=== PATIENT | female | born 1940 | race Caucasian/White ===

== ENCOUNTER → 2016-06-17 | Outpatient (CLI) | payer OTHER ==
[~2016-06-17] MED LIST: ACET-1311 PO; ALLO100T PO; AMLO-110 PO; APIX1TAB PO; CALC-354 PO; CALC500C3 PO; ELQ25 PO; LEVO75TA5 PO; MAGN400T6 PO; METO100T14 PO; METO50TA16 PO; METO50TA17 PEG; METO50TA17 PO; MULT-506 PO; SIMV10TA5 PO
--- NOTE | 2016-06-17 14:37 | MAMMOGRAPHY REPORT ---
BILATERAL DIGITAL SCREENING MAMMOGRAM WITH CAD: 06/17/2016 CLINICAL HISTORY: Routine screening examination. TECHNIQUE: Bilateral CC and MLO views were obtained. Current study was also evaluated with a Comput er Aided Detection (CAD) system. COMPARISON: Comparison is made to exams dated: 03/29/2015 mammogram, 03/28/2014 mammogram, 3 mammogram, and 03/19/2010 mammogram - [facility]. BREAST COMPOSITION: The tissue of both breasts is almost entirely fatty. FINDINGS: There are mild to moderate bilateral vascular calcifications and stable benign coarse juan r cifications within the left breast. No suspicious mass, architectural distortion or cluster of new, suspicious microcalcifications is seen. IMPRESSION: ACR BI-RADS CATEGORY 1: NEGATIVE There is no mammographic evidence of malignancy. A 1 year screening mammogram is recommended. The p atient will receive written notification of the results. Approximately 10% of breast cancers are not detected with mammography. A negative mammographic repor t should not delay biopsy if a clinically suggestive mass is present. Lola Fair M.D. ay/:06/17/2016 13:41:12 Purchaser: Beverley CHEN(R)(M), [facility] letter sent: Normal 1/2 BI-RADS Code: ACR BI-RADS Category 1: Negative
== END | disposition home or self-care (01) ==
LOC: C.MAMM 12:17
PROVIDERS: ATTEND Internal Medicine
DX: Z12.31 Encounter for screening mammogram for malignant neoplasm of breast (principal)

== ENCOUNTER → 2016-06-28 | Outpatient (CLI) | payer OTHER ==
[2016-06-28 12:28] LABS: BASO % 0.4 %; BASO ABS # 0.03 K/uL (0-0.2); COMPLETE YES; EOS % 2.5 %; HEMATOCRIT 39.2 % (37-47); IG% 0.2 %; LYMPH % 21.7 %; LYMPH ABS # 1.84 K/uL (1.2-3.4); MEAN CELL VOLUME 96.1 fL (80-100); MEAN CORPUSCULAR HEMOGLOBIN 33.1 pg (25-34); MEAN CORPUSCULAR HGB CONC 34.4 g/dl (32-36); MEAN PLATELET VOLUME 11.9 fL (7.4-10.4); MONO % 7.1 %; NEUT % 68.1 %; PLATELET COUNT 193 K/uL (130-400); RED BLOOD COUNT 4.08 M/uL (4.2-5.4); WHITE BLOOD COUNT 8.49 K/uL (4.8-10.8)
[2016-06-28 12:37] LABS: ALT/SGPT 27 U/L (12-78); BLOOD UREA NITROGEN 22 mg/dl (7-18); BUN/CREATININE RATIO 20.2 (10-20); CALCIUM 9.6 mg/dl (8.5-10.1); CARBON DIOXIDE 26 mmol/L (21-32); CHLORIDE 105 mmol/L (98-107); CHOLESTEROL 138 mg/dl (0-200); GLUCOSE 220 mg/dl (70-99); MAGNESIUM 1.8 mg/dl (1.8-2.4); POTASSIUM 3.5 mmol/L (3.5-5.1); SODIUM 142 mmol/L (136-145)
[2016-06-28 12:46] LABS: ALB/GLOB RATIO 0.8 (0.9-2); ALKALINE PHOSPHATASE 70 U/L (45-117); AST/SGOT 19 U/L (15-37); CHOLESTEROL/HDL RATIO 3.1; HDL CHOLESTEROL 44 mg/dl; LDL CHOLESTEROL CALCULATED 65 mg/dl; TRIGLYCERIDES 143 mg/dl (0-150); VERY LOW DENSITY LIPOPROT CALC 29 mg/dl
[2016-06-28 13:14] LABS: ESTIMATED AVERAGE GLUCOSE 137 mg/dl; HA1C FLAG Normal (Normal)
[2016-06-28 13:17] LABS: RATIO 14.3 mcg/mg (0-30.0)
== END | disposition home or self-care (01) ==
LOC: C.LABBFT 09:17
PROVIDERS: ATTEND Internal Medicine
DX: E87.6 Hypokalemia (principal); E83.42 Hypomagnesemia; E03.9 Hypothyroidism, unspecified; E11.29 Type 2 diabetes mellitus with other diabetic kidney complication; C18.9 Malignant neoplasm of colon, unspecified

== ENCOUNTER 2016-07-16 09:47 | Inpatient (IN) | payer OTHER ==
[~2016-07-16] VITALS: Ht 160 cm; Wt 61.5 kg
[~2016-07-16 09:47] MED LIST changes: -AMLO-110 PO; -APIX1TAB PO; -CALC500C3 PO; -METO50TA16 PO; -METO50TA17 PEG; -METO50TA17 PO
[2016-07-16] MEDS ORDERED: METOPROLOL TARTRATE 1 MG/ML VIAL IV SCH (10:03)
[2016-07-16] MEDS ORDERED: METOPROLOL TARTRATE 1 MG/ML VIAL IV STA (10:06)
--- NOTE | 2016-07-16 10:08 | EMERGENCY ROOM VISIT NOTE ---
History Report prepared by Morena: Bianca Phillips Under the Supervision of: Dr. Zoë Menjivar M.D. First contact with patient: 09:53 Chief Complaint: TACHYCARDIA Stated Complaint: HEART IS BEATING FAST, CHEST PAIN History of Present Illness The patient is a 76 year old female who presents to the Emergency Room with complaints of intermittent heart racing that began about an hour and 20 minutes ago. She notes that she was resting and was not exerting herself at that time. She also complains of intermittent chest pain. She has a history of a-fib and a heart murmur. She is on Eliquis and Metoprolol. She typically goes back and forth between sinus rhythm and a-fib but cannot tell when she is in a-fib. She took her morning medications [employer]. Source of History: patient Onset: 1 hour and 20 minutes ago Position: other (cardiac) Quality: other (heart racing) Timing: intermittent Associated Symptoms: + chest pain Review of Systems See HPI for pertinent positives & negatives. A total of 10 systems reviewed and were otherwise negative. Past Medical & Surgical Medical Problems: (1) Afib (2) Ankle fracture (3) Colon cancer (4) Hypertension Family History No pertinent family history stated. Social History Smoking Status: Never Smoker Marital Status: Housing Status: lives with family Occupation Status: retired Current/Historical Medications Scheduled Allopurinol (Zyloprim), 100 MG PO QPM Amlodipine (Norvasc), 5 MG PO DAILY Apixaban (Eliquis), 1 TAB PO BID Calcium Carbonate-Cholecalcife (Caltrate 600+D), 1 TAB PO BID Levothyroxine Sodium (Levothyroxine Sodium), 75 MCG PO QAM Magnesium Oxide (Mag-Ox), 400 MG PO QAM Metoprolol Tartrate (Metoprolol Tartrate), 50 MG PO BID Multivitamin (Multivitamin), 1 TAB PO QAM Simvastatin (Zocor), 10 MG PO HS Scheduled PRN Acetaminophen (Tylenol), 650 MG PO Q6 PRN for Pain Allergies Coded Allergies: NO KNOWN DRUG ALLERGIES (Verified Allergy, Unknown, ., 07/16/16) Physical Exam Vital Signs Date Time Temp Pulse Resp B/P Pulse Ox O2 Delivery O2 Flow Rate FiO2 07/16/16 13:25 36.9 47 18 108/61 94 Room Air 07/16/16 13:00 57 18 113/65 94 Room Air 07/16/16 12:56 60 07/16/16 12:00 70 20 149/64 96 Room Air 07/16/16 11:00 111 18 127/68 96 Room Air 07/16/16 10:52 134 136/66 07/16/16 10:08 119 20 125/86 96 Room Air 07/16/16 10:00 142 07/16/16 09:55 96 Room Air 07/16/16 09:48 36.9 134 24 118/79 97 Room Air Physical Exam Vital signs reviewed. General: Elderly, well-appearing 76 year old female, in no significant distress. HEENT: No scleral icterus, PERRLA, neck supple. Atraumatic. Cardiovascular: Tachycardic rate and irregular rhythm, no extra sounds. Pulmonary: Clear to auscultation bilaterally, normal work of breathing. Abdomen: Soft, nontender, nondistended, positive bowel sounds. Musculoskeletal: Atraumatic, no peripheral edema. Neurologic: Patient awake alert and oriented x 3, full strength in all 4 extremities. Cranial nerves 2 through 12 grossly intact. Skin: Warm, dry, no rash Medical Decision & Procedures ER Provider Diagnostic Interpretation: Radiology results as stated below per my review and radiologist interpretation: SINGLE VIEW CHEST CLINICAL HISTORY: Atrial fibrillation. Atypical chest pain. FINDINGS: An AP, portable, upright chest radiograph is compared to study dated 01/18/2016 and correlated with chest CT dated 01/09/2016. The examination is degraded by portable technique and patient rotation. The heart is enlarged and there is atherosclerotic calcification of the thoracic aorta. The pulmonary vasculature is noncongested. Chronic interstitial thickening is similar previous. There is minimal bibasilar atelectasis. The lungs and pleural spaces are otherwise clear. No pneumothorax is seen. The skeletal structures are osteopenic. Arthritic change is noted in the shoulders. IMPRESSION: Cardiomegaly with no acute cardiopulmonary abnormality. Electronically signed by: Alex Arnold M.D. 07/16/2016 10:26 AM Dictated Date/Time: 07/16/2016 10:25 AM Laboratory Results Test 07/16/16 10:03 07/16/16 11:10 07/16/16 11:52 07/16/16 12:04 Immature Granulocyte % (Auto) 0.1 % White Blood Count 7.07 K/uL (4.8-10.8) Red Blood Count 4.36 M/uL (4.2-5.4) Hemoglobin 13.9 g/dL (12.0-16.0) Hematocrit 40.2 % (37-47) Mean Corpuscular Volume 92.2 fL (80-100) Mean Corpuscular Hemoglobin 31.9 pg (25-34) Mean Corpuscular Hemoglobin Concent 34.6 g/dl (32-36) Platelet Count 183 K/uL (130-400) Mean Platelet Volume 11.3 fL (7.4-10.4) Neutrophils (%) (Auto) 67.6 % Lymphocytes (%) (Auto) 21.4 % Monocytes (%) (Auto) 8.1 % Eosinophils (%) (Auto) 2.4 % Basophils (%) (Auto) 0.4 % Neutrophils # (Auto) 4.78 K/uL (1.4-6.5) Lymphocytes # (Auto) 1.51 K/uL (1.2-3.4) Monocytes # (Auto) 0.57 K/uL (0.11-0.59) Eosinophils # (Auto) 0.17 K/uL (0-0.5) Basophils # (Auto) 0.03 K/uL (0-0.2) Immature Granulocyte # (Auto) 0.01 K/uL (0.00-0.02) Magnesium Level 1.9 mg/dl (1.8-2.4) Total Bilirubin 0.5 mg/dl (0.2-1) Direct Bilirubin 0.1 mg/dl (0-0.2) Aspartate Amino Transf (AST/SGOT) 21 U/L (15-37) Alanine Aminotransferase (ALT/SGPT) 36 U/L (12-78) Alkaline Phosphatase 77 U/L (45-117) Total Creatine Kinase 29 U/L (26-192) Creatine Kinase MB 0.8 ng/ml (0.5-3.6) Creatine Kinase MB Ratio 2.8 (0-3.0) Total Protein 8.0 gm/dl (6.4-8.2) Albumin 3.8 gm/dl (3.4-5.0) Prothrombin Time 11.4 SECONDS (9.0-12.0) Prothromb Time International Ratio 1.1 (0.9-1.1) Activated Partial Thromboplast Time 29.1 SECONDS (21.0-31.0) Partial Thromboplastin Ratio 1.1 Urine Color YELLOW Urine Appearance CLEAR (CLEAR) Urine pH 8.0 (4.5-7.5) Urine Specific [place] 1.005 (1.000-1.030) Urine Protein NEG (NEG) Urine Glucose (UA) 2+ (NEG) Urine Ketones NEG (NEG) Urine Occult Blood NEG (NEG) Urine Nitrite NEG (NEG) Urine Bilirubin NEG (NEG) Urine Urobilinogen NEG (NEG) Urine Leukocyte Esterase TRACE (NEG) Urine WBC (Auto) 1-5 /hpf (0-5) Urine RBC (Auto) 0-4 /hpf (0-4) Urine Hyaline Casts (Auto) 0 /lpf (0-5) Urine Epithelial Cells (Auto) 10-20 /lpf (0-5) Urine Bacteria (Auto) NEG (NEG) Bedside Troponin I 0.000 ng/ml (0-0.045) Laboratory results per my review. Medications Administered Medications (Trade) Dose Ordered Sig/Marcel Route Start Time Stop Time Status Last Admin Dose Admin Metoprolol Tartrate (Lopressor Iv) 5 mg NOW STAT IV 07/16/16 10:06 07/16/16 10:07 DC 07/16/16 10:52 2.5 MG ECG Indication: tachycardia Rate (beats per minute): 144 Rhythm: sinus tachycardia Findings: other (LVH, repolarization abnormality in the lateral leads) ED Course 1004: The patient was evaluated in room B3. A complete history and physical examination was performed. 1006: Ordered Lopressor 5 mg IV. 1144: I discussed the case with Dr. Treadwell - [facility] Hospitalist. The patient will be evaluated for further management. 1148: Upon reevaluation, the patient is resting comfortably. I discussed laboratory and radiographic results with her. She verbalized agreement of the treatment plan. Medical Decision Differential diagnosis: Acute coronary syndrome, pulmonary embolus, aortic dissection, musculoskeletal pain, pneumonia, pleural effusion, pneumothorax This pt was evaluated and appeared to be in no distress. She is noted to be markedly tachycardic, but trends down to 110 without intervention. Pt quickly rebounds to 170s. Pt has maintained her BP. Pt was given IV metoprolol 5 mg but hesitantly as she briefly became bradycardic to the 30s for less than a min x 2 occasions. Pt lab work reveals a hyperglycemia and mild renal insufficiency. Pt was made aware of the plan for admission and cardiology evaluation. Pt was d/w the hospitalist service for further management. Consults Time Called: 1140 Consulting Physician: Dr. Mile Manriquez [facility] Hospitalist Returned Call: [phone] I discussed the case with her. The patient will be evaluated for further management. Impression Primary Impression: Tachy-herve syndrome Scribe Attestation The scribe's documentation has been prepared under my direction and personally reviewed by me in its entirety. I confirm that the note above accurately reflects all work, treatment, procedures, and medical decision making performed by me. Departure Information Dispostion Being Evaluated By Hospitalist Prescriptions Metoprolol Tartrate (Metoprolol Tartrate) 50 Mg Tab 50 MG PO BID for 30 Days Prov: Génesis Jones MD 07/17/16 Referrals Juan Eubanks M.D. (PCP) Patient Instructions My [facility]
--- NOTE | 2016-07-16 10:27 | DIAGNOSTIC IMAGING REPORT ---
SINGLE VIEW CHEST CLINICAL HISTORY: Atrial fibrillation. Atypical chest pain. FINDINGS: An AP, portable, upright chest radiograph is compared to study dated 01/18/2016 and correlated with chest CT dated 01/09/2016. The examination is degraded by portable technique and patient rotation. The heart is enlarged and there is atherosclerotic calcification of the thoracic aorta. The pulmonary vasculature is noncongested. Chronic interstitial thickening is similar previous. There is minimal bibasilar atelectasis. The lungs and pleural spaces are otherwise clear. No pneumothorax is seen. The skeletal structures are osteopenic. Arthritic change is noted in the shoulders. IMPRESSION: Cardiomegaly with no acute cardiopulmonary abnormality. Electronically signed by: Alex Arnold M.D. 07/16/2016 10:26 AM Dictated Date/Time: 07/16/2016 10:25 AM
[2016-07-16 10:36] LABS: BASO % 0.4 %; BASO ABS # 0.03 K/uL (0-0.2); COMPLETE YES; EOS % 2.4 %; HEMATOCRIT 40.2 % (37-47); IG% 0.1 %; LYMPH % 21.4 %; LYMPH ABS # 1.51 K/uL (1.2-3.4); MEAN CELL VOLUME 92.2 fL (80-100); MEAN CORPUSCULAR HEMOGLOBIN 31.9 pg (25-34); MEAN CORPUSCULAR HGB CONC 34.6 g/dl (32-36); MEAN PLATELET VOLUME 11.3 fL (7.4-10.4); MONO % 8.1 %; NEUT % 67.6 %; PLATELET COUNT 183 K/uL (130-400); RED BLOOD COUNT 4.36 M/uL (4.2-5.4); WHITE BLOOD COUNT 7.07 K/uL (4.8-10.8)
[2016-07-16] MEDS ORDERED: AMLO-110 PO (10:58)
[2016-07-16 11:03] LABS: BUN/CREATININE RATIO 15.9 (10-20); CALCIUM 9.1 mg/dl (8.5-10.1); CREATININE 1.3 mg/dl (0.60-1.20); MAGNESIUM 1.9 mg/dl (1.8-2.4); POTASSIUM 3.5 mmol/L (3.5-5.1)
[2016-07-16 11:08] LABS: CKMB/CK RATIO 2.8 (0-3.0)
[2016-07-16 11:36] LABS: INR 1.1 (0.9-1.1); PARTIAL THROMBOPLASTIN RATIO 1.1; PROTHROMBIN TIME (PATIENT) 11.4 SECONDS (9.0-12.0)
[2016-07-16 12:17] LABS: URINE APPEARANCE CLEAR (CLEAR); URINE BILIRUBIN NEG (NEG); URINE COLOR YELLOW; URINE NITRITE NEG (NEG); URINE SPECIFIC GRAVITY 1.005 (1.000-1.030); UROBILINOGEN NEG (NEG); ZZUR CULT IF INDIC CLEAN CATCH NO
[2016-07-16 12:20] LABS: MANUAL MICROSCOPIC REQUIRED? NO; REVIEW REQ? NO
[2016-07-16 13:25] VITALS: BP 108/61; PULSE 47; TEMP 36.9; O2SAT 94; Ht 160 cm; Wt 61.5 kg
[2016-07-16] MEDS ORDERED: MAGNESIUM HYDROXIDE SUSP 30 ML UDC PO PRN (13:45)
[2016-07-16] MEDS ORDERED: POLYETHYLENE (MIRALAX) 17 GM PACK PO PRN (13:45)
[2016-07-16] MEDS ORDERED: ALUMINUM/MAGNESIUM/SIMETH (MAALOX MAX) 30 ML UDC PO PRN (13:45)
[2016-07-16] MEDS ORDERED: ACETAMINOPHEN 325 MG TAB PO PRN ×2 (13:45→15:00)
[2016-07-16] MEDS ORDERED: ONDANSETRON INJ 2 MG/ML 2 ML VIAL IV PRN (13:45)
[2016-07-16 14:34] VITALS: O2SAT 94
[2016-07-16 16:30] VITALS: BP 156/70; PULSE 67; TEMP 37; O2SAT 96
--- NOTE | 2016-07-16 17:24 | History and Physical ---
History & Physical Date & Time of Service: Jul 16, 2016 at 13:24 Chief Complaint: Heart Is Beating Fast, Chest Pain Primary Care Physician: Juan Eubanks M.D. History of Present Illness PT is a 76 y.o.F with PMHx of Hypertension who presented to [facility] with palpitations. Patient awoke this morning with palpitations. Symptoms were not associated with chest pain, syncope or SOB. Symptoms lasted until right before arrival to ED. Patient denies any chest pain , blurry vision or dizziness with symptoms similar symptoms a couple week as ago. Patient follows with [facility] cardiology. She has been diagnosed with atrial fibrillation for 1 month and is on metoprolol and eliquis. On presentation to ED patient found to be in afibb with RVR with a rate of 144. Patient given Lopressor 5 mg IV by ED and patient HR now in the low 50's to 60's in sinus rhythm. Past Medical/Surgical History Medical Problems: (1) Hypertension Status: Chronic Social History Smoking Status: Never Smoker Smokeless Tobacco Use: No Alcohol Use: none Drug Use: none Marital Status: Occupational Status: retired Multi-Drug Resistant Organisms History of MDRO: No Allergies Coded Allergies: NO KNOWN DRUG ALLERGIES (Verified Allergy, Unknown, ., 07/16/16) Home Medications Scheduled Allopurinol (Zyloprim), 100 MG PO QPM Amlodipine (Norvasc), 5 MG PO DAILY Apixaban (Eliquis), 1 TAB PO BID Calcium Carbonate-Cholecalcife (Caltrate 600+D), 1 TAB PO BID Levothyroxine Sodium (Levothyroxine Sodium), 75 MCG PO QAM Magnesium Oxide (Mag-Ox), 400 MG PO QAM Metoprolol Tartrate (Lopressor) (Lopressor), 100 MG PO QAM Multivitamin (Multivitamin), 1 TAB PO QAM Simvastatin (Zocor), 10 MG PO HS Scheduled PRN Acetaminophen (Tylenol), 650 MG PO Q6 PRN for Pain Review of Systems Constitutional: No chills, No fever Eyes: No worsening of vision ENT: No unusual epistaxis Respiratory: No cough, No dyspnea on exertion, No shortness of breath Cardiovascular: No chest pain, No edema, No orthopnea Abdomen: No nausea, No pain Musculoskeletal: No joint pain, No swelling Genitourinary - Female: No dysuria Neurologic: No memory loss, No paralysis Psychiatric: No depression symptoms Endocrine: No fatigue Hematologic / Lymphatic: No abnormal bleeding/bruising Integumentary: No itch, No rash Allergic / Immunologic: No environmental allergies Physical Exam Vital Signs Date Time Temp Pulse Resp B/P Pulse Ox O2 Delivery O2 Flow Rate FiO2 07/16/16 13:00 57 18 113/65 94 Room Air 07/16/16 12:56 60 07/16/16 12:00 70 20 149/64 96 Room Air 07/16/16 11:00 111 18 127/68 96 Room Air 07/16/16 10:52 134 136/66 07/16/16 10:08 119 20 125/86 96 Room Air 07/16/16 10:00 142 07/16/16 09:55 96 Room Air 07/16/16 09:48 36.9 134 24 118/79 97 Room Air General Appearance: WD/WN, no apparent distress Head: normocephalic Eyes: normal inspection, PERRL ENT: normal ENT inspection Neck: supple Respiratory/Chest: chest non-tender, lungs clear, normal breath sounds, no respiratory distress, no accessory muscle use Cardiovascular: regular rate, rhythm, no edema, no gallop, no JVD Abdomen/GI: normal bowel sounds, non tender, soft Back: normal inspection, no CVA tenderness Extremities/Musculoskelatal: normal inspection, no calf tenderness Skin: normal color Lymphatic: no adenopathy Diagnostics Laboratory Results Results Past 24 Hours Test 07/16/16 10:03 07/16/16 11:10 07/16/16 11:52 07/16/16 12:04 Range/Units White Blood Count 7.07 4.8-10.8 K/uL Red Blood Count 4.36 4.2-5.4 M/uL Hemoglobin 13.9 12.0-16.0 g/dL Hematocrit 40.2 37-47 % Mean Corpuscular Volume 92.2 80-100 fL Mean Corpuscular Hemoglobin 31.9 25-34 pg Mean Corpuscular Hemoglobin Concent 34.6 32-36 g/dl Platelet Count 183 130-400 K/uL Mean Platelet Volume 11.3 7.4-10.4 fL Neutrophils (%) (Auto) 67.6 % Lymphocytes (%) (Auto) 21.4 % Monocytes (%) (Auto) 8.1 % Eosinophils (%) (Auto) 2.4 % Basophils (%) (Auto) 0.4 % Neutrophils # (Auto) 4.78 1.4-6.5 K/uL Lymphocytes # (Auto) 1.51 1.2-3.4 K/uL Monocytes # (Auto) 0.57 0.11-0.59 K/uL Eosinophils # (Auto) 0.17 0-0.5 K/uL Basophils # (Auto) 0.03 0-0.2 K/uL RDW Standard Deviation 41.1 36.4-46.3 fL RDW Coefficient of Variation 12.1 11.5-14.5 % Immature Granulocyte % (Auto) 0.1 % Immature Granulocyte # (Auto) 0.01 0.00-0.02 K/uL Sodium Level 140 136-145 mmol/L Potassium Level 3.5 3.5-5.1 mmol/L Chloride Level 103 98-107 mmol/L Carbon Dioxide Level 28 21-32 mmol/L Anion Gap 9.0 3-11 mmol/L Blood Urea Nitrogen 21 7-18 mg/dl Creatinine 1.30 0.60-1.20 mg/dl Est Creatinine Clear Calc Drug Dose 29.3 ml/min Estimated GFR () 45.8 Estimated GFR (Non- 39.5 BUN/Creatinine Ratio 15.9 10-20 Random Glucose 261 70-99 mg/dl Calcium Level 9.1 8.5-10.1 mg/dl Magnesium Level 1.9 1.8-2.4 mg/dl Total Bilirubin 0.5 0.2-1 mg/dl Direct Bilirubin 0.1 0-0.2 mg/dl Aspartate Amino Transf (AST/SGOT) 21 15-37 U/L Alanine Aminotransferase (ALT/SGPT) 36 12-78 U/L Alkaline Phosphatase 77 45-117 U/L Total Creatine Kinase 29 26-192 U/L Creatine Kinase MB 0.8 0.5-3.6 ng/ml Creatine Kinase MB Ratio 2.8 0-3.0 Total Protein 8.0 6.4-8.2 gm/dl Albumin 3.8 3.4-5.0 gm/dl Prothrombin Time 11.4 9.0-12.0 SECONDS Prothromb Time International Ratio 1.1 0.9-1.1 Activated Partial Thromboplast Time 29.1 21.0-31.0 SECONDS Partial Thromboplastin Ratio 1.1 Urine Color YELLOW Urine Appearance CLEAR CLEAR Urine pH 8.0 4.5-7.5 Urine Specific [place] 1.005 1.000-1.030 Urine Protein NEG NEG Urine Glucose (UA) 2+ NEG Urine Ketones NEG NEG Urine Occult Blood NEG NEG Urine Nitrite NEG NEG Urine Bilirubin NEG NEG Urine Urobilinogen NEG NEG Urine Leukocyte Esterase TRACE NEG Urine WBC (Auto) 1-5 0-5 /hpf Urine RBC (Auto) 0-4 0-4 /hpf Urine Hyaline Casts (Auto) 0 0-5 /lpf Urine Epithelial Cells (Auto) 10-20 0-5 /lpf Urine Bacteria (Auto) NEG NEG Bedside Troponin I 0.000 0-0.045 ng/ml Diagnostic Radiology IMPRESSION: Cardiomegaly with no acute cardiopulmonary abnormality. EKG atrial fibrillation with RVR in 140's Left ventricular hypertrophy with repolarization abnormality Impression Assessment and Plan Patient is a 76 y.o.F with a PMHx of HTN who presented with atrial fibrillation with RVR. She recieved lopressor 5 mg in ED and HR dropped to 50's. PAtient being admitted for concern of tachy herve syndrome. Atrial fibrillation with RVR - admit to med telemetry-r/o for ACS - currently in NSR in 40's - hold Metoprolol due to bradycardia - continue eliquis - appreciate general cardiology input as patient known to there service - check TSH ? Tachy- Herve syndrome - hold metoprolol - appreciate cardiology input HTN - continue norvasc PPx- eliquis FULL CODE
[2016-07-16 19:27] VITALS: BP 119/59; PULSE 52; TEMP 36.9; O2SAT 95
[2016-07-16] MEDS ORDERED: ALLOPURINOL 100 MG TAB PO SCH (21:00)
[2016-07-16] MEDS ORDERED: SIMVASTATIN 10 MG TAB PO SCH (21:00)
[2016-07-16] MEDS: APIXABAN 2.5 MG TAB PO SCH (21:22)
[2016-07-16 23:17] VITALS: BP 130/72; PULSE 56; TEMP 36.7; O2SAT 96
--- NOTE | 2016-07-17 02:49 | CARDIOLOGY CONSULTATION ---
DATE OF CONSULTATION: 07/16/2016 CHIEF COMPLAINT: Tachycardia. HISTORY OF PRESENT ILLNESS: Mrs. Arielle Madsen is a 76-year-old woman, with a known history of hypertrophic cardiomyopathy felt to be related to long-standing hypertension. The patient was noted in an outpatient evaluation to have evidence of an irregular heartbeat and possibly tachycardia for which she was referred for outpatient monitoring. The patient states that over the past week she has had 2 episodes of tachycardia, one of which was quite brief in nature and lasted less than a minute. This occurred at rest without provocation. It did not result in any additional symptoms, it resolved spontaneously. The patient had another episode earlier this morning which she feels may have lasted for an hour and a half due to the notable tachycardia. She proceeded to the Emergency Room at [facility] where she was found to be in a tachycardia. She was administered metoprolol intravenously and appeared to have had conversion to normal sinus rhythm associated with resultant bradycardia. During this entire time, the patient had no additional symptoms. She does not describe symptoms of dizziness, lightheadedness, dyspnea or chest discomfort. The one exception being upon return of a normal heart rhythm she had a very brief sensation of chest pressure in the precordium. The patient does not describe symptoms at other times consistent with dizziness, palpitations, tachycardia or lightheadedness and she has not reported any symptoms of syncope. She is an active individual and is able to perform usual activities around the house including ascending stairs without notable symptoms of dyspnea or chest discomfort. She is otherwise fairly sedentary. At the time of this interview, the patient claims to be feeling well. She has no symptoms and no sense of irregular heartbeat or palpitations. PAST MEDICAL HISTORY: Significant for: 1. Colon cancer status post resection, diverting ileostomy and more recently ileostomy takedown. 2. Hypertension. 3. Hypertrophic cardiomyopathy with both resting and dynamic outflow gradient. 4. Hypercholesterolemia. 5. Hypothyroidism, currently on supplementation. 6. Mitral regurgitation, reportedly mild. 7. Aortic insufficiency, mild. 8. Diastolic heart failure stage 2. 9. History of gout. 10. Diabetes mellitus. OUTPATIENT MEDICATIONS: Metoprolol tartrate 100 mg daily, amlodipine 5 mg daily, allopurinol 100 mg daily, apixaban 5 mg twice daily, calcium carbonate supplementation, Synthroid 75 mcg daily, magnesium oxide supplementation, multivitamin and simvastatin 10 mg daily. ALLERGIES: No known medical allergies. SOCIAL HISTORY: The patient is a lifelong nonsmoker. She is currently and lives locally. She denies significant alcohol use. FAMILY HISTORY: Noncontributory, but does appear to have a brother who has a pacemaker. No history of premature coronary disease. REVIEW OF SYSTEMS: A complete 10-system review of systems was performed. The pertinent positives are noted in the history of present illness. The patient does not report any significant orthopnea or paroxysmal nocturnal dyspnea. She has no lower extremity edema. She denied the development of any recent constitutional symptoms, breathing difficulty, upper respiratory symptoms, fevers or chills. She has not developed any rashes recently. PHYSICAL EXAMINATION: GENERAL: The patient does not appear in acute distress. She is a pleasant woman, who is alert and oriented. Mood and affect appeared normal. VITAL SIGNS: Include a blood pressure of 149/64, with a pulse of 70, respiratory rate was 20, pulse oximetry was 96%. HEENT: Sclerae are anicteric. Pupils are equal, reactive to light and accommodation. Extraocular movements were intact. Palpation of the submandibular region not really significant for lymphadenopathy. NECK: The carotids are palpable bilaterally. I do not appreciate any bruits on auscultation. There is no evidence of jugular venous distention. The thyroid is not enlarged. LUNGS: Examination was normal. She had normal respiratory effort without use of accessory muscles. No rales, wheezes or rhonchi on exam. HEART: Revealed her to be in a regular rhythm with occasional brief pauses. The patient was also noted to have systolic ejection murmur which was dynamic in nature subsequent to Valsalva maneuver. S1 and S2 are otherwise normal. The PMI was slightly displaced laterally. ABDOMEN: Soft and nontender. EXTREMITIES: Evaluation of both wrists reveal the radial pulses are equal in intensity. There is no evidence of cyanosis or clubbing. Evaluation of lower extremities; not really significant peripheral edema nor appreciating rashes on examination today. LABORATORY STUDIES: Performed today include a white cell count of 7.0, hemoglobin of 13.9 and platelet count of 183. Sodium is 140, potassium is 3.5, BUN is 21, creatinine is 1.3. Cardiac troponin was normal. The patient had a 12-lead EKG performed in the Emergency Room which was available for review; this revealed an atrial flutter versus atrial tachycardia with a ventricular rate of 144 and 2:1 heart block. The patient had ST segment changes concerning for ischemia, also consistent with her known hypertrophy. Old EKG was not available for review. An echocardiogram had been obtained on 01/11/2016. This revealed the patient to have severe left ventricular hypertrophy with a small LV cavity, grade 2 diastolic dysfunction, biatrial enlargement, mild mitral regurgitation and mild aortic insufficiency. A Holter monitor was performed as an outpatient; this has been completed, but the report or strips are not currently available for review. ASSESSMENT AND PLAN: 1. Atrial flutter. The patient has a history of atrial fibrillation. However, the most current EKG suggests a regular atrial arrhythmia with 2:1 block, more suggestive of an atypical flutter versus atrial tachycardia. It is unclear whether the patient converted with administration of metoprolol or this occurred spontaneously. She reportedly had a brief pause or period of low heart rate that is not well-documented in her record. The patient was minimally symptomatic with this tachycardia. It seems that she has had some irregular heartbeats and possibly an element of tachycardia on an outpatient basis and this prompted ordering of her ambulatory monitor. We will need to review those records as well to determine the best plan going forward. Review of her current telemetry also reveals 2-second pauses periodically. Occasionally, these appear to be associated with blocked premature atrial contractions. The overall clinical picture is consistent with sick sinus syndrome. Whether she has an element of bradycardia associated with this syndrome is not entirely clear. The patient's regimen consists of a single daily dose of metoprolol tartrate. At this point, it would seem reasonable to hold her beta sera simply to monitor her conduction overnight and pauses. With her history of hypertrophic cardiomyopathy she should certainly benefit from negative inotropes and beta blockade. I think it is likely reasonable to restart her beta sera in the morning with b.i.d. dosing perhaps 50 mg twice a day. We can simply monitor her heart rate, pulse and symptoms on an outpatient basis to determine that this will be adequate in controlling her arrhythmias. In the past, it was suggested that her metoprolol was discontinued due to evidence of hypotension. Here in the hospital she is more hypertensive than hypotensive and I do not think this will be a clinical problem. Digoxin is relatively contraindicated given her hypertrophy. I think the addition of a calcium channel sera such as diltiazem or verapamil would likely result in significant bradycardia. I think there is a distinct possibility that the patient will require pacemaker for bradycardia support in the future; however, I do not feel we have enough evidence at this time to recommend a device. 2. Atrial fibrillation. The patient has a history of atrial fibrillation. There is no EKG currently which demonstrates this arrhythmia. However, she has been placed on appropriate anticoagulation. If the patient truly has a history of atrial fibrillation, an atrial flutter and fails medical therapy catheter based options do exist in these situations. The most beneficial procedure would be a pulmonary vein isolation associated with typical cavo-tricuspid isthmus linear ablation given her notable hypertrophy; however, the long-term benefit is questionable. 3. Valvular heart disease. The patient is known to have mild aortic insufficiency and mitral regurgitation which may be related to systolic anterior motion of the anterior leaflet given her notable HCM. 4. Hypertrophic cardiomyopathy, believed to be hypertensive and not phenotypic expression of genetic abnormality given her age and MRI results. Placement on a beta sera given her gradient seems most reasonable; this is especially true in the setting of her atrial arrhythmia. Does not appear to have significant symptoms associated with her outflow gradient. At this point, no definitive treatment for the hypertrophy is likely necessary. FINAL RECOMMENDATIONS: At this point, it seems reasonable to monitor her rhythm overnight. In the absence of significant bradycardia or worsening pauses it will be reasonable reinstitute beta sera at b.i.d. dosing, perhaps 50 mg twice daily. At this point, more aggressive strategies such as insertion of a pacemaker can be reserved for more sustained or frequent episodes of her tachycardia or symptoms associated with significant bradycardia or palpitations. The option of catheter based therapy also exists, but once again is likely to be efficacious in the nursing home and simply too aggressive given the early stage of her arrhythmia and its brief duration. We will also need to review her Holter monitor when it is available tomorrow. DYLON
[2016-07-17 03:58] VITALS: BP 122/65; PULSE 53; TEMP 36.6; O2SAT 97
[2016-07-17] MEDS ORDERED: LEVOTHYROXINE 75 MCG TAB PO SCH (06:00)
[2016-07-17 06:21] LABS: HEMATOCRIT 41.4 % (37-47); MEAN CELL VOLUME 94.7 fL (80-100); MEAN CORPUSCULAR HEMOGLOBIN 32.5 pg (25-34); MEAN CORPUSCULAR HGB CONC 34.3 g/dl (32-36); MEAN PLATELET VOLUME 11.1 fL (7.4-10.4); PLATELET COUNT 186 K/uL (130-400); RED BLOOD COUNT 4.37 M/uL (4.2-5.4); WHITE BLOOD COUNT 8.26 K/uL (4.8-10.8)
[2016-07-17 06:55] LABS: BUN/CREATININE RATIO 20.5 (10-20); CALCIUM 9.3 mg/dl (8.5-10.1); CREATININE 1.1 mg/dl (0.60-1.20); POTASSIUM 3.6 mmol/L (3.5-5.1)
[2016-07-17 07:05] LABS: THYROID STIMULATING HORMONE 1.27 uIu/ml (0.300-4.500)
[2016-07-17 07:45] VITALS: BP 134/67; PULSE 57; TEMP 36.7; O2SAT 97
[2016-07-17] MEDS ORDERED: AMLODIPINE BESYLATE 5 MG TAB PO SCH (09:00)
[2016-07-17] MEDS ORDERED: MULTIVITAMIN TAB PO SCH (09:00)
[2016-07-17] MEDS ORDERED: MAGNESIUM OXIDE 400 MG TAB PO SCH (09:00)
[2016-07-17] MEDS: APIXABAN 2.5 MG TAB PO SCH (09:00)
[2016-07-17 11:26] VITALS: BP 147/81; PULSE 70; TEMP 36.9; O2SAT 95
[2016-07-17 11:49] VITALS: BP 147/81; PULSE 70; TEMP 36.9; O2SAT 95
[2016-07-17] MEDS ORDERED: METO50TA17 PEG (11:49)
[2016-07-17] MEDS ORDERED: METO50TA17 PO (11:50)
--- NOTE | 2016-07-17 11:51 | Discharge Instructions ---
Discharge Instructions Admission Admission Date: Jul 16, 2016 at 13:38 Admission Diagnosis: AFIB. Discharge Care Plan - Problem: Medical Problems: Atrial Fibrillation with RVR Care Plan - Goal(s): Decrease discomfort, Improve function Care Plan - Instructions: Activity Recommendations: no limitations Recommended Home Diet: AHA Phase I (2gmNa/LoCho) Provider Instructions: Please follow up with your community center director in 2-4 weeks VTE Core Measure Inpt VTE Proph given/why not?: Other Anticoagulation Laboratory Results Test Results: Hemoglobin A1c Test 06/28/16 09:20 Range/Units Estimated Average Glucose 137 mg/dl Hemoglobin A1c 6.4 H 4.5-5.6 % Lipid Panel Test 06/28/16 09:20 Range/Units Triglycerides Level 143 0-150 mg/dl Cholesterol Level 138 0-200 mg/dl HDL Cholesterol 44 mg/dl Cholesterol/HDL Ratio 3.1 LDL Cholesterol, Calculated 65 mg/dl Varinder Ma Recommendations: Call your doctor if: * Temperature above 101 degrees * Pain not relieved by pain medicine ordered * There is increased drainage or redness from any incision * You have any unanswered questions or concerns. Your Doctors Instructions noted above were prepared by provider Génesis Jones.
--- NOTE | 2016-07-17 17:54 | Discharge Summary ---
Discharge Summary Date of Service Jul 17, 2016. Discharge Summary Admission Date: Jul 16, 2016 at 13:38 Discharge Date: Jul 17, 2016 Discharge Disposition: Home Principal Diagnosis: Atrial Fibrillation with RVR Consultations: Cardiology Medication Reconciliation New Medications: Metoprolol Tartrate (Metoprolol Tartrate) 50 Mg Tab 50 MG PO BID for 30 Days Continued Medications: Acetaminophen (Tylenol) 325 Mg Tab 650 MG PO Q6 PRN for Pain, TAB Allopurinol (Zyloprim) 100 Mg Tab 100 MG PO QPM, TAB with supper Amlodipine (Norvasc) 5 Mg Tab 5 MG PO DAILY, TAB Apixaban (Eliquis) 2.5 Mg Tab 1 TAB PO BID PATIENT TO HOLD SUN AND MON PER DR. BARNETT. Calcium Carbonate-Cholecalcife (Caltrate 600+D) 1 Tab Tab 1 TAB PO BID Levothyroxine Sodium (Levothyroxine Sodium) 75 Mcg Tab 75 MCG PO QAM for 90 Days, #90 TAB 3 Refills Magnesium Oxide (Mag-Ox) 400 Mg Tab 400 MG PO QAM, TAB Multivitamin (Multivitamin) Tab 1 TAB PO QAM, TAB Simvastatin (Zocor) 10 Mg Tab 10 MG PO HS, TAB Discontinued Medications: Metoprolol Tartrate (Lopressor) (Lopressor) 100 Mg Tab 100 MG PO QAM, TAB Discharge Exam Review of Systems: Constitutional: No chills Eyes: No worsening of vision Respiratory: No cough Cardiovascular: No chest pain Abdomen: No nausea Genitourinary - Female: No dysuria Genitourinary - Male: No dysuria, No hematuria Neurologic: No memory loss Psychiatric: No depression symptoms Integumentary: No rash Physical Exam: General Appearance: WD/WN, no apparent distress Eyes: normal inspection ENT: normal ENT inspection Neck: supple, no adenopathy Respiratory/Chest: chest non-tender, lungs clear Cardiovascular: regular rate, rhythm, no edema Abdomen / GI: normal bowel sounds, non tender, soft Neurologic/Psychiatric: dean of education II-XII nml as tested, no motor/sensory deficits , alert, oriented x 3 Skin: normal color, warm/dry Hospital Course Patient is a 76 y.o.F with a PMHx of HTN who presented with atrial fibrillation with RVR. She received Lopressor 5 mg in ED and HR dropped to 50's. Patient being admitted for concern of tachy herve syndrome. Cardiology was consulted on the patient and her metoprolol was held. Cardiology recommended changing her metoprolol tartrate to 50 mg bid. Trent was monitored overnight and her HR returned to 80's normal sinus rhythm. Patient was discharged and instructed to f /u with cardiology in 2-4 weeks Total Time Spent: Greater than 30 minutes This includes examination of the patient, discharge planning, medication reconciliation, and communication with other providers. Discharge Instructions Please refer to the electronic Patient Visit Report (Discharge Instructions) for additional information.
[2016-07-17] MEDS ORDERED: METOPROLOL TARTRATE 50 MG TAB PO SCH (21:00)
[2016-12-04] MEDS ORDERED: APIX1TAB PO (08:30)
[2016-12-04] MEDS ORDERED: METO50TA16 PO (08:30)
[2017-01-06] MEDS ORDERED: CALC500C3 PO (10:02)
[2017-01-06] MEDS ORDERED: METO50TA17 PO (10:02)
[2017-01-06] MEDS ORDERED: APIX1TAB PO (10:02)
== END 2016-07-17 13:17 | disposition home or self-care (01) | DRG 309 ==
LOC: ENRESERVTM → ENRESERVDT → C.EDB 09:48 → C.2T 13:38
PROVIDERS: ADMIT Internal Medicine; ATTEND Internal Medicine
DX: I48.91 Unspecified atrial fibrillation (principal); I50.30 Unspecified diastolic (congestive) heart failure; I48.92 Unspecified atrial flutter; I49.5 Sick sinus syndrome; I42.2 Other hypertrophic cardiomyopathy; R07.9 Chest pain, unspecified; I08.0 Rheumatic disorders of both mitral and aortic valves; I11.0 Hypertensive heart disease with heart failure; E78.00 Pure hypercholesterolemia, unspecified; M10.9 Gout, unspecified; E11.9 Type 2 diabetes mellitus without complications; E03.9 Hypothyroidism, unspecified; Z79.01 Long term (current) use of anticoagulants; Z79.899 Other long term (current) drug therapy

== ENCOUNTER → 2016-11-25 | Outpatient (CLI) | payer OTHER ==
[~2016-11-25] MED LIST changes: +AMLO-110 PO; +APIX1TAB PO; +CALC500C3 PO; -METO100T14 PO; +METO50TA16 PO; +METO50TA17 PO
[2016-11-25 17:27] LABS: HEMATOCRIT 38.1 % (37-47); MEAN CORPUSCULAR HGB CONC 34.4 g/dl (32-36); PLATELET COUNT 210 K/uL (130-400); RED BLOOD COUNT 3.97 M/uL (4.2-5.4); WHITE BLOOD COUNT 7.17 K/uL (4.8-10.8)
[2016-11-25 17:36] LABS: PARTIAL THROMBOPLASTIN RATIO 1.1
[2016-11-25 17:41] LABS: BLOOD UREA NITROGEN 18 mg/dl (7-18); BUN/CREATININE RATIO 18.3 (10-20); CALCIUM 9.6 mg/dl (8.5-10.1); CARBON DIOXIDE 31 mmol/L (21-32); CHLORIDE 107 mmol/L (98-107); GLUCOSE 183 mg/dl (70-99); SODIUM 144 mmol/L (136-145)
== END | disposition home or self-care (01) ==
LOC: C.LAB1850 16:13
PROVIDERS: ATTEND Internal Medicine Clinical Cardiac Electrophysiology
DX: Z01.818 Encounter for other preprocedural examination (principal)

== ENCOUNTER 2016-12-03 11:04 | Observation (INO) | payer OTHER ==
[~2016-12-03] VITALS: Ht 162.6 cm; Wt 64.1 kg
[~2016-12-03 11:04] MED LIST changes: -APIX1TAB PO; -CALC500C3 PO; +CEFAZOLIN 1000MG/55 ML D5W IV SCH; +CEFAZOLIN IV 1,000 MG in DEXTROSE 5% 50ML IV SCH; +LACTATED RINGER'S 1000ML IV SCH; -METO50TA16 PO
[2016-12-03 11:36] VITALS: BP 147/72; PULSE 56; TEMP 36.6; O2SAT 97; BMI 26.0
[2016-12-03] MEDS ORDERED: BUPIVACAINE 0.5 % 5 MG/1 ML MPF 30ML VIAL ONE (12:24)
[2016-12-03] MEDS ORDERED: BACITRACIN 50000 UNIT VIAL ONE (12:24)
[2016-12-03] MEDS ORDERED: LIDOCAINE HCL 1% 20 ML VIAL ONE (12:24)
--- NOTE | 2016-12-03 12:33 | History & Physical Bridge Note ---
H&P Re-Evaluation Bridge Note: I have examined the patient, reviewed the History & Physical and in the interval since the performance of the History & Physical I have noted the following changes of clinical significance: No changes noted
--- NOTE | 2016-12-03 12:34 | Procedure Note ---
Pre-Mod Sedation Assessment General Date of Moderate Sedation: Dec 03, 2016. Vital Signs: Vital Signs Past 12 Hours Date Time Temp Pulse Resp B/P (MAP) Pulse Ox O2 Delivery O2 Flow Rate FiO2 12/03/16 11:36 36.6 56 18 147/72 (97) 97 Room Air Review Airway Class: III Pre-Sedation Airway Assessment Oral Cavity: Capped Teeth Able to Visualize Vocal Cords: No Short Thick Neck: No Hx of Sleep Apnea: No Smoking Status: Never Smoker Mallampati Classification: Class III Procedure Planning Contraindications-for Mod Sed: None Yes Notes The planned sedation has been discussed with the patient and consent obtained. I have identified the patient, determined the appropriateness of sedation and have assessed the patient immediately prior to the procedure. All medicine(s) and interventions are by my order.
[2016-12-03] MEDS ORDERED: FENTANYL CITRATE INJ 50 MCG/1 ML 2 ML VIAL ONE (12:56)
[2016-12-03] MEDS ORDERED: MIDAZOLAM HCL 5 MG/ML 1 ML VIAL ONE (12:56)
[2016-12-03] MEDS ORDERED: OXYCODONE HCL IR 5 MG TAB (IMMEDIATE RELEASE) PO PRN (14:00)
[2016-12-03] MEDS ORDERED: IV FLUIDS COMPLETED PRN (14:00)
[2016-12-03 14:15] VITALS: O2SAT 96; Ht 162.6 cm; Wt 64.1 kg
--- NOTE | 2016-12-03 14:16 | [facility] Operative Report ---
Operative Report Operative Date Dec 03, 2016. Pre-Operative Diagnosis Tachy-herve syndrome Post-Operative Diagnosis Same Procedure(s) Performed Implantation of dual-chamber Medtronic pacemaker Surgeon Courtney Neves Findings Successful implantation of dual-chamber pacemaker Complication(s) None Disposition PCU Indications Patient is a 76-year-old woman with a history of paroxysmal atrial fibrillation. Despite attempts at adequate rate control the patient continues to have periods of atrial fibrillation with rapid ventricular response. At baseline she has an element of bradycardia. Based on the need to control her heart rates and the associated bradycardia she was felt to be good candidate for permanent pacing due to symptomatic non reversible sinus node dysfunction. Description of Procedure Patient was informed of the risks benefits and alternatives to the intended procedure she understood such which procedure was taken to the electrophysiology suite in a fasting state, preoperative antibiotics had been administered. The patient was monitored electrocardiographically throughout today's procedure and conscious sedation was administered per protocol. The left upper pectoral area is prepped and draped in usual sterile fashion. This area was anesthetized using subcutaneous administration of a xylocaine solution. An incision was made at this site and carried down to the prepectoralis fascia using sharp dissection. Electrocautery was also employ for dissection as well as for hemostasis. Device pocket was fashioned tissues above the pectoralis muscle. Subsequent to this maneuver left axillary vein was accessed twice using modified Selinger technique. She has were placed over guidewires at the sites then used to facilitate passage of the pacing leads to their respective chambers and fluoroscopic guidance. This included right atrial and right ventricular leads. Adequate sensing and threshold parameters were obtained prior to Active fixation of the leads to the endocardial surface. The proximal portion leads were then sutured to the prepectoralis fascia using nonabsorbable suture. Device pocket was irrigated with antibiotic solution. The leads were then attached the device device and leads were then placed in the pocket the pocket was closed in 3 layers of absorbable suture. Steri-Strips and sterile dressing were applied. Patient tolerated she had her well. There were no immediate complications. Equipment used: New pulse generator: Tank [employer]ic [employer], model number A2DR01 serial number [id number] Right atrial lead: Tank Truck Mechanic Medtronic, model 4076, serial number [id number] Right ventricular lead: Tank Truck Mechanic Medtronic, model 4076, serial number [id number] Measure data: Right atrial lead: P-waves measured (in AF). No threshold. Impedance: 722 Ohms Right ventricular lead: R-waves measured 18.8 mV, Threshold was 0.5V @ 0.4 ms, impedance 551 Ohms Impression: 1 successful implantation of dual-chamber permanent pacemaker to conversion from sinus rhythm to atrial fibrillation Plan: Patient will be monitored on the do overnight. Additional doses of antibiotics being administered. A chest x-ray and re-interrogation of the device we formed the morning. She felt parameters be adequate the patient feeling while she be considered for discharge at that time. I attest to the content of the Intraoperative Record and any orders documented therein. Any exceptions are noted below.
[2016-12-03] MEDS ORDERED: METOPROLOL TARTRATE 1 MG/ML VIAL IV ONE (15:15)
[2016-12-03 16:59] VITALS: BP 136/74; PULSE 119; TEMP 36.7; O2SAT 94
[2016-12-03] MEDS: METOPROLOL TARTRATE 50 MG TAB PO SCH (17:17)
[2016-12-03 20:00] VITALS: O2SAT 94
[2016-12-03 20:23] VITALS: BP 129/76; PULSE 86; TEMP 36.8; O2SAT 93
[2016-12-03] MEDS ORDERED: SIMVASTATIN 10 MG TAB PO SCH (21:00)
[2016-12-03] MEDS: CEFAZOLIN IV 1,000 MG in DEXTROSE 5% 50ML 50 ML IV SCH (21:11)
[2016-12-03] MEDS: ACETAMINOPHEN 325 MG TAB PO PRN (21:14)
[2016-12-03 23:59] VITALS: O2SAT 93
[2016-12-04 00:15] VITALS: BP 119/74; PULSE 61; TEMP 36.6; O2SAT 94
[2016-12-04] MEDS: CEFAZOLIN IV 1,000 MG in DEXTROSE 5% 50ML 50 ML IV SCH (03:49)
[2016-12-04] MEDS: ACETAMINOPHEN 325 MG TAB PO PRN (03:50)
[2016-12-04 04:00] VITALS: O2SAT 93
[2016-12-04 04:16] VITALS: BP 128/78; PULSE 61; TEMP 36.6; O2SAT 96
[2016-12-04] MEDS ORDERED: LEVOTHYROXINE 75 MCG TAB PO SCH (06:00)
--- NOTE | 2016-12-04 07:09 | DIAGNOSTIC IMAGING REPORT ---
CHEST 2 VIEWS ROUTINE CLINICAL HISTORY: EXACT TIME ORDERED Evaluate for pneumothorax and lead placement COMPARISON STUDY: Chest radiograph July 16, 2016. FINDINGS: There has been interval placement of a dual lead left subclavian pacemaker. Lead tips project over the right atrial appendage and the right ventricle. There is no pneumothorax. There is no pleural effusion or evidence of pulmonary edema. Moderate cardiomegaly is noted. IMPRESSION: No pneumothorax following placement of a dual lead left subclavian pacemaker. Electronically signed by: Avtar Blandon M.D. 12/04/2016 7:08 AM Dictated Date/Time: 12/04/2016 7:06 AM
[2016-12-04 07:28] VITALS: BP 148/79; PULSE 60; TEMP 36.6; O2SAT 96
[2016-12-04] MEDS: METOPROLOL TARTRATE 50 MG TAB PO SCH (08:12)
[2016-12-04] MEDS ORDERED: METO50TA16 PO (08:30)
[2016-12-04] MEDS ORDERED: APIX1TAB PO (08:30)
--- NOTE | 2016-12-04 08:33 | Discharge Instructions ---
Discharge Instructions Date of Service Dec 04, 2016. Admission Reason for Admission: A-FIB Discharge Discharge Diagnosis / Problem: TACHY-CARMEL SYNDROME Discharge Goals Goal(s): Improve function, Improve disease control Activity Recommendations Activity Limitations: per Instructions/Follow-up section Lifting Limitations: none Exercise/Sports Limitations: as tolerated May Resume Sexual Activity: when tolerated Shower/Bathe: keep incision dry Driving or Machine Use: no limitations No lifting left arm above shoulder or behind neck for 6 weeks. Keep wound dry and steri-strip intact until f/u in 1 week. . Instructions / Follow-Up Instructions / Follow-Up f/u cardiology clinic next week for wound check Current Hospital Diet Patient's current hospital diet: AHA Diet (Heart Healthy) Discharge Diet Recommended Diet: AHA Diet (Heart Healthy) Pending Studies Studies pending at discharge: no Medical Emergencies . Who to Call and When: Medical Emergencies: If at any time you feel your situation is an emergency, please call 911 immediately. . Non-Emergent Contact Non-Emergency issues call your: Overhead Irrigator Call Non-Emergent contact if: you have a fever, your pain is not controlled, your pain is worsening, wound has increased drainage, wound has increased redness . . "Provider Documentation" section prepared by Jose Neves. . VTE Core Measure Inpt VTE Proph given/why not?: Treatment not indicated
--- NOTE | 2016-12-04 08:37 | Discharge Summary ---
Discharge Summary Admission Date: Dec 03, 2016 at 13:50 Discharge Date: Dec 04, 2016 Discharge Disposition: Home Primary Diagnosis: AF Secondary Diagnoses/Problems: Medical Problems: (1) Tachy-herve syndrome Status: Acute (2) Trimalleolar fracture of right ankle Status: Acute Procedures: Implant dual chamber medtronic pacemaker Discharge Instructions Last Recorded Wt (Kilograms): 64.100 Activity Recommendations: limitations as noted below Return to School/Work: no limitations Diet At Discharge: resume previous diet Allergies: Coded Allergies: NO KNOWN DRUG ALLERGIES (Verified Allergy, Unknown, ., 12/03/16) Home Health Services: none Special Care: Call your doctor if: * Temperature above 101 degrees * Pain not relieved by pain medicine ordered * There is increased drainage or redness from any incision * You have any unanswered questions or concerns. Avoid all tobacco products. If you need help to stop smoking, call [facility] FREE QUITLINE at . This is a free call. Admission HPI History of tachy-herve syndrome. Admission Physical Exam Wound C/D/I. No hematoma Device interrogation reveals normal function CXR demonstrates good lead position without PTX Rhythm returned to paced atrial rhythm. Hospital Course Patient had pacemaker placement on the day of admission. Complicated by conversion to atrial fibrillation. Converted spontaneously overnight. Rate control medication increased. Total time spent on discharge = 40 minutes This includes examination of the patient, discharge planning, medication reconciliation, and communication with other providers.
[2016-12-04] MEDS ORDERED: MAGNESIUM OXIDE 400 MG TAB PO SCH (09:00)
[2016-12-04] MEDS ORDERED: ALLOPURINOL 100 MG TAB PO SCH (09:00)
[2016-12-04] MEDS ORDERED: AMLODIPINE BESYLATE 5 MG TAB PO SCH (09:00)
[2016-12-04 09:49] VITALS: BP 148/79; PULSE 60; TEMP 36.6; O2SAT 96
[2017-01-06] MEDS ORDERED: APIX1TAB PO (10:02)
[2017-01-06] MEDS ORDERED: CALC500C3 PO (10:02)
[2017-01-06] MEDS ORDERED: METO50TA17 PO (10:02)
== END 2016-12-04 10:47 | disposition home or self-care (01) ==
LOC: C.ACU 11:04 → ENRESERV 13:30 → C.2E 13:50
PROVIDERS: ADMIT Internal Medicine Clinical Cardiac Electrophysiology; ATTEND Internal Medicine Clinical Cardiac Electrophysiology
DX: I48.91 Unspecified atrial fibrillation (principal); I49.5 Sick sinus syndrome; I35.1 Nonrheumatic aortic (valve) insufficiency; E11.29 Type 2 diabetes mellitus with other diabetic kidney complication; E78.00 Pure hypercholesterolemia, unspecified; I11.9 Hypertensive heart disease without heart failure; E03.9 Hypothyroidism, unspecified; Z85.038 Personal history of other malignant neoplasm of large intestine; Z80.3 Family history of malignant neoplasm of breast; Z83.3 Family history of diabetes mellitus; Z82.49 Family history of ischemic heart disease and other diseases of the circulatory system

== ENCOUNTER → 2016-12-24 | Outpatient (CLI) | payer OTHER ==
[~2016-12-24] MED LIST changes: +APIX1TAB PO; +CALC500C3 PO; -CEFAZOLIN 1000MG/55 ML D5W IV SCH; -CEFAZOLIN IV 1,000 MG in DEXTROSE 5% 50ML IV SCH; -ELQ25 PO; -LACTATED RINGER'S 1000ML IV SCH; +METO50TA16 PO
== END | disposition home or self-care (01) ==
LOC: C.RDSM 11:06
PROVIDERS: ATTEND Orthopaedic Surgery Sports Medicine
DX: Z09 Encounter for follow-up examination after completed treatment for conditions other than malignant neoplasm (principal)

== ENCOUNTER → 2017-01-10 | Outpatient (CLI) | payer OTHER ==
[~2017-01-10] MED LIST changes: -METO50TA16 PO
[2017-01-10 12:04] LABS: HEMATOCRIT 40.5 % (37-47); MEAN CELL VOLUME 95.7 fL (80-100); MEAN CORPUSCULAR HEMOGLOBIN 33.1 pg (25-34); MEAN CORPUSCULAR HGB CONC 34.6 g/dl (32-36); MEAN PLATELET VOLUME 11.1 fL (7.4-10.4); PLATELET COUNT 167 K/uL (130-400); RED BLOOD COUNT 4.23 M/uL (4.2-5.4); WHITE BLOOD COUNT 7.75 K/uL (4.8-10.8)
[2017-01-10 12:20] LABS: ESTIMATED AVERAGE GLUCOSE 148 mg/dl; HA1C FLAG Normal (Normal)
[2017-01-10 12:25] LABS: ALT/SGPT 27 U/L (12-78); AST/SGOT 20 U/L (15-37); BLOOD UREA NITROGEN 20 mg/dl (7-18); BUN/CREATININE RATIO 20.7 (10-20); CALCIUM 9.4 mg/dl (8.5-10.1); CARBON DIOXIDE 29 mmol/L (21-32); CHLORIDE 105 mmol/L (98-107); CREATININE 0.98 mg/dl (0.60-1.20); GLUCOSE 146 mg/dl (70-99); SODIUM 141 mmol/L (136-145)
[2017-01-10 12:36] LABS: ALB/GLOB RATIO 0.8 (0.9-2); ALKALINE PHOSPHATASE 80 U/L (45-117); CHOLESTEROL 128 mg/dl (0-200); CHOLESTEROL/HDL RATIO 3.6; HDL CHOLESTEROL 36 mg/dl; LDL CHOLESTEROL CALCULATED 60 mg/dl; TRIGLYCERIDES 160 mg/dl (0-150); VERY LOW DENSITY LIPOPROT CALC 32 mg/dl
== END | disposition home or self-care (01) ==
LOC: C.LABBFT 07:53
PROVIDERS: ATTEND Internal Medicine
DX: E11.29 Type 2 diabetes mellitus with other diabetic kidney complication (principal)

== ENCOUNTER → 2017-01-15 | Day surgery (SDC) | payer OTHER ==
[2017-01-06 10:08] VITALS: Ht 157.5 cm; Wt 65.5 kg
[~2017-01-15] VITALS: Ht 157.5 cm; Wt 65.5 kg
[~2017-01-15] MED LIST changes: +PROPOFOL IV EMULSION 10 MG/ML 20 ML VIAL IV ONE; +SODIUM CHLORIDE 0.9% 500ML 500 ML IV ONE
--- NOTE | 2017-01-15 10:13 | Endo History and Physical ---
History & Physical Date of Service: Jan 15, 2017. Chief Complaint: history of colon cancer Referring Physician: Dr. Eubanks History of Present Illness personal hx of colon cancer for colonoscopy Past Surgical History Hx Cardiac Surgery: No Hx Internal Defibrillator: No Hx Pacemaker: Yes (MEDTRONIK 12/03/16) Hx Abdominal Surgery: No Hx of Implantable Prosthesis: No Hx Post-Op Nausea and Vomiting: No Hx Cancer Surgery: No Hx Thoracic Surgery: No Hx Orthopedic: Yes (RT ANKLE REPAIR S/P BREAK) Hx Urinary Tract Surgery: No Family History None Social History Smoking Status: Never Smoker Hx Substance Use: No Hx Alcohol Use: No Allergies Coded Allergies: NO KNOWN DRUG ALLERGIES (Verified Allergy, Unknown, ., 01/06/17) Current Medications Reported Home Medications Medications Dose Route/Sig Max Daily Dose Days Date Category Dose Instructions Eliquis (Apixaban) 2.5 Mg Tab 2.5 Mg PO BID 01/06/17 Reported Tums (Calcium Carbonate) 500 Mg Chew 1 Tab PO UD PRN 01/06/17 Reported Metoprolol Tartrate 50 Mg Tab 1.5 Tabs PO BID 01/06/17 Reported Norvasc (Amlodipine Besylate) 5 Mg Tab 5 Mg PO QAM 07/16/16 Reported Tylenol (Acetaminophen) 325 Mg Tab 650 Mg PO Q6 PRN 04/18/16 Reported Mag-Ox (Magnesium Oxide) 400 Mg Tab 400 Mg PO QAM 04/18/16 Reported Caltrate 600+D (Calcium Carbonate-Cholecalcife) 1 Tab Tab 1 Tab PO BID 01/03/16 Reported Zocor (Simvastatin) 10 Mg Tab 10 Mg PO HS 11/23/15 Reported Multivitamin (Multivitamins) Tab 1 Tab PO QAM 11/23/15 Reported Levothyroxine Sodium 75 Mcg Tab 75 Mcg PO QAM 11/23/15 Reported Zyloprim (Allopurinol) 100 Mg Tab 100 Mg PO QPM 11/23/15 Reported with supper Vital Signs Weight (Kilograms): 65.45 Height (Feet): 5 Height (Inches): 2 Date Time Temp Pulse Resp B/P (MAP) Pulse Ox O2 Delivery O2 Flow Rate FiO2 01/15/17 10:04 36.5 88 20 164/85 (111) 95 Room Air Physical Exam General Appearance: no apparent distress Respiratory/Chest: Auscultation: breath sounds normal Cardiovascular: Heart Auscultation: RRR Abdomen: Inspection & Palpation: soft Liver: non-tender Assessment and Plan stable for colonoscopy
--- NOTE | 2017-01-15 10:54 | Discharge Instructions ---
Endoscopy Patient Instructions Date / Procedure(s) Performed Jan 15, 2017. Colonoscopy Allergy Information Coded Allergies: NO KNOWN DRUG ALLERGIES (Verified Allergy, Unknown, ., 01/06/17) Discharge Date / Findings Jan 15, 2017. small colon polyp Medication Instructions Stopped Medication(s): stopped Eloquis 5 days ago Provider Instructions Activity Restrictions - No exercising or heavy lifting for 24 hours. - Do not drink alcohol the day of the procedure. - Do not drive a car or operate machinery until the day after the procedure. - Do not make any important decisions or sign important papers in 24 hours after the procedure. Following Day: - Return to full activity which may include returning to work/school. Diet Start your diet with liquids and light foods (jello, soup, juice, toast). Then eat your usual diet if not nauseated. Treatment For Common After Affects For mild abdominal pain, bloating, or excessive gas: - Rest - Eat lightly - Lie on right side Follow-Up Information Follow-up with Dr. Eubanks as scheduled Anesthesia Information What You Should Know You have had a procedure that required some medicine to reduce anxiety and discomfort. This treatment is called moderate sedation. After receiving the treatment, you may be sleepy, but you will be able to breathe on your own. The effects of the treatment may last for several hours. Follow these instructions along with Activity/Diet recommendations noted above: * Do NOT do anything where dizziness or clumsiness would be dangerous. * Rest quietly at home today, then you can be up and about tomorrow. * Have a responsible person stay with you the rest of today. * You may have had an I.V. today. If so, you may take the dressing off later today. Recommendations Call your doctor if: * Trouble breathing * Continuous vomiting for more than 24 hours * Temperature above 101 degrees * Severe abdominal pain or bloating * Pain not relieved by pain medicine ordered * There is increased drainage or redness from any incision * A large amount of rectal bleeding greater than 2-3 tablespoons. (If you had a polyp/s removed or have hemorrhoids, a small amount of blood - from the rectum is to be expected.) * You have any unanswered questions or concerns. IN THE EVENT OF A SERIOUS EMERGENCY, GO TO THE NEAREST EMERGENCY ROOM Your discharge instructions were prepared by provider Jluis Berkowitz. Patient Instructions Signature Page Arielle Madsen Patient (or Guardian) Signature/Date: I have read and understand the instructions given to me by my caregivers. Caregiver/RN/Doctor Signature/Date: The above-named patient and/or guardian has received patient instructions on this date. + Original Patient Signature Page (only) stays with chart. Please make copy for patient.
--- NOTE | 2017-01-15 11:00 | GI REPORT ---
Procedure Date: 01/15/2017 10:08 AM Procedure: Colonoscopy Indications: Personal history of malignant neoplasm of the colon, - 2016 Medicines: See the Anesthesia note for documentation of the administered medications Complications: No immediate complications. Estimated Blood Loss: Estimated blood loss was minimal. Procedure: Pre-Anesthesia Assessment: - Prior to the procedure, a History and Physical was performed, and patient medications, allergies and sensitivities were reviewed. The patient's tolerance of previous anesthesia was reviewed. - The risks and benefits of the procedure and the sedation options and risks were discussed with the patient. All questions were answered and informed consent was obtained. - Patient identification and proposed procedure were verified prior to the procedure by the physician and the nurse. The procedure was verified in the pre-procedure area. - Pre-procedure physical examination revealed no contraindications to sedation. - After reviewing the risks and benefits, the patient was deemed in satisfactory condition to undergo the procedure. After I obtained informed consent, the scope was passed under direct vision. Throughout the procedure, the patient's blood pressure, pulse, and oxygen saturations were monitored continuously. The On-site loaner was introduced through the anus and advanced to the cecum, identified by appendiceal orifice and ileocecal valve. The colonoscopy was performed without difficulty. The patient tolerated the procedure well. The quality of the bowel preparation was good. Findings: The perianal and digital rectal examinations were normal. A 4 mm polyp was found at 70 cm proximal to the anus. The polyp was sessile. The polyp was removed with a cold snare. Resection and retrieval were complete. Verification of patient identification for the specimen was done by the physician and nurse using the patient's name and medical record number. Estimated blood loss was minimal. There was evidence of a prior end-to-side colo-colonic anastomosis in the rectum. This was characterized by inflammation. Biopsies were taken with a cold forceps for histology. Verification of patient identification for the specimen was done by the physician and nurse using the patient's name and medical record number. Estimated blood loss was minimal. No additional abnormalities were found on retroflexion. Impression: - One 4 mm polyp at 70 cm proximal to the anus, removed with a cold snare. Resected and retrieved. - End-to-side colo-colonic anastomosis, characterized by inflammation most likely from granulation tissue. Biopsied. Recommendation: - Await pathology results. - Discharge patient to home. Jluis Berkowitz M.D. Jluis Berkowitz MD 01/15/2017 10:59:44 AM This report has been signed electronically. Note Initiated On: 01/15/2017 10:08 AM I attest to the content of the Intraoperative Record and orders documented therein, exceptions below
--- NOTE | 2017-01-15 11:10 | Anesthesiology Progress Note ---
Anesthesia Post Op Note Date & Time Jan 15, 2017 at 11:09 Vital Signs Pain Intensity: 0 Vital Signs Past 12 Hours Date Time Temp Pulse Resp B/P (MAP) Pulse Ox O2 Delivery O2 Flow Rate FiO2 01/15/17 11:06 61 20 110/65 (80) 96 Room Air 01/15/17 10:51 62 20 106/54 (71) 96 Room Air 01/15/17 10:04 36.5 88 20 164/85 (111) 95 Room Air Notes Mental Status: alert / awake / arousable, participated in evaluation Pt Amnestic to Procedure: Yes Nausea / Vomiting: adequately controlled Pain: adequately controlled Airway Patency, RR, SpO2: stable & adequate BP & HR: stable & adequate Hydration State: stable & adequate Anesthetic Complications: no major complications apparent
[2017-01-15 11:21] VITALS: BP 124/65; PULSE 60; O2SAT 95
== END | disposition home or self-care (01) ==
LOC: C.GI 09:38
PROVIDERS: ATTEND Internal Medicine Gastroenterology
DX: D12.6 Benign neoplasm of colon, unspecified (principal); Z85.038 Personal history of other malignant neoplasm of large intestine; Z79.899 Other long term (current) drug therapy

== ENCOUNTER → 2017-03-05 | Outpatient (CLI) | payer OTHER ==
[~2017-03-05] MED LIST changes: +OPTIRAY 320 IV PRN; -PROPOFOL IV EMULSION 10 MG/ML 20 ML VIAL IV ONE; -SODIUM CHLORIDE 0.9% 500ML 500 ML IV ONE
--- NOTE | 2017-03-05 12:12 | DIAGNOSTIC IMAGING REPORT ---
CT ABD/PELVIS IV AND ORAL CONT CLINICAL HISTORY: C18.9 COLON CARCINOMA. COMPARISON STUDY: 01/19/2016 TECHNIQUE: Following the IV administration of 120 mL of Optiray-320, CT scan of the abdomen and pelvis was performed from the lung bases to the proximal femurs. Images are reviewed in the axial, sagittal, and coronal planes. IV contrast was administered without complication. A dose lowering technique was utilized adhering to the principles of ALARA. CT DOSE: 352.76 mGy.cm FINDINGS: Lower chest: The heart is enlarged. There are minor left basilar atelectatic changes. Liver: The contrast-enhanced liver is normal in size, contour, and attenuation. There is no intrahepatic biliary ductal dilatation. The hepatic veins and portal veins are patent. Gallbladder: Unremarkable. Spleen: Normal in size and attenuation. Pancreas: Unremarkable. Adrenal glands: Unremarkable. Kidneys: There is a 14 mm upper pole left renal cyst. There is a 13 mm upper pole right renal cyst. There is an 11 mm exophytic lesion arising from the midpole the left kidney. This exceeds water attenuation but represented a hyperdense nodule on the prior CT scan. This likely represents a hyperdense cyst Bowel: There are no transition zones indicate bowel obstruction. The appendix appears normal. There is no acute diverticulitis. Peritoneum: There is no intraperitoneal free air or abdominal ascites. There is a fat-containing infraumbilical ventral hernia Vasculature: The abdominal aorta is normal in course and caliber. Adenopathy: None. Pelvic viscera: The bladder, and pelvic viscera are unremarkable. Skeletal structures: There is SI joint sclerosis. There are no destructive lesions. IMPRESSION: No acute intra-abdominal or pelvic findings. No evidence of metastatic disease. Electronically signed by: Gaston Garay M.D. 03/05/2017 12:11 PM Dictated Date/Time: 03/05/2017 12:06 PM
== END | disposition home or self-care (01) ==
LOC: C.CTS 11:30
PROVIDERS: ATTEND Surgery
DX: C18.9 Malignant neoplasm of colon, unspecified (principal); I51.7 Cardiomegaly

== ENCOUNTER → 2017-03-11 | Outpatient (CLI) | payer OTHER ==
[~2017-03-11] MED LIST changes: -OPTIRAY 320 IV PRN
== END | disposition home or self-care (01) ==
LOC: C.LABBFT 13:09
PROVIDERS: ATTEND Surgery
DX: C18.9 Malignant neoplasm of colon, unspecified (principal)

== ENCOUNTER → 2017-06-18 | Outpatient (CLI) | payer OTHER ==
--- NOTE | 2017-06-18 15:23 | MAMMOGRAPHY REPORT ---
BILATERAL DIGITAL SCREENING MAMMOGRAM TOMOSYNTHESIS WITH CAD: 06/18/2017 CLINICAL HISTORY: Routine screening. Patient has no complaints. TECHNIQUE: Breast tomosynthesis in addition to standard 2D mammography was performed. Current study was also evaluated with a Computer Aided Detection (CAD) system. COMPARISON: Comparison is made to exams dated: 06/17/2016 mammogram, 03/29/2015 mammogram, 03/28/2014 mammogram, 03/24/2013 mammogram, 03/23/2012 mammogram, and 03/20/2011 mammogram - [facility]. BREAST COMPOSITION: The tissue of both breasts is almost entirely fatty. FINDINGS: No suspicious masses, calcifications, or areas of architectural distortion are noted in ei ther breast. There has been no significant interval change compared to prior exams. Scattered bilate ral benign-appearing calcifications are not significantly changed. Pacemaker overlies the left pecto ralis muscle. Bilateral asymmetries are stable. IMPRESSION: ACR BI-RADS CATEGORY 2: BENIGN There is no mammographic evidence of malignancy. A 1 year screening mammogram is recommended. The pa tient will receive written notification of the results. Approximately 10% of breast cancers are not detected with mammography. A negative mammographic report should not delay biopsy if a clinically suggestive mass is present. Toyin Guevara M.D. /:06/18/2017 11:30:25 [place] Worker: Emiliana MCBRIDE)(M), [facility] letter sent: Normal 1/2 BI-RADS Code: ACR BI-RADS Category 2: Benign
== END | disposition home or self-care (01) ==
LOC: C.MAMM 10:52
PROVIDERS: ATTEND Internal Medicine
DX: Z12.31 Encounter for screening mammogram for malignant neoplasm of breast (principal)

== ENCOUNTER → 2017-07-03 | Outpatient (CLI) | payer OTHER | END | disposition home or self-care (01) | LOC: C.LABSPEC 13:10 | PROVIDERS: ATTEND Physician Assistant | DX: N89.8 Other specified noninflammatory disorders of vagina (principal) ==

== ENCOUNTER → 2017-08-07 | Outpatient (CLI) | payer OTHER ==
[2017-08-07 12:15] LABS: HEMATOCRIT 41.6 % (37-47); HEMOGLOBIN 14.2 g/dL (12.0-16.0); MEAN CELL VOLUME 97.4 fL (80-100); MEAN CORPUSCULAR HEMOGLOBIN 33.3 pg (25-34); MEAN CORPUSCULAR HGB CONC 34.1 g/dl (32-36); PLATELET COUNT 193 K/uL (130-400); RED CELL DISTRIBUTION WIDTH CV 13.3 % (11.5-14.5); RED CELL DISTRIBUTION WIDTH SD 47.3 fL (36.4-46.3); WHITE BLOOD COUNT 6.76 K/uL (4.8-10.8)
[2017-08-07 12:45] LABS: ALBUMIN 3.5 gm/dl (3.4-5.0); ALKALINE PHOSPHATASE 75 U/L (45-117); ALT/SGPT 47 U/L (12-78); AST/SGOT 29 U/L (15-37); BLOOD UREA NITROGEN 15 mg/dl (7-18); CALCIUM 9.3 mg/dl (8.5-10.1); CARBON DIOXIDE 28 mmol/L (21-32); CREATININE 0.98 mg/dl (0.60-1.20); GLUCOSE 165 mg/dl (70-99); SODIUM 139 mmol/L (136-145)
[2017-08-07 12:56] LABS: TOTAL PROTEIN 7.9 gm/dl (6.4-8.2)
[2017-08-07 13:05] LABS: HEMOGLOBIN A1C 7.4 % (4.5-5.6)
[2017-08-07 14:06] LABS: CREATININE RANDOM URINE 43.7 mg/dl
== END | disposition home or self-care (01) ==
LOC: C.LABBFT 07:39
PROVIDERS: ATTEND Internal Medicine
DX: E11.9 Type 2 diabetes mellitus without complications (principal)

== ENCOUNTER → 2017-12-31 | Day surgery (SDC) | payer OTHER ==
[2017-12-09 13:10] VITALS: Ht 157.5 cm; Wt 71.8 kg
[~2017-12-31] VITALS: Ht 157.5 cm; Wt 71.8 kg
[~2017-12-31] MED LIST changes: +500ML BSS 0.3ML EPI 1:1000PF IRRIG ONE; +ACETAMINOPHEN 325 MG TAB PO PRN; -AMLO-110 PO; +AMLO5TAB3 PO; +AMVISC PLUS 0.8ML SYRINGE INT OCU ONE; +ATROPINE SULFATE 0.1 MG/ML 5ML SYR IV PRN; +BSS FLUSH ONE; +ENDOCOAT 0.85ML SYRINGE INT OCU ONE; +EpHEDrine SULFATE INJ 50 MG/ML AMP IV PRN; +EpINEphrine INJ 1MG/ML AMP 1 MG/ML AMP ONE; +LACTATED RINGER'S 1000ML 500 ML IV SCH; +LEVO100T PO; -LEVO75TA5 PO; +LIDOCAINE 4% OP SOLN DROP CHARGE ONE; +LIDOCAINE 4% OP SOLN DROP CHARGE OPR SCH; +LIDOCAINE HCL 1% MPF 2 ML VIAL ONE; +METO-596 PO; -METO50TA17 PO; +MIDAZOLAM HCL 1 MG/ML 2ML VIAL ONE; +MIX: 4ML BSS 1ML EPI 1:1000 PF TOP ONE; +POVIDONE-IODINE OP SOLN 30 ML BTL ONE; +PROPARACAINE 0.5% OP SOLN PER DROP CHARGE OPR SCH; +TOBRAMYCIN/DEXAMETHASONE OPH OINT PER APPLN CHARGE ONE
[2017-12-31] MEDS: PHENYLEPHRINE HCL 2.5% OP SOLN PER DROP CHARGE OPR SCH ×3 (07:35→07:45)
[2017-12-31] MEDS: TROPICAMIDE 1% OP SOLN PER DROP CHARGE OPR SCH ×3 (07:36→07:46)
[2017-12-31] MEDS: CYCLOPENTOLATE HCL 1% OP SOLN PER DROP CHARGE OPR SCH ×3 (07:37→07:47)
[2017-12-31] MEDS: MOXIFLOXACIN OPH SOLN PER DROP CHARGE OPR SCH ×3 (07:38→07:48)
[2017-12-31] MEDS: MOXIFLOXACIN OPH SOLN PER DROP CHARGE ONE ×2 (08:15→08:16)
--- NOTE | 2017-12-31 08:28 | [facility] Post Operative Brief Note ---
Immediate Operative Summary Operative Date Dec 31, 2017. Pre-Operative Diagnosis Right eye cataract Post-Operative Diagnosis same as preop Procedure(s) Performed Right Cataract Phacoemulsification With Intraocular Lens Implant Surgeon Dr. Martínez Dental Insurance Coordinator Surgeon(s) none Estimated Blood Loss 0ml Findings Consistent with Post-Op Diagnosis Specimens none per surgeon Anesthesia Type MAC Complication(s) none Disposition Accompanied Pt To Recover: no Disposition:
--- NOTE | 2017-12-31 08:29 | [facility] Operative Report ---
Operative Report Date of Service Dec 31, 2017. Operative Report DATE OF OPERATION: 12/31/17 PREOPERATIVE DIAGNOSIS: Senile nuclear cataract, right eye POSTOPERATIVE DIAGNOSIS: Senile nuclear cataract, right eye PROCEDURE PERFORMED: Phacoemulsification with intraocular lens implantation, right eye SURGEON: Dr. David Martínez ANESTHESIA: Topical with 1% intracameral lidocaine and monitored anesthesia care COMPLICATIONS: None DESCRIPTION OF PROCEDURE: After positively identifying the patient both verbally and by wristband in the preoperative area, the right eye was marked as the operative eye. The patient was then brought back to the operating room by the anesthesia and nursing staff where they were given a drop of Lidocaine and betadine into the operative eye. They were then sterilely prepped and draped in the standard fashion typical for ophthalmic surgery. Steri-strips were placed along the upper eyelids to keep the lashes back, and a lid speculum was placed into the operative eye. At this point, a documented time out was performed with members of the ophthalmology, nursing, and anesthesia staffs all agreeing upon the correct patient, correct location for surgery, correct procedure, and correct type and power of intraocular lens to be implanted. The microscope was then swung into position. First, a paracentesis wound was made using a sideport blade. Then, in sequence, 1% preservative-free lidocaine followed by Endocoat viscoelastic was injected into the anterior chamber. Next , the main incision was made with a keratome blade in triplanar fashion. A sharp cystotome was introduced into the eye and used to create a tear in the anterior capsule, which was directed into a continuous curvilinear capsulorrhexis using Utrata forceps. Hydrodissection was then performed with BSS on a flat-tip cannula. Next, the phacoemulsification handpiece was introduced into the eye and used to remove the nucleus in a [id number] fashion. This was done without complication and then the irrigation-aspiration handpiece was introduced into the eye and used to remove all remaining cortical and epinuclear material. Amvisc was then injected into the anterior chamber as well as into the capsular bag and using the lens injector system, an MX60 11.0 D lens, serial number [id number], and expiration date 06/2020 was injected into the capsular bag and rotated into the correct position. Next, the irrigation- aspiration handpiece was used to remove all remaining Amvisc. BSS was used to hydrate the main wound, and then BSS was injected into the paracentesis site to reach physiologic pressure and then the main wound was checked and found to be watertight. The patient was given drops of Vigamox and Tobradex ointment into the operative eye, and then the surrounding area was cleaned and dried. A clear plastic shield was placed over the eye and the patient was then sat up and taken from the operating room by the anesthesia staff having tolerated the procedure well and suffering no complications. DISPOSITION: The patient was returned to the recovery room in stable condition. I attest to the content of the Intraoperative Record and any orders documented therein. Any exceptions are noted below.
[2017-12-31 08:30] VITALS: TEMP 36.5
--- NOTE | 2017-12-31 08:31 | Discharge Instructions-SurgCtr ---
Discharge Instructions Date of Service Dec 31, 2017. Visit Reason for Visit: Cataract Right Eye Discharge Discharge Diagnosis / Problem: right cataract Discharge Goals Goal(s): Decrease discomfort, Improve function Activity Recommendations Activity Limitations: as noted below Anesthesia . Post Anesthesia Instructions: If you have had General Anesthesia or IV Sedation: * Do not drive today. * Resume driving when surgeon permits. * Do not make important decisions or sign legal documents today. * Call surgeon for: 1. Temperature elevations greater than 101 degrees F. 2. Uncontrollable pain. 3. Excessive bleeding. 4. Persistent nausea and vomiting. 5. Medication intolerance (nausea, vomiting or rash). * For nausea and vomiting use only clear liquids such as: tea, soda, bouillon until nausea subsides, then gradually increase diet as tolerated. * If you have any concerns or questions, call your surgeon's office. If physician is unavailable and it is an emergency, call 911 or go to the nearest emergency room. . Instructions / Follow-Up Instructions / Follow-Up ACTIVITY RECOMMENDATIONS: * Light activities. * You may walk outside, read, watch television. * You may notice redness on the white part of the eye and some blurry vision - this is normal. MEDICATIONS: Resume previous medications unless instructed otherwise by your surgeon. Start all eye drops at 10:30 am today: * Eye drops (today): Prednisone - one drop in operative eye every 2 hours while awake Ofloxacin - one drop in operative eye every 2 hours while awake Ketorolac - one drop in operative eye 4 times daily SPECIAL CARE INSTRUCTIONS: * Tape plastic shield over eye to sleep at night. Call your doctor at with any concerns or problems. FOLLOW UP VISIT: Follow-up with Dr Martínez at [facility] as scheduled. Diet Recommendations Home Diet: no limitations Procedures Procedures Performed: Right Cataract Phacoemulsification With Intraocular Lens Implant Pending Studies Studies pending at discharge: no Medical Emergencies . Who to Call and When: Medical Emergencies: If at any time you feel your situation is an emergency, please call 911 immediately. . Non-Emergent Contact Non-Emergency issues call your: Surgeon . . "Provider Documentation" section prepared by David Martínez. .
[2017-12-31 08:47] VITALS: BP 136/79; PULSE 67; O2SAT 95
--- NOTE | 2017-12-31 08:51 | Anesthesia Progress Nt - [facility] ---
Anesthesia Post Op Note Date & Time Dec 31, 2017 at 08:51 Vital Signs Pain Intensity: 0 Vital Signs Past 12 Hours Date Time Temp Pulse Resp B/P (MAP) Pulse Ox O2 Delivery O2 Flow Rate FiO2 12/31/17 08:47 67 16 136/79 (98) 95 Room Air 12/31/17 08:30 36.5 61 12 140/71 (94) 94 Room Air 12/31/17 07:24 36.5 72 16 178/105 (129) 96 Room Air Notes Mental Status: alert / awake / arousable, participated in evaluation Pt Amnestic to Procedure: Yes Nausea / Vomiting: adequately controlled Pain: adequately controlled Airway Patency, RR, SpO2: stable & adequate BP & HR: stable & adequate Hydration State: stable & adequate Anesthetic Complications: no major complications apparent
== END | disposition home or self-care (01) ==
LOC: X.SURG 07:02
PROVIDERS: ATTEND Ophthalmology
DX: E11.36 Type 2 diabetes mellitus with diabetic cataract (principal); H25.11 Age-related nuclear cataract, right eye; I10 Essential (primary) hypertension; I48.91 Unspecified atrial fibrillation; E03.9 Hypothyroidism, unspecified; Z95.0 Presence of cardiac pacemaker; E78.00 Pure hypercholesterolemia, unspecified; Z86.010 Personal history of colon polyps; Z98.42 Cataract extraction status, left eye

== ENCOUNTER 2018-06-25 11:10 | Inpatient (IN) ==
--- NOTE | 2018-06-12 09:09 | PAT Medication Instructions ---
Medication Instructions Date of Service June 12, 2018 Home Medications acetaminophen [Tylenol] 325 - 650 mg PO Q6H NEEDED allopurinol 100 mg PO QPM amlodipine 5 mg PO QAM apixaban [Eliquis] 5 mg PO BID calcium carbonate [Tums] 200 mg PO BID NEEDED calcium carbonate-vitamin D3 1 tab PO BID levothyroxine 100 mcg PO QAM magnesium oxide 400 mg PO QAM metoprolol tartrate 100 mg PO BID multivitamin 1 tab PO QAM simvastatin 10 mg PO HS ASK your prescriber and surgeon apixaban [Eliquis] 5 mg PO BID DO NOT take the morning of surgery calcium carbonate [Tums] 200 mg PO BID NEEDED calcium carbonate-vitamin D3 1 tab PO BID magnesium oxide 400 mg PO QAM Take morning of surgery With a small sip of water, OTHERWISE NOTHING TO EAT OR DRINK AFTER MIDNIGHT: acetaminophen [Tylenol] 325 - 650 mg PO Q6H NEEDED amlodipine 5 mg PO QAM levothyroxine 100 mcg PO QAM metoprolol tartrate 100 mg PO BID multivitamin 1 tab PO QAM Take evening before surgery acetaminophen [Tylenol] 325 - 650 mg PO Q6H NEEDED allopurinol 100 mg PO QPM calcium carbonate [Tums] 200 mg PO BID NEEDED calcium carbonate-vitamin D3 1 tab PO BID metoprolol tartrate 100 mg PO BID simvastatin 10 mg PO HS Other Notes If you have any questions please call us at [phone] or [phone] or [phone] or [phone]
--- NOTE | 2018-06-12 10:02 | Anesthesiology Consultation ---
Addendum entered and electronically signed by Otis Pedraza MD 06/23/18 09: 51: Addendum (Blank) Addendum June 23, 2018 09:46 Patient's medications were changed prior to repeat echo to evaluate HOCM/REJI with severe LVH on 06/22/18. Unfortunately she did not understand her medication instructions and did not do this properly. At her net wpf developer appointment, she was tachycardic and felt not to be medically optimized, so an echo was not performed. She is intended to stop amlodipine, restart metoprolol, and increase her diltiazem dose and will follow again for repeat echocardiogram on . Her surgical clearance is pending review of this study. Original Note: Date of Service June 12, 2018 Assessment & Plan (1) Encounter for pre-operative examination: Chart Review Chart Review: Patient seen in Pre Admission Testing Consults Requested cardiac Teaching & Discussion Pre-Anesthesia Teaching/Discussion Notes: Instructed NPO after midnight before surgery, except medications with 15 cc of water. Medication instructions provided according to the PAT guidelines. History Surgery Operation Date: 06/25/18 13:15 Proposed Procedures p Laparoscopic Abdominal Wall Hernia Repair with Mesh, Possible Open Repair - Poncho Arnold MD, FACS Height/Weight Height: 5 ft 2.5 in Weight: 70.5 kg Allergies Allergy/AdvReac Type Severity Reaction Status Date / Time No Known Drug Allergies Allergy Unknown NONE Verified 06/10/18 11:58 Medications Home Medications Medication Instructions Recorded Confirmed Last Taken acetaminophen [Tylenol] 325 - 650 mg PO Q6H PRN 06/10/18 06/10/18 Unknown allopurinol 100 mg PO QPM 06/10/18 06/10/18 Unknown amlodipine 5 mg PO QAM 06/10/18 06/10/18 Unknown apixaban [Eliquis] 5 mg PO BID 06/10/18 06/10/18 Unknown calcium carbonate [Tums] 200 mg PO BID PRN 06/10/18 06/10/18 Unknown calcium carbonate-vitamin D3 1 tab PO BID 06/10/18 06/10/18 Unknown [Calcium 600 + D(3)] levothyroxine 100 mcg PO QAM 06/10/18 06/10/18 Unknown magnesium oxide 400 mg PO QAM 06/10/18 06/10/18 Unknown metoprolol tartrate 100 mg PO BID 06/10/18 06/10/18 Unknown multivitamin 1 tab PO QAM 06/10/18 06/10/18 Unknown simvastatin 10 mg PO HS 06/10/18 06/10/18 Unknown Past Medical History Medical History Atrial fibrillation Cancer COLON CANCER Cardiac murmur Diabetes mellitus, type 2 DIET MANAGED-NO MEDS Gout HOCM (hypertrophic obstructive cardiomyopathy) Hyperlipidemia Hypertension Hypothyroidism Pacemaker LAST CHECK 04/2018-REMOTELY SOB (shortness of breath) on exertion Past Family History Family History Brother Family history of diabetes mellitus Past Surgical History Surgical History History of bowel resection WITH COLOSTOMY History of cataract surgery R/L History of colostomy reversal History of open reduction and internal fixation (ORIF) procedure RIGHT ANKLE Pacemaker Past Anesthesia History No Hx of Anesthesia Complications (Other than hallucinations after one surgery) and No Family Hx of Anesthesia Complications History of PONV No Motion Sickness Screening History of Motion Sickness: No Social History Smoking Status: Never smoker Do You Dip or Chew Tobacco: No Hx Alcohol Use: No Hx Substance Use: No Exercise / Class Metabolic Activity II 4-5 Yardwork/Stairs/Walk up hill (Chores. Walks daily when weather is nice. Able to climb FOS. Denies CP. Does get CHAKRABORTY at times. ) Review of Systems Patient denies chest pain, shortness of breath, joint pain, reflux, cough, wheezing, palpitations. +CHAKRABORTY (has been going on for several years) Physical Exam Vital Signs BP: 132/81 P: 77 R: 18 T: 98.1 SPO2: 96% on RA ENMT Thyromental Distance: < 3.5 Finger Breadths (3) Mallampati Class: II Neck normal visual inspection and trachea midline; neck extension not limited Respiratory normal respiratory effort Auscultation: lungs clear to auscultation bilaterally Cardiovascular Rate/Rhythm: regular rate and regular rhythm Heart Sounds: + murmur (4/6) Vessels: no carotid bruit Neurologic moves all extremities Psychiatric Orientation: alert and oriented x 3 Testing Electrocardiogram Date: 06/12/18 Atrial paced rhythm with prolonged AV conduction. LVH with repolarization abnormality. When compared with ECG of 07/16/16, electronic atrial pacing is now present. Chest X-Ray Date: 06/12/18 Findings: + NAD FINDINGS: The heart is at the upper limits of normal in size. There is a left subclavian dual-chamber central venous pacemaker present. There is no failure. No focal pulmonary consolidation. There are no pleural effusions. There is minor linear atelectasis/scarring at the left lung base. IMPRESSION: No active disease in the chest. Echocardiogram Date: 04/18/17 EF: >70% Other Findings: + LVH (Severe concentric asymmetric LVH.) and + diastolic dysfunction (Grade II) Normal left ventricular size with hyperdynamic systolic function. EF >70%. No RWMA. Severe concentric asymmetric LVH. Diastolic dysfunction, Grade II ( pseudonormalization pattern). The left atrium is mildly dilated. Sclerotic aortic valve. Aortic valve appears to have mildly reduced excursion during systole. Systolic anterior motion of mitral valve without significant obstruction (max gradiant at rest 16mmHg). There is mild mitral regurgitation. Normal estimated right ventricular systolic pressure; 32mmHg. Compared to prior study on 07/07/15, LVOT dynamic obstruction is now much improved. Other Testing Pacer Check 04/27/18: Med[employer]onic [id number] %Paced: Atrial - 88.3, Right Ventricle - 0.1 Mode: AAIR <=> DDDR Lower Rate: 60 Upper Rate: 125 Conclusion: Normal device function. Some episodes of what appears to be atrial fibrillation, generally brief. Laboratory Results 06/12/18 09:34 06/12/18 09:34 HgbA1C: 7.4 (02/03 at [facility] [place])
--- NOTE | 2018-06-12 11:16 | XRay Report ---
XR chest Pre-admission PA/Lat CLINICAL HISTORY: Preoperative chest COMPARISON STUDY: 07/08/2016 FINDINGS: The heart is at the upper limits of normal in size. There is a left subclavian dual-chamber central venous pacemaker present. There is no failure. No focal pulmonary consolidation. There are n o pleural effusions. There is minor linear atelectasis/scarring at the left lung base.[ IMPRESSION: No active disease in the chest. Electronically signed by: Gaston Garay M.D. 06/12/2018 11:15 AM
[2018-06-12 11:39] LABS: BUN Creatinine Ratio 18.8 (10-20); Calcium 9.3 mg/dl (8.5-10.1); Creatinine Clr Calc Pharmacy 46.4 ml/min; Est GFR (African American) 68.2; Est GFR (Non-African American) 58.9; Potassium 3.6 mmol/L (3.5-5.1)
[2018-06-12 11:40] LABS: Basophils # (auto) 0.04 K/uL (0-0.2); Basophils % (auto) 0.6 %; Eosinophils # (auto) 0.22 K/uL (0-0.5); Eosinophils % (auto) 3.2 %; Hematocrit (blood only) 41.8 % (37-47); Hemoglobin 14.4 g/dL (12.0-16.0); Immature Granulocytes # (auto) 0.01 K/uL (0.00-0.02); Immature Granulocytes % (auto) 0.1 %; Lymphocytes # (auto) 1.41 K/uL (1.2-3.4); Lymphocytes % (auto) 20.2 %; Mean Corpuscular Hgb Conc 34.4 g/dL (32-36); Mean Corpuscular Volume 96.1 fL (80-100); Mean Platelet Volume 11.2 fL (7.4-10.4); Monocytes # (auto) 0.48 K/uL (0.11-0.59); Monocytes % (auto) 6.9 %; Neutrophils # (auto) 4.81 K/uL (1.4-6.5); Platelet Count 197 K/uL (130-400); RDW Coefficient of Variation 12.7 % (11.5-14.5); RDW Standard Deviation 44.5 fL (36.4-46.3); Red Blood Count 4.35 M/uL (4.2-5.4); White Blood Count 6.97 K/uL (4.8-10.8)
[~2018-06-25 11:10] MED LIST changes: -500ML BSS 0.3ML EPI 1:1000PF IRRIG ONE; -ACET-1311 PO; -ACETAMINOPHEN 325 MG TAB PO PRN; -ALLO100T PO; -AMLO5TAB3 PO; -AMVISC PLUS 0.8ML SYRINGE INT OCU ONE; -APIX1TAB PO; -ATROPINE SULFATE 0.1 MG/ML 5ML SYR IV PRN; -BSS FLUSH ONE; -CALC-354 PO; -CALC500C3 PO; -ENDOCOAT 0.85ML SYRINGE INT OCU ONE; -EpHEDrine SULFATE INJ 50 MG/ML AMP IV PRN; -EpINEphrine INJ 1MG/ML AMP 1 MG/ML AMP ONE; -LACTATED RINGER'S 1000ML 500 ML IV SCH; -LEVO100T PO; -LIDOCAINE 4% OP SOLN DROP CHARGE ONE; -LIDOCAINE 4% OP SOLN DROP CHARGE OPR SCH; -LIDOCAINE HCL 1% MPF 2 ML VIAL ONE; +LR 15ML/HR IV SCH; -MAGN400T6 PO; -METO-596 PO; -MIDAZOLAM HCL 1 MG/ML 2ML VIAL ONE; -MIX: 4ML BSS 1ML EPI 1:1000 PF TOP ONE; -MULT-506 PO; -POVIDONE-IODINE OP SOLN 30 ML BTL ONE; -PROPARACAINE 0.5% OP SOLN PER DROP CHARGE OPR SCH; -SIMV10TA5 PO; -TOBRAMYCIN/DEXAMETHASONE OPH OINT PER APPLN CHARGE ONE
[2018-06-25] MEDS ORDERED: LABETALOL HCL IV 5 MG/ML 20ML IV PRN (12:55)
[2018-06-25] MEDS ORDERED: ATROPINE SULFATE 0.1 MG/ML 10ML SYR IV PRN (12:55)
[2018-06-25] MEDS ORDERED: ONDANSETRON INJ 2 MG/ML 2 ML VIAL IV PRN ×2 (12:55→14:41)
[2018-06-25] MEDS ORDERED: ePHEDrine sulfate 50 MG/ML AMP IV PRN (12:55)
[2018-06-25] MEDS ORDERED: MEPERIDINE HCL 25 MG/ML CARP IV PRN (12:55)
[2018-06-25] MEDS ORDERED: HYDROmorphone INJ 1 MG/ML SYRINGE IV PRN (12:55)
[2018-06-25] MEDS ORDERED: PHENYLEPHRINE 100MCG/ML 5ML SYR IV PRN (12:55)
[2018-06-25] MEDS ORDERED: fentaNYL citrate 100 MCG/2 ML VIAL ONE (13:13)
[2018-06-25] MEDS ORDERED: MIDAZOLAM HCL 1 MG/ML 2ML VIAL ONE (13:13)
--- NOTE | 2018-06-25 13:26 | History & Physical Bridge Note ---
Date of Service June 25, 2018 History & Physical Bridge Note I have examined the patient, reviewed the History & Physical and in the interval since the performance of the History & Physical I have noted the following changes of clinical significance: no changes noted pt marked all questions answered
[2018-06-25] MEDS ORDERED: DEXAMETHASONE SOD INJ 4 MG/ML VIAL ONE (13:39)
[2018-06-25] MEDS ORDERED: ONDANSETRON INJ 2 MG/ML 2 ML VIAL ONE (13:39)
[2018-06-25] MEDS ORDERED: ROCURONIUM BROMIDE 10 MG/ML 5 ML VIAL ONE (13:39)
[2018-06-25] MEDS ORDERED: LIDOCAINE HCL 2% 2 ML VIAL/AMP(20MG/ML) INFIL ONE (13:39)
[2018-06-25] MEDS ORDERED: PROPOFOL IV EMULSION 10 MG/ML 20 ML VIAL IV ONE (13:39)
[2018-06-25] MEDS ORDERED: BUPIVACAINE 0.5 % 5 MG/1 ML MPF 30ML VIAL ONE (13:40)
[2018-06-25] MEDS ORDERED: BACITRACIN INJ 50,000 UNIT VIAL ONE (13:40)
[2018-06-25] MEDS ORDERED: CEFAZOLIN 250 MG/ML 1 GM VIAL ONE (14:03)
[2018-06-25] MEDS ORDERED: GLYCOPYRROLATE 0.2 MG/ML VIAL ONE ×2 (14:26→15:31)
[2018-06-25] MEDS ORDERED: NEOSTIGMINE METHYLSULFATE 5 MG/5 ML SYR ONE ×2 (14:26→15:31)
--- NOTE | 2018-06-25 14:29 | Post Operative Brief Note ---
Immediate Post Op Note v1 Date of Surgery June 25, 2018 Pre & Post Diagnosis Operation Date: 06/25/18 13:15 Pre-Op Diagnosis: Abdominal Wall Hernia Post-Op Diagnosis: Abdominal Wall Hernia Procedure Operation Date: 06/25/18 13:15 Actual Procedures p Laparoscopic Incisional Hernia, Right Lower Quadrant, Repair with Mesh 10 cm surgimesh(Not Applicable) - Poncho Arnold MD, FACS Surgeon Poncho Arnold MD, FACS Computer Field Technician Tomeka HASSAN Estimated Blood Loss 5 Findings Consistent with Post-Op Diagnosis
[2018-06-25] MEDS ORDERED: OXYCODONE/ACETAMINOPHEN 5mg/325mg TAB PO PRN (14:41)
[2018-06-25] MEDS ORDERED: MoRPHine SULFATE 4 MG/ML 1 ML CARP\\VIAL IV PRN ×3 (14:41)
--- NOTE | 2018-06-25 14:43 | Operative Report ---
Post Operative Report Pre & Post Diagnosis Operation Date: 06/25/18 13:15 Pre-Op Diagnosis: Abdominal Wall Hernia Post-Op Diagnosis: Abdominal Wall Hernia Procedure Operation Date: 06/25/18 13:15 Actual Procedures p Laparoscopic Incisional Hernia, Right Lower Quadrant, Repair with Mesh10 cm surgimesh(Not Applicable) - Poncho Arnold MD, FACS Patient was brought into the operating theater general endotracheal anesthesia Holm catheter inserted systemic antibiotics given the abdomen was prepped Betadine scrub and solution properly draped a timeout was had small incision was made approximately quarter inch long supraumbilical area Burns we elevated the abdominal fascia small opening in the fascia was made 0 Vicryl suture stay suture we entered the peritoneal cavity under direct visualization 5 mm trocar inserted CO2 insufflated To pressures about 12 and inflation rate about 10 we were able to see the defect through the umbilical opening her port in the right lower quadrant and is expected it was at the ileostomy site this point I converted a placed a 5 mm left lower quadrant port with preemptive local analgesic camera was transferred in that area and we could more definitively outline the defect indicating see the muscular fascial planes no really any preperitoneal fat from the skin edge we were able then with a spinal needle outlined the defect itself and it was probably about 5 cm diameter I elected then to bring a 10 cm surgery mesh on into the field we put the insufflator and left lower quadrant trocar site the 0 Vicryl suture stay suture in the supraumbilical area were used to elevate the abdominal wall and we took the 5 mm port out and through this port site we were able to place the mesh control the pneumoperitoneum bile tying the 0 Vicryl suture in a towel clip this 5 mm trocar drain was placed in the left upper quadrant under direct visualization with preemptive local analgesic the mesh at the nylon was grabbed suture passer was used to go centrally into the defect itself and elevate the patch through the nylon stay suture make an adequate position is completely centralized in the central portion of the defect we had a enough overlap circumferentially that we use a tacker in the 2 row around these were verbal tackers the repair appeared to be solid it was tension-free and I felt we did not even need any stay sutures of Prolene that I normally put this point the trochars removed and wounds were closed with 4-0 Monocryl the umbilical port I placed another 0 Vicryl suture interrupted [id number] procedure was tolerated well by the patient estimated blood loss approximately 5 cc addendumTomeka Jaimes was present throughout the procedure and helped with exposure retraction and fashioning of the mesh Surgeon Poncho Arnold MD, FACS Commercial Relationship Manager Tomeka JAIMES Estimated Blood Loss 5 Findings Consistent with Post-Op Diagnosis Specimens none Description of Procedure merda I attest to the content of the Intraoperative Record and any orders documented therein. Any exceptions are noted below.
[2018-06-25] MEDS ORDERED: CEFAZOLIN 2000MG 2,000 MG/15 ML SYR IV SCH (14:45)
[2018-06-25] MEDS: fentaNYL citrate 100 MCG/2 ML VIAL IV PRN ×4 (15:19→15:34)
[2018-06-25] MEDS ORDERED: LACTATED RINGER'S 1,000 ML IV SCH (15:30)
[2018-06-25] MEDS ORDERED: ACETAMINOPHEN 1000 MG/100 ML IV IV ONE (15:46)
[2018-06-25] MEDS ORDERED: ACETAMINOPHEN 1,000 MG/100 ML VIAL IV ONE (15:47)
--- NOTE | 2018-06-25 15:59 | Anesthesiology Progress Note ---
Date of Service June 25, 2018 Anesthesia Post Procedure Vital Signs Vital Signs: Temp Pulse Resp BP Pulse Ox 06/25/18 15:55 36.3 C L 61 24 122/67 94 06/25/18 15:45 60 21 144/69 H 95 06/25/18 15:35 60 13 146/70 H 94 06/25/18 15:25 60 23 112/99 96 06/25/18 15:17 36 C L 60 16 152/71 H 100 06/25/18 13:42 77 16 127/69 100 06/25/18 12:07 36.6 C 69 18 162/80 H 95 Pain Intensity Abdomen: Pain Intensity: 4 Notes Mental Status: alert / awake / arousable Patient Amnestic to Procedure: Yes Nausea / Vomiting: adequately controlled Pain: adequately controlled Airway Patency, RR, SpO2: stable & adequate BP & HR: stable & adequate Hydration State: stable & adequate Anesthetic Complications: no major complications apparent
[2018-06-25] MEDS: OXYCODONE/ACETAMINOPHEN 5mg/325mg TAB PO PRN ×2 (16:45→20:15)
--- NOTE | 2018-06-25 17:18 | Consultation ---
Date of Consultation June 25, 2018 Assessment & Plan (1) History of incisional hernia repair: Hernia repair performed laparoscopically on 06/25 -Postoperative management as per general surgery -Pain control with morphine and oxycodone as needed -SCDs and subcutaneous heparin for DVT prophylaxis (2) HOCM (hypertrophic obstructive cardiomyopathy): With severe LVH with left ventricular outflow tract obstruction and systolic anterior motion of the mitral apparatus-reviewed cardiology notes and cardiology is consulted as well -This diagnosis carries a high risk of sudden around 20% due to ventricular arrhythmias -Very important to avoid hypotension or dehydration and to keep her on the hypervolemic side -Continue LR at 50 mL's per hour as ordered-would increase or bolus if blood pressure drops lower. -Continue diltiazem ER 180 mg p.o. twice daily and metoprolol tartrate 100 mg p.o. twice daily to allow for adequate ventricular filling and diastole (home med rec was wrong and said she was on immediate release dilt--> should be Dilt ER 180mg bid-d/w Pharmacist who is changing home med rec) -Telemetry monitoring is advised in the postoperative period -Strict I's and O's, daily weights (3) Hypertension: Stable -Continue home meds as above (4) Hyperlipidemia: Continue home statin (5) Atrial fibrillation: Rate controlled -Eliquis has been on hold for 3 days prior to surgery -Restart Eliquis when okay with general surgeon (6) Pacemaker: Placed for tachybradycardia syndrome (7) Diabetes mellitus, type 2: Last hemoglobin A1c was 7.4% in 04/2018. Patient reports she uses diet control and is on no medications for this at home -Advised sliding scale insulin and Accu-Cheks while inpatient -Check hemoglobin A1c in the morning (8) Gout: No acute flare -Continue allopurinol for prophylaxis (9) Hypothyroidism: Continue home levothyroxine dose for now -Last TSH was elevated at 7.6 and 05/2017 -Check TSH in the morning (10) Chronic diastolic CHF (congestive heart failure): Grade 2 diastolic dysfunction on most recent echocardiogram, with severe LVOT as above Plan as above (11) History of colon cancer: Status post partial colectomy with ileostomy and then ileostomy reversal, now with incisional hernia repair at the site of previous ileostomy No chemotherapy was ever given and she is in remission (12) DVT prophylaxis: Heparin subcu was ordered by general surgery, SCDs Disposition-admitted to telemetry, hospitalist service will follow along History of Present Illness Reason for Consultation: Postoperative medical management Requesting Physician: Dr. Arnold Attending Physician: Poncho Arnold MD, [facility] History of Present Illness This patient is a 77-year-old female with a history of severe LVH with LVOT and systolic anterior motion (REJI) of the mitral valve, paroxysmal A. fib on Eliquis , PPM for tachybradycardia syndrome, HTN, diet controlled DM 2, gout, hypothyroidism, dyslipidemia, chronic diastolic CHF, mild , and colon cancer status post partial colectomy, who is here postoperative from a laparoscopic incisional hernia repair in the right lower quadrant. She was admitted to the telemetry unit given her significant cardiac issues for close monitoring in the postoperative period. Patient reports some abdominal pain, no nausea but does not have an appetite yet. Denies chest pain or shortness of breath. Has no other complaints. Her cardiology records from the most recent visits were reviewed in detail. Allergies Allergy/AdvReac Type Severity Reaction Status Date / Time No Known Drug Allergies Allergy Unknown NONE Verified 06/25/18 11:56 Home Medications Home Medications Medication Instructions Recorded Confirmed Type acetaminophen [Tylenol] 325 - 650 mg PO Q6H PRN 06/10/18 06/10/18 History allopurinol 100 mg PO QPM 06/10/18 06/25/18 History apixaban [Eliquis] 5 mg PO BID 06/10/18 06/25/18 History calcium carbonate [Tums] 200 mg PO BID PRN 06/10/18 06/25/18 History calcium carbonate-vitamin D3 1 tab PO BID 06/10/18 06/25/18 History [Calcium 600 + D(3)] levothyroxine 100 mcg PO QAM 06/10/18 06/25/18 History magnesium oxide 400 mg PO QAM 06/10/18 06/25/18 History multivitamin 1 tab PO QAM 06/10/18 06/25/18 History simvastatin 10 mg PO HS 06/10/18 06/25/18 History diltiazem HCl 180 mg PO BID 06/25/18 06/25/18 History metoprolol tartrate 100 mg PO BID 06/25/18 06/25/18 History Patient History Medical History History of colon cancer Chronic diastolic CHF (congestive heart failure) HOCM (hypertrophic obstructive cardiomyopathy) Hypertension Hyperlipidemia Atrial fibrillation Pacemaker LAST CHECK 04/2018-REMOTELY Diabetes mellitus, type 2 DIET MANAGED-NO MEDS Gout Hypothyroidism Cancer COLON CANCER Cardiac murmur SOB (shortness of breath) on exertion Surgical History History of bowel resection WITH COLOSTOMY History of colostomy reversal History of open reduction and internal fixation (ORIF) procedure RIGHT ANKLE Pacemaker History of cataract surgery R/L Family History Brother Family history of diabetes mellitus Daughter Breast cancer Sister HTN (hypertension), benign Diabetes mellitus Social History marital status: Current Living Situation: Spouse Other Information That Helps Us Care for You: No Feels Safe at Home: Yes Safety Concerns: Feels Safe At This Time Smoking Status: Never smoker Do You Dip or Chew Tobacco: No Hx Alcohol Use: No Hx Substance Use: No Beliefs That Will Affect Care: None Preferred Language: Palauan Communication Ability: Effective Pediatric Cardiologist Required: No Review of Systems 14 point review of systems otherwise negative except as per HPI Physical Exam 2 Vital Signs (Past 24 Hours): Last Vital Signs Temp 36.3 C L 06/25/18 16:22 Pulse 60 06/25/18 16:22 Resp 18 06/25/18 16:22 BP 122/73 06/25/18 16:22 Pulse Ox 91 06/25/18 16:22 Constitutional: WD/WN, vitals as above Eyes: PERRL, conjunctivae normal, anicteric sclerae ENMT: external ear and nose normal, oropharynx normal Neck: trachea midline, no thyromegaly Respiratory: normal respiratory effort; no respiratory distress Auscultation: + crackles (Mild bibasilar crackles); no rhonchi and no wheezes Cardiovascular: Rate/Rhythm: regular rate and regular rhythm Heart Sounds: + murmur Extremities: no edema Gastrointestinal (Abdomen): Inspection/Auscultation: + hypoactive bowel sounds ; + abdomen abnormal to inspection (Multiple laparoscopic incisional sites with Steri-Strips in place) and abdomen not distended Percussion/Palpation: + abdomen tender (Mild tenderness over incisional sites without guarding or rebound tenderness) Musculoskeletal: Extremities: extremities normal to inspection; no cyanosis and no clubbing Skin: no rashes, warm and dry Neurologic: moves all extremities and awake; no focal motor deficits Psychiatric: A+Ox3, euthymic affect Results & Data Laboratory Results 06/25/18 06/25/18 06/25/18 Range/Units 17:03 15:26 11:51 PT 11.5 (9.0-12.0) Seconds INR 1.1 (0.9-1.1) POC Glucose 191 H 182 H (70-99) _ (1) Hypertension Hypertension type: essential hypertension Qualified Code(s): I10 - Essential (primary) hypertension (2) Hyperlipidemia Hyperlipidemia type: unspecified Qualified Code(s): E78.5 - Hyperlipidemia, unspecified (3) Atrial fibrillation Atrial fibrillation type: paroxysmal Qualified Code(s): I48.0 - Paroxysmal atrial fibrillation (4) Diabetes mellitus, type 2 Diabetes mellitus host and hostess insulin use: without host and hostess use Diabetes mellitus complication status: without complication Qualified Code(s): E11.9 - Type 2 diabetes mellitus without complications (5) Hypothyroidism Hypothyroidism type: acquired Qualified Code(s): E03.9 - Hypothyroidism, unspecified
[2018-06-25 17:22] LABS: INR 1.1 (0.9-1.1); Prothrombin Time 11.5 Seconds (9.0-12.0)
[2018-06-25] MEDS ORDERED: GLUCOSE 10 TABS/TUBE PO PRN (18:00)
[2018-06-25] MEDS ORDERED: DEXTROSE 50% 50 ML SYRINGE IV PRN (18:00)
[2018-06-25] MEDS ORDERED: GLUCAGON FOR INJ 1 MG VIAL SQ PRN (18:00)
[2018-06-25] MEDS ORDERED: GLUCOSE 40% GEL 15 GM TUBE PO PRN (18:00)
[2018-06-25] MEDS ORDERED: CARBOHYDRATES FOR HYPOGLYCEMIA PO PRN (18:00)
[2018-06-25] MEDS: METOPROLOL TARTRATE 100 MG TAB PO SCH (20:07)
[2018-06-25] MEDS: HEPARIN SOD 5,000 UNIT/0.5 ML VIAL SQ SCH (20:09)
[2018-06-25] MEDS: INSULIN ASPART 100 UNITS/ML 3 ML PEN SC SCH (20:12)
[2018-06-25] MEDS ORDERED: ALLOPURINOL 100 MG TAB PO SCH (21:00)
[2018-06-25] MEDS ORDERED: SIMVASTATIN 10 MG TAB PO SCH (21:00)
[2018-06-25] MEDS ORDERED: COUGH DROP (SUGAR FREE) LOZ 24 LOZ/1 BOX BUCCAL PRN (23:43)
[2018-06-26] MEDS: OXYCODONE/ACETAMINOPHEN 5mg/325mg TAB PO PRN ×3 (00:29→13:36)
[2018-06-26 06:17] LABS: Hematocrit (blood only) 36.6 % (37-47); Hemoglobin 12.5 g/dL (12.0-16.0); Immature Granulocytes # (auto) 0.01 K/uL (0.00-0.02); Immature Granulocytes % (auto) 0.1 %; Lymphocytes # (auto) 0.63 K/uL (1.2-3.4); Lymphocytes % (auto) 6.5 %; Mean Corpuscular Hgb Conc 34.2 g/dL (32-36); Mean Corpuscular Volume 95.8 fL (80-100); Mean Platelet Volume 10.3 fL (7.4-10.4); Monocytes # (auto) 0.12 K/uL (0.11-0.59); Monocytes % (auto) 1.2 %; Neutrophils # (auto) 8.89 K/uL (1.4-6.5); Neutrophils % (auto) 92.2 %; Platelet Count 174 K/uL (130-400); RDW Coefficient of Variation 12.7 % (11.5-14.5); RDW Standard Deviation 43.9 fL (36.4-46.3); Red Blood Count 3.82 M/uL (4.2-5.4); White Blood Count 9.65 K/uL (4.8-10.8)
[2018-06-26] MEDS ORDERED: LEVOTHYROXINE SODIUM 100 MCG TABLET PO SCH (06:30)
[2018-06-26 06:53] LABS: BUN Creatinine Ratio 21.8 (10-20); Calcium 8.5 mg/dl (8.5-10.1); Creatinine Clr Calc Pharmacy 43.4 ml/min; Est GFR (African American) 64.8; Est GFR (Non-African American) 55.9; Potassium 4.3 mmol/L (3.5-5.1)
[2018-06-26 07:13] LABS: Estimated Average Glucose 177 mg/dl; Hemoglobin A1C 7.8 % (4.5-5.6)
--- NOTE | 2018-06-26 07:47 | Anesthesiology Progress Note ---
Date of Service June 26, 2018 Anesthesia Post Procedure Vital Signs Vital Signs: Temp Pulse Pulse Resp BP BP Pulse Ox 06/26/18 03:28 36.5 C 65 18 128/73 94 06/25/18 23:40 36.3 C L 63 16 130/73 93 06/25/18 22:20 60 06/25/18 20:00 36.3 C L 60 20 117/64 94 06/25/18 18:53 61 06/25/18 18:06 36.3 C L 60 16 117/67 95 06/25/18 17:05 67 16 140/90 94 06/25/18 16:51 36.3 C L 60 17 134/70 93 06/25/18 16:36 60 18 120/70 93 06/25/18 16:22 36.3 C L 60 18 122/73 91 06/25/18 16:20 36.3 C L 60 16 122/73 92 06/25/18 16:05 60 16 124/67 96 06/25/18 15:55 36.3 C L 61 24 122/67 94 06/25/18 15:45 60 21 144/69 H 95 06/25/18 15:35 60 13 146/70 H 94 06/25/18 15:25 60 23 112/99 96 06/25/18 15:17 36 C L 60 16 152/71 H 100 06/25/18 13:42 77 16 127/69 100 06/25/18 12:07 36.6 C 69 18 162/80 H 95 Pain Intensity Abdomen: Pain Intensity: 5 Notes Mental Status: alert / awake / arousable and participated in evaluation Patient Amnestic to Procedure: Yes Nausea / Vomiting: adequately controlled Pain: adequately controlled Airway Patency, RR, SpO2: stable & adequate BP & HR: stable & adequate Hydration State: stable & adequate Anesthetic Complications: no major complications apparent and Pt Satisfied with anesthetic care
--- NOTE | 2018-06-26 08:59 | Cardiology Consultation ---
Date of Consultation June 26, 2018 Assessment & Plan (1) Atrial fibrillation: She is currently atrial paced. Resume anticoagulation therapy for stroke risk reduction when safe from a surgical standpoint. Continue rate controlling medications. (2) Left ventricular outflow tract obstruction: Recently as an outpatient amlodipine was discontinued in favor of diltiazem. Continue beta-sera and diltiazem to help improve her Dynamic LVOT obstruction. Avoid dehydration. She is asymptomatic. (3) Hypertensive heart disease: She has severe concentric LVH. She had MRI to rule out hypertrophic cardiomyopathy. Continue current regimen. She is asymptomatic in this regard. 4. Disposition: Continue to follow-up with electrophysiology as an outpatient. She can be discharged from a cardiac standpoint when okay with other services. Thank you for allowing me to participate in the care of your patient. Please call for any other questions or concerns. Sincerely, Noe Moore M.D. History of Present Illness Reason for Consultation: Atrial fibrillation and LVOT obstruction Requesting Physician: Dr. Arnodl Attending Physician: Poncho Arnold MD, [facility] History of Present Illness Mrs. Madsen is a pleasant 77 year old female with a history significant for severe LVH with outflow tract obstruction, systolic anterior motion of the mitral valve leaflet, mitral regurgitation, aortic regurgitation, paroxysmal atrial fibrillation/flutter, hypertension, dyslipidemia, diabetes, and tachy- herve syndrome status post pacemaker placement. She is postop day 1 for hernia surgery. She was seen preoperatively by Mr. Lara. An echocardiogram on 06/19/2018 demonstrated significant dynamic LVOT obstruction. At that time, she was advised to remain on her metoprolol, discontinue amlodipine, and initiate diltiazem. Unfortunately she stop her metoprolol by mistake. This was corrected earlier this week when she was seen once again by Mr. Lara. She denies chest pain, shortness of breath, syncope, near-syncope, palpitations , edema, or bleeding. She does have some abdominal pain at the incision site but otherwise feels well. She tolerated her diet today. She is looking forward to going home. Review of systems: As above. Review of systems otherwise negative/ unremarkable. Family history: No known premature CAD or sudden cardiac . Brother has pacemaker. Sister had valve replacement. Social history: Denies tobacco, alcohol, or drug abuse. and lives with her . Three children. She was alone in her hospital room. Allergies Allergy/AdvReac Type Severity Reaction Status Date / Time No Known Drug Allergies Allergy Unknown NONE Verified 06/25/18 11:56 Home Medications Home Medications Medication Instructions Recorded Confirmed Type acetaminophen [Tylenol] 325 - 650 mg PO Q6H PRN 06/10/18 06/10/18 History allopurinol 100 mg PO QPM 06/10/18 06/25/18 History apixaban [Eliquis] 5 mg PO BID 06/10/18 06/25/18 History calcium carbonate [Tums] 200 mg PO BID PRN 06/10/18 06/25/18 History calcium carbonate-vitamin D3 1 tab PO BID 06/10/18 06/25/18 History [Calcium 600 + D(3)] levothyroxine 100 mcg PO QAM 06/10/18 06/25/18 History magnesium oxide 400 mg PO QAM 06/10/18 06/25/18 History multivitamin 1 tab PO QAM 06/10/18 06/25/18 History simvastatin 10 mg PO HS 06/10/18 06/25/18 History diltiazem HCl 180 mg PO BID 06/25/18 06/25/18 History metoprolol tartrate 100 mg PO BID 06/25/18 06/25/18 History Patient History Medical History History of colon cancer Hypertension Hyperlipidemia Atrial fibrillation Pacemaker LAST CHECK 04/2018-REMOTELY Diabetes mellitus, type 2 DIET MANAGED-NO MEDS Gout Hypothyroidism Hypertensive heart disease Left ventricular outflow tract obstruction Tachy-herve syndrome Cancer COLON CANCER Cardiac murmur SOB (shortness of breath) on exertion Surgical History History of bowel resection WITH COLOSTOMY History of colostomy reversal History of open reduction and internal fixation (ORIF) procedure RIGHT ANKLE Pacemaker History of cataract surgery R/L Family History Brother Family history of diabetes mellitus Daughter Breast cancer Sister HTN (hypertension), benign Diabetes mellitus Social History marital status: Current Living Situation: Spouse Other Information That Helps Us Care for You: No Feels Safe at Home: Yes Safety Concerns: Feels Safe At This Time Smoking Status: Never smoker Do You Dip or Chew Tobacco: No Hx Alcohol Use: No Hx Substance Use: No Beliefs That Will Affect Care: None Preferred Language: Georgian Communication Ability: Effective [employer] Required: No Physical Exam 2 Vital Signs (Past 24 Hours): Last Vital Signs Temp 37.0 C 06/26/18 07:58 Pulse 88 06/26/18 07:58 Resp 16 06/26/18 07:58 BP 129/95 06/26/18 07:58 Pulse Ox 95 06/26/18 07:58 Physical Exam: Gen.: No acute distress. Alert and oriented. HEENT: Anicteric sclera. Neck: No JVD. No bruits. Normal carotid upstrokes bilaterally. Cardiac: PMI was nondisplaced. No ventricular heave. Regular rate and rhythm. Normal S1-S2. 2/6 systolic murmur. No rubs, or gallops. Pulmonary: Crackles at the bases which improved with cough, otherwise clear. Abdomen: Soft, nondistended, with hypoactive bowel sounds. No bruits noted. Tenderness near her surgical incision site. Extremities: 2+ radial pulses bilaterally. 2+ posterior tibialis pulses bilaterally. No edema or cyanosis. Psychiatric: Affect appears appropriate. Results & Data Laboratory Results Laboratory Results - last 24 hr 06/25/18 06/25/18 06/25/18 11:51 15:26 17:03 WBC RBC Hgb Hct MCV MCH MCHC RDW Std Deviation RDW Coeff of Lenore Plt Count MPV Immature Gran % (Auto) Neut % (Auto) Lymph % (Auto) [place] % (Auto) Eos % (Auto) Baso % (Auto) Immature Gran # (Auto) Neut # (Auto) Lymph # (Auto) [place] # (Auto) Eos # (Auto) Baso # (Auto) PT 11.5 INR 1.1 Sodium Potassium Chloride Carbon Dioxide Anion Gap BUN Creatinine Est Cr Clr Drug Dosing Est GFR ( Amer) Est GFR (Non-Af Amer) BUN/Creatinine Ratio Glucose POC Glucose 182 H 191 H Estimat Average Glucose Hemoglobin A1c Calcium TSH 06/25/18 06/26/18 06/26/18 20:00 06:06 06:06 WBC 9.65 RBC 3.82 L Hgb 12.5 Hct 36.6 L MCV 95.8 MCH 32.7 MCHC 34.2 RDW Std Deviation 43.9 RDW Coeff of Lenore 12.7 Plt Count 174 MPV 10.3 Immature Gran % (Auto) 0.1 Neut % (Auto) 92.2 Lymph % (Auto) 6.5 [place] % (Auto) 1.2 Eos % (Auto) 0.0 Baso % (Auto) 0.0 Immature Gran # (Auto) 0.01 Neut # (Auto) 8.89 H Lymph # (Auto) 0.63 L [place] # (Auto) 0.12 Eos # (Auto) 0.00 Baso # (Auto) 0.00 PT INR Sodium 134 L Potassium 4.3 Chloride 104 Carbon Dioxide 24 Anion Gap 6.0 BUN 21 H Creatinine 0.97 Est Cr Clr Drug Dosing 43.4 Est GFR ( Amer) 64.8 Est GFR (Non-Af Amer) 55.9 BUN/Creatinine Ratio 21.8 H Glucose 201 H POC Glucose 182 H Estimat Average Glucose Hemoglobin A1c Calcium 8.5 TSH 0.121 L 06/26/18 06/26/18 06:06 07:27 WBC RBC Hgb Hct MCV MCH MCHC RDW Std Deviation RDW Coeff of Lenore Plt Count MPV Immature Gran % (Auto) Neut % (Auto) Lymph % (Auto) [place] % (Auto) Eos % (Auto) Baso % (Auto) Immature Gran # (Auto) Neut # (Auto) Lymph # (Auto) [place] # (Auto) Eos # (Auto) Baso # (Auto) PT INR Sodium Potassium Chloride Carbon Dioxide Anion Gap BUN Creatinine Est Cr Clr Drug Dosing Est GFR ( Amer) Est GFR (Non-Af Amer) BUN/Creatinine Ratio Glucose POC Glucose 199 H Estimat Average Glucose 177 Hemoglobin A1c 7.8 H Calcium TSH Diagnostic Findings Telemetry personally reviewed: Atrial paced. ECG personally reviewed: ECG 06/12/2018: Atrial paced 63 bpm. LVH with repolarization abnormality. Echo 06/19/2018: Normal LV size with hyperdynamic systolic function. EF > 75% . No regional wall motion abnormalities. Severe concentric LVH. Type 2 diastolic dysfunction. Resting LVOT obstruction with peak gradient 56 which increased with Valsalva to a peak gradient of 77. Severe left atrial dilation. Chordal systolic anterior motion of the mitral valve with dynamic LVOT obstruction. Mild MR. Medications Administered Current Inpatient Medications Allopurinol (Zyloprim) 100 mg PO QPM RUTH Stop: 07/25/18 20:59 Last Admin: 06/25/18 20:08 Dose: 100 mg Dextrose (Dextrose 50%) 25 - 50 ml IV UD PRN; Protocol PRN Reason: Hypoglycemia Protocol Stop: 07/25/18 17:59 Diltiazem HCl (Dilacor Xr) 180 mg PO BID RUTH Stop: 07/25/18 20:59 Last Admin: 06/25/18 20:08 Dose: 180 mg Glucagon (Glucagen) 1 mg SQ UD PRN; Protocol PRN Reason: Hypoglycemia Protocol Stop: 07/25/18 17:59 Glucose (Glucose 40%) 15 - 30 gm PO UD PRN; Protocol PRN Reason: Hypoglycemia Protocol Stop: 07/25/18 17:59 Glucose (Dex4 Glucose) 4 - 8 tabs PO UD PRN; Protocol PRN Reason: Hypoglycemia Protocol Stop: 07/25/18 17:59 Heparin Sodium (Porcine) (Heparin Sodium (Porcine)) 5,000 units SQ Q12 RUTH Stop: 07/25/18 20:59 Last Admin: 06/25/18 20:09 Dose: 5,000 units Cefazolin Sodium (Ancef 2000mg) 2,000 mg in 15 mls @ 3.75 mls/min IV ONCE RUTH; Protocol Stop: 06/26/18 14:44 Last Admin: 06/25/18 14:02 Dose: 3.75 mls/min Lactated Ringer's (Lr) 1,000 mls @ 50 mls/hr IV .Q20H RUTH Stop: 07/25/18 15:29 Last Admin: 06/25/18 16:35 Dose: 50 mls/hr Insulin Aspart (Novolog Flexpen) 0 units SC ACHS RUTH Stop: 07/25/18 20:59 Last Admin: 06/25/18 20:12 Dose: Not Given Levothyroxine Sodium (Synthroid) 100 mcg PO DAILYBB RUTH Stop: 07/26/18 06:29 Last Admin: 06/26/18 06:15 Dose: 100 mcg Magnesium Oxide (Mag-Ox) 400 mg PO QAM RUTH Stop: 07/26/18 08:59 Menthol (Nice) 1 ivory BUCCAL PRN PRN PRN Reason: Sore Throat Stop: 07/25/18 23:42 Last Admin: 06/26/18 00:26 Dose: 1 ivory Metoprolol Tartrate (Lopressor) 100 mg PO BID [facility] Stop: 07/25/18 20:59 Last Admin: 06/25/18 20:07 Dose: 100 mg Miscellaneous (Carbohydrates For Hypoglycemia) 15 - 30 gm PO UD PRN PRN Reason: Hypoglycemia Treatment Stop: 07/25/18 17:59 Morphine Sulfate (Morphine Sulfate) 1 mg IV Q3H PRN PRN Reason: MILD Pain (Scale 1,2,3) Stop: 07/09/18 14:40 Morphine Sulfate (Morphine Sulfate) 2 mg IV Q3H PRN PRN Reason: MODERATE Pain (Scale 4,5,6) Stop: 07/09/18 14:40 Morphine Sulfate (Morphine Sulfate) 3 mg IV Q3H PRN PRN Reason: SEVERE Pain (Scale 7,8,9,10) Stop: 07/09/18 14:40 Multivitamins ([facility]ivitamin Tab) [facility] [place]: 07/26/18 08:59 Ondansetron HCl (Zofran) 4 mg IV Q4H PRN PRN Reason: Nausea And Vomiting Stop: 07/25/18 14:40 Oxycodone/Acetaminophen (Percocet 5mg/325mg) 1 tab PO Q4H PRN PRN Reason: MODERATE Pain (Scale 4,5,6) Stop: 07/09/18 14:40 Last Admin: 06/26/18 00:29 Dose: 1 tab Oxycodone/Acetaminophen (Percocet 5mg/325mg) 2 tab PO Q4H PRN PRN Reason: SEVERE Pain (Scale 7,8,9,10) Stop: 07/09/18 14:40 Simvastatin (Zocor) 10 mg PO HS [facility] Stop: 07/25/18 20:59 Last Admin: 06/25/18 20:08 Dose: 10 mg _ (1) Atrial fibrillation Atrial fibrillation type: paroxysmal Qualified Code(s): I48.0 - Paroxysmal atrial fibrillation
[2018-06-26] MEDS ORDERED: MULTIVITAMIN TAB PO SCH (09:00)
[2018-06-26] MEDS ORDERED: MAGNESIUM OXIDE 400 MG TAB PO SCH (09:00)
[2018-06-26] MEDS: INSULIN ASPART 100 UNITS/ML 3 ML PEN SC SCH ×2 (09:22→12:48)
[2018-06-26] MEDS: METOPROLOL TARTRATE 100 MG TAB PO SCH (09:22)
[2018-06-26] MEDS: HEPARIN SOD 5,000 UNIT/0.5 ML VIAL SQ SCH (09:23)
--- NOTE | 2018-06-26 12:48 | Surgery Progress Note ---
Date of Service June 26, 2018 Assessment & Plan (1) Incisional hernia: stable from surgical standpoint remove yi ok for d/c per cardiology Subjective tolerating diet, Percocet Physical Exam 2 Vital Signs (Past 24 Hours): Last Vital Signs Temp 36.9 C 06/26/18 11:40 Pulse 74 06/26/18 11:40 Resp 18 06/26/18 11:40 BP 132/69 06/26/18 11:40 Pulse Ox 99 06/26/18 11:40 Gastrointestinal (Abdomen): Inspection/Auscultation: abdomen not distended Percussion/Palpation: abdomen soft
--- NOTE | 2018-06-26 21:26 | Hospitalist Progress Note ---
Date of Service June 26, 2018 Assessment & Plan (1) Incisional hernia: POD #1 s/p repair pain control, diet, dispo - per surgery (2) Left ventricular outflow tract obstruction: compensated from volume standpoint with stable BPs and vitals cardiology evaluated this AM - they are pleased with how she is doing today cont BB, CCB (3) Hypertension: BPs acceptable today (4) Atrial fibrillation: rates controlled on CCB and BB resume eliquis when ok from surgical standpoint (5) Pacemaker: mostly paced on telemetry (6) Diabetes mellitus, type 2: mild hyperglycemia post-op but not unreasonable to allow d/c to home with close follow-up I suspect that as we get further away from the surgery her glycemic control will improve nicely (7) Hypothyroidism: cont levothyroxine TSH mildly suppressed; would repeat the TSH as an outpatient in a few weeks and if still low then decrease dose to 88mcg daily pt's O2 was removed this am O2 sats in room air were about 95% sats also checked with walking later in the day and found to be normal from medical standpoint vitals/labs are acceptable defer to primary surgical team timing of d/c home Subjective patient with "sore" abdomen only denies other complaints anticipates d/c home today tolerated breakfast no flatus yet but denies nausea tele overnight w/ pacing Constitutional: no fever, no chills and no weakness Respiratory: no cough, no dyspnea and no dyspnea on exertion Cardiovascular: no chest pain Gastrointestinal: as per Subjective / HPI and + abdominal pain; no nausea and no vomiting Physical Exam 2 Vital Signs (Past 24 Hours): Last Vital Signs Temp 36.9 C 06/26/18 13:49 Pulse 74 06/26/18 13:49 Resp 18 06/26/18 13:49 BP 130/73 06/26/18 13:49 Pulse Ox 99 06/26/18 13:49 Constitutional: well developed and well nourished; no acute distress ENMT: external ear and nose normal, oropharynx normal Respiratory: Auscultation: + rales ("dry" = both bases; otherwise CTA b/l ) Cardiovascular: Rate/Rhythm: regular rate and regular rhythm Heart Sounds: normal S1, normal S2 and + murmur (1-2/6 LSB) Vessels: posterior tibial pulses present and dorsalis pedis pulses present; no JVD Extremities: no edema Gastrointestinal (Abdomen): Inspection/Auscultation: + abdomen distended ( very mild) Percussion/Palpation: abdomen soft; abdomen nontender, no guarding and no hepatosplenomegaly Psychiatric: A+Ox3, euthymic affect Results & Data Laboratory Results Laboratory Results - last 24 hr 06/26/18 06/26/18 06/26/18 06:06 06:06 06:06 WBC 9.65 RBC 3.82 L Hgb 12.5 Hct 36.6 L MCV 95.8 MCH 32.7 MCHC 34.2 RDW Std Deviation 43.9 RDW Coeff of Lenore 12.7 Plt Count 174 MPV 10.3 Immature Gran % (Auto) 0.1 Neut % (Auto) 92.2 Lymph % (Auto) 6.5 [place] % (Auto) 1.2 Eos % (Auto) 0.0 Baso % (Auto) 0.0 Immature Gran # (Auto) 0.01 Neut # (Auto) 8.89 H Lymph # (Auto) 0.63 L [place] # (Auto) 0.12 Eos # (Auto) 0.00 Baso # (Auto) 0.00 Sodium 134 L Potassium 4.3 Chloride 104 Carbon Dioxide 24 Anion Gap 6.0 BUN 21 H Creatinine 0.97 Est Cr Clr Drug Dosing 43.4 Est GFR ( Amer) 64.8 Est GFR (Non-Af Amer) 55.9 BUN/Creatinine Ratio 21.8 H Glucose 201 H POC Glucose Estimat Average Glucose 177 Hemoglobin A1c 7.8 H Calcium 8.5 TSH 0.121 L 06/26/18 06/26/18 07:27 11:20 WBC RBC Hgb Hct MCV MCH MCHC RDW Std Deviation RDW Coeff of Lenore Plt Count MPV Immature Gran % (Auto) Neut % (Auto) Lymph % (Auto) [place] % (Auto) Eos % (Auto) Baso % (Auto) Immature Gran # (Auto) Neut # (Auto) Lymph # (Auto) [place] # (Auto) Eos # (Auto) Baso # (Auto) Sodium Potassium Chloride Carbon Dioxide Anion Gap BUN Creatinine Est Cr Clr Drug Dosing Est GFR ( Amer) Est GFR (Non-Af Amer) BUN/Creatinine Ratio Glucose POC Glucose 199 H 223 H Estimat Average Glucose Hemoglobin A1c Calcium TSH _ (1) Hypertension Hypertension type: essential hypertension Qualified Code(s): I10 - Essential (primary) hypertension (2) Atrial fibrillation Atrial fibrillation type: paroxysmal Qualified Code(s): I48.0 - Paroxysmal atrial fibrillation (3) Diabetes mellitus, type 2 Diabetes mellitus [facility] insulin use: without [facility] use Diabetes mellitus complication status: without complication Diabetes mellitus complication detail: Diabetic retinopathy severity: Proliferative retinopathy type: Diabetes mellitus macular edema: Laterality: Chronic kidney disease stage: Qualified Code(s): E11.9 - Type 2 diabetes mellitus without complications (4) Hypothyroidism Hypothyroidism type: acquired Qualified Code(s): E03.9 - Hypothyroidism, unspecified
--- NOTE | 2018-06-29 19:20 | Discharge Summary ---
PRIMARY DISCHARGE DIAGNOSIS: Incisional hernia. SECONDARY DISCHARGE DIAGNOSES: 1. Atrial fibrillation. 2. Hypertension. 3. Hyperlipidemia. 4. Type 2 diabetes. 5. Gout. 6. Hypothyroidism. PROCEDURE PERFORMED: Laparoscopic repair of incisional hernia. CONSULTATIONS: 1. Cardiology. 2. [facility] hospitalist. HOSPITAL COURSE: The patient is a 77-year-old female with a history of protective ileostomy, now with incisional hernia and taken to the operating room for laparoscopic repair. The procedure was well tolerated. She was admitted to PCU for overnight observation given her age and cardiac history. Routine consults were placed to cardiology and hospitalist. She did well postoperatively. Holm catheter was removed on postoperative day 1. She was able to tolerate advancing diet. She was tolerating Percocet for pain. Incisions were clean and dry. She was stable for discharge home later that afternoon. DISCHARGE INSTRUCTIONS: Discharge home. Follow up with Dr. Arnold in 1 week as planned. Recommend she repeat TSH as an outpatient. Consider decreasing her levothyroxine. Her TSH was 0.121. DISCHARGE MEDICATIONS: Percocet 1-2 tablets q. 4 hours as needed and continue her other home medications levothyroxine 100 mcg daily, metoprolol 100 mg b.i.d., simvastatin 10 mg at bedtime daily, multivitamin, magnesium oxide 400 mg daily, diltiazem 180 mg b.i.d., calcium and vitamin D supplement, Tums 200 mg b.i.d., Eliquis 5 mg b.i.d., allopurinol 100 mg daily.
== END 2018-06-26 14:07 | disposition home or self-care (01) | DRG 354 ==
LOC: ASU 11:10 → 2S 14:41

== ENCOUNTER 2019-07-12 07:52 | Inpatient (IN) ==
[2019-07-12] MEDS ORDERED: ACETAMINOPHEN 325 MG TAB PO STA (08:37)
[2019-07-12] MEDS ORDERED: SODIUM CHLORIDE 0.9% 500 ML IV SCH (08:45)
--- NOTE | 2019-07-12 08:54 | XRay Report ---
XR chest 1V portable CLINICAL HISTORY: cough dyspnea COMPARISON STUDY: 06/12/2018 FINDINGS: Mild stable cardiac megaly. Slight increase in parenchymal and bronchovascular prominence o f the lung bases. Prominent bipolar cardiac pacemaker. IMPRESSION: Pulmonary vascular congestion versus interstitial basilar infiltrative change. ACT 112: Negative or not required by law. The above report was generated using voice recognition software. It may contain grammatical, syntax or spelling errors. Electronically signed by: Ovidio Long M.D. 07/12/2019 8:52 AM
[2019-07-12 08:57] LABS: Basophils # (auto) 0.02 K/uL (0-0.2); Basophils % (auto) 0.1 %; Eosinophils % (auto) 1.3 %; Hematocrit (blood only) 39.4 % (37-47); Hemoglobin 13.4 g/dL (12.0-16.0); Immature Granulocytes # (auto) 0.05 K/uL (0.00-0.02); Immature Granulocytes % (auto) 0.3 %; Lymphocytes # (auto) 1.41 K/uL (1.2-3.4); Lymphocytes % (auto) 9.3 %; Mean Corpuscular Hemoglobin 33.2 pg (25-34); Mean Corpuscular Volume 97.5 fL (80-100); Mean Platelet Volume 10.9 fL (7.4-10.4); Monocytes # (auto) 1.17 K/uL (0.11-0.59); Monocytes % (auto) 7.7 %; Neutrophils # (auto) 12.37 K/uL (1.4-6.5); Neutrophils % (auto) 81.3 %; Platelet Count 153 K/uL (130-400); RDW Coefficient of Variation 13.1 % (11.5-14.5); RDW Standard Deviation 46.4 fL (36.4-46.3); Red Blood Count 4.04 M/uL (4.2-5.4); White Blood Count 15.22 K/uL (4.8-10.8)
[2019-07-12 09:19] LABS: Albumin Level 2.8 gm/dl (3.4-5.0); Calcium 8.8 mg/dl (8.5-10.1); Creatinine Clr Calc Pharmacy 40.4 ml/min; Est GFR (African American) 59.5; Est GFR (Non-African American) 51.3
[2019-07-12 09:22] LABS: Albumin Globulin Ratio 0.7 (0.9-2); Bilirubin,Total 0.9 mg/dl (0.2-1); Globulin 3.9 gm/dl (2.5-4.0); Total Protein 6.7 gm/dl (6.4-8.2)
[2019-07-12 10:58] LABS: Appearance Urine Clear (Clear); Bacteria Urine Automated Negative (Negative); Bilirubin Urine Negative (Negative); Blood Urine Negative (Negative); Color Urine Dark Yellow; Epithelial Cell Urine Auto >30 /lpf (0-5); Glucose Urine UA 2+ (Negative); Ketones Urine Trace (Negative); Leukocyte Esterase Urine Trace (Negative); Nitrite Urine Negative (Negative); RBC Urine Automated 0-4 /hpf (0-4); Specific Gravity Urine 1.026 (1.000-1.030); Urobilinogen Urine Negative (Negative); pH Urine 8.5 (4.5-7.5)
[2019-07-12] MEDS ORDERED: cefTRIAXone SODIUM 1,000 MG/50 ML BAG IV STA (10:59)
[2019-07-12] MEDS ORDERED: AZITHROMYCIN 500 MG in DEXTROSE 5% 250 ML IV ONE (10:59)
[2019-07-12 11:10] LABS: Protein Urine Negative (Negative); Sulfosalicylic Acid Urine Negative (Negative)
--- NOTE | 2019-07-12 11:17 | Emergency Department Note ---
Entered by Farhan Pina acting as a scribe for Ceferino Hendricks DO History of Present Illness General Chief complaint: Illness Stated complaint: BODY ACHES, COUGH, NAUSEA Time Seen by Provider: 07/12/19 08:42 Source: patient History of Present Illness Onset (ago): week(s) 3 Location: left and right Pain Consistency: + constant Quality: + other (general body achiness ) Associated symptoms: + headaches and + nausea/vomiting (-vomiting) The patient is an 79 year old female, with past medical history of atrial fibrillation and diabetes, who presents to the Emergency Room with complaints of constant general body achiness over the last 3 weeks. The patient admits to seeing her PCP on June 30. The patient was diagnosed with a cough at the time and prescribed Levaquin, prednisone, and albuterol. She had a negative flu- swab at the time. The patient notes she finished the antibiotic 5 days ago. The patient also reports of nausea and a headache. The patient denies taking Tylenol and Motrin to this point, and she denies being allergic to either. Home Medications Home Medications Medication Instructions Recorded Confirmed Type Calcium 600 + D(3) 1 tab PO BID 06/10/18 07/12/19 History Eliquis 5 mg PO BID 06/10/18 07/12/19 History acetaminophen [Tylenol] 325 - 650 mg PO Q6H PRN 06/10/18 07/12/19 History calcium carbonate [Tums] 200 mg PO BID PRN 06/10/18 07/12/19 History magnesium oxide 400 mg PO QAM 06/10/18 07/12/19 History multivitamin 1 tab PO QAM 06/10/18 07/12/19 History blood sugar diagnostic #100 ea 12/15/18 06/30/19 Rx diltiazem HCl 180 mg 180 mg PO BID #180 tab 12/23/18 07/12/19 Rx tablet,extended release 24 hr simvastatin 10 mg tablet 10 mg PO HS #90 tab 12/23/18 07/12/19 Rx glimepiride 2 mg tablet 2 mg PO QAM #30 tab 02/25/19 07/12/19 Rx metoprolol tartrate 100 mg tablet 150 mg PO BID #90 tab 02/25/19 07/12/19 Rx levothyroxine 100 mcg tablet 100 mcg PO QAM #90 tab 06/08/19 07/12/19 Rx albuterol sulfate 90 mcg/actuation 2 puffs INH Q6H PRN #8.5 gm 06/30/19 07/12/19 Rx aerosol inhaler benzonatate 200 mg capsule 200 mg PO TID PRN #30 cap 07/06/19 07/12/19 Rx allopurinol 100 mg PO QAM 07/12/19 07/12/19 History Allergies Allergy/AdvReac Type Severity Reaction Status Date / Time hydromorphone [From Dilaudid] Allergy Intermediate hallucinati Verified 07/12/19 08:48 on Past Med/Surg History Medical History Atrial fibrillation Cancer COLON CANCER Cardiac murmur Diabetes mellitus, type 2 DIET MANAGED-NO MEDS Gout Hyperlipidemia Hypertension (Chronic) Hypothyroidism (Chronic) Left ventricular outflow tract obstruction On anticoagulant therapy eliquis daily Pacemaker Meditronic--LAST CHECK 04/2018-REMOTELY SOB (shortness of breath) on exertion Tachy-herve syndrome Surgical History History of bowel resection WITH COLOSTOMY History of cataract surgery R/L History of colonoscopy History of colostomy reversal History of open reduction and internal fixation (ORIF) procedure RIGHT ANKLE History of right inguinal hernia repair Pacemaker meditronic Family History Brother Family history of diabetes mellitus Daughter Breast cancer Sister HTN (hypertension), benign Family history of diabetes mellitus Other No family history of adverse response to anesthesia Social History Preferred Language: Omani Communication Ability: Effective Collar Pointer Required: No Beliefs That Will Affect Care: None marital status: Current Living Situation: Spouse Feels Safe at Home: Yes Smoking Status: Never smoker Second Hand Exposure: No ; Hx Alcohol Use: No Hx Substance Use: No Review of Systems See HPI for pertinent positives & negatives. and A total of 10 systems reviewed and were otherwise negative Physical Exam Vital Signs Vital Signs - 24 hr 07/12/19 07:58 07/12/19 08:08 07/12/19 08:09 Temperature 36.9 C Temperature Source Oral Pulse Rate 68 61 63 Pulse Rate from SpO2 Sensor 61 Respiratory Rate 20 18 18 Respiratory Effort / Characteristics Non-Labored Spontaneous Respiratory Depth Normal Respiratory Pattern Regular Blood Pressure 124/67 130/66 Blood Pressure Mean 86 105 Blood Pressure Position Sitting Pulse Oximetry 95 92 93 Oxygen Delivery Method Room Air Room Air Sepsis Recent Fever Within 48 Hours No Sepsis New/Unexplained Change in Mental Status No Sepsis Action Taken by Nursing No Action Required 07/12/19 08:13 07/12/19 08:30 07/12/19 09:00 Temperature Temperature Source Pulse Rate 61 60 60 Pulse Rate from SpO2 Sensor 61 59 L 62 Respiratory Rate 19 18 21 Respiratory Effort / Characteristics Respiratory Depth Respiratory Pattern Blood Pressure 136/70 Blood Pressure Mean 97 Blood Pressure Position Pulse Oximetry 92 91 93 Oxygen Delivery Method Sepsis Recent Fever Within 48 Hours Sepsis New/Unexplained Change in Mental Status Sepsis Action Taken by Nursing 07/12/19 09:30 Temperature Temperature Source Pulse Rate 61 Pulse Rate from SpO2 Sensor 61 Respiratory Rate 22 Respiratory Effort / Characteristics Respiratory Depth Respiratory Pattern Blood Pressure 132/64 Blood Pressure Mean 80 Blood Pressure Position Pulse Oximetry 89 L Oxygen Delivery Method Sepsis Recent Fever Within 48 Hours Sepsis New/Unexplained Change in Mental Status Sepsis Action Taken by Nursing CONSTITUTIONAL/VITAL SIGNS: Reviewed / noted above. GENERAL: Non-toxic in appearance. INTEGUMENTARY: Warm, dry, and [place]. HEAD: Normocephalic. EYES: without scleral icterus or trauma. ENT/OROPHARYNX: clear and moist. LYMPHADENOPATHY/NECK: Is supple without lymphadenopathy or meningismus. RESPIRATORY: Lungs clear and equal. CARDIOVASCULAR: Regular rate and rhythm. GI/ABDOMEN: Soft and nontender. No organomegaly or pulsatile mass. No rebound or guarding. Normal bowel sounds. EXTREMITIES: Warm and well perfused. BACK: No CVA tenderness. NEUROLOGICAL: Intact without focal deficits. PSYCHIATRIC: normal affect. MUSCULOSKELETAL: Normally developed with good muscle tone. Course Course 0833: Past medical records reviewed. The patient was evaluated in room A12B. A complete history and physical exam was performed. 1053: I reevaluated and updated the patient on her case. 1100: I reviewed the patient's case [facility]. Dr. Gonsales will evaluate the patient for further management. Consultations Consultation #1: I reviewed the patient's case [facility]. Dr. Gonsales will evaluate the patient for further management. Time: 11:00 Administered Medications Discontinued Medications Acetaminophen (Tylenol) 650 mg PO ONE STA Stop: 07/12/19 08:38 Last Admin: 07/12/19 08:55 Dose: 650 mg Documented by: [id number] Sodium Chloride (Nss) 500 mls @ 999 mls/hr IV .Q31M RUTH Stop: 07/12/19 09:15 Last Infusion: 07/12/19 09:59 Dose: 0 mls/hr Documented by: [id number] Admin: 07/12/19 08:54 Dose: 999 mls/hr Documented by: [id number] Medical Decision Making Differential Diagnosis Differential diagnosis: Etiologies such as metabolic, infection, hypo/hyperglycemia, electrolyte abnormalities, cardiac sources, intracerebral event, toxicologic, neurologic, as well as others were entertained. Medical Records Attestation: I reviewed the patient's medical records. Home Medications Current Medication List: was personally reviewed by me Laboratory Data Attestation: I reviewed the patient's lab results. Result diagrams: 07/12/19 08:46 07/12/19 08:46 Lab Results 07/12/19 07/12/19 07/12/19 Range/Units 08:45 08:46 08:46 WBC 15.22 H (4.8-10.8) K/uL RBC 4.04 L (4.2-5.4) M/uL Hgb 13.4 (12.0-16.0) g/dL Hct 39.4 (37-47) % MCV 97.5 (80-100) fL MCH 33.2 (25-34) pg MCHC 34.0 (32-36) g/dL RDW Std Deviation 46.4 H (36.4-46.3) fL RDW Coeff of Lenore 13.1 (11.5-14.5) % Plt Count 153 (130-400) K/uL MPV 10.9 H (7.4-10.4) fL Immature Gran % (Auto) 0.3 % Neut % (Auto) 81.3 % Lymph % (Auto) 9.3 % [place] % (Auto) 7.7 % Eos % (Auto) 1.3 % Baso % (Auto) 0.1 % Immature Gran # (Auto) 0.05 H (0.00-0.02) K/uL Neut # (Auto) 12.37 H (1.4-6.5) K/uL Lymph # (Auto) 1.41 (1.2-3.4) K/uL [place] # (Auto) 1.17 H (0.11-0.59) K/uL Eos # (Auto) 0.20 (0-0.5) K/uL Baso # (Auto) 0.02 (0-0.2) K/uL Sodium 140 (136-145) mmol/L Potassium 4.0 (3.5-5.1) mmol/L Chloride 107 (98-107) mmol/L Carbon Dioxide 27 (21-32) mmol/L Anion Gap 6.0 (3-11) BUN 17 (7-18) mg/dl Creatinine 1.03 (0.6-1.2) mg/dl Est Cr Clr Drug Dosing 40.4 ml/min Est GFR ( Amer) 59.5 Est GFR (Non-Af Amer) 51.3 BUN/Creatinine Ratio 16.0 (10-20) Glucose 239 H (70-99) mg/dl Calcium 8.8 (8.5-10.1) mg/dl Total Bilirubin 0.9 (0.2-1) mg/dl AST 13 L (15-37) U/L ALT 17 (12-78) U/L Alkaline Phosphatase 60 (45-117) U/L Total Creatine Kinase 26 (26-192) U/L Total Protein 6.7 (6.4-8.2) gm/dl Albumin 2.8 L (3.4-5.0) gm/dl Globulin 3.9 (2.5-4.0) gm/dl Albumin/Globulin Ratio 0.7 L (0.9-2) Urine Color Urine Appearance (Clear) Urine pH (4.5-7.5) Ur Specific [place] (1.000-1.030) Urine Protein (Negative) Urine Glucose (UA) (Negative) Urine Ketones (Negative) Urine Blood (Negative) Urine Nitrite (Negative) Urine Bilirubin (Negative) Urine Urobilinogen (Negative) Ur Leukocyte Esterase (Negative) Urine WBC (Auto) (0-5) /hpf Urine RBC (Auto) (0-4) /hpf U Hyaline Cast (Auto) (0-5) /lpf U Epithel Cells (Auto) (0-5) /lpf Urine Bacteria (Auto) (Negative) Influenza Type A Ag Neg for Influ A (Neg) Influenza Type B Ag Neg for Influ B (Neg) 07/12/19 Range/Units 10:40 WBC (4.8-10.8) K/uL RBC (4.2-5.4) M/uL Hgb (12.0-16.0) g/dL Hct (37-47) % MCV (80-100) fL MCH (25-34) pg MCHC (32-36) g/dL RDW Std Deviation (36.4-46.3) fL RDW Coeff of Lenore (11.5-14.5) % Plt Count (130-400) K/uL MPV (7.4-10.4) fL Immature Gran % (Auto) % Neut % (Auto) % Lymph % (Auto) % [place] % (Auto) % Eos % (Auto) % Baso % (Auto) % Immature Gran # (Auto) (0.00-0.02) K/uL Neut # (Auto) (1.4-6.5) K/uL Lymph # (Auto) (1.2-3.4) K/uL [place] # (Auto) (0.11-0.59) K/uL Eos # (Auto) (0-0.5) K/uL Baso # (Auto) (0-0.2) K/uL Sodium (136-145) mmol/L Potassium (3.5-5.1) mmol/L Chloride (98-107) mmol/L Carbon Dioxide (21-32) mmol/L Anion Gap (3-11) BUN (7-18) mg/dl Creatinine (0.6-1.2) mg/dl Est Cr Clr Drug Dosing ml/min Est GFR ( Amer) Est GFR (Non-Af Amer) BUN/Creatinine Ratio (10-20) Glucose (70-99) mg/dl Calcium (8.5-10.1) mg/dl Total Bilirubin (0.2-1) mg/dl AST (15-37) U/L ALT (12-78) U/L Alkaline Phosphatase (45-117) U/L Total Creatine Kinase (26-192) U/L Total Protein (6.4-8.2) gm/dl Albumin (3.4-5.0) gm/dl Globulin (2.5-4.0) gm/dl Albumin/Globulin Ratio (0.9-2) Urine Color Dark Yellow Urine Appearance Clear (Clear) Urine pH 8.5 H (4.5-7.5) Ur Specific [place] 1.026 (1.000-1.030) Urine Protein Negative (Negative) Urine Glucose (UA) 2+ H (Negative) Urine Ketones Trace H (Negative) Urine Blood Negative (Negative) Urine Nitrite Negative (Negative) Urine Bilirubin Negative (Negative) Urine Urobilinogen Negative (Negative) Ur Leukocyte Esterase Trace H (Negative) Urine WBC (Auto) 1-5 (0-5) /hpf Urine RBC (Auto) 0-4 (0-4) /hpf U Hyaline Cast (Auto) 1-5 (0-5) /lpf U Epithel Cells (Auto) >30 H (0-5) /lpf Urine Bacteria (Auto) Negative (Negative) Influenza Type A Ag (Neg) Influenza Type B Ag (Neg) Imaging Data Radiologist's Impression: Radiology results as stated below per my review and the radiologist's interpretation: XR chest 1V portable CLINICAL HISTORY: cough dyspnea COMPARISON STUDY: 06/12/2018 FINDINGS: Mild stable cardiac megaly. Slight increase in parenchymal and bronchovascular prominence of the lung bases. Prominent bipolar cardiac pacemaker. IMPRESSION: Pulmonary vascular congestion versus interstitial basilar infiltrative change. ACT 112: Negative or not required by law. The above report was generated using voice recognition software. It may contain grammatical, syntax or spelling errors. Electronically signed by: Ovidio Long M.D. 07/12/2019 8:52 AM Blood Pressure Blood Pressure Findings: Elevated blood pressure Blood Pressure Disposition: further management by hospitalist [facility] Narrative This is an 79-year-old female who presents to the ED with a chief complaint of a cough, headache, achiness and upset stomach. The patient states that she has 3 to 4 weeks of symptoms with regards to a cough and the other symptoms described. The patient saw her PCP on the and was prescribed Levaquin, prednisone and albuterol. At that time a flu swab was negative. Her symptoms have persisted and even worsened. Her vital signs today revealed hypoxia with a pulse ox down to 87% on room air. She does not use oxygen at home. Her chest x-ray suggested a bibasilar pneumonia. White blood cell count is 15. Chemistry panel was unremarkable. Glucose is 235. Flu swab was negative. The patient was treated with some IV fluids as well as p.o. Tylenol. She was given IV Rocephin and IV Zithromax. She will be seen by the hospitalist for further evaluation and care as the patient is hypoxic on room air. Impression & Plan Pneumonia, Hypoxia Discharge Plan Visit Data Chief Complaint: Illness Stated Complaint: BODY ACHES, COUGH, NAUSEA ED Provider: Ceferino Hendricks Discharge Problem: Pneumonia, Hypoxia Patient Disposition: Being Evaluated by Hospitalist Forms Stand Alone Forms: [facility] Prescriptions Prescriptions: No Action (DME) OneTouch Verio strip See Dose Instructions .ROUTE .MEDSUPPLY Qty: 100 RF: 2 diltiazem HCl 180 mg tablet extended release 24 hr 180 mg PO BID Qty: 180 RF: 3 simvastatin 10 mg tablet 10 mg PO HS Qty: 90 RF: 3 levothyroxine 100 mcg tablet 100 mcg PO QAM Qty: 90 RF: 3 benzonatate 200 mg capsule 200 mg PO TID PRN (Reason: cough) Qty: 30 RF: 0 glimepiride 2 mg tablet 2 mg PO QAM Qty: 30 RF: 5 metoprolol tartrate 100 mg tablet 150 mg PO BID Qty: 90 RF: 5 albuterol sulfate [ProAir HFA] 90 mcg/actuation HFA aerosol inhaler 2 puffs INH Q6H PRN (Reason: shortness of breath or wheezing) Qty: 8.5 RF: 0 multivitamin Tablet 1 tab PO QAM RF: 0 calcium carbonate [Tums] 200 mg calcium (500 mg) Tablet,Chewable 200 mg PO BID PRN (Reason: Indigestion) RF: 0 acetaminophen [Tylenol] 325 mg Capsule 325 - 650 mg PO Q6H PRN (Reason: Pain) RF: 0 magnesium oxide 400 mg Capsule 400 mg PO QAM RF: 0 Eliquis 5 mg Tablet 5 mg PO BID RF: 0 Calcium 600 + D(3) 600 mg calcium- 200 unit Capsule 1 tab PO BID RF: 0 allopurinol 100 mg tablet 100 mg PO QAM RF: 0 Referrals Referrals: Juan Eubanks III, MD [Primary Care Provider] - Discharge Problem: Pneumonia Qualifiers: Pneumonia type: due to unspecified organism Laterality: bilateral Lung location: lower lobe of lung Qualified Code(s): J18.9 - Pneumonia, unspecified organism The scribe's documentation has been prepared under my direction and personally reviewed by me in its entirety. I confirm that the note above accurately reflects all work, treatment, procedures, and medical decision making performed by me.
--- NOTE | 2019-07-12 12:11 | History & Physical Report ---
Date of Service July 12, 2019 Assessment & Plan (1) Pneumonia: Patient appears to have acute hypoxic respiratory failure secondary community-acquired pneumonia. Patient was treated unsuccessfully with outpatient Levaquin. Plan will be to start antibiotics with Zithromax and Rocephin is already given in the emergency room. Will restart oral prednisone. Nebulizers as needed. Will get a sputum culture if able. O2 support as ordered. PT/OT evaluation. (2) Diabetes mellitus type 2, uncontrolled: Patient's blood sugar is elevated. Patient is on glimepiride which we can continue along with sliding scale. Patient should be on an ADA diet. Will hold off on checking hemoglobin A1c until patient is feeling better and has been off steroids. (3) Hypertensive heart disease: Continue outpatient cardiac regimen. Blood pressure is controlled 132/64 today. (4) Atrial fibrillation: Patient is rate controlled with a pulse of 61. We will continue metopro lol and Cardizem. Patient is anticoagulated with Eliquis which we will continue as well. History of Present Illness Primary Care Provider: Juan Eubanks MD This is an 79-year-old female with past medical history of diabetes, hypertension, hypothyroidism, and atrial fibrillation who presents today complaining shortness of breath. Patient is pleasant and a good historian, accompanied by her . Patient tells me that she started getting sick approximately 3 weeks ago. This was manifested as cough which was initially dry but hacking and very severe. She did note some minimal shortness of breath. Appetite was slightly diminished. She does not recall having any fevers. She did note some mild wheeze as well. Patient saw her primary care provider on 06/30 and was thought to have acute bronchitis with possible pneumonia. She was given a course of prednisone along with Levaquin and an albuterol inhaler which she says used every 6 hours as needed. Patient did not feel that this course did much to improve her symptoms. The cough became productive with green sputum. Over the past few days, she had finished the medications but woke up this morning and felt much worse than before. This is what prompted her presentation to the emergency room. On presentation, she was afebrile but she was noted to have an O2 sat of 87% on room air. She typically does not use oxygen at home. She is a non-smoker. She was started on 2 L nasal cannula is now satting 94%. On my evaluation, she does exhibit a very loose sounding cough but is otherwise no distress. Allergies Allergy/AdvReac Type Severity Reaction Status Date / Time hydromorphone [From Dilaudid] Allergy Intermediate hallucinati Verified 07/12/19 08:48 on Home Medications Home Medications Medication Instructions Recorded Confirmed Type Calcium 600 + D(3) 1 tab PO BID 06/10/18 07/12/19 History Eliquis 5 mg PO BID 06/10/18 07/12/19 History acetaminophen [Tylenol] 325 - 650 mg PO Q6H PRN 06/10/18 07/12/19 History calcium carbonate [Tums] 200 mg PO BID PRN 06/10/18 07/12/19 History magnesium oxide 400 mg PO QAM 06/10/18 07/12/19 History multivitamin 1 tab PO QAM 06/10/18 07/12/19 History blood sugar diagnostic #100 ea 12/15/18 06/30/19 Rx diltiazem HCl 180 mg 180 mg PO BID #180 tab 12/23/18 07/12/19 Rx tablet,extended release 24 hr simvastatin 10 mg tablet 10 mg PO HS #90 tab 12/23/18 07/12/19 Rx glimepiride 2 mg tablet 2 mg PO QAM #30 tab 02/25/19 07/12/19 Rx metoprolol tartrate 100 mg tablet 150 mg PO BID #90 tab 02/25/19 07/12/19 Rx levothyroxine 100 mcg tablet 100 mcg PO QAM #90 tab 06/08/19 07/12/19 Rx albuterol sulfate 90 mcg/actuation 2 puffs INH Q6H PRN #8.5 gm 06/30/19 07/12/19 Rx aerosol inhaler benzonatate 200 mg capsule 200 mg PO TID PRN #30 cap 07/06/19 07/12/19 Rx allopurinol 100 mg PO QAM 07/12/19 07/12/19 History Past Med/Surg History Medical History Atrial fibrillation Cancer COLON CANCER Cardiac murmur Diabetes mellitus, type 2 DIET MANAGED-NO MEDS Gout Hyperlipidemia Hypertension (Chronic) Hypothyroidism (Chronic) Left ventricular outflow tract obstruction On anticoagulant therapy eliquis daily Pacemaker Meditronic--LAST CHECK 04/2018-REMOTELY SOB (shortness of breath) on exertion Tachy-herve syndrome Surgical History History of bowel resection WITH COLOSTOMY History of cataract surgery R/L History of colonoscopy History of colostomy reversal History of open reduction and internal fixation (ORIF) procedure RIGHT ANKLE History of right inguinal hernia repair Pacemaker meditronic Family History Brother Family history of diabetes mellitus Daughter Breast cancer Sister HTN (hypertension), benign Family history of diabetes mellitus Other No family history of adverse response to anesthesia Social History Preferred Language: Hebrew Communication Ability: Effective Lockstitch Lining Maker Required: No Beliefs That Will Affect Care: None marital status: Current Living Situation: Spouse Other Information That Helps Us Care for You: No Feels Safe at Home: Yes Safety Concerns: Feels Safe At This Time Smoking Status: Never smoker Second Hand Exposure: No ; Hx Alcohol Use: No Hx Substance Use: No Review of Systems Constitutional: + body aches; no fever, no chills, no weakness, no weight loss and no weight gain Eyes: as per Subjective / HPI Respiratory: + cough, + chest congestion, + dyspnea, + sputum production and + wheezing; no dyspnea on exertion Cardiovascular: no chest pain, no orthopnea, no palpitations, no lightheadedness and no edema Gastrointestinal: no abdominal pain, no nausea, no vomiting, no constipation and no diarrhea/loose stools Genitourinary: no dysuria, no difficulty urinating, no urinary frequency, no urinary hesitancy, no urinary urgency and no flank pain Musculoskeletal: no back pain, no neck pain, no joint pain, no stiffness and no myalgia Integumentary: no rash Neurologic: no gait abnormality, no unsteadiness, no falls and no generalized weakness Physical Exam Constitutional: + ill appearing and cooperative; no acute distress Neck: trachea midline, no thyromegaly Respiratory: normal respiratory effort Auscultation: + diminished lung sounds, + rales (Faint rales bilaterally, more prominent in the right base.), + rhonchi, + wheezes (Faint end expiratory wheeze) and + bronchial breath sounds; no crackles Cardiovascular: Rate/Rhythm: regular rate and regular rhythm Heart Sounds: normal S1, normal S2 and + murmur Gastrointestinal (Abdomen): Inspection/Auscultation: abdomen normal to inspection Percussion/Palpation: abdomen soft; abdomen nontender, no guarding, abdomen not rigid and no hepatosplenomegaly Skin: no rashes, warm and dry Neurologic: PERRL, EOMI, accommodation nl, no face palsy, no dysarthria Results & Data Vital Signs (Past 12 Hours) Vital Signs Temp Pulse Resp BP Pulse Ox 07/12/19 11:29 87 L 07/12/19 09:30 61 22 132/64 89 L 07/12/19 09:00 60 21 136/70 93 07/12/19 08:30 60 18 91 07/12/19 08:13 61 19 92 07/12/19 08:09 63 18 93 07/12/19 08:08 61 18 130/66 92 07/12/19 07:58 36.9 C 68 20 124/67 95 Laboratory Results WBCs 15.2. Rest of CBC is essentially normal. Patient's glucose is 239 but BMP is normal with good kidney function. UA is positive for glucose and ketones, significant epithelial cells. Flu swab was negative. Diagnostic Findings XR chest 1V portable CLINICAL HISTORY: cough dyspnea COMPARISON STUDY: 06/12/2018 FINDINGS: Mild stable cardiac megaly. Slight increase in parenchymal and bronchovascular prominence of the lung bases. Prominent bipolar cardiac pacemaker. IMPRESSION: Pulmonary vascular congestion versus interstitial basilar infiltrative change. PG Care Time/CCT Total # of Minutes Spent Total Time Spent with Patient: Total time spent is greater than 50% in coordination of care (as documented) at patient's floor/unit and/or counseling patient: Coding Level of Care Code 59138 Initial Inpt Care Lvl 3 Diagnoses Pneumonia J18.9 Laterality: bilateral Lung location: lower lobe of lung Pneumonia type: due to unspecified organism Diabetes mellitus type 2, uncontrolled E11.65 Hypertensive heart disease I11.9 Atrial fibrillation I48.0 Atrial fibrillation type: paroxysmal (1) Atrial fibrillation Atrial fibrillation type: paroxysmal Qualified Code(s): I48.0 - Paroxysmal atrial fibrillation (2) Pneumonia Laterality: bilateral Lung location: lower lobe of lung Pneumonia type: due to unspecified organism Qualified Code(s): J18.9 - Pneumonia, unspecified organism
[2019-07-12] MEDS ORDERED: GLUCOSE 40% GEL 15 GM TUBE PO PRN (14:04)
[2019-07-12] MEDS ORDERED: DEXTROSE 50% 50 ML SYRINGE IV PRN (14:04)
[2019-07-12] MEDS ORDERED: GLUCAGON FOR INJ 1 MG VIAL SQ PRN (14:04)
[2019-07-12] MEDS ORDERED: CALCIUM CARBONATE 500 MG CHEWABLE TAB PO PRN (14:04)
[2019-07-12] MEDS ORDERED: CARBOHYDRATES FOR HYPOGLYCEMIA PO PRN (14:04)
[2019-07-12] MEDS ORDERED: GLUCOSE 10 TABS/TUBE PO PRN (14:04)
[2019-07-12] MEDS ORDERED: ONDANSETRON INJ 2 MG/ML 2 ML VIAL IV PRN (14:04)
[2019-07-12] MEDS ORDERED: ALBUTEROL HFA 8 GM INHALER INH PRN (14:22)
[2019-07-12] MEDS: ALBUT/IPRATROP 3MG/0.5MG NEB 3 ML VIAL NEB SCH ×3 (15:29→23:34)
[2019-07-12] MEDS: ACETAMINOPHEN 325 MG TAB PO PRN (15:40)
[2019-07-12] MEDS: INSULIN ASPART 100 UNITS/ML 3 ML PEN SC SCH ×2 (17:16→21:13)
[2019-07-12] MEDS ORDERED: METOPROLOL TARTRATE 1 MG/ML VIAL IV STA (17:55)
[2019-07-12] MEDS: APIXABAN 5 MG TABLET PO SCH (20:09)
[2019-07-12] MEDS: METOPROLOL TARTRATE 50 MG TAB PO SCH (20:09)
[2019-07-12] MEDS: dilTIAZem HCL 180 MG CAPCR PO SCH (20:10)
[2019-07-12] MEDS: CALCIUM 600MG + VIT D 400 IU TAB PO SCH (20:10)
[2019-07-12] MEDS: SIMVASTATIN 10 MG TAB PO SCH (20:11)
[2019-07-12] MEDS ORDERED: dilTIAZem HCl 5 MG/ML 5 ML VIAL IV STA (20:34)
[2019-07-12] MEDS ORDERED: STAT IV Infusion **Titration per Protocol STA (20:34)
[2019-07-12] MEDS: BENZONATATE 100 MG CAPSULE PO PRN (21:13)
[2019-07-12] MEDS: dilTIAZem HCL 125 MG in DEXTROSE 5% 100 ML IV SCH (21:37)
[2019-07-13] MEDS: ALBUT/IPRATROP 3MG/0.5MG NEB 3 ML VIAL NEB SCH ×6 (03:09→23:10)
[2019-07-13] MEDS: LEVOTHYROXINE SODIUM 100 MCG TABLET PO SCH (05:23)
[2019-07-13 06:25] LABS: Basophils # (auto) 0.02 K/uL (0-0.2); Basophils % (auto) 0.1 %; Eosinophils # (auto) 0.05 K/uL (0-0.5); Eosinophils % (auto) 0.3 %; Hematocrit (blood only) 40.1 % (37-47); Hemoglobin 13.5 g/dL (12.0-16.0); Immature Granulocytes # (auto) 0.07 K/uL (0.00-0.02); Immature Granulocytes % (auto) 0.4 %; Lymphocytes # (auto) 1.63 K/uL (1.2-3.4); Lymphocytes % (auto) 8.5 %; Mean Corpuscular Hemoglobin 33.3 pg (25-34); Mean Corpuscular Hgb Conc 33.7 g/dL (32-36); Mean Corpuscular Volume 98.8 fL (80-100); Mean Platelet Volume 10.8 fL (7.4-10.4); Monocytes # (auto) 1.31 K/uL (0.11-0.59); Monocytes % (auto) 6.9 %; Neutrophils # (auto) 16.04 K/uL (1.4-6.5); Neutrophils % (auto) 83.8 %; Platelet Count 168 K/uL (130-400); RDW Coefficient of Variation 13.3 % (11.5-14.5); RDW Standard Deviation 47.7 fL (36.4-46.3); Red Blood Count 4.06 M/uL (4.2-5.4); White Blood Count 19.12 K/uL (4.8-10.8)
[2019-07-13 06:54] LABS: BUN Creatinine Ratio 13.7 (10-20); Calcium 9.1 mg/dl (8.5-10.1); Creatinine Clr Calc Pharmacy 41.6 ml/min; Est GFR (African American) 61.6; Est GFR (Non-African American) 53.2; Magnesium 1.8 mg/dl (1.8-2.4); Potassium 4.2 mmol/L (3.5-5.1)
[2019-07-13] MEDS: CALCIUM 600MG + VIT D 400 IU TAB PO SCH ×2 (08:03→21:15)
[2019-07-13] MEDS: MULTIVITAMIN TAB PO SCH (08:03)
[2019-07-13] MEDS: MAGNESIUM OXIDE 400 MG TAB PO SCH (08:03)
[2019-07-13] MEDS: dilTIAZem HCL 180 MG CAPCR PO SCH ×2 (08:04→21:16)
[2019-07-13] MEDS: METOPROLOL TARTRATE 50 MG TAB PO SCH ×2 (08:04→21:15)
[2019-07-13] MEDS: INSULIN ASPART 100 UNITS/ML 3 ML PEN SC SCH ×4 (08:05→23:19)
[2019-07-13] MEDS: allopurinoL 100 MG TAB PO SCH (08:05)
[2019-07-13] MEDS: APIXABAN 5 MG TABLET PO SCH ×2 (08:05→21:15)
[2019-07-13] MEDS: ACETAMINOPHEN 325 MG TAB PO PRN ×2 (08:16→23:24)
[2019-07-13] MEDS: BENZONATATE 100 MG CAPSULE PO PRN ×2 (08:16→21:15)
[2019-07-13] MEDS: AZITHROMYCIN 500 MG in DEXTROSE 5% 250 ML IV SCH (08:17)
[2019-07-13] MEDS ORDERED: predniSONE 20 MG TAB PO SCH (09:00)
[2019-07-13] MEDS ORDERED: GLIMEPIRIDE 2 MG TAB PO SCH (09:00)
--- NOTE | 2019-07-13 09:10 | XRay Report ---
XR chest 2V PA/lateral HISTORY: Shortness of breath. COMPARISON: 07/12/2019. FINDINGS: No progression of the mild to moderate asymmetric pulmonary edema and small bilateral pleur al effusions. The heart remains mildly enlarged. Left-sided dual-chamber pacemaker. No pneumothorax. Hazy appearance to the right upper lobe is likely due to the pulmonary edema. There are bibasilar den sities suggesting atelectasis. IMPRESSION: Interval progression of the mild to moderate asymmetric pulmonary edema and small bilateral pleural e ffusions. ACT 112: Negative or not required by law. Electronically signed by: Miguel Dhaliwal M.D. 07/13/2019 9:09 AM
[2019-07-13] MEDS: cefTRIAXone SODIUM 1,000 MG in DEXTROSE 5% 50 ML IV SCH (10:49)
[2019-07-13] MEDS ORDERED: METOPROLOL TARTRATE 1 MG/ML VIAL IV STA (11:23)
[2019-07-13] MEDS ORDERED: METOPROLOL TARTRATE 1 MG/ML VIAL IV ONE (11:32)
[2019-07-13] MEDS ORDERED: INSULIN HUMAN NPH SC SCH (12:00)
--- NOTE | 2019-07-13 14:37 | Electrocardiogram Report ---
Test Reason : Blood Pressure : / mmHG Vent. Rate : 135 BPM Atrial Rate : 135 BPM P-R Int : 094 ms QRS Dur : 076 ms QT Int : 312 ms P-R-T Axes : 087 053 222 degrees QTc Int : 468 ms Sinus tachycardia Left ventricular hypertrophy with repolarization abnormality Abnormal ECG When compared with ECG of 12-JUN-2018 09:39, Sinus rhythm has replaced Electronic atrial pacemaker Vent. rate has increased BY [address] now depressed in Inferior leads ST more depressed Lateral leads Inverted T waves have replaced nonspecific T wave abnormality in Inferior leads Confirmed by Martin Neves ([id number]) on 07/13/2019 2:36:40 PM Referred By: REFERRED SELF Confirmed By:Malik Neves
--- NOTE | 2019-07-13 15:53 | Hospitalist Progress Note ---
Date of Service July 13, 2019 Assessment & Plan (1) Pneumonia: 79 yo F with PMH DM2, HTN, HLD, Hypothyroidism, Afib who presents with acute hypoxic respiratory failure secondary to community acquired pneumonia failing outpatient treatment. 1) Community Acquired Pneumonia - failed outpatient levofloxacin, prednisone, albuterol treatment - CXR showing bilateral pleural effusions and central congestion - flu negative - ceftriaxone, azithromycin on board - prednisone 40 mg daily - Albuterol Nebs Q4H - daily CBC to trend WBC count 2) Atrial Fibrillation with pacemaker - likely being worsened by pneumonia - on Eliquis 5 mg BID - on 180 mg Diltiazem BID PO at home, was briefly on a Diltiazem drip for control on admission - currently flipping back and forth between sinus, Aflutter and Afib according to telemetry readings - Will restart Dilt drip if rate persistently >110 3) HTN - Controlled with home lopressor 150 BID - Echo 06/19/18 showed EF>75%, severe left concentric hypertrophy, Type 2 diastolic dysfunction, severely dilated left atrium 4) DM2 - Diet controlled at home however sugars running high in hospital 2/ steroids and infection - NPH 35U in AM timed with morning Prednisone 40 mg - Sliding Scale Insulin Aspart with meals - Diabetic Diet 5) CAD - home simvastatin 10 mg HS 6) Hx Colon Cancer and pulmonary nodules? - S/P colostomy and colo-colonic anastomosis - Colonoscopy 2019: no abnormal lesions, repeat in 3 years DVT ppx: on eliquis GI ppx: not indicated FEN: diabetic diet Code Status: Full code (2) Diabetes mellitus type 2, uncontrolled: (3) Hypertensive heart disease: (4) Atrial fibrillation: (5) History of colon cancer: (6) Hypertension: (7) Hyperlipidemia: (8) Hypothyroidism: Admission and Anticipated Discharge Date Admission Date: July 12, 2019 Supervising Physician Co-Signing Physician Notes Attending attestation Pt seen and examined in concert with Dr. Dominguez. In agreement with the documented findings as noted in the resident documentation with any exceptions or additions as noted here. Marginally improved shortness of breath and cough without complaint of p alpitations. On examination, S1/S2 nl RRR no MCG. Mildly coarse breath sounds with decreased bibasilar sounds. Abd NT/ND BS+ve Community acquired pneumonia - cultures pending. Trend CBC. Continue ceftriaxone and azithromycin. D/C prednisone Atrial fibrillation - currently rate between 60 and 100 bpm. Responsive to lopressor 5mg bolus. Continue Eliquis, diltiazem, metoprolol. DMII - have uptitrated 2/2 likely prednisone induced hyperglycemia. Monitor and down adjust with d/c of prednisone Else see resident documentation as noted. Subjective Ms. Madsen is a pleasant 79 yo F with a PMH of HTN, DM2, Hypothyroidism, Afib on Eliquis who was admitted to the hospital for a new oxygen requirement and failed outpatient treatment of pneumonia. This morning she says she feels better than prior to being admitted. She denies any shortness of breath at rest, dyspnea on exertion, dyspnea when laying flat, chest pain, palpitations, leg swelling, worsening cough. Review of Systems Constitutional: no fever, no chills, no body aches and no fatigue Respiratory: + cough; no dyspnea Cardiovascular: no chest pain, no dyspnea and no edema Gastrointestinal: no abdominal pain, no nausea, no vomiting, no constipation and no diarrhea/loose stools Genitourinary: no dysuria Physical Exam Constitutional: cooperative; no acute distress and not ill appearing Neck: normal visual inspection Respiratory: normal respiratory effort and able to speak in complete sentence s; no respiratory distress, no labored breathing, no retractions, no cough and no audible wheezes Auscultation: + crackles (fine bibasilar); no rales, no rhonchi and no wheezes Cardiovascular: Rate/Rhythm: regular rate and regular rhythm Heart Sounds: normal S1 and normal S2; no gallop, no murmur and no cardiac rub Vessels: posterior tibial pulses present Extremities: no pedal edema and no edema Gastrointestinal (Abdomen): Inspection/Auscultation: abdomen normal to inspection and normal bowel sounds; abdomen not distended Percussion/Palpation: abdomen soft; abdomen nontender, no guarding, abdomen not rigid and no abdominal mass Results & Data ([facility]) Vital Signs (Past 12 Hours) Vital Signs Temp Pulse Pulse Resp BP BP Pulse Ox 07/13/19 15:29 100 H 20 93 07/13/19 15:08 36.6 C 103 H 21 117/66 81 L 07/13/19 11:37 115 H 07/13/19 11:17 75 18 92 07/13/19 11:11 36.5 C 99 H 18 111/75 88 L 07/13/19 07:59 36.7 C 78 18 125/71 90 07/13/19 07:14 36.6 C 73 18 105/71 92 07/13/19 07:05 74 16 92 07/13/19 07/13/19 07/13/19 Range/Units 16:04 16:02 11:00 WBC (4.8-10.8) K/uL RBC (4.2-5.4) M/uL Hgb (12.0-16.0) g/dL Hct (37-47) % MCV (80-100) fL MCH (25-34) pg MCHC (32-36) g/dL RDW Std Deviation (36.4-46.3) fL RDW Coeff of Lenore (11.5-14.5) % Plt Count (130-400) K/uL MPV (7.4-10.4) fL Immature Gran % (Auto) % Neut % (Auto) % Lymph % (Auto) % Reynolds % (Auto) % Eos % (Auto) % Baso % (Auto) % Immature Gran # (Auto) (0.00-0.02) K/uL Neut # (Auto) (1.4-6.5) K/uL Lymph # (Auto) (1.2-3.4) K/uL Reynolds # (Auto) (0.11-0.59) K/uL Eos # (Auto) (0-0.5) K/uL Baso # (Auto) (0-0.2) K/uL Sodium (136-145) mmol/L Potassium (3.5-5.1) mmol/L Chloride (98-107) mmol/L Carbon Dioxide (21-32) mmol/L Anion Gap (3-11) BUN (7-18) mg/dl Creatinine (0.6-1.2) mg/dl Est Cr Clr Drug Dosing ml/min Est GFR ( Amer) Est GFR (Non-Af Amer) BUN/Creatinine Ratio (10-20) Glucose (70-99) mg/dl POC Glucose 435 H* 401 H* 381 H* (70-99) mg/dl Calcium (8.5-10.1) mg/dl Magnesium (1.8-2.4) mg/dl 0207/13/19 07/13/19 Range/Units 10:59 07:13 06:10 WBC (4.8-10.8) K/uL RBC (4.2-5.4) M/uL Hgb (12.0-16.0) g/dL Hct (37-47) % MCV (80-100) fL MCH (25-34) pg MCHC (32-36) g/dL RDW Std Deviation (36.4-46.3) fL RDW Coeff of Lenore (11.5-14.5) % Plt Count (130-400) K/uL MPV (7.4-10.4) fL Immature Gran % (Auto) % Neut % (Auto) % Lymph % (Auto) % Reynolds % (Auto) % Eos % (Auto) % Baso % (Auto) % Immature Gran # (Auto) (0.00-0.02) K/uL Neut # (Auto) (1.4-6.5) K/uL Lymph # (Auto) (1.2-3.4) K/uL Reynolds # (Auto) (0.11-0.59) K/uL Eos # (Auto) (0-0.5) K/uL Baso # (Auto) (0-0.2) K/uL Sodium 138 (136-145) mmol/L Potassium 4.2 (3.5-5.1) mmol/L Chloride 106 (98-107) mmol/L Carbon Dioxide 27 (21-32) mmol/L Anion Gap 5.0 (3-11) BUN 14 (7-18) mg/dl Creatinine 1.00 (0.6-1.2) mg/dl Est Cr Clr Drug Dosing 41.6 ml/min Est GFR ( Amer) 61.6 Est GFR (Non-Af Amer) 53.2 BUN/Creatinine Ratio 13.7 (10-20) Glucose 234 H (70-99) mg/dl POC Glucose 388 H* 247 H (70-99) mg/dl Calcium 9.1 (8.5-10.1) mg/dl Magnesium 1.8 (1.8-2.4) mg/dl 07/13/19 07/12/19 Range/Units 06:10 20:49 WBC 19.12 H (4.8-10.8) K/uL RBC 4.06 L (4.2-5.4) M/uL Hgb 13.5 (12.0-16.0) g/dL Hct 40.1 (37-47) % MCV 98.8 (80-100) fL MCH 33.3 (25-34) pg MCHC 33.7 (32-36) g/dL RDW Std Deviation 47.7 H (36.4-46.3) fL RDW Coeff of Lenore 13.3 (11.5-14.5) % Plt Count 168 (130-400) K/uL MPV 10.8 H (7.4-10.4) fL Immature Gran % (Auto) 0.4 % Neut % (Auto) 83.8 % Lymph % (Auto) 8.5 % Reynolds % (Auto) 6.9 % Eos % (Auto) 0.3 % Baso % (Auto) 0.1 % Immature Gran # (Auto) 0.07 H (0.00-0.02) K/uL Neut # (Auto) 16.04 H (1.4-6.5) K/uL Lymph # (Auto) 1.63 (1.2-3.4) K/uL Reynolds # (Auto) 1.31 H (0.11-0.59) K/uL Eos # (Auto) 0.05 (0-0.5) K/uL Baso # (Auto) 0.02 (0-0.2) K/uL Sodium (136-145) mmol/L Potassium (3.5-5.1) mmol/L Chloride (98-107) mmol/L Carbon Dioxide (21-32) mmol/L Anion Gap (3-11) BUN (7-18) mg/dl Creatinine (0.6-1.2) mg/dl Est Cr Clr Drug Dosing ml/min Est GFR ( Amer) Est GFR (Non-Af Amer) BUN/Creatinine Ratio (10-20) Glucose (70-99) mg/dl POC Glucose 267 H (70-99) mg/dl Calcium (8.5-10.1) mg/dl Magnesium (1.8-2.4) mg/dl Resident Activity Tracking Resident Involvement: Resident Care Provided Care Provided: Adult Hospital Medicine (1) Atrial fibrillation Atrial fibrillation type: paroxysmal Qualified Code(s): I48.0 - Paroxysmal atrial fibrillation (2) Hyperlipidemia Hyperlipidemia type: unspecified Qualified Code(s): E78.5 - Hyperlipidemia, unspecified (3) Hypothyroidism Hypothyroidism type: acquired Qualified Code(s): E03.9 - Hypothyroidism, unspecified (4) Hypertension Hypertension type: essential hypertension Qualified Code(s): I10 - Essential (primary) hypertension (5) Pneumonia Laterality: bilateral Lung location: lower lobe of lung Pneumonia type: due to unspecified organism Qualified Code(s): J18.9 - Pneumonia, unspecified organism
[2019-07-13] MEDS: dilTIAZem HCL 125 MG in DEXTROSE 5% 100 ML IV SCH ×2 (16:57→21:48)
[2019-07-13] MEDS ORDERED: SODIUM CHLORIDE 0.9% 1000ML 1,000 ML IV SCH (17:30)
[2019-07-13 20:49] LABS: Base Excess VBG 1.1 mEq/L; HCO3 VBG 26 mmol/L; Oxygen Saturation VBG < 60.0 %; PCO2 VBG 42 mmHg (38-50); PO2 VBG 23 mmHg; pH VBG 7.41 (7.36-7.41)
[2019-07-13] MEDS: SIMVASTATIN 10 MG TAB PO SCH (21:16)
[2019-07-13] MEDS ORDERED: PHARMACY GLYCEMIC MGMT CONSULT PRN (21:30)
[2019-07-13] MEDS ORDERED: INSULIN HUMAN REGULAR IV BOLUS 2 UNITS in SYRINGE 0 ML IV ONE (21:35)
[2019-07-13] MEDS ORDERED: INSULIN REGULAR 250 UNITS in SODIUM CHLORIDE 0.9% 247.5 ML IV SCH (21:45)
[2019-07-14] MEDS: ALBUT/IPRATROP 3MG/0.5MG NEB 3 ML VIAL NEB SCH ×6 (02:24→22:47)
--- NOTE | 2019-07-14 03:58 | Communication Note ---
Date of Service: July 14, 2019 S:I was paged to the room at approximately 7:30 PM as the patient was experiencing desaturations to the mid low 80s despite her O2 requirements increa sing throughout the day and her being on 10 L of oxygen. From a clinical perspective the patient reported being completely asymptomatic. She noticed no increased work of breathing, no lightheadedness, no tingling in her fingers, no dizziness, no inability to oxygenate, she was she was tachycardic however has a history of jumping in and out of paroxysmal atrial fibrillation. Of note she had recently received a 500 mL fluid bolus. Additionally I was alerted that her blood sugar was persistently elevated and becoming uncontrollable. To evaluate whether or not this was a machine error we placed a monitor on her forehead and plugged into the machine with similar readings, we also obtain a portable SPO2 monitor and obtained similar readings as well. I was not able to obtain an adequate Pleth using the portable device. She did not desaturate significantly upon standing reported being able to ambulate and move without significant increases in her work of breathing. O: Cards: Tachycardic irregularly irregular rhythm, otherwise I did not appreciate significant murmurs rubs or gallops, normal S1, normal S2, 1+ pedal edema bilaterally, negative calf tenderness Respiratory: Clear to auscultation bilaterally with symmetrical chest expansion and no increased work of breathing, no cyanosis, bibasilar crackles appreciated otherwise no wheezes or rales. Skin: Warm, well perfused, pink, no signs of cyanosis, capillary refill less than 3 seconds A/P: #Decreased SPO2 readings: Given the patient's excellent clinical condition, lack of significant physical exam findings, lack of subjective exam findings, or other indications that she is currently hypoxic we will treat the patient clinically. Clinically she appears to be tolerating her usual dose of oxygen and will continue that for now. I suspect she either has an element of raynauds or her paroxysmal atrial fibrillation is interfering with machines ability to detect an adequate pulse ox. -We will treat the patient clinically for now, no indication for BiPAP or escalation of airway management. As described above suspect that this is a measurement error -Obtained a VBG PCO2 within normal limits, pH within normal limits. This is reassuring that she is saturating well -Continue to closely monitor the patient throughout the night for clinical signs and symptoms of respiratory deterioration #Hyperglycemia Patient with history of type 2 diabetes mellitus well controlled on glimepiride as an outpatient. On admission she was placed on prednisone, there was some question as to whether or not this is been DC'd as there was conflict between the attending and resident's note. Will defer to day team to make final decision on prednisone. This evening she was having repeated blood sugar measurements in the 400s despite corrective therapy with insulin. Her significant elevations of blood sugar are likely secondary to prednisone therapy. Given the inability to obtain adequate control with sliding scale insulin a glycemic consult was placed for assistance in glycemic management. They felt it was appropriate to initiate the patient on a brief insulin drip she is currently being maintained at a rate of 2.2 mL/h. -Glycemic consult placed -Day team to determine whether prednisone therapy is appropriate Resident Activity Tracking Resident Involvement: Resident Care Provided Care Provided: Adult Hospital Medicine
[2019-07-14] MEDS: LEVOTHYROXINE SODIUM 100 MCG TABLET PO SCH (06:12)
[2019-07-14] MEDS: ACETAMINOPHEN 325 MG TAB PO PRN ×3 (06:12→23:12)
--- NOTE | 2019-07-14 06:57 | Hospitalist Progress Note ---
Date of Service July 14, 2019 Assessment & Plan (1) Pneumonia: 79 yo F with PMH DM2, HTN, HLD, Hypothyroidism, Afib who presents with acute hypoxic respiratory failure secondary to community acquired pneumonia failing outpatient treatment. 1) Community Acquired Pneumonia - failed outpatient levofloxacin, prednisone, albuterol treatment - CXR showing bilateral pleural effusions and central congestion - flu negative - ceftriaxone, azithromycin on board - discontinued steroids - Albuterol Nebs Q4H - daily CBC to trend WBC count - ongoing issue with pulse ox being low verified with ABG in the morning which s howed spO2 of 86% while patient on 2L NC and asymptomatic. Patient likely chronically hypoxic in addition to some level of pulmonary congestion from fluid backflow. 2) Atrial Fibrillation with pacemaker - likely being worsened by pneumonia - on Eliquis 5 mg BID - restarted Diltiazem drip. Appreciated cardiology recommendations regarding rate control and management. - currently flipping back and forth between sinus, Aflutter and Afib according to telemetry readings - was taking 180 BID Diltiazem PO at home - likely some degree of vascular/pulmonary congestion secondary to rapid heart rate and LVOT obstruction; 20 mg IV lasix this afternoon to try and offload pleural fluid 3) HTN - Controlled with home lopressor 150 BID - Echo 06/19/18 showed EF>75%, severe left concentric hypertrophy, Type 2 diastolic dysfunction, severely dilated left atrium 4) DM2 - Diet controlled at home however sugars running high in hospital 2/2 steroids and infection - discontinued steroids - Insulin regimen adjusted by pharmacy after drip discontinued; now on 15u lantus AM - Sliding Scale Insulin Aspart with meals - Diabetic Diet 5) CAD - home simvastatin 10 mg HS 6) Hx Colon Cancer and pulmonary nodules? - S/P colostomy and colo-colonic anastomosis - Colonoscopy 2019: no abnormal lesions, repeat in 3 years DVT ppx: on eliquis GI ppx: not indicated FEN: diabetic diet Code Status: Full code (2) Diabetes mellitus type 2, uncontrolled: (3) Hypertensive heart disease: (4) Atrial fibrillation: (5) History of colon cancer: (6) Hypertension: (7) Hyperlipidemia: (8) Hypothyroidism: Admission and Anticipated Discharge Date Admission Date: July 12, 2019 Supervising Physician Co-Signing Physician Notes Attending attestation Pt seen and examined in concert with Dr. Dominguez. In agreement with the documented findings as noted in the resident documentation with any exceptions or additions as noted here. Improving SOB and cough. No complaint of chest pain, palpitations, n/v, increased LE swelling. On examination, S1/S2 nl RRR no MCG. Mildly coarse breath sounds with decreased bibasilar sounds. Abd NT/ND BS+ve. 1+ pitting edema to the midshing while laying. Acute hypoxic respiratory failure in the setting of community acquired pneumonia - ABG confirming peripheral monitoring. Though has been on AC, also h/o colon CA, so would warrant CTA chest for evaluation of thrombus on Eliquis. Trend CBC. Continue ceftriaxone and azithromycin. Off prednisone from 07.13.. Atrial fibrillation - cardiology consultation appreciated - cardizem drip for rate control has been effective. Continue Eliquis and metoprolol. DMII - hyperglycemia improved. Continue present regimen, adjust as needed. Else see resident documentation as noted. Subjective Overnight events: continued to show 89% saturation on pulse ox despite O2 titration and use of different pulse ox monitors. VBG drawn that showed no signs of acidosis. Sugars repeatedly in the 400s, started on insulin drip overnight for control. Diltiazem drip stopped after 9pm when patient converted back to sinus rhythm. This morning: patient back in Afib and diltiazem drip restarted. Insulin drip stopped by pharmacy after sugars back in 130's. Prednisone stopped. Continues to deny symptoms of shortness of breath or pain with inspiration. Generally feels fatigued despite spending all day in bed. Review of Systems Constitutional: + fatigue and + weakness; no fever and no chills Respiratory: + cough; no dyspnea and no pain on inspiration Cardiovascular: no chest pain, no dyspnea on exertion and no palpitations Gastrointestinal: no abdominal pain Physical Exam Constitutional: cooperative; no acute distress and not ill appearing Neck: normal visual inspection Respiratory: normal respiratory effort and able to speak in complete sentences; no respiratory distress, no labored breathing, no retractions, no cough and no audible wheezes Auscultation: + crackles (fine bibasilar); no rales, no rhonchi and no wheezes Cardiovascular: Heart Sounds: normal S1 and normal S2; no gallop, no murmur and no cardiac rub Vessels: posterior tibial pulses present Extremities: + edema; no pedal edema irregularly irregular, regular rate, starting to have 1+ pitting pedal edema Gastrointestinal (Abdomen): Inspection/Auscultation: abdomen normal to inspection and normal bowel sounds; abdomen not distended Percussion/Palpation: abdomen soft; abdomen nontender, no guarding, abdomen not rigid and no abdominal mass Results & Data ([facility]) Vital Signs (Past 12 Hours) Vital Signs Temp Pulse Pulse Pulse Resp BP Pulse Ox 07/14/19 03:20 36.6 C 67 18 112/69 90 07/14/19 02:27 66 16 93 07/14/19 00:00 75 07/13/19 23:20 36.5 C 68 20 109/66 93 07/13/19 23:10 117 H 20 91 07/13/19 21:13 66 111/68 07/13/19 20:44 113 H 18 88 L 07/13/19 19:16 115 H 117/79 89 L 07/14/19 07/14/19 07/14/19 Range/Units 13:58 11:37 11:37 WBC (4.8-10.8) K/uL RBC (4.2-5.4) M/uL Hgb (12.0-16.0) g/dL Hct (37-47) % MCV (80-100) fL MCH (25-34) pg MCHC (32-36) g/dL RDW Std Deviation (36.4-46.3) fL RDW Coeff of Lenore (11.5-14.5) % Plt Count (130-400) K/uL MPV (7.4-10.4) fL Immature Gran % (Auto) % Neut % (Auto) % Lymph % (Auto) % Pratt % (Auto) % Eos % (Auto) % Baso % (Auto) % Immature Gran # (Auto) (0.00-0.02) K/uL Neut # (Auto) (1.4-6.5) K/uL Lymph # (Auto) (1.2-3.4) K/uL Pratt # (Auto) (0.11-0.59) K/uL Eos # (Auto) (0-0.5) K/uL Baso # (Auto) (0-0.2) K/uL ABG pH 7.48 H (7.35-7.45) ABG pCO2 33 L (35-46) mmHg ABG pO2 51 L (80-95) mmHg ABG HCO3 24 (19-24) mmol/L ABG O2 Saturation 86.5 L (90-95) % ABG Base Excess 0.9 (-9-1.8) mEq/L Nestor Test Pos (Pos) VBG pH (7.36-7.41) VBG pCO2 (38-50) mmHg VBG pO2 mmHg VBG HCO3 mmol/L VBG O2 Saturation % VBG Base Excess mEq/L Barometric Pressure 728.0 mm/Hg Oxygen Given 2 L Sodium 137 (136-145) mmol/L Potassium 3.9 (3.5-5.1) mmol/L Chloride 107 (98-107) mmol/L Carbon Dioxide 25 (21-32) mmol/L Anion Gap 5.0 (3-11) BUN 24 H (7-18) mg/dl Creatinine 1.09 (0.6-1.2) mg/dl Est Cr Clr Drug Dosing 38.6 ml/min Est GFR ( Amer) 55.5 Est GFR (Non-Af Amer) 47.9 BUN/Creatinine Ratio 22.4 H (10-20) Glucose 245 H (70-99) mg/dl POC Glucose 180 H (70-99) mg/dl Calcium 9.7 (8.5-10.1) mg/dl 07/14/19 07/14/19 07/14/19 Range/Units 11:37 11:26 07:59 WBC 18.44 H (4.8-10.8) K/uL RBC 3.37 L (4.2-5.4) M/uL Hgb 11.4 L (12.0-16.0) g/dL Hct 33.1 L (37-47) % MCV 98.2 (80-100) fL MCH 33.8 (25-34) pg MCHC 34.4 (32-36) g/dL RDW Std Deviation 47.7 H (36.4-46.3) fL RDW Coeff of Lenore 13.4 (11.5-14.5) % Plt Count 136 (130-400) K/uL MPV 10.8 H (7.4-10.4) fL Immature Gran % (Auto) 0.4 % Neut % (Auto) 83.6 % Lymph % (Auto) 9.2 % Pratt % (Auto) 6.3 % Eos % (Auto) 0.4 % Baso % (Auto) 0.1 % Immature Gran # (Auto) 0.08 H (0.00-0.02) K/uL Neut # (Auto) 15.40 H (1.4-6.5) K/uL Lymph # (Auto) 1.70 (1.2-3.4) K/uL Pratt # (Auto) 1.16 H (0.11-0.59) K/uL Eos # (Auto) 0.08 (0-0.5) K/uL Baso # (Auto) 0.02 (0-0.2) K/uL ABG pH (7.35-7.45) ABG pCO2 (35-46) mmHg ABG pO2 (80-95) mmHg ABG HCO3 (19-24) mmol/L ABG O2 Saturation (90-95) % ABG Base Excess (-9-1.8) mEq/L Nestor Test (Pos) VBG pH (7.36-7.41) VBG pCO2 (38-50) mmHg VBG pO2 mmHg VBG HCO3 mmol/L VBG O2 Saturation % VBG Base Excess mEq/L Barometric Pressure mm/Hg Oxygen Given Sodium (136-145) mmol/L Potassium (3.5-5.1) mmol/L Chloride (98-107) mmol/L Carbon Dioxide (21-32) mmol/L Anion Gap (3-11) BUN (7-18) mg/dl Creatinine (0.6-1.2) mg/dl Est Cr Clr Drug Dosing ml/min Est GFR ( Amer) Est GFR (Non-Af Amer) BUN/Creatinine Ratio (10-20) Glucose (70-99) mg/dl POC Glucose 237 H 145 H (70-99) mg/dl Calcium (8.5-10.1) mg/dl 07/14/19 07/14/19 07/14/19 Range/Units 06:54 06:37 06:05 WBC (4.8-10.8) K/uL RBC (4.2-5.4) M/uL Hgb (12.0-16.0) g/dL Hct (37-47) % MCV (80-100) fL MCH (25-34) pg MCHC (32-36) g/dL RDW Std Deviation (36.4-46.3) fL RDW Coeff of Lenore (11.5-14.5) % Plt Count (130-400) K/uL MPV (7.4-10.4) fL Immature Gran % (Auto) % Neut % (Auto) % Lymph % (Auto) % Pratt % (Auto) % Eos % (Auto) % Baso % (Auto) % Immature Gran # (Auto) (0.00-0.02) K/uL Neut # (Auto) (1.4-6.5) K/uL Lymph # (Auto) (1.2-3.4) K/uL Pratt # (Auto) (0.11-0.59) K/uL Eos # (Auto) (0-0.5) K/uL Baso # (Auto) (0-0.2) K/uL ABG pH (7.35-7.45) ABG pCO2 (35-46) mmHg ABG pO2 (80-95) mmHg ABG HCO3 (19-24) mmol/L ABG O2 Saturation (90-95) % ABG Base Excess (-9-1.8) mEq/L Nestor Test (Pos) VBG pH (7.36-7.41) VBG pCO2 (38-50) mmHg VBG pO2 mmHg VBG HCO3 mmol/L VBG O2 Saturation % VBG Base Excess mEq/L Barometric Pressure mm/Hg Oxygen Given Sodium 140 (136-145) mmol/L Potassium 3.7 (3.5-5.1) mmol/L Chloride 109 H (98-107) mmol/L Carbon Dioxide 27 (21-32) mmol/L Anion Gap 4.0 (3-11) BUN 25 H D (7-18) mg/dl Creatinine 1.27 H (0.6-1.2) mg/dl Est Cr Clr Drug Dosing 33.1 ml/min Est GFR ( Amer) 46.2 Est GFR (Non-Af Amer) 39.8 BUN/Creatinine Ratio 20.0 (10-20) Glucose 147 H (70-99) mg/dl POC Glucose 138 H 147 H (70-99) mg/dl Calcium 9.4 (8.5-10.1) mg/dl 07/14/19 07/14/19 07/14/19 Range/Units 04:57 03:18 02:22 WBC (4.8-10.8) K/uL RBC (4.2-5.4) M/uL Hgb (12.0-16.0) g/dL Hct (37-47) % MCV (80-100) fL MCH (25-34) pg MCHC (32-36) g/dL RDW Std Deviation (36.4-46.3) fL RDW Coeff of Lenore (11.5-14.5) % Plt Count (130-400) K/uL MPV (7.4-10.4) fL Immature Gran % (Auto) % Neut % (Auto) % Lymph % (Auto) % Pratt % (Auto) % Eos % (Auto) % Baso % (Auto) % Immature Gran # (Auto) (0.00-0.02) K/uL Neut # (Auto) (1.4-6.5) K/uL Lymph # (Auto) (1.2-3.4) K/uL Pratt # (Auto) (0.11-0.59) K/uL Eos # (Auto) (0-0.5) K/uL Baso # (Auto) (0-0.2) K/uL ABG pH (7.35-7.45) ABG pCO2 (35-46) mmHg ABG pO2 (80-95) mmHg ABG HCO3 (19-24) mmol/L ABG O2 Saturation (90-95) % ABG Base Excess (-9-1.8) mEq/L Nestor Test (Pos) VBG pH (7.36-7.41) VBG pCO2 (38-50) mmHg VBG pO2 mmHg VBG HCO3 mmol/L VBG O2 Saturation % VBG Base Excess mEq/L Barometric Pressure mm/Hg Oxygen Given Sodium (136-145) mmol/L Potassium (3.5-5.1) mmol/L Chloride (98-107) mmol/L Carbon Dioxide (21-32) mmol/L Anion Gap (3-11) BUN (7-18) mg/dl Creatinine (0.6-1.2) mg/dl Est Cr Clr Drug Dosing ml/min Est GFR ( Amer) Est GFR (Non-Af Amer) BUN/Creatinine Ratio (10-20) Glucose (70-99) mg/dl POC Glucose 135 H 167 H 227 H (70-99) mg/dl Calcium (8.5-10.1) mg/dl 07/14/19 07/14/19 07/13/19 Range/Units 01:14 00:15 23:17 WBC (4.8-10.8) K/uL RBC (4.2-5.4) M/uL Hgb (12.0-16.0) g/dL Hct (37-47) % MCV (80-100) fL MCH (25-34) pg MCHC (32-36) g/dL RDW Std Deviation (36.4-46.3) fL RDW Coeff of Lenore (11.5-14.5) % Plt Count (130-400) K/uL MPV (7.4-10.4) fL Immature Gran % (Auto) % Neut % (Auto) % Lymph % (Auto) % Pratt % (Auto) % Eos % (Auto) % Baso % (Auto) % Immature Gran # (Auto) (0.00-0.02) K/uL Neut # (Auto) (1.4-6.5) K/uL Lymph # (Auto) (1.2-3.4) K/uL Pratt # (Auto) (0.11-0.59) K/uL Eos # (Auto) (0-0.5) K/uL Baso # (Auto) (0-0.2) K/uL ABG pH (7.35-7.45) ABG pCO2 (35-46) mmHg ABG pO2 (80-95) mmHg ABG HCO3 (19-24) mmol/L ABG O2 Saturation (90-95) % ABG Base Excess (-9-1.8) mEq/L Nestor Test (Pos) VBG pH (7.36-7.41) VBG pCO2 (38-50) mmHg VBG pO2 mmHg VBG HCO3 mmol/L VBG O2 Saturation % VBG Base Excess mEq/L Barometric Pressure mm/Hg Oxygen Given Sodium (136-145) mmol/L Potassium (3.5-5.1) mmol/L Chloride (98-107) mmol/L Carbon Dioxide (21-32) mmol/L Anion Gap (3-11) BUN (7-18) mg/dl Creatinine (0.6-1.2) mg/dl Est Cr Clr Drug Dosing ml/min Est GFR ( Amer) Est GFR (Non-Af Amer) BUN/Creatinine Ratio (10-20) Glucose (70-99) mg/dl POC Glucose 237 H 280 H 327 H* (70-99) mg/dl Calcium (8.5-10.1) mg/dl 07/13/19 07/13/19 07/13/19 Range/Units 20:22 20:16 20:14 WBC (4.8-10.8) K/uL RBC (4.2-5.4) M/uL Hgb (12.0-16.0) g/dL Hct (37-47) % MCV (80-100) fL MCH (25-34) pg MCHC (32-36) g/dL RDW Std Deviation (36.4-46.3) fL RDW Coeff of Lenore (11.5-14.5) % Plt Count (130-400) K/uL MPV (7.4-10.4) fL Immature Gran % (Auto) % Neut % (Auto) % Lymph % (Auto) % Pratt % (Auto) % Eos % (Auto) % Baso % (Auto) % Immature Gran # (Auto) (0.00-0.02) K/uL Neut # (Auto) (1.4-6.5) K/uL Lymph # (Auto) (1.2-3.4) K/uL Pratt # (Auto) (0.11-0.59) K/uL Eos # (Auto) (0-0.5) K/uL Baso # (Auto) (0-0.2) K/uL ABG pH (7.35-7.45) ABG pCO2 (35-46) mmHg ABG pO2 (80-95) mmHg ABG HCO3 (19-24) mmol/L ABG O2 Saturation (90-95) % ABG Base Excess (-9-1.8) mEq/L Nestor Test (Pos) VBG pH 7.41 (7.36-7.41) VBG pCO2 42 (38-50) mmHg VBG pO2 23 mmHg VBG HCO3 26 mmol/L VBG O2 Saturation < 60.0 % VBG Base Excess 1.1 mEq/L Barometric Pressure 727.9 mm/Hg Oxygen Given Sodium (136-145) mmol/L Potassium (3.5-5.1) mmol/L Chloride (98-107) mmol/L Carbon Dioxide (21-32) mmol/L Anion Gap (3-11) BUN (7-18) mg/dl Creatinine (0.6-1.2) mg/dl Est Cr Clr Drug Dosing ml/min Est GFR ( Amer) Est GFR (Non-Af Amer) BUN/Creatinine Ratio (10-20) Glucose (70-99) mg/dl POC Glucose 411 H* 440 H* (70-99) mg/dl Calcium (8.5-10.1) mg/dl 07/13/19 07/13/19 Range/Units 16:04 16:02 WBC (4.8-10.8) K/uL RBC (4.2-5.4) M/uL Hgb (12.0-16.0) g/dL Hct (37-47) % MCV (80-100) fL MCH (25-34) pg MCHC (32-36) g/dL RDW Std Deviation (36.4-46.3) fL RDW Coeff of Lenore (11.5-14.5) % Plt Count (130-400) K/uL MPV (7.4-10.4) fL Immature Gran % (Auto) % Neut % (Auto) % Lymph % (Auto) % Pratt % (Auto) % Eos % (Auto) % Baso % (Auto) % Immature Gran # (Auto) (0.00-0.02) K/uL Neut # (Auto) (1.4-6.5) K/uL Lymph # (Auto) (1.2-3.4) K/uL Pratt # (Auto) (0.11-0.59) K/uL Eos # (Auto) (0-0.5) K/uL Baso # (Auto) (0-0.2) K/uL ABG pH (7.35-7.45) ABG pCO2 (35-46) mmHg ABG pO2 (80-95) mmHg ABG HCO3 (19-24) mmol/L ABG O2 Saturation (90-95) % ABG Base Excess (-9-1.8) mEq/L Nestor Test (Pos) VBG pH (7.36-7.41) VBG pCO2 (38-50) mmHg VBG pO2 mmHg VBG HCO3 mmol/L VBG O2 Saturation % VBG Base Excess mEq/L Barometric Pressure mm/Hg Oxygen Given Sodium (136-145) mmol/L Potassium (3.5-5.1) mmol/L Chloride (98-107) mmol/L Carbon Dioxide (21-32) mmol/L Anion Gap (3-11) BUN (7-18) mg/dl Creatinine (0.6-1.2) mg/dl Est Cr Clr Drug Dosing ml/min Est GFR ( Amer) Est GFR (Non-Af Amer) BUN/Creatinine Ratio (10-20) Glucose (70-99) mg/dl POC Glucose 435 H* 401 H* (70-99) mg/dl Calcium (8.5-10.1) mg/dl Resident Activity Tracking Resident Involvement: Resident Care Provided Care Provided: Adult Hospital Medicine (1) Atrial fibrillation Atrial fibrillation type: paroxysmal Qualified Code(s): I48.0 - Paroxysmal atrial fibrillation (2) Hyperlipidemia Hyperlipidemia type: unspecified Qualified Code(s): E78.5 - Hyperlipidemia, unspecified (3) Hypothyroidism Hypothyroidism type: acquired Qualified Code(s): E03.9 - Hypothyroidism, unspecified (4) Hypertension Hypertension type: essential hypertension Qualified Code(s): I10 - Essential (primary) hypertension (5) Pneumonia Laterality: bilateral Lung location: lower lobe of lung Pneumonia type: due to unspecified organism Qualified Code(s): J18.9 - Pneumonia, unspecified organism
[2019-07-14 07:36] LABS: Calcium 9.4 mg/dl (8.5-10.1); Creatinine Clr Calc Pharmacy 33.1 ml/min; Est GFR (African American) 46.2; Est GFR (Non-African American) 39.8; Potassium 3.7 mmol/L (3.5-5.1)
[2019-07-14] MEDS: dilTIAZem HCL 125 MG in DEXTROSE 5% 100 ML IV SCH (08:10)
[2019-07-14] MEDS: CALCIUM 600MG + VIT D 400 IU TAB PO SCH ×2 (08:12→21:04)
--- NOTE | 2019-07-14 08:51 | Pharmacy Report ---
Glycemic Control Consultation - Date of Service July 14, 2019 - Scope Scope: Glycemic Pharmacist consulted by Dr Lisandro Bro on 07/13 PM for glycemic control and to write orders per [facility] inpatient glycemic control protocol - Objective Weight: 73.4 kg Accuchecks BSG (last 24hrs): 07/13/19 07/13/19 07/13/19 10:59 11:00 16:02 Glucose POC Glucose 388 H* 381 H* 401 H* 07/13/19 07/13/19 07/13/19 16:04 20:14 20:16 Glucose POC Glucose 435 H* 440 H* 411 H* 07/13/19 07/14/19 07/14/19 23:17 00:15 01:14 Glucose POC Glucose 327 H* 280 H 237 H 07/14/19 07/14/19 07/14/19 02:22 03:18 04:57 Glucose POC Glucose 227 H 167 H 135 H 07/14/19 07/14/19 07/14/19 06:05 06:37 06:54 Glucose 147 H POC Glucose 147 H 138 H 07/14/19 07:59 Glucose POC Glucose 145 H Laboratory Data (last 24hrs): 07/14/19 06:37 Potassium 3.7 Carbon Dioxide 27 Anion Gap 4.0 Creatinine 1.27 H Est Cr Clr Drug Dosing 33.1 - Recent Pertinent Medications Outpatient Anti-diabetic Regimen: * Glimepiride 2 mg daily * A1c = 8.2 % 02/18/19 The patient is currently receiving: * Insulin drip at 1 unit/hr Risk Factors for Insulin Resistance: * Steroids: prednisone 40 mg daily - last dose yesterday AM and has now been placed on hold * Infection: pneumonia * IVF: Cardizem drip mixed in dextrose * Diet: T2DM - Assessment & Plan Assessment & Plan: ASSESSMENT: * 79 y/o female with PMH T2DM, HTN, hypothyroidism and A.fib, admitted for CAP. Patient is on a single oral agent as an outpatient, which were held for admission and switched to insulin, as per ADA inpatient glycemic control guidelines. * Pharmacy was consulted last evening for significantly elevated BSGs, in the setting of prednisone. As of this morning, prednisone has been placed on hold, BSGs are well controlled and insulin drip is only running at 1 unit/hr. * Will plan to discontinue insulin drip at this time. No overlap with SQ since patient did receive a dose of NPH yesterday and drip rates are fairly low. Her fasting BSGs prior to prednisone initiation were elevated, so I do believe she'll need basal insulin without the steroids. Will start with 0.2 units/kg and can titrate as needed. PLAN FOR INPATIENT GLYCEMIC CONTROL: * Discontinue insulin drip - no need to overlap with low drip rates * Hold outpatient oral diabetes medications * Basal insulin * Lantus 15 units qAM * Bolus insulin * NovoLog per scale ACHS or Q6hrs while NPO * Goal Range: Low 110 mg/dL - High 140 mg/dL - tighter for now in the setting of recently elevated BSGs, can loosen once BSGs well controlled * Correction Factor: 30 mg/dL/unit * Nutritional / Prandial insulin per carb ratio of 1 unit per 10 grams CHO consumed * Please note that the plan above was derived based on current level of insulin resistance and hospital stress. These recommendations are appropriate for inpatient admission only. Plan of care upon discharge will need to be reassessed to avoid potential outpatient hypo/hyperglycemia. Thank you.
[2019-07-14] MEDS ORDERED: INSULIN HUMAN NPH SC SCH (09:00)
[2019-07-14] MEDS: INSULIN GLARGINE SOLOSTAR 100 UNITS/ML 3 ML PEN SC SCH ×2 (09:15→21:05)
[2019-07-14] MEDS: INSULIN ASPART 100 UNITS/ML 3 ML PEN SC SCH ×5 (09:17→21:07)
[2019-07-14] MEDS: dilTIAZem HCL 180 MG CAPCR PO SCH ×2 (09:19→21:04)
[2019-07-14] MEDS: APIXABAN 5 MG TABLET PO SCH ×2 (09:19→21:04)
[2019-07-14] MEDS: MAGNESIUM OXIDE 400 MG TAB PO SCH (09:19)
[2019-07-14] MEDS: METOPROLOL TARTRATE 50 MG TAB PO SCH ×2 (09:20→21:04)
[2019-07-14] MEDS: allopurinoL 100 MG TAB PO SCH (09:20)
[2019-07-14] MEDS: MULTIVITAMIN TAB PO SCH (09:20)
[2019-07-14] MEDS: AZITHROMYCIN 500 MG in DEXTROSE 5% 250 ML IV SCH (09:26)
[2019-07-14] MEDS ORDERED: POTASSIUM CHLORIDE 20 MEQ TABCR PO STA (09:35)
--- NOTE | 2019-07-14 10:34 | Cardiology Consultation ---
Date of Consultation July 14, 2019 Assessment & Plan (1) Afib: She is known to have paroxysmal atrial fibrillation. Her device recorded episodes of atrial fibrillation and produces a record of both the episodes and associated heart rates. Generally speaking she appears to have good rate control on her outpatient medical regimen. Over the past 2 days she has had higher ventricular rates in the setting of atrial fibrillation. I suspect this is due to her acute illness. Think continuing diltiazem infusion and maintaining her on her outpatient medical regimen we adequate until her acute illness resolves. She should continue on her outpatient anticoagulation indefinitely. (2) Cough: Presumably related to an element of bronchitis. Lung examination is fairly benign. She does have an element of upper airway congestion. No recent fevers or chills. It is possible that her cough is related to pulmonary vascular congestion as well. She did seem to have some improvement in her cough when sitting upright. She does not have orthopnea or lot of rales on examination but she does seem somewhat edematous and did suggest that her weight is up 1 was measured in the hospital. I think replacing her electrolytes and given her dose of diuretic be reasonable intervention. (3) Pacemaker: Normally functioning dual-chamber permanent pacemaker (4) Left ventricular outflow tract obstruction: She is known to have a significant left ventricular outflow tract obstruction. She has been maintained on diltiazem and metoprolol. While I think giving her a single dose of diuretic may have some therapeutic benefit, we must be cautious about dehydration as this would simply exacerbate her outflow tract obstruction. It is possible that in the setting of atrial fibrillation she has an element of diastolic heart failure and worsening pulmonary edema. However, review of her arrhythmia records from her pacemaker would suggest that she has not had much more atrial fibrillation recently. Not sure this explains her current hospitalization. 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 Seems that for several weeks patient has been suffering primarily from a cough. She states that this is a very annoying cough which produces scant phlegm. She has coughing spells which keep her awake at night and prevent her from doing things. She did not report shortness of breath. She did not feel that her current symptoms were related to breathing difficulty simply coughing. She denies any orthopnea although she has been sleeping in a chair which appears to improve her cough. She denies any worsening edema. She thinks her weight has been stable but generally does not measure it regularly. Report any change in her diet. She did not report any subjective fevers or chills. She has some discomfort in her throat and chest with coughing but not at other times. She has been aware of some palpitations over the past day or 2 but generally speaking is not aware of any palpitations rapid heartbeats. Allergies Allergy/AdvReac Type Severity Reaction Status Date / Time hydromorphone [From Dilaudid] Allergy Intermediate hallucinati Verified 07/12/19 08:48 on Home Medications Home Medications Medication Instructions Recorded Confirmed Type Calcium 600 + D(3) 1 tab PO BID 06/10/18 07/12/19 History Eliquis 5 mg PO BID 06/10/18 07/12/19 History acetaminophen [Tylenol] 325 - 650 mg PO Q6H PRN 06/10/18 07/12/19 History calcium carbonate [Tums] 200 mg PO BID PRN 06/10/18 07/12/19 History magnesium oxide 400 mg PO QAM 06/10/18 07/12/19 History multivitamin 1 tab PO QAM 06/10/18 07/12/19 History blood sugar diagnostic #100 ea 12/15/18 06/30/19 Rx diltiazem HCl 180 mg 180 mg PO BID #180 tab 12/23/18 07/12/19 Rx tablet,extended release 24 hr simvastatin 10 mg tablet 10 mg PO HS #90 tab 12/23/18 07/12/19 Rx glimepiride 2 mg tablet 2 mg PO QAM #30 tab 02/25/19 07/12/19 Rx metoprolol tartrate 100 mg tablet 150 mg PO BID #90 tab 02/25/19 07/12/19 Rx levothyroxine 100 mcg tablet 100 mcg PO QAM #90 tab 06/08/19 07/12/19 Rx albuterol sulfate 90 mcg/actuation 2 puffs INH Q6H PRN #8.5 gm 06/30/19 07/12/19 Rx aerosol inhaler benzonatate 200 mg capsule 200 mg PO TID PRN #30 cap 07/06/19 07/12/19 Rx allopurinol 100 mg PO QAM 07/12/19 07/12/19 History Patient History Medical History Atrial fibrillation Cancer COLON CANCER Cardiac murmur Diabetes mellitus, type 2 DIET MANAGED-NO MEDS Gout Hyperlipidemia Hypertension (Chronic) Hypothyroidism (Chronic) Left ventricular outflow tract obstruction On anticoagulant therapy eliquis daily Pacemaker Meditronic--LAST CHECK 04/2018-REMOTELY SOB (shortness of breath) on exertion Tachy-herve syndrome Surgical History History of bowel resection WITH COLOSTOMY History of cataract surgery R/L History of colonoscopy History of colostomy reversal History of open reduction and internal fixation (ORIF) procedure RIGHT ANKLE History of right inguinal hernia repair Pacemaker meditronic Family History Brother Family history of diabetes mellitus Daughter Breast cancer Sister HTN (hypertension), benign Family history of diabetes mellitus Other No family history of adverse response to anesthesia Social History Preferred Language: Bur[place]ian Communication Ability: Effective 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 Physical Exam Physical Exam: She is alert and oriented x3. Mood affect appear normal. She answered all questions appropriately. HEENT: Sclerae are anicteric. Pupils are equal and reactive to light and accommodation. Extraocular movements were intact. Neuro: Cranial nerves intact Neck: Examination of the submandibular region did not reveal any significant lymphadenopathy. Carotids are palpable bilaterally and free of bruits on auscultation. The thyroid was not enlarged. Lungs: Generally clear to auscultation. No significant rales. No expiratory wheezing. Some occasional upper airway congestion. Cardiac: Irregular rhythm. Crescendo systolic murmur. Abdomen: The abdomen was soft and nontender. Extremities: Patient has bilateral radial pulses that are equal in intensity. There is no evidence cyanosis or clubbing. Mild lower extremity edema. Skin: There are no rashes noted on examination today. Results & Data ([facility]) Vital Signs (Past 12 Hours) Vital Signs Temp Pulse Pulse Pulse Resp BP Pulse Ox 07/14/19 10:11 99 H 21 125/66 07/14/19 09:57 107 H 107/73 07/14/19 09:37 130 H 119/81 07/14/19 09:23 123 H 108/73 07/14/19 09:11 118/88 107 H 07/14/19 08:55 114/82 118 H 07/14/19 08:30 122/77 114 H 07/14/19 08:15 132/76 127 H 07/14/19 07:18 36.4 C L 72 18 131/76 89 L 07/14/19 07:07 69 18 90 07/14/19 03:20 36.6 C 67 18 112/69 90 07/14/19 02:27 66 16 93 07/14/19 00:00 75 07/13/19 23:20 36.5 C 68 20 109/66 93 07/13/19 23:10 117 H 20 91 Laboratory Results Abnormal Lab Results 07/13/19 07/13/19 07/13/19 10:59 11:00 16:02 VBG pH VBG pCO2 VBG pO2 VBG HCO3 VBG O2 Saturation VBG Base Excess Barometric Pressure Sodium Potassium Chloride Carbon Dioxide Anion Gap BUN Creatinine Est Cr Clr Drug Dosing Est GFR ( Amer) Est GFR (Non-Af Amer) BUN/Creatinine Ratio Glucose POC Glucose 388 H* 381 H* 401 H* Calcium 07/13/19 07/13/19 07/13/19 16:04 20:14 20:16 VBG pH VBG pCO2 VBG pO2 VBG HCO3 VBG O2 Saturation VBG Base Excess Barometric Pressure Sodium Potassium Chloride Carbon Dioxide Anion Gap BUN Creatinine Est Cr Clr Drug Dosing Est GFR ( Amer) Est GFR (Non-Af Amer) BUN/Creatinine Ratio Glucose POC Glucose 435 H* 440 H* 411 H* Calcium 07/13/19 07/13/19 07/14/19 20:22 23:17 00:15 VBG pH 7.41 VBG pCO2 42 VBG pO2 23 VBG HCO3 26 VBG O2 Saturation < 60.0 VBG Base Excess 1.1 Barometric Pressure 727.9 Sodium Potassium Chloride Carbon Dioxide Anion Gap BUN Creatinine Est Cr Clr Drug Dosing Est GFR ( Amer) Est GFR (Non-Af Amer) BUN/Creatinine Ratio Glucose POC Glucose 327 H* 280 H Calcium 07/14/19 07/14/19 07/14/19 01:14 02:22 03:18 VBG pH VBG pCO2 VBG pO2 VBG HCO3 VBG O2 Saturation VBG Base Excess Barometric Pressure Sodium Potassium Chloride Carbon Dioxide Anion Gap BUN Creatinine Est Cr Clr Drug Dosing Est GFR ( Amer) Est GFR (Non-Af Amer) BUN/Creatinine Ratio Glucose POC Glucose 237 H 227 H 167 H Calcium 07/14/19 07/14/19 07/14/19 04:57 06:05 06:37 VBG pH VBG pCO2 VBG pO2 VBG HCO3 VBG O2 Saturation VBG Base Excess Barometric Pressure Sodium 140 Potassium 3.7 Chloride 109 H Carbon Dioxide 27 Anion Gap 4.0 BUN 25 H D Creatinine 1.27 H Est Cr Clr Drug Dosing 33.1 Est GFR ( Amer) 46.2 Est GFR (Non-Af Amer) 39.8 BUN/Creatinine Ratio 20.0 Glucose 147 H POC Glucose 135 H 147 H Calcium 9.4 07/14/19 07/14/19 06:54 07:59 VBG pH VBG pCO2 VBG pO2 VBG HCO3 VBG O2 Saturation VBG Base Excess Barometric Pressure Sodium Potassium Chloride Carbon Dioxide Anion Gap BUN Creatinine Est Cr Clr Drug Dosing Est GFR ( Amer) Est GFR (Non-Af Amer) BUN/Creatinine Ratio Glucose POC Glucose 138 H 145 H Calcium Diagnostic Findings I performed a complete device interrogation of her dual-chamber permanent pacemaker. Normal sensing on both atrial ventricular leads. Occasional episodes of atrial fibrillation with good rate control. Threshold could not be determined due to the presence of atrial fibrillation and high ventricular rates. Normal function. PG Care Time/CCT Total # of Minutes Spent Total Time Spent with Patient: Total time spent is greater than 50% in coordination of care (as documented) at patient's floor/unit and/or counseling patient: Coding Level of Care Code 32289 Initial Inpt Care Lvl 3 Diagnoses Afib I48.91 Cough R05 Pacemaker Z95.0 Left ventricular outflow tract obstruction Q24.8 CPT Codes Dual Lead Pacemaker System - [id number] ([id number])
[2019-07-14] MEDS: FAMOTIDINE 10 MG TABLET PO SCH (10:39)
[2019-07-14] MEDS: cefTRIAXone SODIUM 1,000 MG in DEXTROSE 5% 50 ML IV SCH (11:39)
[2019-07-14 11:44] LABS: Basophils # (auto) 0.02 K/uL (0-0.2); Basophils % (auto) 0.1 %; Eosinophils # (auto) 0.08 K/uL (0-0.5); Eosinophils % (auto) 0.4 %; Hematocrit (blood only) 33.1 % (37-47); Hemoglobin 11.4 g/dL (12.0-16.0); Immature Granulocytes # (auto) 0.08 K/uL (0.00-0.02); Immature Granulocytes % (auto) 0.4 %; Lymphocytes % (auto) 9.2 %; Mean Corpuscular Hemoglobin 33.8 pg (25-34); Mean Corpuscular Volume 98.2 fL (80-100); Mean Platelet Volume 10.8 fL (7.4-10.4); Monocytes # (auto) 1.16 K/uL (0.11-0.59); Monocytes % (auto) 6.3 %; Neutrophils % (auto) 83.6 %; Platelet Count 136 K/uL (130-400); RDW Coefficient of Variation 13.4 % (11.5-14.5); RDW Standard Deviation 47.7 fL (36.4-46.3); Red Blood Count 3.37 M/uL (4.2-5.4); White Blood Count 18.44 K/uL (4.8-10.8)
[2019-07-14 11:46] LABS: Base Excess ABG 0.9 mEq/L (-9-1.8); HCO3 ABG 24 mmol/L (19-24); Oxygen Saturation ABG 86.5 % (90-95); PCO2 ABG 33 mmHg (35-46); PO2 ABG 51 mmHg (80-95); pH ABG 7.48 (7.35-7.45)
[2019-07-14 11:47] LABS: Mean Corpuscular Hgb Conc 34.4 g/dL (32-36)
[2019-07-14 11:48] LABS: Allen Test Pos (Pos)
[2019-07-14 12:03] LABS: BUN Creatinine Ratio 22.4 (10-20); Calcium 9.7 mg/dl (8.5-10.1); Creatinine Clr Calc Pharmacy 38.6 ml/min; Est GFR (African American) 55.5; Est GFR (Non-African American) 47.9; Potassium 3.9 mmol/L (3.5-5.1)
[2019-07-14] MEDS ORDERED: FUROSEMIDE 20 MG in SYRINGE 0 ML IV ONE (12:15)
[2019-07-14] MEDS ORDERED: COUGH DROP (SUGAR FREE) LOZ 24 LOZ/1 BOX BUCCAL ONE (12:59)
[2019-07-14] MEDS ORDERED: OPTIRAY 320 125ml IV PRN (15:27)
--- NOTE | 2019-07-14 15:40 | CT Scan Report ---
CT ANGIOGRAM OF THE CHEST CLINICAL HISTORY: Shortness of breath. Pulmonary edema. Possible pulmonary embolism. COMPARISON STUDY: December 2015 TECHNIQUE: Following the IV administration of 120 mL of Optiray-320, CT angiogram of the thorax was p erformed from the thoracic inlet to the lung bases utilizing the pulmonary embolus protocol. Images a re reviewed in the axial, sagittal, and coronal planes. IV contrast was administered without complica tion. MIP imaging was performed. A dose lowering technique was utilized adhering to the principles o f ALARA. CT DOSE: 825.27 mGy.cm FINDINGS: There are mildly enlarged mediastinal lymph nodes, likely reactive. There was no evidence of thoracic aortic dilatation. There were no pulmonary artery filling defects to indicate acute pulmonary embolism. The heart is enlarged. There are coronary artery calcifications. There is a small left pleural effusion, and moderate right pleural effusion. There are lower lobe compressive atelectatic changes. There is right middle lobe atelectasis/consolid ation. There are extensive right upper lobe airspace opacities, and to a lesser extent right lower lo be airspace opacities. Diagnostic considerations include asymmetric pulmonary edema versus a multilob ar pneumonia. IMPRESSION: 1. No evidence of acute pulmonary embolism 2. Moderate right pleural effusion small left pleural effusion 3. Extensive right upper lobe airspace opacities and mild right lower lobe airspace opacities. Diagno stic considerations include asymmetric pulmonary edema versus a multilobar pneumonia 4. Right middle lobe atelectasis/consolidation 5. Dependent atelectatic changes 6. Mild mediastinal lymphadenopathy, likely reactive ACT 112: Negative or not required by law. Electronically signed by: Gaston Garay M.D. 07/14/2019 3:39 PM
[2019-07-14] MEDS: SIMVASTATIN 10 MG TAB PO SCH (21:04)
[2019-07-14] MEDS: BENZONATATE 100 MG CAPSULE PO PRN (21:09)
[2019-07-15] MEDS: ALBUT/IPRATROP 3MG/0.5MG NEB 3 ML VIAL NEB SCH ×6 (02:50→22:39)
[2019-07-15] MEDS: LEVOTHYROXINE SODIUM 100 MCG TABLET PO SCH (06:31)
--- NOTE | 2019-07-15 06:57 | Hospitalist Progress Note ---
Date of Service July 15, 2019 Assessment & Plan (1) Pneumonia: 79 yo F with PMH DM2, HTN, HLD, Hypothyroidism, Afib who presents with acute hypoxic respiratory failure secondary to community acquired pneumonia failing outpatient treatment. 1) Acute Hypoxic Respiratory Failure 2/2 Community Acquired Pneumonia complicated by Afib - failed outpatient treatment. On Day 3 of Azithromycin, Ceftriaxone. - CTA Chest showed multilobar pneumonia with moderate bilateral pleural effusions - flu negative - Albuterol Nebs Q4H - WBC downtrending; continue to monitor - ongoing issue with pulse ox being low verified with ABG in the morning which showed spO2 of 86% while patient on 2L NC and asymptomatic. Patient likely chronically hypoxic in addition to some level of pulmonary congestion from fluid backflow. 2) Atrial Fibrillation with pacemaker - Eliquis 5 mg BID - diltiazem drip for rate control as needed while hospitalized - was taking 180 BID Diltiazem PO at home - likely some degree of vascular/pulmonary congestion secondary to rapid heart rate and LVOT obstruction - 20 mg IV lasix daily to help offload pleural fluid without decompensation of LVOT 3) HTN - Controlled with home lopressor 150 BID - Echo 06/19/18 showed EF>75%, severe left concentric hypertrophy, Type 2 diastolic dysfunction, severely dilated left atrium 4) DM2 - Diet controlled at home however sugars running high in hospital 2/2 steroids and infection - discontinued steroids - Basal control: 15u lantus AM - SSI: goal 110 - 140, Correction factor 25, 1u:8g carb with meals 5) CAD - home simvastatin 10 mg HS 6) Hx Colon Cancer - S/P colostomy and colo-colonic anastomosis - Colonoscopy 2019: no abnormal lesions, repeat in 3 years DVT ppx: on eliquis GI ppx: not indicated FEN: diabetic diet Code Status: Full code (2) Diabetes mellitus type 2, uncontrolled: (3) Hypertensive heart disease: (4) Atrial fibrillation: (5) History of colon cancer: (6) Hypertension: (7) Hyperlipidemia: (8) Hypothyroidism: Admission and Anticipated Discharge Date Admission Date: July 12, 2019 Supervising Physician Co-Signing Physician Notes Attending attestation Pt seen and examined in concert with Dr. Dominguez. In agreement with the documented findings as noted in the resident documentation with any exceptions or additions as noted here. Persistent nonproductive cough and fatigue. Reports no chest pain, palpitations, n/v, increased LE swelling. On examination, S1/S2 nl RRR no MCG. Improved coarse breath sounds and decreased bibasilar sounds. Abd NT/ND BS+ve. Improved pitting edema to the midshin, now trace. Acute hypoxic respiratory failure in the setting of community acquired pneumonia - Continue ceftriaxone and azithromycin. Off prednisone from 2.25.20. Pulmonary effusion in the setting of atrial fibrillation - cardiology consultation appreciated - cardizem drip for rate control has been effective. Continue Eliquis and metoprolol. Daily furosemide to diminish effusions and decrease AF. DMII - Continue present regimen, adjust as needed. Else see resident documentation as noted. Subjective No acute events overnight. Continuing to feel fatigued this morning, with more bothersome cough that is nonproductive. Continues to deny any symptoms of dyspnea, orthopnea, Suh. Review of Systems Constitutional: no fever, no chills, no body aches and no fatigue Respiratory: no cough and no dyspnea Cardiovascular: no chest pain, no dyspnea and no edema Gastrointestinal: no abdominal pain, no nausea, no vomiting, no constipation and no diarrhea/loose stools Genitourinary: no dysuria Physical Exam Constitutional: cooperative; no acute distress and not ill appearing Neck: normal visual inspection Respiratory: normal respiratory effort and able to speak in complete sentences; no respiratory distress, no labored breathing, no retractions, no cough and no audible wheezes Auscultation: + crackles (fine bibasilar, improved from yesterday); no rales, no rhonchi and no wheezes Cardiovascular: Rate/Rhythm: regular rate and regular rhythm Heart Sounds: normal S1 and normal S2; no gallop, no murmur and no cardiac rub Vessels: posterior tibial pulses present Extremities: + edema (mild 1+ pretibial pitting); no pedal edema Gastrointestinal (Abdomen): Inspection/Auscultation: abdomen normal to inspection and normal bowel sounds; abdomen not distended Percussion/Palpation: abdomen soft; abdomen nontender, no guarding, abdomen not rigid and no abdominal mass Results & Data ([place]) Vital Signs (Past 12 Hours) Vital Signs Temp Pulse Pulse Resp BP BP Pulse Ox 07/15/19 04:56 37 C 101 H 20 92/63 L 86 L 07/15/19 02:50 94 H 16 90 07/15/19 00:25 36.6 C 75 20 108/67 93 07/14/19 22:49 101 H 20 85 L 07/14/19 20:13 37.6 C H 99 H 23 112/71 87 L 07/14/19 19:37 98 H 20 85 L 07/15/19 07/15/19 07/15/19 Range/Units 16:07 11:08 07:18 WBC (4.8-10.8) K/uL RBC (4.2-5.4) M/uL Hgb (12.0-16.0) g/dL Hct (37-47) % MCV (80-100) fL MCH (25-34) pg MCHC (32-36) g/dL RDW Std Deviation (36.4-46.3) fL RDW Coeff of Lenore (11.5-14.5) % Plt Count (130-400) K/uL MPV (7.4-10.4) fL Immature Gran % (Auto) % Neut % (Auto) % Lymph % (Auto) % [place] % (Auto) % Eos % (Auto) % Baso % (Auto) % Immature Gran # (Auto) (0.00-0.02) K/uL Neut # (Auto) (1.4-6.5) K/uL Lymph # (Auto) (1.2-3.4) K/uL [place] # (Auto) (0.11-0.59) K/uL Eos # (Auto) (0-0.5) K/uL Baso # (Auto) (0-0.2) K/uL Sodium (136-145) mmol/L Potassium (3.5-5.1) mmol/L Chloride (98-107) mmol/L Carbon Dioxide (21-32) mmol/L Anion Gap (3-11) BUN (7-18) mg/dl Creatinine (0.6-1.2) mg/dl Est Cr Clr Drug Dosing ml/min Est GFR ( Amer) Est GFR (Non-Af Amer) BUN/Creatinine Ratio (10-20) Glucose (70-99) mg/dl POC Glucose 102 H 262 H 166 H (70-99) mg/dl Calcium (8.5-10.1) mg/dl 07/15/19 07/15/19 07/14/19 Range/Units 06:41 06:41 20:52 WBC 13.04 H (4.8-10.8) K/uL RBC 3.57 L (4.2-5.4) M/uL Hgb 12.1 (12.0-16.0) g/dL Hct 35.7 L (37-47) % MCV 100.0 (80-100) fL MCH 33.9 (25-34) pg MCHC 33.9 (32-36) g/dL RDW Std Deviation 49.4 H (36.4-46.3) fL RDW Coeff of Lenore 13.8 (11.5-14.5) % Plt Count 178 (130-400) K/uL MPV 11.4 H (7.4-10.4) fL Immature Gran % (Auto) 0.3 % Neut % (Auto) 75.2 % Lymph % (Auto) 15.7 % [place] % (Auto) 6.2 % Eos % (Auto) 2.4 % Baso % (Auto) 0.2 % Immature Gran # (Auto) 0.04 H (0.00-0.02) K/uL Neut # (Auto) 9.80 H (1.4-6.5) K/uL Lymph # (Auto) 2.05 (1.2-3.4) K/uL [place] # (Auto) 0.81 H (0.11-0.59) K/uL Eos # (Auto) 0.31 (0-0.5) K/uL Baso # (Auto) 0.03 (0-0.2) K/uL Sodium 138 (136-145) mmol/L Potassium 3.9 (3.5-5.1) mmol/L Chloride 105 (98-107) mmol/L Carbon Dioxide 28 (21-32) mmol/L Anion Gap 5.0 (3-11) BUN 22 H (7-18) mg/dl Creatinine 0.96 (0.6-1.2) mg/dl Est Cr Clr Drug Dosing 43.8 ml/min Est GFR ( Amer) 64.7 Est GFR (Non-Af Amer) 55.9 BUN/Creatinine Ratio 23.0 H (10-20) Glucose 146 H (70-99) mg/dl POC Glucose 223 H (70-99) mg/dl Calcium 9.6 (8.5-10.1) mg/dl Resident Activity Tracking Resident Involvement: Resident Care Provided Care Provided: Adult Hospital Medicine (1) Atrial fibrillation Atrial fibrillation type: paroxysmal Qualified Code(s): I48.0 - Paroxysmal atrial fibrillation (2) Hyperlipidemia Hyperlipidemia type: unspecified Qualified Code(s): E78.5 - Hyperlipidemia, unspecified (3) Hypothyroidism Hypothyroidism type: acquired Qualified Code(s): E03.9 - Hypothyroidism, unspecified (4) Hypertension Hypertension type: essential hypertension Qualified Code(s): I10 - Essential (primary) hypertension (5) Pneumonia Laterality: bilateral Lung location: lower lobe of lung Pneumonia type: due to unspecified organism Qualified Code(s): J18.9 - Pneumonia, unspecified organism
[2019-07-15 07:17] LABS: Basophils # (auto) 0.03 K/uL (0-0.2); Basophils % (auto) 0.2 %; Eosinophils # (auto) 0.31 K/uL (0-0.5); Eosinophils % (auto) 2.4 %; Hematocrit (blood only) 35.7 % (37-47); Hemoglobin 12.1 g/dL (12.0-16.0); Immature Granulocytes # (auto) 0.04 K/uL (0.00-0.02); Immature Granulocytes % (auto) 0.3 %; Lymphocytes # (auto) 2.05 K/uL (1.2-3.4); Lymphocytes % (auto) 15.7 %; Mean Corpuscular Hemoglobin 33.9 pg (25-34); Mean Corpuscular Hgb Conc 33.9 g/dL (32-36); Mean Platelet Volume 11.4 fL (7.4-10.4); Monocytes # (auto) 0.81 K/uL (0.11-0.59); Monocytes % (auto) 6.2 %; Neutrophils % (auto) 75.2 %; Platelet Count 178 K/uL (130-400); RDW Coefficient of Variation 13.8 % (11.5-14.5); RDW Standard Deviation 49.4 fL (36.4-46.3); Red Blood Count 3.57 M/uL (4.2-5.4); White Blood Count 13.04 K/uL (4.8-10.8)
[2019-07-15 07:44] LABS: Calcium 9.6 mg/dl (8.5-10.1); Creatinine Clr Calc Pharmacy 43.8 ml/min; Est GFR (African American) 64.7; Est GFR (Non-African American) 55.9; Potassium 3.9 mmol/L (3.5-5.1)
[2019-07-15] MEDS: INSULIN ASPART 100 UNITS/ML 3 ML PEN SC SCH ×4 (07:50→20:35)
[2019-07-15] MEDS: allopurinoL 100 MG TAB PO SCH (08:45)
[2019-07-15] MEDS: FAMOTIDINE 10 MG TABLET PO SCH (08:45)
[2019-07-15] MEDS: METOPROLOL TARTRATE 50 MG TAB PO SCH ×2 (08:45→20:25)
[2019-07-15] MEDS: INSULIN GLARGINE SOLOSTAR 100 UNITS/ML 3 ML PEN SC SCH ×2 (08:45→20:34)
[2019-07-15] MEDS: MAGNESIUM OXIDE 400 MG TAB PO SCH (08:45)
[2019-07-15] MEDS: CALCIUM 600MG + VIT D 400 IU TAB PO SCH ×2 (08:45→20:24)
[2019-07-15] MEDS: MULTIVITAMIN TAB PO SCH (08:45)
[2019-07-15] MEDS: APIXABAN 5 MG TABLET PO SCH ×2 (08:45→20:24)
[2019-07-15] MEDS: dilTIAZem HCL 180 MG CAPCR PO SCH ×2 (08:46→20:24)
[2019-07-15] MEDS: BENZONATATE 100 MG CAPSULE PO PRN (09:16)
[2019-07-15] MEDS: AZITHROMYCIN 500 MG in DEXTROSE 5% 250 ML IV SCH (09:17)
[2019-07-15] MEDS: FUROSEMIDE 20 MG in SYRINGE 0 ML IV SCH (10:56)
[2019-07-15] MEDS: cefTRIAXone SODIUM 1,000 MG in DEXTROSE 5% 50 ML IV SCH (12:00)
--- NOTE | 2019-07-15 15:32 | Pharmacy Report ---
Pharmacy Glycemic Short Note 2 - Date of Service July 15, 2019 - Glycemic Short BSG Results (Last 24 hours): 07/14/19 07/14/19 07/15/19 16:29 20:52 06:41 Glucose 146 H POC Glucose 173 H 223 H 07/15/19 07/15/19 07:18 11:08 Glucose POC Glucose 166 H 262 H OUTPATIENT ANTIDIABETIC REGIMEN: * Glimepiride 2 mg daily * A1c = 8.2 % 02/18/19 - Assessment & Plan ASSESSMENT: 07/15 * Patient is currently receiving an average of 40 units of insulin per day * 25 units of basal insulin * 17 units of prandial/correctional insulin * BSGs ranging 146-262 over the past 24hrs * Risk factors for insulin resistance are constant over the past 24hrs * Anticipating insulin regimen will need increased for the next 24hrs d/t : * AM Fasting BSG = 166 therefore Basal insulin needs increased * Post-prandial BSGs are elevated/BSGs rise throughout the day therefore Tighten CF/CR 07/14 * 79 y/o female with PMH T2DM, HTN, hypothyroidism and A.fib, admitted for CAP. Patient is on a single oral agent as an outpatient, which were held for admission and switched to insulin, as per ADA inpatient glycemic control guidelines. * Pharmacy was consulted last evening for significantly elevated BSGs, in the setting of prednisone. As of this morning, prednisone has been placed on hold, BSGs are well controlled and insulin drip is only running at 1 unit/hr. * Will plan to discontinue insulin drip at this time. No overlap with SQ since patient did receive a dose of NPH yesterday and drip rates are fairly low. Her fasting BSGs prior to prednisone initiation were elevated, so I do believe she'll need basal insulin without the steroids. Will start with 0.2 units/kg and can titrate as needed. PLAN FOR INPATIENT GLYCEMIC CONTROL: * Continue to hold outpatient oral diabetes medications * Basal insulin - increase * Lantus 15 units qAM * Lantus qPM per the following scale: * 5 units for BSG < 140 * 10 units for BSG 140-180 * 15 units for BSG > 180 * Bolus insulin - tighten CF/CR * NovoLog per scale ACHS or Q6hrs while NPO * Goal Range: Low 110 mg/dL - High 140 mg/dL * Correction Factor: 25 mg/dL/unit * Nutritional / Prandial insulin per carb ratio of 1 unit per 8 grams CHO consumed PLAN FOR DISCHARGE: * A1c = 8.2% on 02/18/19 - this is > 3 months ago but provider noting to wait for a recheck d/t recent steroid use * Goal A1c < 8% based on age/comorbidities * Recommend to continue outpatient regimen on discharge if steroids will not be restarted. If restarted, pharmacy can provide updated recommendations for discharge.
--- NOTE | 2019-07-15 16:52 | Cardiology Progress Note ---
Date of Service July 15, 2019 Assessment & Plan (1) Afib: Overall rate control seems somewhat improved. She certainly has periods of high ventricular rates. Her diltiazem infusion was stopped and that seems reasonable. I think we will continue to give her oral medications. Hopefully as her clinical course improves her overall rate control will improve as well. (2) Cough: Her CT scan was concerning. It does appear to be some element pneumonia, possibly multi lobar. We attempted some mild diuresis yesterday but did not affect much difference in her symptoms. This point it seems reasonable concentrate on her infectious process and primary pulmonary process. If she fails to improve on standard therapy we could give consideration to more aggressive attempts at diuresis. (3) Pacemaker: Normally functioning dual-chamber permanent pacemaker (4) Left ventricular outflow tract obstruction: Hemodynamically stable. We will need to monitor her for decompensation especially in the setting of hypokalemia. Admission and Anticipated Discharge Date Admission Date: July 12, 2019 Subjective Patient complained of continued cough. She has had difficulty sleeping last night but this is not appear to be overt orthopnea. She is able to sleep at the end of the bed lying down. She has some element breathing difficulty and overall just very tired and frustrated. Review of Systems Review of Systems: Per HPI Physical Exam Constitutional: cooperative; no acute distress and not ill appearing Neck: normal visual inspection Respiratory: normal respiratory effort and able to speak in complete sentences; no respiratory distress, no labored breathing, no retractions, no cough and no audible wheezes Auscultation: + crackles (fine bibasilar); no rales, no rhonchi and no wheezes Cardiovascular: Rate/Rhythm: regular rate and regular rhythm Heart Sounds: normal S1 and normal S2; no gallop, no murmur and no cardiac rub Vessels: posterior tibial pulses present Extremities: + edema; no pedal edema Gastrointestinal (Abdomen): Inspection/Auscultation: abdomen normal to inspection and normal bowel sounds; abdomen not distended Percussion/Pa lpation: abdomen soft; abdomen nontender, no guarding, abdomen not rigid and no abdominal mass Results & Data ([facility]) Vital Signs (Past 12 Hours) Vital Signs Temp Pulse Pulse Pulse Pulse Resp BP 07/15/19 15:26 37.2 C 75 23 123/75 07/15/19 15:02 36.9 C 68 20 120/77 07/15/19 15:01 61 07/15/19 11:44 37 C 60 20 120/74 07/15/19 11:07 66 16 07/15/19 07:49 36.9 C 94 H 22 111/80 07/15/19 07:36 90 07/15/19 06:47 77 14 07/15/19 04:56 37 C 101 H 20 92/63 L Pulse Ox 07/15/19 15:26 90 07/15/19 15:02 97 07/15/19 15:01 07/15/19 11:44 90 07/15/19 11:07 90 07/15/19 07:49 94 07/15/19 07:36 07/15/19 06:47 92 07/15/19 04:56 86 L Laboratory Results Abnormal Lab Results 07/14/19 07/15/19 07/15/19 20:52 06:41 06:41 WBC 13.04 H RBC 3.57 L Hgb 12.1 Hct 35.7 L MCV 100.0 MCH 33.9 MCHC 33.9 RDW Std Deviation 49.4 H RDW Coeff of Lenore 13.8 Plt Count 178 MPV 11.4 H Immature Gran % (Auto) 0.3 Neut % (Auto) 75.2 Lymph % (Auto) 15.7 [place] % (Auto) 6.2 Eos % (Auto) 2.4 Baso % (Auto) 0.2 Immature Gran # (Auto) 0.04 H Neut # (Auto) 9.80 H Lymph # (Auto) 2.05 [place] # (Auto) 0.81 H Eos # (Auto) 0.31 Baso # (Auto) 0.03 Sodium 138 Potassium 3.9 Chloride 105 Carbon Dioxide 28 Anion Gap 5.0 BUN 22 H Creatinine 0.96 Est Cr Clr Drug Dosing 43.8 Est GFR ( Amer) 64.7 Est GFR (Non-Af Amer) 55.9 BUN/Creatinine Ratio 23.0 H Glucose 146 H POC Glucose 223 H Calcium 9.6 07/15/19 07/15/19 07/15/19 07:18 11:08 16:07 WBC RBC Hgb Hct MCV MCH MCHC RDW Std Deviation RDW Coeff of Lenore Plt Count MPV Immature Gran % (Auto) Neut % (Auto) Lymph % (Auto) [place] % (Auto) Eos % (Auto) Baso % (Auto) Immature Gran # (Auto) Neut # (Auto) Lymph # (Auto) [place] # (Auto) Eos # (Auto) Baso # (Auto) Sodium Potassium Chloride Carbon Dioxide Anion Gap BUN Creatinine Est Cr Clr Drug Dosing Est GFR ( Amer) Est GFR (Non-Af Amer) BUN/Creatinine Ratio Glucose POC Glucose 166 H 262 H 102 H Calcium Diagnostic Findings CT scan performed yesterday revealed multi lobar pneumonia. PG Care Time/CCT Total # of Minutes Spent Total Time Spent with Patient: Total time spent is greater than 50% in coordination of care (as documented) at patient's floor/unit and/or counseling patient: Coding Level of Care Code 88288 Subseq Hosp Care Lvl 3 Diagnoses Afib I48.91 Cough R05 Pacemaker Z95.0 Left ventricular outflow tract obstruction Q24.8
[2019-07-15] MEDS: SIMVASTATIN 10 MG TAB PO SCH (20:25)
[2019-07-16] MEDS: ALBUT/IPRATROP 3MG/0.5MG NEB 3 ML VIAL NEB SCH ×4 (03:11→15:23)
[2019-07-16] MEDS: LEVOTHYROXINE SODIUM 100 MCG TABLET PO SCH (06:48)
[2019-07-16 07:50] LABS: Basophils # (auto) 0.02 K/uL (0-0.2); Basophils % (auto) 0.2 %; Eosinophils # (auto) 0.33 K/uL (0-0.5); Eosinophils % (auto) 3.7 %; Hematocrit (blood only) 35.4 % (37-47); Hemoglobin 12.1 g/dL (12.0-16.0); Immature Granulocytes # (auto) 0.01 K/uL (0.00-0.02); Immature Granulocytes % (auto) 0.1 %; Lymphocytes # (auto) 1.53 K/uL (1.2-3.4); Lymphocytes % (auto) 17.2 %; Mean Corpuscular Hemoglobin 34.1 pg (25-34); Mean Corpuscular Hgb Conc 34.2 g/dL (32-36); Mean Corpuscular Volume 99.7 fL (80-100); Mean Platelet Volume 10.8 fL (7.4-10.4); Monocytes # (auto) 0.77 K/uL (0.11-0.59); Monocytes % (auto) 8.6 %; Neutrophils # (auto) 6.26 K/uL (1.4-6.5); Neutrophils % (auto) 70.2 %; Platelet Count 187 K/uL (130-400); RDW Coefficient of Variation 13.7 % (11.5-14.5); RDW Standard Deviation 49.7 fL (36.4-46.3); Red Blood Count 3.55 M/uL (4.2-5.4); White Blood Count 8.92 K/uL (4.8-10.8)
[2019-07-16 08:06] LABS: BUN Creatinine Ratio 19.2 (10-20); Calcium 9.2 mg/dl (8.5-10.1); Creatinine Clr Calc Pharmacy 42.4 ml/min; Est GFR (African American) 62.4; Est GFR (Non-African American) 53.8; Potassium 3.6 mmol/L (3.5-5.1)
[2019-07-16] MEDS: MAGNESIUM OXIDE 400 MG TAB PO SCH (08:32)
[2019-07-16] MEDS: FUROSEMIDE 20 MG in SYRINGE 0 ML IV SCH (08:33)
[2019-07-16] MEDS: dilTIAZem HCL 180 MG CAPCR PO SCH (08:33)
[2019-07-16] MEDS: APIXABAN 5 MG TABLET PO SCH (08:33)
[2019-07-16] MEDS: CALCIUM 600MG + VIT D 400 IU TAB PO SCH (08:33)
[2019-07-16] MEDS: allopurinoL 100 MG TAB PO SCH (08:33)
[2019-07-16] MEDS: METOPROLOL TARTRATE 50 MG TAB PO SCH (08:33)
[2019-07-16] MEDS: INSULIN GLARGINE SOLOSTAR 100 UNITS/ML 3 ML PEN SC SCH (08:34)
[2019-07-16] MEDS: MULTIVITAMIN TAB PO SCH (08:34)
[2019-07-16] MEDS: FAMOTIDINE 10 MG TABLET PO SCH (08:34)
[2019-07-16] MEDS: INSULIN ASPART 100 UNITS/ML 3 ML PEN SC SCH ×2 (08:41→12:19)
[2019-07-16] MEDS: AZITHROMYCIN 500 MG in DEXTROSE 5% 250 ML IV SCH (08:42)
[2019-07-16 09:33] LABS: Estimated Average Glucose 214 mg/dl; Hemoglobin A1C 9.1 % (4.5-5.6)
[2019-07-16] MEDS: cefTRIAXone SODIUM 1,000 MG in DEXTROSE 5% 50 ML IV SCH (10:48)
--- NOTE | 2019-07-16 11:22 | Hospitalist Progress Note ---
Date of Service July 16, 2019 Assessment & Plan (1) Pneumonia: 79 yo F with PMH DM2, HTN, HLD, Hypothyroidism, Afib who presents with acute hypoxic respiratory failure secondary to community acquired pneumonia failing outpatient treatment. 1) Acute Hypoxic Respiratory Failure 2/2 Community Acquired Pneumonia complicated by Afib - failed outpatient treatment. On Day 4 of Azithromycin, Ceftriaxone. - CTA Chest showed multilobar pneumonia with moderate bilateral pleural effusions - WBC now normal, improving clinical exam with lungs moving much better air and almost non-existent crackling - much improved with use of flutter valve and incentive spirometer 2) Atrial Fibrillation with pacemaker - Eliquis 5 mg BID - diltiazem drip for rate control as needed while hospitalized. Currently off drip. - was taking 180 BID Diltiazem PO at home - likely some degree of vascular/pulmonary congestion secondary to rapid heart rate and LVOT obstruction - 20 mg IV lasix daily to help offload pleural fluid without decompensation of LVOT 3) HTN - Controlled with home lopressor 150 BID - Echo 06/19/18 showed EF>75%, severe left concentric hypertrophy, Type 2 diastolic dysfunction, severely dilated left atrium 4) DM2 - Diet controlled at home however sugars running high in hospital 2/2 steroids and infection - discontinued steroids - Basal control: 15u lantus AM - SSI: goal 110 - 140, Correction factor 25, 1u:8g carb with meals - on glimiperide at home. A1c 9.1 5) CAD - home simvastatin 10 mg HS 6) Hx Colon Cancer - S/P colostomy and colo-colonic anastomosis - Colonoscopy 2019: no abnormal lesions, repeat in 3 years DVT ppx: on eliquis GI ppx: not indicated FEN: diabetic diet Code Status: Full code (2) Diabetes mellitus type 2, uncontrolled: (3) Hypertensive heart disease: (4) Atrial fibrillation: (5) History of colon cancer: (6) Hypertension: (7) Hyperlipidemia: (8) Hypothyroidism: Admission and Anticipated Discharge Date Admission Date: July 12, 2019 Subjective Pleasant 79-year-old female being treated for community acquired pneumonia with failed outpatient treatment. This morning attesting to improved cough. She says her cough is no longer shaking her entire body and is more less. Continues to deny dyspnea at rest. Denies any chest pain palpitations, nausea or vomiting. Review of Systems Review of Systems: All systems reviewed & are unremarkable except as noted in Subjective Physical Exam Constitutional: cooperative; no acute distress and not ill appearing Neck: normal visual inspection Respiratory: normal respiratory effort and able to speak in complete sentences; no respiratory distress, no labored breathing, no retractions, no cough and no audible wheezes Auscultation: no crackles, no rales, no rhonchi and no wheezes Cardiovascular: Rate/Rhythm: regular rate and regular rhythm Heart Sounds: normal S1 and normal S2; no gallop, no murmur and no cardiac rub Vessels: posterior tibial pulses present Extremities: + edema (1+ pretibial bilaterally); no pedal edema Gastrointestinal (Abdomen): Inspection/Auscultation: abdomen normal to inspection and normal bowel sounds; abdomen not distended Perc ussion/Palpation: abdomen soft; abdomen nontender, no guarding, abdomen not rigid and no abdominal mass Results & Data ([facility]) Vital Signs (Past 12 Hours) Vital Signs Temp Pulse Pulse Resp BP BP Pulse Ox 07/16/19 11:06 36.6 C 84 18 108/68 94 07/16/19 07:41 36.5 C 99 H 18 129/78 95 07/16/19 07:03 95 H 18 94 07/16/19 04:27 36.8 C 93 H 18 92/59 L 86 L 07/16/19 03:13 89 18 91 07/15/19 23:19 36.5 C 91 H 18 112/72 91 07/16/19 07/16/19 07/16/19 Range/Units 11:07 07:34 07:34 WBC 8.92 (4.8-10.8) K/uL RBC 3.55 L (4.2-5.4) M/uL Hgb 12.1 (12.0-16.0) g/dL Hct 35.4 L (37-47) % MCV 99.7 (80-100) fL MCH 34.1 H (25-34) pg MCHC 34.2 (32-36) g/dL RDW Std Deviation 49.7 H (36.4-46.3) fL RDW Coeff of Lenore 13.7 (11.5-14.5) % Plt Count 187 (130-400) K/uL MPV 10.8 H (7.4-10.4) fL Immature Gran % (Auto) 0.1 % Neut % (Auto) 70.2 % Lymph % (Auto) 17.2 % [place] % (Auto) 8.6 % Eos % (Auto) 3.7 % Baso % (Auto) 0.2 % Immature Gran # (Auto) 0.01 (0.00-0.02) K/uL Neut # (Auto) 6.26 (1.4-6.5) K/uL Lymph # (Auto) 1.53 (1.2-3.4) K/uL [place] # (Auto) 0.77 H (0.11-0.59) K/uL Eos # (Auto) 0.33 (0-0.5) K/uL Baso # (Auto) 0.02 (0-0.2) K/uL Sodium 139 (136-145) mmol/L Potassium 3.6 (3.5-5.1) mmol/L Chloride 106 (98-107) mmol/L Carbon Dioxide 29 (21-32) mmol/L Anion Gap 5.0 (3-11) BUN 19 H (7-18) mg/dl Creatinine 0.99 (0.6-1.2) mg/dl Est Cr Clr Drug Dosing 42.4 ml/min Est GFR ( Amer) 62.4 Est GFR (Non-Af Amer) 53.8 BUN/Creatinine Ratio 19.2 (10-20) Glucose 122 H (70-99) mg/dl POC Glucose 258 H (70-99) mg/dl Estimat Average Glucose mg/dl Hemoglobin A1c (4.5-5.6) % Calcium 9.2 (8.5-10.1) mg/dl 07/16/19 07/16/19 07/15/19 Range/Units 07:34 07:30 20:30 WBC (4.8-10.8) K/uL RBC (4.2-5.4) M/uL Hgb (12.0-16.0) g/dL Hct (37-47) % MCV (80-100) fL MCH (25-34) pg MCHC (32-36) g/dL RDW Std Deviation (36.4-46.3) fL RDW Coeff of Lenore (11.5-14.5) % Plt Count (130-400) K/uL MPV (7.4-10.4) fL Immature Gran % (Auto) % Neut % (Auto) % Lymph % (Auto) % [place] % (Auto) % Eos % (Auto) % Baso % (Auto) % Immature Gran # (Auto) (0.00-0.02) K/uL Neut # (Auto) (1.4-6.5) K/uL Lymph # (Auto) (1.2-3.4) K/uL [place] # (Auto) (0.11-0.59) K/uL Eos # (Auto) (0-0.5) K/uL Baso # (Auto) (0-0.2) K/uL Sodium (136-145) mmol/L Potassium (3.5-5.1) mmol/L Chloride (98-107) mmol/L Carbon Dioxide (21-32) mmol/L Anion Gap (3-11) BUN (7-18) mg/dl Creatinine (0.6-1.2) mg/dl Est Cr Clr Drug Dosing ml/min Est GFR ( Amer) Est GFR (Non-Af Amer) BUN/Creatinine Ratio (10-20) Glucose (70-99) mg/dl POC Glucose 109 H 183 H (70-99) mg/dl Estimat Average Glucose 214 mg/dl Hemoglobin A1c 9.1 H (4.5-5.6) % Calcium (8.5-10.1) mg/dl 07/15/19 07/15/19 Range/Units 16:07 11:08 WBC (4.8-10.8) K/uL RBC (4.2-5.4) M/uL Hgb (12.0-16.0) g/dL Hct (37-47) % MCV (80-100) fL MCH (25-34) pg MCHC (32-36) g/dL RDW Std Deviation (36.4-46.3) fL RDW Coeff of Lenore (11.5-14.5) % Plt Count (130-400) K/uL MPV (7.4-10.4) fL Immature Gran % (Auto) % Neut % (Auto) % Lymph % (Auto) % [place] % (Auto) % Eos % (Auto) % Baso % (Auto) % Immature Gran # (Auto) (0.00-0.02) K/uL Neut # (Auto) (1.4-6.5) K/uL Lymph # (Auto) (1.2-3.4) K/uL [place] # (Auto) (0.11-0.59) K/uL Eos # (Auto) (0-0.5) K/uL Baso # (Auto) (0-0.2) K/uL Sodium (136-145) mmol/L Potassium (3.5-5.1) mmol/L Chloride (98-107) mmol/L Carbon Dioxide (21-32) mmol/L Anion Gap (3-11) BUN (7-18) mg/dl Creatinine (0.6-1.2) mg/dl Est Cr Clr Drug Dosing ml/min Est GFR ( Amer) Est GFR (Non-Af Amer) BUN/Creatinine Ratio (10-20) Glucose (70-99) mg/dl POC Glucose 102 H 262 H (70-99) mg/dl Estimat Average Glucose mg/dl Hemoglobin A1c (4.5-5.6) % Calcium (8.5-10.1) mg/dl (1) Atrial fibrillation Atrial fibrillation type: paroxysmal Qualified Code(s): I48.0 - Paroxysmal atrial fibrillation (2) Hyperlipidemia Hyperlipidemia type: unspecified Qualified Code(s): E78.5 - Hyperlipidemia, unspecified (3) Hypothyroidism Hypothyroidism type: acquired Qualified Code(s): E03.9 - Hypothyroidism, unspecified (4) Hypertension Hypertension type: essential hypertension Qualified Code(s): I10 - Essential (primary) hypertension (5) Pneumonia Laterality: bilateral Lung location: lower lobe of lung Pneumonia type: due to unspecified organism Qualified Code(s): J18.9 - Pneumonia, unspecified organism
--- NOTE | 2019-07-16 12:00 | Pharmacy Report ---
Pharmacy Glycemic Short Note 2 - Date of Service July 16, 2019 - Glycemic Short BSG Results (Last 24 hours): 07/15/19 07/15/19 07/16/19 16:07 20:30 07:30 Glucose POC Glucose 102 H 183 H 109 H 07/16/19 07/16/19 07:34 11:07 Glucose 122 H POC Glucose 258 H OUTPATIENT ANTIDIABETIC REGIMEN: * Glimepiride 2 mg daily * A1c = 8.2 % 02/18/19 ASSESSMENT: * AM fasting BSG responded well to increase in Lantus yesterday. Will adjust PM Lantus parameters to maintain dose (unless BSG <140 mg/dL) * BSG's increased significantly from breakfast to lunch today. Will tighten Novolog CHO ratio. PLAN FOR INPATIENT GLYCEMIC CONTROL: * Continue to hold outpatient oral diabetes medications * Basal insulin * Lantus 15 units qAM and 10-15 units qPM based on BSG (see MAR for details) * Bolus insulin - tighten CF/CR * NovoLog per scale ACHS or Q6hrs while NPO * Goal Range: Low 110 mg/dL - High 140 mg/dL * Correction Factor: 25 mg/dL/unit * Nutritional / Prandial insulin per carb ratio of 1 unit per 7 grams CHO consumed PLAN FOR DISCHARGE: * See 07/15 note
--- NOTE | 2019-07-16 15:09 | Cardiology Progress Note ---
Date of Service July 16, 2019 Assessment & Plan (1) Afib: Rate control definitely improved. Perhaps this is related to improvement in her clinical status. Prior evaluation her pacemaker suggested normally she has good rate control overall. I would think returning her to her outpatient diltiazem regimen would be adequate at the time of discharge. Continue anticoagulation. (2) Cough: Likely related to an infectious process rather than pulmonary edema. Improving. (3) Pacemaker: Normally functioning dual-chamber permanent pacemaker (4) Left ventricular outflow tract obstruction: Hemodynamically stable. We will need to monitor her for decompensation especially in the setting of hypovolemia Admission and Anticipated Discharge Date Admission Date: July 12, 2019 Subjective Patient reports feeling better overall. Still occasional coughing but improved. She denies shortness of breath. She has been more ambulatory over the course of last 24 hours. No sense of palpitation. Review of Systems Review of Systems: Per HPI Physical Exam Constitutional: cooperative; no acute distress and not ill appearing Neck: normal visual inspection Respiratory: normal respiratory effort and able to speak in complete sentences; no respiratory distress, no labored breathing, no retractions, no cough and no audible wheezes Auscultation: no crackles, no rales, no rhonchi and no wheezes Cardiovascular: Rate/Rhythm: regular rate and regular rhythm Heart Sounds: normal S1 and normal S2; no gallop, no murmur and no cardiac rub Vessels: posterior tibial pulses present Extremities: + edema (1+ pretibial bilaterally); no pedal edema Gastrointestinal (Abdomen): Inspection/Auscultation: abdomen normal to inspection and normal bowel sounds; abdomen not distended Percussion/Palpation: abdomen soft; abdomen nontender, no guarding, abdomen not rigid and no abdominal mass Results & Data ([facility]) Vital Signs (Past 12 Hours) Vital Signs Temp Pulse Pulse Resp BP Pulse Ox 07/16/19 11:17 68 18 96 07/16/19 11:06 36.6 C 84 18 108/68 94 07/16/19 07:41 36.5 C 99 H 18 129/78 95 07/16/19 07:03 95 H 18 94 07/16/19 04:27 36.8 C 93 H 18 92/59 L 86 L 07/16/19 03:13 89 18 91 Laboratory Results Abnormal Lab Results 07/15/19 07/15/19 07/16/19 16:07 20:30 07:30 WBC RBC Hgb Hct MCV MCH MCHC RDW Std Deviation RDW Coeff of Lenore Plt Count MPV Immature Gran % (Auto) Neut % (Auto) Lymph % (Auto) [place] % (Auto) Eos % (Auto) Baso % (Auto) Immature Gran # (Auto) Neut # (Auto) Lymph # (Auto) [place] # (Auto) Eos # (Auto) Baso # (Auto) Sodium Potassium Chloride Carbon Dioxide Anion Gap BUN Creatinine Est Cr Clr Drug Dosing Est GFR ( Amer) Est GFR (Non-Af Amer) BUN/Creatinine Ratio Glucose POC Glucose 102 H 183 H 109 H Estimat Average Glucose Hemoglobin A1c Calcium 07/16/19 07/16/19 07/16/19 07:34 07:34 07:34 WBC 8.92 RBC 3.55 L Hgb 12.1 Hct 35.4 L MCV 99.7 MCH 34.1 H MCHC 34.2 RDW Std Deviation 49.7 H RDW Coeff of Lenore 13.7 Plt Count 187 MPV 10.8 H Immature Gran % (Auto) 0.1 Neut % (Auto) 70.2 Lymph % (Auto) 17.2 [place] % (Auto) 8.6 Eos % (Auto) 3.7 Baso % (Auto) 0.2 Immature Gran # (Auto) 0.01 Neut # (Auto) 6.26 Lymph # (Auto) 1.53 [place] # (Auto) 0.77 H Eos # (Auto) 0.33 Baso # (Auto) 0.02 Sodium 139 Potassium 3.6 Chloride 106 Carbon Dioxide 29 Anion Gap 5.0 BUN 19 H Creatinine 0.99 Est Cr Clr Drug Dosing 42.4 Est GFR ( Amer) 62.4 Est GFR (Non-Af Amer) 53.8 BUN/Creatinine Ratio 19.2 Glucose 122 H POC Glucose Estimat Average Glucose 214 Hemoglobin A1c 9.1 H Calcium 9.2 07/16/19 11:07 WBC RBC Hgb Hct MCV MCH MCHC RDW Std Deviation RDW Coeff of Lenore Plt Count MPV Immature Gran % (Auto) Neut % (Auto) Lymph % (Auto) [place] % (Auto) Eos % (Auto) Baso % (Auto) Immature Gran # (Auto) Neut # (Auto) Lymph # (Auto) [place] # (Auto) Eos # (Auto) Baso # (Auto) Sodium Potassium Chloride Carbon Dioxide Anion Gap BUN Creatinine Est Cr Clr Drug Dosing Est GFR ( Amer) Est GFR (Non-Af Amer) BUN/Creatinine Ratio Glucose POC Glucose 258 H Estimat Average Glucose Hemoglobin A1c Calcium PG Care Time/CCT Total # of Minutes Spent Total Time Spent with Patient: Total time spent is greater than 50% in coordination of care (as documented) at patient's floor/unit and/or counseling patient: Coding Level of Care Code 31016 Subseq Hosp Care Lvl 3 Diagnoses Afib I48.91 Cough R05 Pacemaker Z95.0 Left ventricular outflow tract obstruction Q24.8
--- NOTE | 2019-07-16 17:30 | Discharge Summary ---
Date of Service July 16, 2019 Admission HPI Per Admitting Provider This is an 79-year-old female with past medical history of diabetes, hypertension, hypothyroidism, and atrial fibrillation who presents today complaining shortness of breath. Patient is pleasant and a good historian, accompanied by her . Patient tells me that she started getting sick approximately 3 weeks ago. This was manifested as cough which was initially dry but hacking and very severe. She did note some minimal shortness of breath. Appetite was slightly diminished. She does not recall having any fevers. She did note some mild wheeze as well. Patient saw her primary care provider on 06/30 and was thought to have acute bronchitis with possible pneumonia. She was given a course of prednisone along with Levaquin and an albuterol inhaler which she says used every 6 hours as needed. Patient did not feel that this course did much to improve her symptoms. The cough became productive with green sputum. Over the past few days, she had finished the medications but woke up this morning and felt much worse than before. This is what prompted her presentation to the emergency room. On presentation, she was afebrile but she was noted to have an O2 sat of 87% on room air. She typically does not use oxygen at home. She is a non-smoker. She was started on 2 L nasal cannula is now satting 94%. On my evaluation, she does exhibit a very loose sounding cough but is otherwise no distress. Admission Exam Per Admitting Provider Constitutional: + ill appearing and cooperative; no acute distress Neck: trachea midline, no thyromegaly Respiratory: normal respiratory effort Auscultation: + diminished lung sounds, + rales (Faint rales bilaterally, more prominent in the right base.), + rhonchi, + wheezes (Faint end expiratory wheeze) and + bronchial breath sounds; no crackles Cardiovascular: Rate/Rhythm: regular rate and regular rhythm Heart Sounds: normal S1, normal S2 and + murmur Gastrointestinal (Abdomen): Inspection/Auscultation: abdomen normal to inspection Percussion/Palpation: abdomen soft; abdomen nontender, no guarding, abdomen not rigid and no hepatosplenomegaly Skin: no rashes, warm and dry Neurologic: PERRL, EOMI, accommodation nl, no face palsy, no dysarthria Principal Diagnosis Multilobar Pneumonia Discharge Exam Constitutional cooperative; no acute distress and not ill appearing Neck normal visual inspection Respiratory normal respiratory effort, + cough and able to speak in complete sentences; no respiratory distress, no labored breathing, no retractions and no audible wheezes Auscultation: lungs clear to auscultation bilaterally and + crackles (faint at bases bilaterally); no rales, no rhonchi and no wheezes Cardiovascular Rate/Rhythm: regular rate and regular rhythm Heart Sounds: normal S1 and normal S2; no gallop, no murmur and no cardiac rub Vessels: posterior tibial pulses present Extremities: no pedal edema and no edema Gastrointestinal (Abdomen) Inspection/Auscultation: abdomen normal to inspection and normal bowel sounds; abdomen not distended Percussion/Palpation: abdomen soft; abdomen nontender, no guarding, abdomen not rigid and no abdominal mass Discharge Data Allergies Allergy/AdvReac Type Severity Reaction Status Date / Time hydromorphone [From Dilaudid] Allergy Intermediate hallucinati Verified 07/12/19 08:48 on Consultations 07/12/19 11:02 ED Decision to Admit Stat 07/14/19 07:56 Consult Cardiology Routine Ordered Studies 07/14/19 14:38 CT angio chest PE protocol Routine Hospital Course (1) Pneumonia: 79 yo F with PMH DM2, HTN, HLD, Hypothyroidism, Afib who presents with acute hypoxic respiratory failure secondary to community acquired pneumonia failing outpatient treatment. 1) Acute Hypoxic Respiratory Failure 2/2 Community Acquired Pneumonia complicated by Afib - received 4 days of Azithromycin IV, 4 days of Ceftriaxone IV. Discharged on 6 days of Cefdinir 300 mg BID. - CTA Chest showed multilobar pneumonia with moderate bilateral pleural effusions. Will require follow up CT chest for previous pulmonary nodule findings. Unable to identify on this CTA given pneumonia. - cough much improved with use of flutter valve and incentive spirometer 2) Atrial Fibrillation with pacemaker - Eliquis 5 mg BID - diltiazem drip for rate control as needed while hospitalized. - Restarted on 180 mg BID Diltiazem on discharge 3) HTN - Controlled with home lopressor 150 BID - Echo 06/19/18 showed EF>75%, severe left concentric hypertrophy, Type 2 diastolic dysfunction, severely dilated left atrium 4) DM2 - A1c 9.1 - discontinued steroids during hospital stay due to wide range of sugars 5) CAD - home simvastatin 10 mg HS 6) Hx Colon Cancer - S/P colostomy and colo-colonic anastomosis - Colonoscopy 2019: no abnormal lesions, repeat in 3 years (2) Diabetes mellitus type 2, uncontrolled: (3) Hypertensive heart disease: (4) Atrial fibrillation: (5) History of colon cancer: (6) Hypertension: (7) Hyperlipidemia: (8) Hypothyroidism: (9) Bronchitis, simple, chronic: Total Time Total Time Spent Total Time Spent (In Minutes): Discharge Plan Discharge Items Patient Disposition: Home - Self-Care Reason For Visit: PNA,HYPOXIA Discharge Diagnosis: pneumonia, acute respiratory failure Activity: Resume your previous activity Non-emergency contact: Primary Care Provider Call non-emergency contact if: you have any medication questions, your symptoms worsen and your temperature is above 101 Follow-up/Referrals: Juan Eubanks III, MD [Primary Care Provider] - Diet: Regular Addtl Attending Provider Instructions: You were seen in the hospital for evaluation and treatment of a multi-lobar pneumonia and received IV antibiotics. While you completed the course of azithromycin, you will still require 6 more days of antibiotics. A prescription for cefdinir has been sent to your pharmacy for 1 tablet twice a day for the next 6 days. Because of the extent of this pneumonia you also had a new oxygen requirement while in the hospital. While this has improved remarkably during your stay and with the antibiotics, you at this point still required 2 L of oxygen at rest and while ambulating. A prescription for the oxygen has been handed to you with your discharge paperwork. You will likely require this oxygen for the next couple weeks as you continue to improve. Your atrial fibrillation while in the hospital was also controlled with an IV medication. This was the IV version of the diltiazem that you take by mouth twice a day. Your pacemaker was interrogated while you are in the hospital and revealed that your atrial fibrillation does not frequently cause problems when you are outside of the hospital so you are being sent home on your home dose of diltiazem as it should be sufficient to keep your heart rate under control and keep you asymptomatic. You have a history of pulmonary nodules that were noted on previous imaging, and while you did receive a CT angiogram of the chest during your stay, the pneumonia block to the radiologist from being able to determine if those nodules were still present follow-up with your primary care provider regarding this and discussed with them repeat imaging in 1 to 2 months after your symptoms have fully cleared. If you find that you are increasingly short of breath with the oxygen at home, have chest pain, are experiencing rapid heart rates that you can feel, or your cough once again becomes worse, see your primary care physician or the emergency department for reevaluation. Follow-up with your primary care provider in the next 1 to 2 weeks to discuss your hospitalization and continuing care. Pending Studies at Discharge: No Stand-Alone Forms: [facility], Sm[facility] C[facility] Medications and DC Order Prescriptions: New cefdinir 300 mg capsule 300 mg PO BID 6 Days Qty: 12 RF: 0 Continued (DME) OneTouch Verio strip See Dose Instructions .ROUTE .MEDSUPPLY Qty: 100 RF: 2 diltiazem HCl 180 mg tablet extended release 24 hr 180 mg PO BID Qty: 180 RF: 3 simvastatin 10 mg tablet 10 mg PO HS Qty: 90 RF: 3 levothyroxine 100 mcg tablet 100 mcg PO QAM Qty: 90 RF: 3 benzonatate 200 mg capsule 200 mg PO TID PRN (Reason: cough) Qty: 30 RF: 0 glimepiride 2 mg tablet 2 mg PO QAM Qty: 30 RF: 5 metoprolol tartrate 100 mg tablet 150 mg PO BID Qty: 90 RF: 5 albuterol sulfate [ProAir HFA] 90 mcg/actuation HFA aerosol inhaler 2 puffs INH Q6H PRN (Reason: shortness of breath or wheezing) Qty: 8.5 RF: 0 multivitamin Tablet 1 tab PO QAM RF: 0 calcium carbonate [Tums] 200 mg calcium (500 mg) Tablet,Chewable 200 mg PO BID PRN (Reason: Indigestion) RF: 0 acetaminophen [Tylenol] 325 mg Capsule 325 - 650 mg PO Q6H PRN (Reason: Pain) RF: 0 magnesium oxide 400 mg Capsule 400 mg PO QAM RF: 0 Eliquis 5 mg Tablet 5 mg PO BID RF: 0 Calcium 600 + D(3) 600 mg calcium- 200 unit Capsule 1 tab PO BID RF: 0 allopurinol 100 mg tablet 100 mg PO QAM RF: 0 Discharge Orders: Discharge Order (Routine); Ordered 07/16/19 Ordered By: Yary Gerardo/Other Patient Handouts: Diabetes Half-Way Complications, Diabetes Healthy Meals, Diabetes Exercise Benefits, Diabetes Manage A1C Test Admission Data Admit Date/Time: 07/12/19 12:18 Attending Provider: Kapil Hart Admit Provider: Mervin Gonsales Primary Care Provider: Juan Eubanks III Other Providers: Mervin Gonsales ; Yary Dominguez ; Jose Neves Other Interventions: Discharge Summary Assessment (RN) Last Done: 07/16/19 17:29 Resident Activity Tracking Resident Involvement: Resident Care Provided Care Provided: Adult Hospital Medicine
--- NOTE | 2019-07-16 18:23 | Electrocardiogram Report ---
Test Reason : Blood Pressure : / mmHG Vent. Rate : 096 BPM Atrial Rate : 300 BPM P-R Int : 000 ms QRS Dur : 076 ms QT Int : 304 ms P-R-T Axes : 000 050 192 degrees QTc Int : 384 ms Poor data quality, interpretation may be adversely affected Atrial flutter with variable A-V block Left ventricular hypertrophy with repolarization abnormality Abnormal ECG When compared with ECG of 12-JUL-2019 18:56, Atrial flutter has replaced Sinus rhythm ST no longer depressed in Inferior leads ST less depressed in Lateral leads Confirmed by Martin Neves ([id number]) on 07/16/2019 6:23:18 PM Referred By: REFERRED SELF Confirmed By:Malik Neves
[2019-07-17] MEDS ORDERED: AZITHROMYCIN 250 MG TAB PO SCH (09:00)
--- NOTE | 2019-07-17 09:21 | Hospitalist Progress Note ---
Date of Service Date of service is July 16, 2019, date of documentation is 2019July 17, 2019 Assessment & Plan Admission and Anticipated Discharge Date Admission Date: July 12, 2019 Supervising Physician Co-Signing Physician Notes I saw the patient with the resident physician and confirmed carrera portions of the history and physical examination. I am unable to electronically signed the resident documentation due to technical difficulties. We saw the patient on the afternoon of July 16, 2019, she was in the bedside chair with her also in the room. She was feeling much better; her breathing was at her baseline, and she was anticipating discharge home. Unfortunately she still was on 2 L of oxygen, and a two-step verified her need for home oxygen. Her activity tolerance and physical therapy as well as the two-step was excellent. Her heart rate has improved as her illness has resolved; discussed with cardiology and will discharge patient on her home dose of diltiazem. She will complete cefdinir for 6 additional days at 300 mg twice daily Follow-up with PCP in 7 to 10 days; sooner if symptoms return
== END 2019-07-16 17:55 | disposition home or self-care (01) | DRG 193 ==
LOC: ED 07:52 → 2N 12:18 → SUATTDRO 12:18 → 2N 13:25 → 2S 19:00

== ENCOUNTER 2024-08-27 12:59 | Inpatient (IN) ==
[2024-08-27 15:10] LABS: Albumin Globulin Ratio 1.1 (0.9-2); Albumin Level 4.5 gm/dl (3.4-5.0); BUN Creatinine Ratio 24.1 (10-20); Bilirubin,Total 0.6 mg/dl (0.2-1.0); Creatinine Clr Calc Pharmacy 45.5 ml/min; Globulin 4.1 gm/dl (2.5-4.0); Potassium 4.1 mmol/L (3.5-5.1); Total Protein 8.6 gm/dl (6.0-8.3)
[2024-08-27 15:15] LABS: Basophils # (auto) 0.03 K/uL (0.00-0.20); Basophils % (auto) 0.3 %; Eosinophils # (auto) 0.02 K/uL (0.00-0.50); Eosinophils % (auto) 0.2 %; Hematocrit (blood only) 39.9 % (37.0-47.0); Immature Granulocytes # (auto) 0.05 K/uL (0.01-0.20); Immature Granulocytes % (auto) 0.4 %; Lymphocytes # (auto) 0.67 K/uL (1.20-3.40); Mean Corpuscular Hemoglobin 34.4 pg (25.0-34.0); Mean Corpuscular Hgb Conc 35.1 g/dL (32.0-36.0); Mean Platelet Volume 10.9 fL (9.4-12.4); Monocytes # (auto) 0.62 K/uL (0.11-0.59); Monocytes % (auto) 5.5 %; Neutrophils # (auto) 9.84 K/uL (1.40-6.50); Neutrophils % (auto) 87.6 %; Platelet Count 225 K/uL (130-400); RDW Coefficient of Variation 12.4 % (11.5-14.5); RDW Standard Deviation 44.7 fL (36.4-46.3); Red Blood Count 4.07 M/uL (4.20-5.40); White Blood Count 11.23 K/ul (4.8-10.8)
[2024-08-27 15:17] LABS: Troponin I High Sensitivity 11.1 pg/ml (0-14)
[2024-08-27 15:18] LABS: Appearance Urine Turbid (Clear); Bacteria Urine Automated 4+ (None Seen); Bilirubin Urine Negative (Negative); Blood Urine Negative (Negative); Cast Urine Automated 0-2 /lpf (0-2); Color Urine Yellow; Glucose Urine UA Trace (Negative); Ketones Urine 1+ (Negative); Leukocyte Esterase Urine Trace (Negative); Nitrite Urine Negative (Negative); Protein Urine 2+ (Negative); RBC Urine Automated >20 /hpf (0-2); Specific Gravity Urine 1.026 (1.000-1.030); Urobilinogen Urine Negative (Negative); WBC Urine Automated 0-5 /hpf (0-5); pH Urine 6.5 (4.5-7.5)
[2024-08-27 15:22] LABS: Base Excess VBG 0.8 mEq/L; HCO3 VBG 26 mmol/L; Oxygen Saturation VBG < 60.0 %; PCO2 VBG 43 mmHg (38-50); PO2 VBG 24 mmHg; pH VBG 7.39 (7.36-7.41)
[2024-08-27 15:27] LABS: Magnesium 1.9 mg/dl (1.7-2.4)
[2024-08-27 15:30] LABS: INR 1.1 (0.9-1.1); Partial Thromboplastin Ratio 1.3; Partial Thromboplastin Time 35 Seconds (21-31); Prothrombin Time 11.7 Seconds (9.0-12.0)
[2024-08-27] MEDS: OPTIRAY 320 100ml IV ONE (15:42)
--- NOTE | 2024-08-27 15:56 | XRay Report ---
XR chest 1V portable CLINICAL HISTORY: Chest pain, nonspecific COMPARISON STUDY: 07/13/2019 FINDINGS: Stable pacemaker. Stable moderate cardiomegaly without pulmonary vascular congestion. No ef fusion, consolidation, or pneumothorax. IMPRESSION: No acute findings. ACT 112: Negative or not required by law. Electronically signed by: Blaise Harvey M.D. 08/27/2024 3:54 PM
--- NOTE | 2024-08-27 16:13 | CT Scan Report ---
CT SCAN OF THE ABDOMEN AND PELVIS WITH IV CONTRAST CLINICAL HISTORY: Abdominal pain. COMPARISON STUDY: CT of the abdomen and pelvis March 05, 2017. TECHNIQUE: Following the IV administration of 93 cc of Optiray 320, CT scan of the abdomen and pelvi s is performed from the lung bases to the proximal femora. Images are reviewed in the axial, sagittal , and coronal planes. IV contrast was administered without complication. A dose lowering technique wa s utilized adhering to the principles of ALARA. CT DOSE: 605.62 mGy.cm FINDINGS: Moderate cardiomegaly is noted. There are mild alveolar opacities within the lower lungs wi th bronchial wall thickening. No pneumatosis, free air or portal venous gas is present. There is no b iliary or pancreatic ductal dilatation. Parenchymal calcifications within the pancreas are noted with glandular atrophy. A few cystic lesions within the pancreas measure up to 1.2 cm. These favor side b ranch IPMNs. There are gallstones within the gallbladder. No evidence for acute cholecystitis. Spleen and adrenal glands are unremarkable. Low-attenuation bilateral renal lesions favor cysts. A 2.27 lef t upper pole renal lesion measures above water attenuation although is only slightly increased in siz e since prior CT. This favors a cyst. There is no evidence for a bowel obstruction. A moderate amount stool is present. The appendix is normal. There is extensive atherosclerotic plaque within the abdom inal aorta. Several calcified fibroids are incidentally noted. There are no acute fractures within th e lumbar spine, pelvis or hips. IMPRESSION: 1. No acute process within the abdomen or pelvis. 2. Moderate amount of stool within the colon and rectum. No bowel obstruction. No bowel wall thickeni ng. Normal appendix. 3. Cholelithiasis. No evidence for acute cholecystitis. 4. Mild alveolar opacities within the lower lungs suggestive of an infectious process. Multifocal sec retions within the right lower lobe bronchi. ACT 112: Negative or not required by law. Electronically signed by: Avtar Blandon M.D. 08/27/2024 4:11 PM
--- NOTE | 2024-08-27 16:19 | Electrocardiogram Report ---
Test Reason : Blood Pressure : */* mmHG Vent. Rate : 63 BPM Atrial Rate : 63 BPM P-R Int : 212 ms QRS Dur : 70 ms QT Int : 442 ms P-R-T Axes : 92 42 160 degrees QTcB Int : 452 ms Atrial-paced rhythm with prolonged AV conduction Left ventricular hypertrophy with repolarization abnormality Abnormal ECG When compared with ECG of 05-Jan-2024 09:52, Inverted T waves have replaced nonspecific T wave abnormality in Inferior leads T wave inversion more evident in Lateral leads Confirmed by Jerry Johnson ([id number]) on 08/27/2024 4:19:23 PM Referred By: Confirmed By: Jerry Johnson
[2024-08-27] MEDS: cefTRIAXone SODIUM 2,000 MG/50 ML BAG IV STA (16:20)
[2024-08-27 17:05] LABS: Adenovirus PCR Not Detected (NotDetected); Bordetella parapertussis PCR Not Detected (NotDetected); Bordetella pertussis PCR Not Detected (NotDetected); Chlamydia pneumoniae PCR Not Detected (NotDetected); Coronavirus 229E PCR Not Detected (NotDetected); Coronavirus CoV-2 (COVID19)PCR Not Detected (NotDetected); Coronavirus HKU1 PCR Not Detected (NotDetected); Coronavirus NL63 PCR Not Detected (NotDetected); Coronavirus OC43PCR Not Detected (NotDetected); Human Metapneumovirus PCR Not Detected (NotDetected); Influenza A PCR Not Detected (NotDetected); Influenza B PCR Not Detected (NotDetected); Mycoplasma pneumoniae PCR Not Detected (NotDetected); Parainfluenza Virus 1 PCR Not Detected (NotDetected); Parainfluenza Virus 2 PCR Not Detected (NotDetected); Parainfluenza Virus 3 PCR Not Detected (NotDetected); Parainfluenza Virus 4 PCR Not Detected (NotDetected); Respiratory Syncytial VirusPCR Not Detected (NotDetected); Rhinovirus/Enterovirus PCR Not Detected (NotDetected)
[2024-08-27] MEDS: AZITHROMYCIN 250 MG TAB PO ONE (17:12)
--- NOTE | 2024-08-27 17:30 | History & Physical Report ---
Date of Service August 27, 2024 Assessment & Plan (1) RLL pneumonia: (2) Acute hypoxic respiratory failure: (3) UTI (urinary tract infection): Plan This is a 84-year-old female who came in for productive cough, abdominal pain, nausea, and increased urinary frequency on 08/27. Hypoxic on arrival. #RLL pneumonia Seen on A/P CT Ceftriaxone 2000 mg IV q24h Azithromycin 500 mg p.o. q24h Benzonatate TID for cough DuoNeb 3 mL PRN for wheezing #Acute hypoxic respiratory failure SpO2 84% on RA on arrival Not on oxygen at baseline BioFire negative Titrate supplemental oxygen as needed Continuous pulse oximetry #UTI Leukocytosis at 11.23 UA positive for 4+ bacteria on arrival Most recent urine culture 12/12/23 grew pansensitive E. coli Ceftriaxone (as above) Follow current UCx #T2DM Last A1c at 7.3% on 06/10/2024 Hold metformin, glimepiride Lantus 5u QAM while inpatient SSI; with target BSG range 110-140mg/dL, CF 50, carb ratio 15 T2DM diet BSG ACHS Adjust regimen as needed #Atrial fibrillation Continue Eliquis Disposition: Admit to MedSurg VTE PPx: Eliquis History of Present Illness Chief Complaint: Abdominal pain, productive cough Primary Care Provider: Chi Melgar DO Arielle is an 84-year-old female with PMH of atrial fibrillation (on apixaban), pacemaker, colon cancer, bowel resection, T2DM, gout, and hypothyroidism. She presented on 08/27 for abdominal pain, nausea, back pain, and increased urinary frequency. Patient reports her symptoms started on . She was having bad cough, stomach pain, and back pain. She took Robitussin for her cough, as well as other OTC medications for her symptoms, however her symptoms did not improve. No fevers. No pleuritic chest pain. Her main symptoms are this ongoing productive cough (yellow), lightheadedness with walking, and lower abdominal pain. She has been around sick contacts this past week, her son and . The abdominal pain is low transverse/intermittent; she rates 5/10 at present. Patient took her regular morning medicine today; no recent change in medication. She manages her own medicine at home along with her [id number]. She does not use supplemental oxygen at baseline, or CPAP at night. No history of DVT/PE. No allergies to antibiotics to her knowledge. Patient is hypertensive at 164/91 at time of admission; SpO2 92% on 4L NC. ED course: Ceftriaxone 2000 mg IV Azithromycin 500 mg p.o. ROS: Patient endorses lightheadedness, productive cough (yellow), abdominal pain, nausea, constipation, Patient denies fever, chills, night-sweats, body aches, chest pain, chest palpitations, SOB at rest or with exertion, pleuritic CP, hemoptysis, vomiting, diarrhea, burning with urination, blood in the urine/stool, or numbness/tingling/swelling/redness in the legs. Allergies Allergy/AdvReac Type Severity Reaction Status Date / Time hydromorphone [From Dilaudid] Allergy Severe hallucinati Verified 08/27/24 16:14 on Home Medications Medication Instructions Recorded Confirmed Type calcium 600 mg (as 1 tab PO BID 06/10/18 08/27/24 History carbonate)-vitamin D3 5 mcg (200 unit) capsule (Calcium 600 + D(3)) magnesium oxide 400 mg PO QAM 06/10/18 08/27/24 History multivitamin 1 tab PO QAM 06/10/18 08/27/24 History blood sugar diagnostic (OneTouch #100 ea 06/12/23 06/15/24 Rx Verio test strips) lancets 30 gauge #100 ea 06/12/23 06/15/24 Rx metoprolol tartrate 100 mg tablet 150 mg (1.5 x 100 mg) PO BID #270 11/27/23 08/27/24 Rx tabs simvastatin 10 mg tablet 10 mg PO HS #90 tabs 12/01/23 08/27/24 Rx allopurinol 100 mg tablet 100 mg PO HS #90 tabs 12/09/23 08/27/24 Rx apixaban 5 mg tablet (Eliquis) 5 mg PO BID #180 tabs 12/09/23 08/27/24 Rx diltiazem HCl 180 mg 180 mg PO BID #180 caps 12/09/23 08/27/24 Rx capsule,extended release 24 hr glimepiride 4 mg tablet 4 mg PO BID #180 tabs 02/13/24 08/27/24 Rx losartan 25 mg tablet 25 mg PO DAILY #90 tabs 06/15/24 08/27/24 Rx levothyroxine 112 mcg tablet 112 mcg PO QAM #90 tabs 07/22/24 08/27/24 Rx metformin 500 mg tablet,extended 500 mg PO BID #180 tabs 07/22/24 08/27/24 Rx release 24 hr Past Med/Surg History Problem List (Updated 08/27/24 @ 18:13 by Miguel Baez PA-C) Acute hypoxic respiratory failure UTI (urinary tract infection) RLL pneumonia Cough Urinary frequency (Acute) History of malignant neoplasm of colon 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 Controlled type 2 diabetes mellitus Osteoporosis screening declined Right ankle pain (Acute) Right foot pain (Acute) Overactive bladder Lichen sclerosus et atrophicus Right low back pain Left ventricular outflow tract obstruction Hypertension (Chronic) Hyperlipidemia (Chronic) Atrial fibrillation (Chronic) Pacemaker Meditronic--LAST CHECK 04/2018-REMOTELY History of bowel resection WITH COLOSTOMY Gout Hypothyroidism (Chronic) Medical History Diabetes mellitus type 2, uncontrolled Pneumonia (06/2019) On anticoagulant therapy eliquis daily Incisional hernia Tachy-herve syndrome History of colon cancer Diabetes mellitus, type 2 DIET MANAGED-NO MEDS Cancer COLON CANCER SOB (shortness of breath) on exertion Cardiac murmur Ankle fracture Surgical History History of colonoscopy History of right inguinal hernia repair History of incisional hernia repair History of cataract surgery R/L History of colostomy reversal Family History Brother Family history of diabetes mellitus Prostate cancer Daughter Breast cancer Sister HTN (hypertension), benign Family history of diabetes mellitus Other No family history of adverse response to anesthesia Denies family history of Ovarian cancer Myocardial infarction Colorectal cancer Social History (Updated 06/15/24 @ 10:36 by Fifi Plascencia LPN) Smoking Status: Never smoker Second Hand Exposure: No; Do You Dip or Chew Tobacco: No; Hx Alcohol Use: No Hx Substance Use: No Preferred Language: Macanese Communication Ability: Effective Visual Impairment: No Limitations Hearing Ability: Hard of Hearing Acid Wash Operator Required: No Beliefs That Will Affect Care: None marital status: Current Living Situation: Spouse current occupational status: retired 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 Feels Safe at Home: Yes Childhood Exposure to Second-Hand Smoke: No Diet: regular Dental Care, Regularly: Yes Physical Activity Frequency: Does not Exercise Seatbelt Use: always Sunscreen Use: No Assistive Devices: Glasses and Oxygen - Continuous Review of Systems Review of Systems: See HPI above Physical Exam Physical Exam: General: no acute distress; pleasant affect; and son at bedside; non- toxic appearing; well-nourished; cooperative; SpO2 92% on 4L NC HEENT: normocephalic, atraumatic; no scleral icterus; PERRLA; vision and hearing intact Neck: supple; trachea midline Skin: warm, dry without signs of tenting; no cyanosis; no rashes, bruising, lesions, or erythema noted CV: chest wall NTP; RRR; S1/S2 normal; no murmurs/rubs/gallops; pulses intact and symmetric at radial, DP, and PT Lungs: no acute respiratory distress; symmetrical chest wall expansion; mild bibasilar crackles in lower lung olivera bilaterally ABD: Soft; mildly TTP in all 4 quadrants; no signs of rashes or bruising on the abdomen or flanks; BS present; no rebound/guarding; no distention MSK: no tics or fasciculations; no edema noted in the LEs b/l, nonerythematous Neuro: A&Ox3; normal mood and affect; fluent speech; no focal deficits; sensation intact and symmetric in the LEs b/l Results & Data Results & Data Vital Signs (Past 12 Hours) Vital Signs Temp Pulse Pulse Resp BP BP Pulse Ox 08/27/24 16:27 64 08/27/24 16:23 67 20 164/91 H 92 08/27/24 14:59 64 18 190/70 H 91 08/27/24 14:50 92 08/27/24 14:50 08/27/24 13:24 84 L 08/27/24 13:20 36.7 C 69 20 152/79 H 84 L O2 Del Method O2 Flow Rate 08/27/24 16:27 08/27/24 16:23 Nasal Cannula 4 08/27/24 14:59 Nasal Cannula 3 08/27/24 14:50 Nasal Cannula 3 08/27/24 14:50 Nasal Cannula 3 08/27/24 13:24 Room Air, Nasal Cannula 0 08/27/24 13:20 Nasal Cannula 2 Laboratory Results Abnormal lab results 08/27/24 08/27/24 Range/Units 14:23 14:30 WBC 11.23 H (4.8-10.8) K/ul RBC 4.07 L (4.20-5.40) M/uL MCH 34.4 H (25.0-34.0) pg Neut # (Auto) 9.84 H (1.40-6.50) K/uL Lymph # (Auto) 0.67 L (1.20-3.40) K/uL [place] # (Auto) 0.62 H (0.11-0.59) K/uL APTT 35 H (21-31) Seconds BUN/Creatinine Ratio 24.1 H (10-20) Glucose 206 H (70-99(Fasting)) mg/dl Total Protein 8.6 H (6.0-8.3) gm/dl Globulin 4.1 H (2.5-4.0) gm/dl Lipase 10 L (11-82) U/L Urine Appearance Turbid A (Clear) Urine Protein 2+ H (Negative) Urine Glucose (UA) Trace H (Negative) Urine Ketones 1+ H (Negative) Ur Leukocyte Esterase Trace H (Negative) Urine RBC (Auto) >20 H (0-2) /hpf U Epithel Cells (Auto) 3-5 H (0-2) /hpf Urine Bacteria (Auto) 4+ H (None Seen) Diagnostic Findings Chest X-Ray 08/27/24 13:24 XR chest 1V portable CLINICAL HISTORY: Chest pain, nonspecific COMPARISON STUDY: 07/13/2019 FINDINGS: Stable pacemaker. Stable moderate cardiomegaly without pulmonary vascular congestion. No effusion, consolidation, or pneumothorax. IMPRESSION: No acute findings. ACT 112: Negative or not required by law. Electronically signed by: Blaise Harvey M.D. 08/27/2024 3:54 PM Abdomen/Pelvis CT 08/27/24 14:49 CT SCAN OF THE ABDOMEN AND PELVIS WITH IV CONTRAST CLINICAL HISTORY: Abdominal pain. COMPARISON STUDY: CT of the abdomen and pelvis March 05, 2017. TECHNIQUE: Following the IV administration of 93 cc of Optiray 320, CT scan of the abdomen and pelvis is performed from the lung bases to the proximal femora. Images are reviewed in the axial, sagittal, and coronal planes. IV contrast was administered without complication. A dose lowering technique was utilized adhering to the principles of ALARA. CT DOSE: 605.62 mGy.cm FINDINGS: Moderate cardiomegaly is noted. There are mild alveolar opacities within the lower lungs with bronchial wall thickening. No pneumatosis, free air or portal venous gas is present. There is no biliary or pancreatic ductal dilat ation. Parenchymal calcifications within the pancreas are noted with glandular atrophy. A few cystic lesions within the pancreas measure up to 1.2 cm. These favor side branch IPMNs. There are gallstones within the gallbladder. No evidence for acute cholecystitis. Spleen and adrenal glands are unremarkable. Low-attenuation bilateral renal lesions favor cysts. A 2.27 left upper pole renal lesion measures above water attenuation although is only slightly increased in size since prior CT. This favors a cyst. There is no evidence for a bowel obstruction. A moderate amount stool is present. The appendix is normal. There is extensive atherosclerotic plaque within the abdominal aorta. Several calcified fibroids are incidentally noted. There are no acute fractures within the lumbar spine, pelvis or hips. IMPRESSION: 1. No acute process within the abdomen or pelvis. 2. Moderate amount of stool within the colon and rectum. No bowel obstruction. No bowel wall thickening. Normal appendix. 3. Cholelithiasis. No evidence for acute cholecystitis. 4. Mild alveolar opacities within the lower lungs suggestive of an infectious process. Multifocal secretions within the right lower lobe bronchi. ACT 112: Negative or not required by law. Electronically signed by: Avtar Blandon M.D. 08/27/2024 4:11 PM ECG Additional Comments: ECG revealed atrial paced rhythm with prolonged AV conduction at 63 bpm; QTc 452 Code Status & VTE Plan VTE Prophylaxis Plan VTE Prophylaxis will be ordered: Yes PG Care Time/CCT Total # of Minutes Spent Total Time Spent with Patient: Total time spent is greater than 50% in coordination of care (as documented) at patient's floor/unit and/or counseling patient: Coding [place] [address] INT INP/OBS CARE 3/75MIN Patient Type Established History Comprehensive Exam Comprehensive Medical Decision Making High Complexity Diagnoses RLL pneumonia J18.9 Acute hypoxic respiratory failure J96.01 UTI (urinary tract infection) N39.0
--- NOTE | 2024-08-27 18:25 | Emergency Department Note ---
History of Present Illness General Chief complaint: Abdominal Pain Stated complaint: ABD PAIN, NAUSEA, BACK PAIN Time Seen by Provider: 08/27/24 14:42 History of Present Illness Provider complaint: Illness 84-year-old female presents emergency department for illness. Patient reports that she has been having cough shortness of breath and abdominal pain. She reports polyuria and dysuria. No fevers. She reports the pain in her abdomen radiates to her back. Home Medications Medication Instructions Recorded Confirmed Type calcium 600 mg (as 1 tab PO BID 06/10/18 08/27/24 History carbonate)-vitamin D3 5 mcg (200 unit) capsule (Calcium 600 + D(3)) magnesium oxide 400 mg PO QAM 06/10/18 08/27/24 History multivitamin 1 tab PO QAM 06/10/18 08/27/24 History blood sugar diagnostic (OneTouch #100 ea 06/12/23 06/15/24 Rx Verio test strips) lancets 30 gauge #100 ea 06/12/23 06/15/24 Rx metoprolol tartrate 100 mg tablet 150 mg (1.5 x 100 mg) PO BID #270 11/27/23 08/27/24 Rx tabs simvastatin 10 mg tablet 10 mg PO HS #90 tabs 12/01/23 08/27/24 Rx allopurinol 100 mg tablet 100 mg PO HS #90 tabs 12/09/23 08/27/24 Rx apixaban 5 mg tablet (Eliquis) 5 mg PO BID #180 tabs 12/09/23 08/27/24 Rx diltiazem HCl 180 mg 180 mg PO BID #180 caps 12/09/23 08/27/24 Rx capsule,extended release 24 hr glimepiride 4 mg tablet 4 mg PO BID #180 tabs 02/13/24 08/27/24 Rx losartan 25 mg tablet 25 mg PO DAILY #90 tabs 06/15/24 08/27/24 Rx levothyroxine 112 mcg tablet 112 mcg PO QAM #90 tabs 07/22/24 08/27/24 Rx metformin 500 mg tablet,extended 500 mg PO BID #180 tabs 07/22/24 08/27/24 Rx release 24 hr Allergies Allergy/AdvReac Type Severity Reaction Status Date / Time hydromorphone [From Dilaudid] Allergy Severe hallucinati Verified 08/27/24 16:14 on Past Med/Surg History Problem List (Updated 08/27/24 @ 19:11 by Aubrey Liang MD) Hypoxia (Acute) Acute hypoxic respiratory failure UTI (urinary tract infection) (Acute) RLL pneumonia (Acute) Cough Urinary frequency (Acute) History of malignant neoplasm of colon 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 Controlled type 2 diabetes mellitus Osteoporosis screening declined Right ankle pain (Acute) Right foot pain (Acute) Overactive bladder Lichen sclerosus et atrophicus Right low back pain Left ventricular outflow tract obstruction Hypertension (Chronic) Hyperlipidemia (Chronic) Atrial fibrillation (Chronic) Pacemaker Meditronic--LAST CHECK 04/2018-REMOTELY History of bowel resection WITH COLOSTOMY Gout Hypothyroidism (Chronic) Medical History Diabetes mellitus type 2, uncontrolled Pneumonia (06/2019) On anticoagulant therapy eliquis daily Incisional hernia Tachy-herve syndrome History of colon cancer Diabetes mellitus, type 2 DIET MANAGED-NO MEDS Cancer COLON CANCER SOB (shortness of breath) on exertion Cardiac murmur Ankle fracture Surgical History History of colonoscopy History of right inguinal hernia repair History of incisional hernia repair History of cataract surgery R/L History of colostomy reversal Family History Brother Family history of diabetes mellitus Prostate cancer Daughter Breast cancer Sister HTN (hypertension), benign Family history of diabetes mellitus Other No family history of adverse response to anesthesia Denies family history of Ovarian cancer Myocardial infarction Colorectal cancer Social History Smoking Status: Never smoker Second Hand Exposure: No; Do You Dip or Chew Tobacco: No; Hx Alcohol Use: No Hx Substance Use: No Preferred Language: [place] Communication Ability: Effective Visual Impairment: No Limitations Hearing Ability: Hard of Hearing 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: No Beliefs That Will Affect Care: None marital status: Current Living Situation: Spouse current occupational status: retired 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 Feels Safe at Home: Yes Childhood Exposure to Second-Hand Smoke: No Diet: regular Dental Care, Regularly: Yes Physical Activity Frequency: Does not Exercise Seatbelt Use: always Sunscreen Use: No Assistive Devices: Glasses and Oxygen - Continuous Physical Exam Vital Signs Vital Signs - 24 hr 08/27/24 13:20 08/27/24 13:24 08/27/24 14:50 Temperature 36.7 C Temperature Source Temporal Artery Scan Pulse Rate 69 Pulse Rate [Finger] Pulse Rhythm Regular Pulse Rhythm [Finger] Pulse Strength Normal Respiratory Rate 20 Respiratory Effort / Characteristics Non-Labored Spontaneous Respiratory Depth Normal Blood Pressure 152/79 H Blood Pressure [Right Arm] Blood Pressure Mean 103 Blood Pressure Mean [Right Arm] Blood Pressure Position Sitting Pulse Oximetry 84 L 84 L Oxygen Delivery Method Nasal Cannula Room Air Nasal Cannula Nasal Cannula Oxygen Flow Rate 2 0 3 Sepsis Recent Fever Within 48 Hours No Sepsis New/Unexplained Change in Mental Status N/A Sepsis Action Taken by Nursing No Action Required Oxygen Flow Rate - Titration 3 Pulse Oximetry Post Tiitration 94 08/27/24 14:50 08/27/24 14:59 08/27/24 16:23 Temperature Temperature Source Pulse Rate Pulse Rate [Finger] 64 67 Pulse Rhythm Pulse Rhythm [Finger] Regular Pulse Strength Respiratory Rate 18 20 Respiratory Effort / Characteristics Non-Labored Non-Labored Spontaneous Respiratory Depth Normal Normal Blood Pressure Blood Pressure [Right Arm] 190/70 H 164/91 H Blood Pressure Mean Blood Pressure Mean [Right Arm] 110 115 Blood Pressure Position Pulse Oximetry 92 91 92 Oxygen Delivery Method Nasal Cannula Nasal Cannula Nasal Cannula Oxygen Flow Rate 3 3 4 Sepsis Recent Fever Within 48 Hours Sepsis New/Unexplained Change in Mental Status Sepsis Action Taken by Nursing Oxygen Flow Rate - Titration Pulse Oximetry Post Tiitration 08/27/24 16:27 08/27/24 18:37 Temperature Temperature Source Pulse Rate 64 Pulse Rate [Finger] 68 Pulse Rhythm Pulse Rhythm [Finger] Pulse Strength Respiratory Rate 20 Respiratory Effort / Characteristics Respiratory Depth Blood Pressure Blood Pressure [Right Arm] 151/95 H Blood Pressure Mean Blood Pressure Mean [Right Arm] 113 Blood Pressure Position Pulse Oximetry 96 Oxygen Delivery Method Nasal Cannula Oxygen Flow Rate 4 Sepsis Recent Fever Within 48 Hours Sepsis New/Unexplained Change in Mental Status Sepsis Action Taken by Nursing Oxygen Flow Rate - Titration Pulse Oximetry Post Tiitration Physical Exam GENERAL: oriented to person, place, and time. appears well-developed and well- nourished. HENT: Exam performed. - Head: Normocephalic and atraumatic. EYES: Conjunctivae and EOM are normal. Right eye exhibits no discharge. Left eye exhibits no discharge. No scleral icterus. NECK: Normal range of motion. Neck supple. No JVD present. CV: Normal rate, regular rhythm, normal heart sounds and intact distal pulses. There is no peripheral edema. Palpable radial pulses bue. PULM/CHEST: Rhonchi bilaterally. ABD: The abdomen is soft. There is no tenderness. NEURO: Motor and sensation grossly intact. SKIN: Skin is warm and dry. He is not diaphoretic. PSYCH: normal mood and affect. Behavior is normal. Judgment and thought content normal. Course Course 1442: The patient was evaluated in room C12. A complete history and physical exam was performed Cardiac monitoring: An order was placed for continuous cardiac monitoring. The monitor shows a rate of 60 with paced rhythm interpreted by me Patient was found to be hypoxic on room air. Supplemental oxygen was placed which improved the patient's oxygen saturation. 1615: Vital signs stable supplemental oxygen. Labs show White blood cell count 11.23 hemoglobin 14 VBG unremarkable. Lactic acid procalcitonin unremarkable. Urinalysis is concerning for infection. CT of the abdomen pelvis shows no acute process in the abdomen pelvis but does show mild alveolar opacities within the lower lungs suggestive of infectious process multifocal secretions in the right lower lobe. Patient treated with Rocephin and azithromycin for UTI as well as pneumonia. Patient be admitted to the hospitalist team. Administered Medications Discontinued Medications Azithromycin (Azithromycin 250 Mg Tab) 500 mg PO NOW ONE Stop: 08/27/24 16:19 Last Admin: 08/27/24 17:12 Dose: 500 mg Documented By: HIEN Ceftriaxone Sodium (Rocephin) 2,000 mg in 50 mls @ 100 mls/hr IV NOW STA Stop: 08/27/24 16:34 Last Infusion: 08/27/24 17:12 Dose: Infused Documented By: Admin: 08/27/24 16:20 Dose: 100 mls/hr Documented By: HIEN Ioversol (Optiray 320 100ml) 93 ml IV ONCE ONE Stop: 08/27/24 15:42 Last Admin: 08/27/24 15:42 Dose: 93 ml Documented By: SUPRIYA Critical Care Time Critical Care Time: Yes Total Critical Care Time: 58 I have personally spent greater than 58 minutes of critical care time in the direct management of this patient. This includes bedside care, interpretation of diagnostic studies, and testing, discussion with consultants, patient, and family members, and other required patient management activities. This 58 minutes is in excess of all separately billable procedures. Medical Decision Making Laboratory Data Attestation: I reviewed the patient's lab results. 08/27/24 14:23 08/27/24 14:23 Lab Results 08/27/24 08/27/24 08/27/24 Range/Units 14:23 14:30 15:13 WBC 11.23 H (4.8-10.8) K/ul RBC 4.07 L (4.20-5.40) M/uL Hgb 14.0 (12.0-16.0) g/dl Hct 39.9 (37.0-47.0) % MCV 98.0 (80.0-100.0) fL MCH 34.4 H (25.0-34.0) pg MCHC 35.1 (32.0-36.0) g/dL RDW Std Deviation 44.7 (36.4-46.3) fL RDW Coeff of Lenore 12.4 (11.5-14.5) % Plt Count 225 (130-400) K/uL MPV 10.9 (9.4-12.4) fL Immature Gran % (Auto) 0.4 % Neut % (Auto) 87.6 % Lymph % (Auto) 6.0 % Bath % (Auto) 5.5 % Eos % (Auto) 0.2 % Baso % (Auto) 0.3 % Neut # (Auto) 9.84 H (1.40-6.50) K/uL Lymph # (Auto) 0.67 L (1.20-3.40) K/uL Bath # (Auto) 0.62 H (0.11-0.59) K/uL Eos # (Auto) 0.02 (0.00-0.50) K/uL Baso # (Auto) 0.03 (0.00-0.20) K/uL Immature Gran # (Auto) 0.05 (0.01-0.20) K/uL PT 11.7 (9.0-12.0) Seconds INR 1.1 (0.9-1.1) APTT 35 H (21-31) Seconds PTT Ratio 1.3 VBG pH 7.39 (7.36-7.41) VBG pCO2 43 (38-50) mmHg VBG pO2 24 mmHg VBG HCO3 26 mmol/L VBG O2 Saturation < 60.0 % VBG Base Excess 0.8 mEq/L Sodium 138 (136-145) mmol/L Potassium 4.1 (3.5-5.1) mmol/L Chloride 101 (98-107) mmol/L Carbon Dioxide 28 (21-32) mmol/L Anion Gap 9 (3-11) BUN 19 (6-23) mg/dl Creatinine 0.79 (0.6-1.2) mg/dl Est Cr Clr Drug Dosing 45.5 ml/min eGFR 73.26 BUN/Creatinine Ratio 24.1 H (10-20) Glucose 206 H (70-99(Fasting)) mg/dl Calcium 10.0 (8.6-10.3) mg/dl Magnesium 1.9 (1.7-2.4) mg/dl Total Bilirubin 0.6 (0.2-1.0) mg/dl AST 21 (13-39) U/L ALT 13 (7-52) U/L Alkaline Phosphatase 73 (34-104) U/L Troponin I High Sens 11.1 (0-14) pg/ml Total Protein 8.6 H (6.0-8.3) gm/dl Albumin 4.5 (3.4-5.0) gm/dl Globulin 4.1 H (2.5-4.0) gm/dl Albumin/Globulin Ratio 1.1 (0.9-2) Lipase 10 L (11-82) U/L Procalcitonin 0.08 (0-0.5) ng/ml Urine Color Yellow Urine Appearance Turbid A (Clear) Urine pH 6.5 (4.5-7.5) Ur Specific Tangent 1.026 (1.000-1.030) Urine Protein 2+ H (Negative) Urine Glucose (UA) Trace H (Negative) Urine Ketones 1+ H (Negative) Urine Blood Negative (Negative) Urine Nitrite Negative (Negative) Urine Bilirubin Negative (Negative) Urine Urobilinogen Negative (Negative) Ur Leukocyte Esterase Trace H (Negative) Urine WBC (Auto) 0-5 (0-5) /hpf Urine RBC (Auto) >20 H (0-2) /hpf U Hyaline Cast (Auto) 0-2 (0-2) /lpf U Epithel Cells (Auto) 3-5 H (0-2) /hpf Urine Bacteria (Auto) 4+ H (None Seen) Adenovirus (PCR) Not Detected (NotDetected) B. pertussis DNA (PCR) Not Detected (NotDetected) B.parapertussis DNA PCR Not Detected (NotDetected) C. pneumoniae DNA (PCR) Not Detected (NotDetected) Coronavirus OC43 (PCR) Not Detected (NotDetected) Coronavirus HKU1 (PCR) Not Detected (NotDetected) Coronavirus 229E (PCR) Not Detected (NotDetected) SARS-CoV-2 (PCR) Not Detected (NotDetected) Coronavirus NL63 (PCR) Not Detected (NotDetected) Human Metapneumovir PCR Not Detected (NotDetected) Influenza Type A (PCR) Not Detected (NotDetected) Influenza Type B (PCR) Not Detected (NotDetected) M. pneumoniae (PCR) Not Detected (NotDetected) Parainfluenza 1 (PCR) Not Detected (NotDetected) Parainfluenza 2 (PCR) Not Detected (NotDetected) Parainfluenza 3 (PCR) Not Detected (NotDetected) Parainfluenza 4 (PCR) Not Detected (NotDetected) RSV (PCR) Not Detected (NotDetected) Entero/Rhino (PCR) Not Detected (NotDetected) Imaging Data Attestation: I personally reviewed and interpreted this imaging study as follows: My Impression: Chest x-ray negative. Airway clear. No pneumothorax. No consolidation. No cardiomegaly or cephalization.. No free air under the diaphragm. No fractures of the skeletal structures. Radiologist's Impression: Chest X-Ray 08/27/24 13:24 XR chest 1V portable CLINICAL HISTORY: Chest pain, nonspecific COMPARISON STUDY: 07/13/2019 FINDINGS: Stable pacemaker. Stable moderate cardiomegaly without pulmonary vascular congestion. No effusion, consolidation, or pneumothorax. IMPRESSION: No acute findings. ACT 112: Negative or not required by law. Electronically signed by: Blaise Harvey M.D. 08/27/2024 3:54 PM Abdomen/Pelvis CT 08/27/24 14:49 CT SCAN OF THE ABDOMEN AND PELVIS WITH IV CONTRAST CLINICAL HISTORY: Abdominal pain. COMPARISON STUDY: CT of the abdomen and pelvis March 05, 2017. TECHNIQUE: Following the IV administration of 93 cc of Optiray 320, CT scan of the abdomen and pelvis is performed from the lung bases to the proximal femora. Images are reviewed in the axial, sagittal, and coronal planes. IV contrast was administered without complication. A dose lowering technique was utilized adhering to the principles of ALARA. CT DOSE: 605.62 mGy.cm FINDINGS: Moderate cardiomegaly is noted. There are mild alveolar opacities within the lower lungs with bronchial wall thickening. No pneumatosis, free air or portal venous gas is present. There is no biliary or pancreatic ductal dilatation. Parenchymal calcifications within the pancreas are noted with glandular atrophy. A few cystic lesions within the pancreas measure up to 1.2 cm. These favor side branch IPMNs. There are gallstones within the gallbladder. No evidence for acute cholecystitis. Spleen and adrenal glands are unremarkable. Low-attenuation bilateral renal lesions favor cysts. A 2.27 left upper pole renal lesion measures above water attenuation although is only slightly increased in size since prior CT. This favors a cyst. There is no evidence for a bowel obstruction. A moderate amount stool is present. The appendix is normal. There is extensive atherosclerotic plaque within the abdominal aorta. Several calcified fibroids are incidentally noted. There are no acute fractures within the lumbar spine, pelvis or hips. IMPRESSION: 1. No acute process within the abdomen or pelvis. 2. Moderate amount of stool within the colon and rectum. No bowel obstruction. No bowel wall thickening. Normal appendix. 3. Cholelithiasis. No evidence for acute cholecystitis. 4. Mild alveolar opacities within the lower lungs suggestive of an infectious process. Multifocal secretions within the right lower lobe bronchi. ACT 112: Negative or not required by law. Electronically signed by: Avtar Blandon M.D. 08/27/2024 4:11 PM ECG Data Attestation: I personally reviewed and interpreted this ECG as follows: Additional Comments: Paced rhythm with a rate of 63. TX 212 QRS 70 QTc 452. No ectopy. [facility] Narrative 1442: The patient was evaluated in room C12. A complete history and physical exam was performed Cardiac monitoring: An order was placed for continuous cardiac monitoring. The monitor shows a rate of 60 with paced rhythm interpreted by me Patient was found to be hypoxic on room air. Supplemental oxygen was placed which improved the patient's oxygen saturation. 1615: Vital signs stable supplemental oxygen. Labs show White blood cell count 11.23 hemoglobin 14 VBG unremarkable. Lactic acid procalcitonin unremarkable. Urinalysis is concerning for infection. CT of the abdomen pelvis shows no acute process in the abdomen pelvis but does show mild alveolar opacities within the lower lungs suggestive of infectious process multifocal secretions in the right lower lobe. Patient treated with Rocephin and azithromycin for UTI as well as pneumonia. Patient be admitted to the hospitalist team. Impression & Plan UTI (urinary tract infection), RLL pneumonia, Hypoxia Discharge Plan Visit Data Chief Complaint: Abdominal Pain Stated Complaint: ABD PAIN, NAUSEA, BACK PAIN ED Provider: Aubrey Liang Discharge Problem: UTI (urinary tract infection), RLL pneumonia, Hypoxia Patient Disposition: Admitted As Inpatient Forms Stand Alone Forms: [facility] Prescriptions Prescriptions: No Action metoprolol tartrate 100 mg tablet 150 mg PO BID Qty: 270 3RF simvastatin 10 mg tablet 10 mg PO HS Qty: 90 3RF allopurinol 100 mg tablet 100 mg PO HS Qty: 90 3RF Eliquis 5 mg tablet 5 mg PO BID Qty: 180 3RF diltiazem HCl 180 mg capsule,extended release 24hr 180 mg PO BID Qty: 180 3RF glimepiride 4 mg tablet 4 mg PO BID Qty: 180 3RF Rx Instructions: administer with breakfast and supper metformin 500 mg tablet extended release 24 hr 500 mg PO BID Qty: 180 2RF Rx Instructions: 1 Tablet every AM, 1 tablets every PM orally daily; levothyroxine 112 mcg tablet 112 mcg PO QAM Qty: 90 3RF (DME) OneTouch Verio test strips Strip See Rx Instructions .Route Qty: 100 5RF Rx Instructions: test 3- 4 times a week (DME) lancets 30 gauge misc See Rx Instructions .Route Qty: 100 5RF Rx Instructions: testing 3 ~ 4 times a week losartan 25 mg tablet 25 mg PO DAILY Qty: 90 3RF multivitamin Tablet 1 tab PO QAM Rx Instructions: otc magnesium oxide 400 mg Capsule 400 mg PO QAM Rx Instructions: otc calcium carbonate-vitamin D3 [Calcium 600 + D(3)] 600 mg calcium- 200 unit Capsule 1 tab PO BID Rx Instructions: otc Referrals Referrals: Chi Melgar, [Primary Care Provider] -
[2024-08-27] MEDS ORDERED: GLUCOSE 10 TAB/TUBE PO PRN (20:28)
[2024-08-27] MEDS ORDERED: GLUCOSE 40% GEL 15 GM TUBE PO PRN (20:28)
[2024-08-27] MEDS ORDERED: CARBOHYDRATES FOR HYPOGLYCEMIA PO PRN (20:28)
[2024-08-27] MEDS ORDERED: DEXTROSE 50% 50 ML SYRINGE IV PRN (20:28)
[2024-08-27] MEDS ORDERED: MELATONIN 3 MG TAB PO PRN (20:28)
[2024-08-27] MEDS ORDERED: ALBUT/IPRATROP 3MG/0.5MG NEB 3 ML VIAL NEB PRN (20:28)
[2024-08-27] MEDS ORDERED: GLUCAGON FOR INJ 1 MG VIAL SQ PRN (20:28)
[2024-08-27] MEDS: allopurinoL 100 MG TAB PO SCH (22:29)
[2024-08-27] MEDS: SIMVASTATIN 10 MG TAB PO SCH (22:29)
[2024-08-27] MEDS: APIXABAN 5 MG TABLET PO SCH (22:29)
[2024-08-27] MEDS: BENZONATATE 100 MG CAPSULE PO SCH (22:30)
[2024-08-27] MEDS: dilTIAZem HCL 180 MG CAPCR PO SCH (22:30)
[2024-08-27] MEDS: METOPROLOL TARTRATE 50 MG TAB PO SCH (22:30)
[2024-08-27] MEDS: INSULIN ASPART PER UNIT CHARGE SC SCH (22:41)
[2024-08-28] MEDS: LEVOTHYROXINE SODIUM 112 MCG TABLET PO SCH (05:35)
[2024-08-28 06:46] LABS: Hematocrit (blood only) 33.7 % (37.0-47.0); Hemoglobin 11.5 g/dl (12.0-16.0); Mean Corpuscular Hemoglobin 33.3 pg (25.0-34.0); Mean Corpuscular Hgb Conc 34.1 g/dL (32.0-36.0); Mean Corpuscular Volume 97.7 fL (80.0-100.0); Mean Platelet Volume 10.8 fL (9.4-12.4); Platelet Count 175 K/uL (130-400); RDW Coefficient of Variation 12.4 % (11.5-14.5); RDW Standard Deviation 44.2 fL (36.4-46.3); Red Blood Count 3.45 M/uL (4.20-5.40); White Blood Count 10.16 K/ul (4.8-10.8)
[2024-08-28 07:09] LABS: BUN Creatinine Ratio 24.3 (10-20); Calcium 9.1 mg/dl (8.6-10.3); Creatinine Clr Calc Pharmacy 50.5 ml/min; Potassium 3.3 mmol/L (3.5-5.1)
[2024-08-28 07:15] LABS: Basophils # (auto) 0.03 K/uL (0.00-0.20); Basophils % (auto) 0.3 %; Eosinophils # (auto) 0.07 K/uL (0.00-0.50); Eosinophils % (auto) 0.7 %; Immature Granulocytes # (auto) 0.05 K/uL (0.01-0.20); Immature Granulocytes % (auto) 0.5 %; Lymphocytes # (auto) 1.83 K/uL (1.20-3.40); Monocytes # (auto) 0.97 K/uL (0.11-0.59); Monocytes % (auto) 9.5 %; Neutrophils # (auto) 7.21 K/uL (1.40-6.50)
--- NOTE | 2024-08-28 08:23 | Hospitalist Progress Note ---
Date of Service August 28, 2024 Assessment & Plan (1) RLL pneumonia: (2) Acute hypoxic respiratory failure: (3) UTI (urinary tract infection): Plan This is a 84-year-old female who came in for productive cough, abdominal pain, nausea, and increased urinary frequency on 08/27. Hypoxic on arrival. #RLL pneumonia Seen on A/P CT Ceftriaxone 2000 mg IV q24h Azithromycin 500 mg p.o. q24h Benzonatate TID for cough Add guaifenesin BID Incentive spirometry DuoNeb 3 mL PRN for wheezing #Acute hypoxic respiratory failure SpO2 84% on RA on arrival Not on oxygen at baseline BioFire negative Titrate supplemental oxygen as needed Continuous pulse oximetry #UTI Leukocytosis at 11.23 UA positive for 4+ bacteria on arrival Most recent urine culture 12/12/23 grew pansensitive E. coli Ceftriaxone (as above) Follow current UCx #T2DM Last A1c at 7.3% on 06/10/2024 Hold metformin, glimepiride Lantus 5u QAM while inpatient SSI; with target BSG range 110-140mg/dL, CF 50, carb ratio 15 T2DM diet BSG ACHS Adjust regimen as needed #Atrial fibrillation - cont apixaban - cont diltiazem and metoprolol #Hypokalemia - replete and monitor #HLD - cont statin #HTN - cont losartan, diltiazem, etoprolol #Hypothyroidism - cont levothyroxine #Gout - cont allopurinol Disposition: Admit to [facility] VTE PPx: Eliquis Admission and Anticipated Discharge Date Admission Date: August 27, 2024 Subjective No acute events overnight She states she is feeling overall better but struggling with cough. Review of Systems Review of Systems: Comprehensive ROS neg Physical Exam Physical Exam: Gen: elderly female sitting in bed HEENT: NC/AT, anicteric Lungs: coarse breath sounds at the bases, congested / coarse cough CVS: s1s2 nl, RRR Abd: soft, NT, nl bowel sounds Ext: no edema Neuro: AAOx3 Psych: calm / cooperative Results & Data Results & Data Vital Signs (Past 12 Hours) Vital Signs Temp Pulse Resp BP Pulse Ox O2 Del Method O2 Flow Rate 08/28/24 07:08 37.1 C 61 17 160/82 H 93 Nasal Cannula 4 08/27/24 22:00 Nasal Cannula 4 08/27/24 21:50 36.8 C 61 18 159/74 H 95 Nasal Cannula 4 08/27/24 21:38 68 20 184/110 H 94 Nasal Cannula 4 PG Care Time/CCT Total # of Minutes Spent Total Time Spent with Patient: Total time spent is greater than 50% in coordination of care (as documented) at patient's floor/unit and/or counseling patient: Coding Level of Care Code 70928 SUB INP/OBS CARE 2/35MIN Diagnoses RLL pneumonia J18.9 Acute hypoxic respiratory failure J96.01 UTI (urinary tract infection) N39.0
[2024-08-28] MEDS: LANTUS PER UNIT CHARGE SQ SCH (08:48)
[2024-08-28] MEDS: POTASSIUM CHLORIDE CRTAB 20 MEQ TABCR PO ONE (09:02)
[2024-08-28] MEDS: LOSARTAN POTASSIUM 25 MG TAB PO SCH (09:03)
[2024-08-28] MEDS: MAGNESIUM OXIDE 400 MG TAB PO SCH (09:03)
[2024-08-28] MEDS: cefTRIAXone SODIUM 2,000 MG/50 ML BAG IV SCH (16:59)
[2024-08-28] MEDS: AZITHROMYCIN 250 MG TAB PO SCH (16:59)
[2024-08-28] MEDS: guaiFENesin 600 MG TABCR PO SCH (20:50)
[2024-08-28] MEDS: DEXTROMETHORPHAN POLYMR COMPLX 30 MG/5 ML UDP PO PRN (23:16)
[2024-08-29] MEDS: BENZONATATE 100 MG CAPSULE PO SCH (07:54)
[2024-08-29 08:20] LABS: Hemoglobin 12.5 g/dl (12.0-16.0); Mean Corpuscular Hemoglobin 33.6 pg (25.0-34.0); Mean Corpuscular Hgb Conc 33.8 g/dL (32.0-36.0); Mean Corpuscular Volume 99.5 fL (80.0-100.0); Mean Platelet Volume 10.4 fL (9.4-12.4); Platelet Count 211 K/uL (130-400); RDW Coefficient of Variation 12.5 % (11.5-14.5); RDW Standard Deviation 45.8 fL (36.4-46.3); Red Blood Count 3.72 M/uL (4.20-5.40); White Blood Count 11.75 K/ul (4.8-10.8)
[2024-08-29 08:45] LABS: BUN Creatinine Ratio 24.7 (10-20); Creatinine Clr Calc Pharmacy 43.6 ml/min; Magnesium 1.9 mg/dl (1.7-2.4); Phosphorus 3.2 mg/dl (2.5-4.9); Potassium 4.4 mmol/L (3.5-5.1)
--- NOTE | 2024-08-29 10:07 | Hospitalist Progress Note ---
Date of Service August 29, 2024 Assessment & Plan (1) RLL pneumonia: (2) Acute hypoxic respiratory failure: (3) UTI (urinary tract infection): Plan This is a 84-year-old female who came in for productive cough, abdominal pain, nausea, and increased urinary frequency on 08/27. Hypoxic on arrival. #RLL pneumonia Seen on A/P CT Ceftriaxone 2000 mg IV q24h Azithromycin 500 mg p.o. q24h Benzonatate TID for cough Cont guaifenesin BID Incentive spirometry / Flutter valve added DuoNeb 3 mL PRN for wheezing #Acute hypoxic respiratory failure SpO2 84% on RA on arrival Not on oxygen at baseline BioFire negative Titrate supplemental oxygen as needed Continuous pulse oximetry #UTI Leukocytosis at 11.23 UA positive for 4+ bacteria on arrival Most recent urine culture 12/12/23 grew pansensitive E. coli Ceftriaxone (as above) Follow current UCx #T2DM Last A1c at 7.3% on 06/10/2024 Hold metformin, glimepiride Lantus 5u QAM while inpatient SSI; with target BSG range 110-140mg/dL, CF 50, carb ratio 15 T2DM diet BSG ACHS Adjust regimen as needed #Atrial fibrillation - cont apixaban - cont diltiazem and metoprolol #Hypokalemia - replete and monitor #HLD - cont statin #HTN - cont losartan, diltiazem, etoprolol #Hypothyroidism - cont levothyroxine #Gout - cont allopurinol Disposition: pending clinical improvement (wean O2 to RA) VTE PPx: Eliquis Admission and Anticipated Discharge Date Admission Date: August 27, 2024 Subjective No acute events overnight Notices that cough is still present but improving Phlegm feels slightly thinner Review of Systems Review of Systems: Comprehensive ROS neg Physical Exam Physical Exam: Gen: elderly female sitting in bed HEENT: NC/AT, anicteric Lungs: coarse breath sounds at the bases, congested / coarse cough (same as yesterday) CVS: s1s2 nl, RRR Abd: soft, NT, nl bowel sounds Ext: no edema Neuro: AAOx3 Psych: calm / cooperative Results & Data Results & Data Vital Signs (Past 12 Hours) Vital Signs Temp Pulse Resp BP Pulse Ox O2 Del Method O2 Flow Rate 08/29/24 07:45 36.7 C 88 16 125/73 97 Nasal Cannula 4 PG Care Time/CCT Total # of Minutes Spent Total Time Spent with Patient: Total time spent is greater than 50% in coordination of care (as documented) at patient's floor/unit and/or counseling patient: Coding Level of Care Code 55119 SUB INP/OBS CARE 2/35MIN Diagnoses RLL pneumonia J18.9 Acute hypoxic respiratory failure J96.01 UTI (urinary tract infection) N39.0
[2024-08-29] MEDS: ACETAMINOPHEN 325 MG TAB PO PRN (20:31)
[2024-08-30] MEDS ORDERED: CARBOHYDRATES FOR HYPOGLYCEMIA PO PRN (08:55)
[2024-08-30] MEDS ORDERED: GLUCOSE 10 TAB/TUBE PO PRN (08:55)
[2024-08-30] MEDS ORDERED: DEXTROSE 50% 50 ML SYRINGE IV PRN (08:55)
[2024-08-30] MEDS ORDERED: GLUCOSE 40% GEL 15 GM TUBE PO PRN (08:55)
[2024-08-30] MEDS ORDERED: GLUCAGON FOR INJ 1 MG VIAL SQ PRN (08:55)
[2024-08-30 09:20] LABS: Hematocrit (blood only) 40.3 % (37.0-47.0); Hemoglobin 13.7 g/dl (12.0-16.0); Mean Corpuscular Hemoglobin 33.6 pg (25.0-34.0); Mean Corpuscular Volume 98.8 fL (80.0-100.0); Mean Platelet Volume 10.8 fL (9.4-12.4); Platelet Count 270 K/uL (130-400); RDW Coefficient of Variation 12.4 % (11.5-14.5); RDW Standard Deviation 45.1 fL (36.4-46.3); Red Blood Count 4.08 M/uL (4.20-5.40); White Blood Count 10.49 K/ul (4.8-10.8)
[2024-08-30 09:30] LABS: BUN Creatinine Ratio 31.6 (10-20); Calcium 9.5 mg/dl (8.6-10.3); Creatinine Clr Calc Pharmacy 44.7 ml/min; Magnesium 2.1 mg/dl (1.7-2.4); Potassium 4.5 mmol/L (3.5-5.1)
--- NOTE | 2024-08-30 09:51 | XRay Report ---
XR chest 2V PA/lateral CLINICAL HISTORY: hypoxia COMPARISON STUDY: 08/27/2024 FINDINGS: Stable pacemaker. Stable cardiomegaly without pulmonary vascular congestion. No effusion, c onsolidation, or pneumothorax. IMPRESSION: No acute findings. ACT 112: Negative or not required by law. Electronically signed by: Blaise Harvey M.D. 08/30/2024 9:49 AM
[2024-08-30] MEDS ORDERED: methylPREDNISolone 10 mg/mL (For Ped Dose < 7mg) IV SCH (10:15)
[2024-08-30] MEDS: methylPREDNISolone 40 MG in SYRINGE 0 ML IV SCH (11:00)
[2024-08-30] MEDS: levoFLOXacin/D5W 750 MG/150 ML BAG IV SCH (11:00)
[2024-08-30] MEDS: INSULIN ASPART PER UNIT CHARGE SC SCH (12:16)
--- NOTE | 2024-08-30 12:59 | Hospitalist Progress Note ---
Date of Service August 30, 2024 Assessment & Plan (1) RLL pneumonia: Plan: Bibasilar infiltrates noted on CT scan. PA and left lateral chest x-ray obtained today, August 30, appears unremarkable. Suspect this could be atypical pneumonia. Mycoplasma is in the differential. Antibiotics switched over to intravenous Levaquin. No sputum produced for culture. Parenteral steroids ordered for bronchospasm (2) Acute hypoxic respiratory failure: Plan: Supplemental oxygen to maintain saturation greater than 90%. Wean off as tolerated (3) UTI (urinary tract infection): Plan: Present on admission. Aerococcus isolated. Currently receiving antibiotic therapy (4) Controlled type 2 diabetes mellitus: Plan: ADA diet. Sliding scale coverage. Basal insulin therapy (5) Hypertension: Plan: Stable. Continue current medical management (6) Atrial fibrillation: Plan: Telemetry. Currently in paced rhythm. Continue rate control measures. Plan Anticipate eventual discharge to home later this week. She may temporarily need home oxygen until he can be weaned off. Admission and Anticipated Discharge Date Admission Date: August 27, 2024 Subjective Alert and oriented. No distress. Family is at the bedside. She could have atypical pneumonia based on her symptom history. She remains on oxygen at 4 L/min. PA and left lateral chest x-ray was obtained today, August 30 and is unremarkable. Antibiotics have been switched over to intravenous Levaquin and Solu-Medrol has been added parenterally to offset the bronchospasm. OT and PT assessments requested. Hypokalemia present on admission has been corrected to 4.5. Review of Systems 2 Review of Systems: Constitutionalno fever or chills ENTno blurred vision, no double vision, no epistaxis, no sore throat Respiratorynonproductive cough. Wheezing. Dyspnea on exertion Cardiacno palpitations, no chest pain, no syncope Moises nausea, vomiting, diarrhea, melena, hematochezia GUno urinary retention, no urinary incontinence, no dysuria, no hematuria Musculoskeletalno joint pain, no muscle tenderness Skinno bruising, no rashes, no pruritus Neurono isolated weakness, no paresthesia, no weakness Psychno depression, no anxiety Physical Exam 2 Physical Exam: General-alert and oriented x3, no fever, no chills HEENT-head atraumatic and normocephalic, pupils equal and reactive to light, extraocular muscles intact Neck-no lymphadenopathy or thyromegaly, trachea midline Chest-bilateral rhonchi. End expiratory wheezes. No inspiratory rales. No dullness to percussion Cardiac-regular rate and rhythm, normal S1 and S2 Abdomen-normal bowel sounds, no hepatosplenomegaly Extremities-no cyanosis, clubbing, or edema Neuro-cranial nerves II through XII intact, motor and sensory function within normal limits, strength symmetrical, no focal deficits Psych-normal affect, normal mood Results & Data Results & Data Vital Signs (Past 12 Hours) Vital Signs Temp Pulse Resp BP Pulse Ox O2 Del Method O2 Flow Rate 08/30/24 10:03 95 Nasal Cannula 2 08/30/24 09:31 Nasal Cannula 4 08/30/24 09:30 16 95 Nasal Cannula 3 08/30/24 07:37 36.3 C L 67 16 123/81 94 Nasal Cannula 4 Laboratory Results 08/30/24 08:14 08/30/24 08:14 PG Care Time/CCT Total # of Minutes Spent Total Time Spent with Patient: Total time spent is greater than 50% in coordination of care (as documented) at patient's floor/unit and/or counseling patient: Coding Level of Care Code 76114 SUB INP/OBS CARE 3/50MIN Diagnoses RLL pneumonia J18.9 Acute hypoxic respiratory failure J96.01 UTI (urinary tract infection) N39.0 Controlled type 2 diabetes mellitus without complication, without long-term current use of insulin E11.9 Diabetes mellitus prison insulin use: without ocean transportation intermediary use Diabetes mellitus complication status: without complication Essential hypertension I10 Hypertension type: essential hypertension Paroxysmal atrial fibrillation I48.0 Atrial fibrillation type: paroxysmal (4) Controlled type 2 diabetes mellitus Diabetes mellitus prison insulin use: without ocean transportation intermediary use Diabetes mellitus complication status: without complication Qualified Code(s): E11.9 - Type 2 diabetes mellitus without complications (5) Hypertension Hypertension type: essential hypertension Qualified Code(s): I10 - Essential (primary) hypertension (6) Atrial fibrillation Atrial fibrillation type: paroxysmal Qualified Code(s): I48.0 - Paroxysmal atrial fibrillation
[2024-08-31 06:56] LABS: Hematocrit (blood only) 35.9 % (37.0-47.0); Hemoglobin 12.2 g/dl (12.0-16.0); Mean Corpuscular Hemoglobin 33.3 pg (25.0-34.0); Mean Corpuscular Volume 98.1 fL (80.0-100.0); Mean Platelet Volume 10.7 fL (9.4-12.4); Platelet Count 261 K/uL (130-400); RDW Coefficient of Variation 11.8 % (11.5-14.5); RDW Standard Deviation 42.7 fL (36.4-46.3); Red Blood Count 3.66 M/uL (4.20-5.40); White Blood Count 14.63 K/ul (4.8-10.8)
[2024-08-31 07:22] LABS: Calcium 9.4 mg/dl (8.6-10.3); Creatinine Clr Calc Pharmacy 43.1 ml/min; Potassium 4.2 mmol/L (3.5-5.1)
[2024-08-31] MEDS: POLYETHYLENE (MIRALAX) 17 GM PACK PO ONE (09:20)
[2024-08-31] MEDS: INSULIN ASPART PER UNIT CHARGE SC STA ×2 (12:08→13:37)
--- NOTE | 2024-08-31 12:33 | Discharge Summary ---
Discharge Summary Date of Service August 31, 2024 Principal Dx & Hospital Course #1 = Principal Diagnosis (1) RLL pneumonia: Bibasilar infiltrates noted on CT scan. PA and left lateral chest x-ray obtained on August 30 appears unremarkable. Suspect this could be atypical pneumonia. Mycoplasma is in the differential. Antibiotics switched over to intravenous Levaquin and she has improved. No sputum produced for culture. Parenteral steroids were ordered for bronchospasm. Wheezing is also improved. She will continue oral prednisone in a tapering dose fashion at discharge (2) Acute hypoxic respiratory failure: Oxygen has been weaned off. She passed her two-step oxygen evaluation prior to discharge (3) UTI (urinary tract infection): Present on admission. Aerococcus isolated. Treated while hospitalized with intravenous antibiotic therapy (4) Controlled type 2 diabetes mellitus: ADA diet. Sliding scale coverage. Basal insulin therapy. She will resume her usual diabetic management at discharge (5) Hypertension: Stable. Continue current medical management (6) Atrial fibrillation: Telemetry. Currently in paced rhythm. Continue rate control measures. Plan Hopefully home later today, August 31 Admission HPI Per Admitting Provider Arielle is an 84-year-old female with PMH of atrial fibrillation (on apixaban), pacemaker, colon cancer, bowel resection, T2DM, gout, and hypothyroidism. She presented on 08/27 for abdominal pain, nausea, back pain, and increased urinary frequency. Patient reports her symptoms started on . She was having bad cough, stomach pain, and back pain. She took Robitussin for her cough, as well as other OTC medications for her symptoms, however her symptoms did not improve. No fevers. No pleuritic chest pain. Her main symptoms are this antonio oing productive cough (yellow), lightheadedness with walking, and lower abdominal pain. She has been around sick contacts this past week, her son and . The abdominal pain is low transverse/intermittent; she rates 5/10 at present. Patient took her regular morning medicine today; no recent change in medication. She manages her own medicine at home along with her [id number]. She does not use supplemental oxygen at baseline, or CPAP at night. No history of DVT/PE. No allergies to antibiotics to her knowledge. Patient is hypertensive at 164/91 at time of admission; SpO2 92% on 4L NC. ED course: Ceftriaxone 2000 mg IV Azithromycin 500 mg p.o. ROS: Patient endorses lightheadedness, productive cough (yellow), abdominal pain, nausea, constipation, Patient denies fever, chills, night-sweats, body aches, chest pain, chest palpitations, SOB at rest or with exertion, pleuritic CP, hemoptysis, vomiting, diarrhea, burning with urination, blood in the urine/stool, or numbness/ti ngling/swelling/redness in the legs. Discharge Exam General-alert and oriented x3, no fever, no chills HEENT-head atraumatic and normocephalic, pupils equal and reactive to light, extraocular muscles intact Neck-no lymphadenopathy or thyromegaly, trachea midline Chest-bilateral rhonchi have nearly resolved. End expiratory wheezes have resolved. No inspiratory rales. No dullness to percussion Cardiac-regular rate and rhythm, normal S1 and S2 Abdomen-normal bowel sounds, no hepatosplenomegaly Extremities-no cyanosis, clubbing, or edema Neuro-cranial nerves II through XII intact, motor and sensory function within normal limits, strength symmetrical, no focal deficits Psych-normal affect, normal mood Discharge Plan Discharge Items Patient Disposition: Home - Self-Care Reason For Visit: RLL PNA, UTI Discharge Diagnosis: Suspected atypical pneumonia, acute hypoxic respiratory failure, UTI, hypokalemia Activity: Resume your previous activity Non-emergency contact: Primary Care Provider Call non-emergency contact if: your symptoms worsen Follow-up/Referrals: Chi Melgar DO [Primary Care Provider] - 09/08/24 2:00 pm Diet: Carb Consistent or DM2 and Heart Healthy Addtl Attending Provider Instructions: Take Levaquin once daily for 1 more week. Take prednisone in a tapering dose fashion as directed. Prescriptions have been sent to [facility] and [place] Pending Studies at Discharge: No Stand-Alone Forms: My [facility] [email or web address], Smoking Cessation Medications and [place] Order Prescriptions: New prednisone 10 mg tablet See Rx Instructions .ROUTE .COMPLEX Qty: 12 0RF Rx Instructions: 10 mg orally 3 times a day for 2 days, then 10 mg twice a day for 2 days, then 10 mg once a day for 2 days, then stop levofloxacin 500 mg tablet 500 mg PO DAILY 7 Days Qty: 7 0RF Continued metoprolol tartrate 100 mg tablet 150 mg PO BID Qty: 270 3RF simvastatin 10 mg tablet 10 mg PO HS Qty: 90 3RF allopurinol 100 mg tablet 100 mg PO HS Qty: 90 3RF Eliquis 5 mg tablet 5 mg PO BID Qty: 180 3RF diltiazem HCl 180 mg capsule,extended release 24hr 180 mg PO BID Qty: 180 3RF glimepiride 4 mg tablet 4 mg PO BID Qty: 180 3RF Rx Instructions: administer with breakfast and supper metformin 500 mg tablet extended release 24 hr 500 mg PO BID Qty: 180 2RF Rx Instructions: 1 Tablet every AM, 1 tablets every PM orally daily; levothyroxine 112 mcg tablet 112 mcg PO QAM Qty: 90 3RF (DME) OneTouch Verio test strips Strip See Rx Instructions .Route Qty: 100 5RF Rx Instructions: test 3- 4 times a week (DME) lancets 30 gauge misc See Rx Instructions .Route Qty: 100 5RF Rx Instructions: testing 3 ~ 4 times a week losartan 25 mg tablet 25 mg PO DAILY Qty: 90 3RF multivitamin Tablet 1 tab PO QAM Rx Instructions: otc magnesium oxide 400 mg Capsule 400 mg PO QAM Rx Instructions: otc calcium carbonate-vitamin D3 [Calcium 600 + D(3)] 600 mg calcium- 200 unit Capsule 1 tab PO BID Rx Instructions: otc Discharge Orders: Discharge Order (Routine); Ordered 08/31/24 Ordered By: Chalino Johansen Admission Data Admit Date/Time: 08/27/24 18:04 Attending Provider: Chalino Johansen Admit Provider: Eber Capps Primary Care Provider: Chi Melgar Other Providers: Eber Capps Hospital Stay Data Consultations 08/27/24 16:14 ED Decision to Admit Stat Diagnostic Imagining Performed 08/27/24 14:49 CT abd pelvis IV con only Stat Pending Results Patient Have Any Pending Studies at Discharge: No Discharge Instructions Given to Patient (Per Discharging Provider) Take Levaquin once daily for 1 more week. Take prednisone in a tapering dose fashion as directed. Prescriptions have been sent to [facility] and [place] Total Time Total Time Spent Total Time Spent (In Minutes): 50 minutes Coding Level of Care Code 43240 INP/OBS DISCH >30 MIN Diagnoses RLL pneumonia J18.9 Acute hypoxic respiratory failure J96.01 UTI (urinary tract infection) N39.0 Controlled type 2 diabetes mellitus without complication, without long-term current use of insulin E11.9 Diabetes mellitus intermodal dispatcher insulin use: without intermodal dispatcher use Diabetes mellitus complication status: without complication Essential hypertension I10 Hypertension type: essential hypertension Paroxysmal atrial fibrillation I48.0 Atrial fibrillation type: paroxysmal
[2024-08-31 14:37] VITALS: PULSE 68; RESP 16; TEMP 97.7; O2SAT 90
[2024-08-31 14:43] VITALS: BP 125/85
== END 2024-08-31 15:22 | disposition home or self-care (01) | DRG 193 ==
LOC: ED 12:59 → EDINP 18:04 → SUATTDRO 18:04 → 3W 20:28

== ENCOUNTER 2024-11-02 05:07 | Inpatient (IN) ==
--- NOTE | 2024-11-02 05:22 | Emergency Department Note ---
Impression & Plan Fall, Anticoagulant long-term use, Closed fracture of proximal end of left humerus, Closed fracture of left hip, Contusion of knee, left ED Provider Note Provider: Jarett Perez MD CHIEF COMPLAINT: Fall, on blood thinners, shoulder hip head pain HISTORY OF PRESENT ILLNESS: Patient is a 84-year-old female past medical history of atrial fibrillation on Eliquis, hypothyroidism, hypertension, pacemaker, prior ankle fracture with fixation presenting here today via ambulance from home. Patient was evidently using the toilet tonight and attempt to get off the toilet and believes she passed out as she woke up on the floor after period of time. Did take her medications including Eliquis this past evening. Complaint of significant pain to left shoulder and hip. Hematoma noted by EMS to the forehead and mild pain here. Patient daily on several liters of oxygen received fentanyl and route for EMS. Shortening and rotation of the left lower legs reported by EMS. Patient here predominately reports left shoulder and hip pain. Denies significant chest pain or shortness of breath or abdominal pain. Denies neck pain. Denies numbness or tingling extremities. Denies pain in her left hand arm forearm or elbow. Denies injury to the right extremity. Denies injury to the right lower extremity. Reports pain about the left hip but not of the left knee or foot. Able to wiggle her toes okay and denies numbness or tingling there. and son later arrived and state the patient was using a bedside commode in the bedroom overnight when she fell to the ground from it. She was not on ground a significant amount of time as heard the fall. PAST MEDICAL HISTORY: As noted above MEDICATIONS: Reviewed home medications includes Eliquis SOCIAL HISTORY: Resides at home PHYSICAL EXAM: GENERAL: alert and oriented in c-collar on stretcher. Alert to verbal stimuli. Head: Patient with a 3 to 4 cm left forehead hematoma/contusion just above the left eye and eyebrow. No laceration. EYES: No injection, discharge or icterus. PERRL, EOMI. NECK: Trachea midline. In c-collar. No significant midline tenderness. ENT: Mucous membranes pink and moist. LUNGS: Airway patent. No retractions. Breath sounds clear with good air entry bilaterally. HEART: Regular rate and rhythm. Left upper chest pacemaker in place with tenderness around the left AC joint and shoulder. No chest wall tenderness or bruising noted. ABDOMEN: Soft and non-tender, without guarding or rebound. Stable pelvis SKIN: Acyanotic, warm, dry, without rashes EXTREMITIES: Without swelling, tenderness or deformity of the right arm and leg. No significant tenderness of the left foot, ankle, calf, or lower thigh as well as no tenderness of the left hand, wrist, forearm, or elbow. Patient with some mild swelling and tenderness of the left knee without obvious deformity. Pain and swelling/contusion noted to the left shoulder and pain with minimal movement here. Neurovascular intact in the bilateral hands and feet. Pain with ROM around the left hip with some shortening external rotation of the left lower extremity. NEUROLOGICAL: No aphasia. No facial droop or slurred speech. Sensation to gross touch normal. Limitation secondary to pain around the left hip and shoulder with extremities here. EK bpm atrially paced rhythm. Some artifact but no clear acute ST segment elevation with some nonspecific inferior lateral T wave changes/inversions. QTc 480. CONTINUOUS CARDIAC MONITORING: was ordered and showed a heart rate of 60s bpm in atrially paced rhythm GCS 14 eyes closed easily alert to verbal stimuli. Following commands. Patient's laboratory studies and imaging reviewed. Differential includes Fracture, dislocation, contusion, intra-abdominal, pneumothorax, intrathoracic, intracranial, neurologic, compartment syndrome, rhabdomyolysis, as well as other pathologies. IMPRESSION/MEDICAL DECISION MAKING: Trauma alert. ATLS primary and secondary survey completed. Airway breathing circulation intact without neurodeficits. Patient primary complaint of left shoulder and hip pain with some mild left forehead pain. Reportedly had LOC possible syncopal event. Pacemaker interrogation ordered basic blood work. EKG here shows atrially paced rhythm. Is on 3 to 4 L of oxygen which is new. Question much of this from the trauma and fall versus from narcotics use to see for pain. X-rays obtained show evidence of a proximal humerus as well as a proximal left femur fracture per my review and interpretation. Per my review and interpretation no evidence of acute pneumothorax. No mallory dislocation noted no significant open wounds or open fractures are noted. Neurovascular intact in the extremities. No evidence compartment syndrome. Forehead laceration noted. Trauma dong scans ordered including facial CTs. Blood work is ordered. Pacemaker interrogation without significant acute abnormality. Blood work here without anemia. Leukocytosis 16.7 of unclear etiology. Normal INR and electrolytes without significant renal dysfunction noted. No significant transaminitis or elevated CK. Doubt rhabdomyolysis. No lipase elevation and doubt pancreatitis. Normal troponin. Negative urinalysis. COVID flu RSV sent for completeness. X-ray of the left knee obtained as well due to some swelling and mild tenderness on repeat examination and no obvious fracture or dislocation noted on imaging. CT reports per radiology without acute intracranial bleed with a scalp hematoma and noted without other facial fractures. Cervical spine CT without evidence of fracture or subluxation. CT chest abdomen pelvis per radiology known left shoulder and hip fractures but no other acute cranial bleed, rib fractures, hemothorax, pneumothorax intra-abdominal bleeding, pneumoperitoneum, or other retroperitoneal bleed noted. Cervical spine cleared by myself and collar removed at 730 hrs. Did reach out to orthopedics regarding the patient's shoulder and hip with need for repair and will admit medically for further care. Patient is neurovascular intact. Sling placed for left upper arm. Do question that her mild oxygen requirements related to the narcotics for pain control and pain of her left shoulder. Hospitalist contacted for medical admission. and son updated at bedside. DIAGNOSIS: Fall, long-term anticoagulation, forehead contusion, left humeral fracture, left hip fracture DISPOSITION: Hospitalist will evaluate Patient was agreeable with this plan. 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 Osteoporosis screening declined Right ankle pain (Acute) Right foot pain (Acute) Overactive bladder Lichen sclerosus et atrophicus Right low back pain Left ventricular outflow tract obstruction Hyperlipidemia (Chronic) Pacemaker Meditronic--LAST CHECK 04/2018-REMOTELY History of bowel resection WITH COLOSTOMY Gout Hypothyroidism (Chronic) Medical History Diabetes mellitus type 2, uncontrolled Pneumonia (06/2019) On anticoagulant therapy eliquis daily Incisional hernia Tachy-herve syndrome History of colon cancer Diabetes mellitus, type 2 DIET MANAGED-NO MEDS Cancer COLON CANCER SOB (shortness of breath) on exertion Cardiac murmur Ankle fracture Surgical History History of colonoscopy History of right inguinal hernia repair History of incisional hernia repair History of cataract surgery R/L History of colostomy reversal Family History Brother Family history of diabetes mellitus Prostate cancer Daughter Breast cancer Sister HTN (hypertension), benign Family history of diabetes mellitus Other No family history of adverse response to anesthesia Denies family history of Ovarian cancer Myocardial infarction Colorectal cancer Social History Smoking Status: Never smoker Second Hand Exposure: No; Do You Dip or Chew Tobacco: No; Hx Alcohol Use: No Hx Substance Use: No Preferred Language: Hebrew Communication Ability: Effective Visual Impairment: No Limitations Hearing Ability: Hard of Hearing [employer] Required: No Beliefs That Will Affect Care: None marital status: Current Living Situation: Spouse current occupational status: retired 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 Feels Safe at Home: Yes Childhood Exposure to Second-Hand Smoke: No Diet: regular Dental Care, Regularly: Yes Physical Activity Frequency: Does not Exercise Seatbelt Use: always Sunscreen Use: No Assistive Devices: Walker and Wheelchair Allergies Allergies Allergy/AdvReac Type Severity Reaction Status Date / Time hydromorphone [From Dilaudid] Allergy Severe hallucinati Verified 09/08/24 13:52 on Home Meds Home Medications Medication Instructions Recorded Confirmed calcium 600 mg (as 1 tab PO BID 06/10/18 09/08/24 carbonate)-vitamin D3 5 mcg (200 unit) capsule (Calcium 600 + D(3)) magnesium oxide 400 mg PO QAM 06/10/18 09/08/24 multivitamin 1 tab PO QAM 06/10/18 09/08/24 Previous Rx's Medication Instructions Recorded blood sugar diagnostic (OneTouch #100 ea 06/12/23 Verio test strips) lancets 30 gauge #100 ea 06/12/23 metoprolol tartrate 100 mg tablet 150 mg (1.5 x 100 mg) PO BID #270 11/27/23 tabs simvastatin 10 mg tablet 10 mg PO HS #90 tabs 12/01/23 allopurinol 100 mg tablet 100 mg PO HS #90 tabs 12/09/23 apixaban 5 mg tablet (Eliquis) 5 mg PO BID #180 tabs 12/09/23 diltiazem HCl 180 mg 180 mg PO BID #180 caps 12/09/23 capsule,extended release 24 hr glimepiride 4 mg tablet 4 mg PO BID #180 tabs 02/13/24 losartan 25 mg tablet 25 mg PO DAILY #90 tabs 06/15/24 levothyroxine 112 mcg tablet 112 mcg PO QAM #90 tabs 07/22/24 metformin 500 mg tablet,extended 500 mg PO BID #180 tabs 07/22/24 release 24 hr Results & Data (ED) Vital Signs Vital Signs - 24 hr 11/02/24 05:11 11/02/24 05:12 11/02/24 05:54 Temperature 36.5 C Temperature Source Oral Pulse Rate 61 82 Pulse Rate [Apical] 60 Respiratory Rate 15 15 Respiratory Effort / Characteristics Spontaneous Non-Labored Spontaneous Respiratory Depth Normal Normal Respiratory Pattern Regular Regular Blood Pressure 143/101 H Blood Pressure [Right Arm] 156/78 H Blood Pressure Mean 115 Blood Pressure Mean [Right Arm] 104 Blood Pressure Position [Right Arm] Pulse Oximetry 88 L 96 Oxygen Delivery Method Room Air Nasal Cannula Oxygen Flow Rate Sepsis Recent Fever Within 48 Hours No Sepsis New/Unexplained Change in Mental Status No Sepsis Action Taken by Nursing No Action Required 11/02/24 06:12 11/02/24 06:12 11/02/24 06:43 Temperature 36.5 C Temperature Source Pulse Rate 60 67 Pulse Rate [Apical] 62 Respiratory Rate 20 18 13 Respiratory Effort / Characteristics Non-Labored Spontaneous Respiratory Depth Normal Respiratory Pattern Regular Blood Pressure 156/78 H Blood Pressure [Right Arm] 127/78 Blood Pressure Mean Blood Pressure Mean [Right Arm] 94 Blood Pressure Position [Right Arm] Pulse Oximetry 96 96 95 Oxygen Delivery Method Nasal Cannula Nasal Cannula Nasal Cannula Oxygen Flow Rate 4 3 3 Sepsis Recent Fever Within 48 Hours Sepsis New/Unexplained Change in Mental Status Sepsis Action Taken by Nursing 11/02/24 07:43 Temperature Temperature Source Pulse Rate Pulse Rate [Apical] 60 Respiratory Rate 21 Respiratory Effort / Characteristics Non-Labored Spontaneous Respiratory Depth Normal Respiratory Pattern Blood Pressure Blood Pressure [Right Arm] 144/60 H Blood Pressure Mean Blood Pressure Mean [Right Arm] 88 Blood Pressure Position [Right Arm] Lying Pulse Oximetry 94 Oxygen Delivery Method Nasal Cannula Oxygen Flow Rate 3 Sepsis Recent Fever Within 48 Hours Sepsis New/Unexplained Change in Mental Status Sepsis Action Taken by Nursing Laboratory Data 11/02/24 05:26 11/02/24 05:26 Lab Results 11/02/24 11/02/24 11/02/24 Range/Units 05:26 05:36 06:06 WBC 16.78 H (4.8-10.8) K/ul RBC 3.59 L (4.20-5.40) M/uL Hgb 12.0 (12.0-16.0) g/dl POC Hgb 12.6 (12.0-16.0) g/dl Hct 35.5 L (37.0-47.0) % POC Hct 37 (37-47) % MCV 98.9 (80.0-100.0) fL MCH 33.4 (25.0-34.0) pg MCHC 33.8 (32.0-36.0) g/dL RDW Std Deviation 48.2 H (36.4-46.3) fL RDW Coeff of Lenore 13.2 (11.5-14.5) % Plt Count 215 (130-400) K/uL MPV 10.3 (9.4-12.4) fL Immature Gran % (Auto) 1.0 % Neut % (Auto) 85.3 % Lymph % (Auto) 7.2 % [place] % (Auto) 4.8 % Eos % (Auto) 1.3 % Baso % (Auto) 0.4 % Neut # (Auto) 14.34 H (1.40-6.50) K/uL Lymph # (Auto) 1.20 (1.20-3.40) K/uL [place] # (Auto) 0.81 H (0.11-0.59) K/uL Eos # (Auto) 0.21 (0.00-0.50) K/uL Baso # (Auto) 0.06 (0.00-0.20) K/uL Immature Gran # (Auto) 0.16 (0.01-0.20) K/uL PT 11.7 (9.0-12.0) Seconds INR 1.1 (0.9-1.1) APTT 28 (21-31) Seconds PTT Ratio 1.0 POC Sodium 138 (135-144) mmol/L Sodium 137 (136-145) mmol/L POC Potassium 3.7 (3.3-5.0) mmol/L Potassium 3.8 (3.5-5.1) mmol/L POC Chloride 103 (101-112) mmol/L Chloride 104 (98-107) mmol/L Carbon Dioxide 26 (21-32) mmol/L POC Total CO2 24 (24-31) mmol/L Anion Gap 7 (3-11) POC Anion Gap 16.0 (16-25) mmol/L POC BUN 17 (7-18) mg/dl BUN 18 (6-23) mg/dl Creatinine 0.69 (0.6-1.2) mg/dl POC Creatinine 0.7 (0.6-1.3) mg/dl Est Cr Clr Drug Dosing 53.1 ml/min eGFR 84.99 BUN/Creatinine Ratio 26.1 H (10-20) Glucose 233 H (70-99(Fasting)) mg/dl POC Glucose (other) 234 H (70-99) mg/dl Calcium 9.5 (8.6-10.3) mg/dl POC Ioniz Calcium Tye 1.25 (1.12-1.32) mmol/l Total Bilirubin 0.7 (0.2-1.0) mg/dl AST 20 (13-39) U/L ALT 13 (7-52) U/L Alkaline Phosphatase 52 (34-104) U/L Total Creatine Kinase 19 L (26-192) U/L Troponin I High Sens 11.4 (0-14) pg/ml Total Protein 6.8 (6.0-8.3) gm/dl Albumin 3.9 (3.4-5.0) gm/dl Globulin 2.9 (2.5-4.0) gm/dl Albumin/Globulin Ratio 1.3 (0.9-2) Lipase 12 (11-82) U/L Urine Color Urine Appearance (Clear) Urine pH (4.5-7.5) Ur Specific Col[place] (1.000-1.030) Urine Protein (Negative) Urine Glucose (UA) (Negative) Urine Ketones (Negative) Urine Blood (Negative) Urine Nitrite (Negative) Urine Bilirubin (Negative) Urine Urobilinogen (Negative) Ur Leukocyte Esterase (Negative) Urine Comment SARS-CoV-2 (PCR) NEGATIVE (Negative) Influenza Type A (PCR) Negative (Neg) Influenza Type B (PCR) Negative (Neg) RSV (RT-PCR) Negative (Neg) Blood Type A Positive 11/02/24 Range/Units Unknown WBC (4.8-10.8) K/ul RBC (4.20-5.40) M/uL Hgb (12.0-16.0) g/dl POC Hgb (12.0-16.0) g/dl Hct (37.0-47.0) % POC Hct (37-47) % MCV (80.0-100.0) fL MCH (25.0-34.0) pg MCHC (32.0-36.0) g/dL RDW Std Deviation (36.4-46.3) fL RDW Coeff of Lenore (11.5-14.5) % Plt Count (130-400) K/uL MPV (9.4-12.4) fL Immature Gran % (Auto) % Neut % (Auto) % Lymph % (Auto) % [place] % (Auto) % Eos % (Auto) % Baso % (Auto) % Neut # (Auto) (1.40-6.50) K/uL Lymph # (Auto) (1.20-3.40) K/uL [place] # (Auto) (0.11-0.59) K/uL Eos # (Auto) (0.00-0.50) K/uL Baso # (Auto) (0.00-0.20) K/uL Immature Gran # (Auto) (0.01-0.20) K/uL PT (9.0-12.0) Seconds INR (0.9-1.1) APTT (21-31) Seconds PTT Ratio POC Sodium (135-144) mmol/L Sodium (136-145) mmol/L POC Potassium (3.3-5.0) mmol/L Potassium (3.5-5.1) mmol/L POC Chloride (101-112) mmol/L Chloride (98-107) mmol/L Carbon Dioxide (21-32) mmol/L POC Total CO2 (24-31) mmol/L Anion Gap (3-11) POC Anion Gap (16-25) mmol/L POC BUN (7-18) mg/dl BUN (6-23) mg/dl Creatinine (0.6-1.2) mg/dl POC Creatinine (0.6-1.3) mg/dl Est Cr Clr Drug Dosing ml/min eGFR BUN/Creatinine Ratio (10-20) Glucose (70-99(Fasting)) mg/dl POC Glucose (other) (70-99) mg/dl Calcium (8.6-10.3) mg/dl POC Ioniz Calcium Tye (1.12-1.32) mmol/l Total Bilirubin (0.2-1.0) mg/dl AST (13-39) U/L ALT (7-52) U/L Alkaline Phosphatase (34-104) U/L Total Creatine Kinase (26-192) U/L Troponin I High Sens (0-14) pg/ml Total Protein (6.0-8.3) gm/dl Albumin (3.4-5.0) gm/dl Globulin (2.5-4.0) gm/dl Albumin/Globulin Ratio (0.9-2) Lipase (11-82) U/L Urine Color Yellow Urine Appearance Clear (Clear) Urine pH 8.5 H (4.5-7.5) Ur Specific [place] 1.013 (1.000-1.030) Urine Protein Negative (Negative) Urine Glucose (UA) Trace H (Negative) Urine Ketones Trace H (Negative) Urine Blood Negative (Negative) Urine Nitrite Negative (Negative) Urine Bilirubin Negative (Negative) Urine Urobilinogen Negative (Negative) Ur Leukocyte Esterase Negative (Negative) Urine Comment SARS-CoV-2 (PCR) (Negative) Influenza Type A (PCR) (Neg) Influenza Type B (PCR) (Neg) RSV (RT-PCR) (Neg) Blood Type Administered Medications Discontinued Medications Fentanyl Citrate (Fentanyl Citrate Pf 100 Mcg/2 Ml Vial) Confirm Administered Dose 100 mcg .ROUTE .STK-MED ONE Stop: 11/02/24 05:12 Last Admin: 11/02/24 05:24 Dose: Not Given Documented By: MED Fentanyl Citrate (Fentanyl Citrate Pf 100 Mcg/2 Ml Vial) 50 mcg IV NOW STA Stop: 11/02/24 05:13 Last Admin: 11/02/24 05:24 Dose: 50 mcg Documented By: MED Fentanyl Citrate (Fentanyl Citrate Pf 100 Mcg/2 Ml Vial) 25 mcg IV NOW STA Stop: 11/02/24 07:29 Last Admin: 11/02/24 07:33 Dose: 25 mcg Documented By: COREY Acetaminophen (Ofirmev) 1,000 mg in 100 mls @ 400 mls/hr IV NOW STA Stop: 11/02/24 06:52 Last Infusion: 11/02/24 07:40 Dose: Infused Documented By: Admin: 11/02/24 06:51 Dose: 400 mls/hr Documented By: SAMEER Ioversol (Optiray 320 100ml) 100 ml IV ONCE ONE Stop: 11/02/24 06:08 Last Admin: 11/02/24 06:07 Dose: 93 ml Documented By: ELIER Ondansetron HCl (Ondansetron Inj 2 Mg/Ml 2 Ml Vial) Confirm Administered Dose 4 mg .ROUTE .STK-MED ONE Stop: 11/02/24 05:12 Last Admin: 11/02/24 05:24 Dose: Not Given Documented By: SAMEER Ondansetron HCl (Ondansetron Inj 2 Mg/Ml 2 Ml Vial) 4 mg IV NOW STA Stop: 11/02/24 05:13 Last Admin: 11/02/24 05:24 Dose: 4 mg Documented By: MED Imaging Data Radiologist's Impression: Chest X-Ray 11/02/24 05:11 EXAM: XR chest 1V portable CLINICAL HISTORY: Trauma TECHNIQUE: Radiograph of chest was acquired. COMPARISON: 08/30/2024 08:38:15 FEED IN WORKER FINDINGS: Ill defined haziness in bilateral lung olivera - new finding Cardiomegaly - unchanged Rest of the lungs are clear and well-expanded with no pulmonary infiltrate or pleural effusion. Rest of the cardiomediastinal silhouette is within normal limits. No acute osseous abnormality. 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 IMPRESSION: 1. Interval unchanged Cardiomegaly 2. Ill defined haziness in bilateral lung olivera - likley pulmonary congestion- new finding Electronically signed by Niko Patel 11-02-2024 06:21 AM Hip/Pelvis X-Ray 11/02/24 05:11 EXAM: XR hip LT 2V w pelvis CLINICAL HISTORY: fall, pain TECHNIQUE: Radiograph of hip was acquired. COMPARISON: none FINDINGS: Displaced fracture of neck of femur with superior displacement of distal fracture fragment and increased soft tissue density around the left hip joint. There is no evidence ofosseous lesion. The hip joint space is preserved. The femoral head has a normal contour. Rest of the soft tissues are unremarkable. IMPRESSION: 1. Displaced fracture of neck of left femur as described above Electronically signed by Niko Patel 11-02-2024 06:27 AM Shoulder X-Ray 11/02/24 05:11 EXAM: XR shoulder LT min 2V routine CLINICAL HISTORY: fall, pain TECHNIQUE: Radiograph of left shoulder was acquired. COMPARISON: none FINDINGS: Multiple osteophytes noted involving left gleno-humeral joint. There is no evidence of acute fracture, dislocation or osseous lesion. The acromioclavicular joint space is preserved. The glenohumeral joint space is reduced The adjacent soft tissues appear unremarkable, with no evidence of joint effusion. IMPRESSION: Evidence of osteoarthritic changes noted involving left shoulder joint with decreased gleno-humeral joint space and multiple osteophytes involving humerus and scapula Electronically signed by Niko Patel 11-02-2024 06:[address] 11/02/24 05:12 EXAM: CT facial bones wo con CLINICAL HISTORY: fall L forehead heamtoma on eliquis TECHNIQUE: Computed tomography of the orbits/face was performed without intravenous contrast. Contiguous axial images were obtained. Reformatted coronal and sagittal images were also reviewed. CT scan was performed according to ALARA (as low as reasonable achievable). COMPARISON: 02/11/2022 10:32:42 FEED IN WORKER FINDINGS: No acute facial fractures. The paranasal sinuses and mastoid air cells are clear. The globes, optic nerves, extraocular muscles and retro-orbital fat are grossly unremarkable. Reformatted imaging demonstrates intact roof and floor of the orbits. Included portions of the mandible are intact. The included intracranial substances and airway are unremarkable. Scalp hematoma with surrounding edema is seen in left frontal region. IMPRESSION: Scalp hematoma with surrounding edema is seen in left frontal region. No other significant abnormality detected Electronically signed by Niko Patel 11-02-2024 07:11 AM Abdomen/Pelvis CT 11/02/24 05:34 EXAM: CT abd pelvis IV con only CLINICAL HISTORY: fall, l hip pain, eliquis TECHNIQUE: Contiguous axial images were obtained from the level of the diaphragm to the pubic symphysis with intravenous contrast. Coronal and sagittal reconstructions were likewise performed and indicated to increase the sensitivity for detecting clinically relevant pathology. If IV contrast material had not been administered, the likelihood of detecting abnormalities relevant to the patient's condition would have been substantially decreased. CT scan was performed according to ALARA (as low as reasonable achievable). COMPARISON: 08/27/2024 14:38:51 FEED IN WORKER FINDINGS: The visualized lung bases are clear. Sliding hiatus hernia noted. -stable. The liver is normal in size and attenuation. No focal liver lesions are seen. There is no intra or extrahepatic biliary ductal dilatation. Hepatic vasculature is patent. The gallbladder is distended and shows dense sludge.. The spleen, and adrenal glands are unremarkable. The pancreas appears normal in size shape and shows few tiny calcifications. The kidneys are normal in size and attenuation. There is no hydronephrosis or perinephric fat stranding. No renal calculi or renal masses are identified. Few simple cortical cyst are noted in both kidneys The ureters are normal in caliber and no ureteral calculi are seen. The bladder is normal in contour. Pelvic viscera are unremarkable. No focal or diffuse bowel wall thickening or evidence of bowel obstruction is identified. No inflammed appendix is visualized in the right lower quadrant. Abdominal and pelvic vasculature is patent. No adenopathy or fluid collections are seen. No aggressive appearing osseous lesions are identified. Bilateral sacroiliitis. Displaced fracture of neck of left femur. Fat containing infraumbilical hernia. Fat containing bilateral inguinal hernia. IMPRESSION: 1. Bilateral sacroiliitis.-stable. 2. Displaced fracture of neck of left femur.-new finding. 3. Fat containing infraumbilical hernia-stable. 4. Fat containing bilateral inguinal hernia.-stable. Electronically signed by Niko Patel 11-02-2024 07:[address] 11/02/24 05:34 EXAM: CT cervical spine wo con CLINICAL HISTORY: fall TECHNIQUE: Computed tomography of the cervical spine performed without intravenous contrast. Contiguous axial images were obtained from the skull base to T2, with sagittal and coronal reformatted images reconstructed from the axial data. CT scan was performed according to ALARA (as low as reasonable achievable). COMPARISON: None. FINDINGS: Loss of cervical lordosis - suggest possibility of muscle spasm/positional. Degenerative changes involving cervical spine in the form of multilevel marginal osteophytes, disc space reduction and facetal arthrosis. Cervical vertebral bodies are normal in height and alignment, with no evidence of fracture or subluxation. Lateral masses of C1 are symmetrical, and the dens is intact. Prevertebral soft tissues are not widened. The remaining suprahyoid and infrahyoid soft tissues in the neck are unremarkable. Posterior uncovertebral arthrosis is noted at C4-C5 to C6-C7 levels, which indenting ventral thecal sac and causes bilateral neuroforaminal narrowing. Thyroid gland appears unremarkable. IMPRESSION: 1.No acute fracture or subluxation in the cervical spine. 2.Cervical spondylosis. Electronically signed by Niko Patel 11-02-2024 07:[address] 11/02/24 05:34 EXAM: CT chest diagnostic w con CLINICAL HISTORY: fall, L shoulder pain, hypoxia TECHNIQUE: Contiguous axial images were obtained from the neck base through the upper abdomen following intravenous administration of contrast material. If IV contrast material had not been administered, the likelihood of detecting abnormalities relevant to the patient's condition would have been substantially decreased. In addition, sagittal and coronal reconstructions were performed. CT scan was performed according to ALARA (as low as reasonable achievable). COMPARISON: 07/14/2019 14:30:09 FEED IN WORKER. FINDINGS: The lungs are clear, with no focal areas of consolidation. No pulmonary nodules are seen. The central airways are patent. There are no pleural effusions. No pneumothorax is seen. No axillary, hilar, or mediastinal adenopathy is identified. The visualized thyroid is unremarkable. The heart, aorta, and pulmonary arteries are of normal size and configuration. No pericardial effusion is identified. Imaged portions of the upper abdomen are unremarkable. No aggressive appearing osseous lesions are identified. IMPRESSION: No significant abnormality detected. Prior Consolidation and pleural effusion is completely resolved. Electronically signed by Niko Patel 11-02-2024 07:[address] 11/02/24 05:34 EXAM: CT head/brain wo con CLINICAL HISTORY: fall, eliquis, forehead hematoma TECHNIQUE: Multiple axial images are obtained from the skull base to the vertex without contrast. CT scan was performed according to ALARA (as low as reasonable achievable). COMPARISON: 01/05/2024 10:09:37 FEED IN WORKER . FINDINGS: There is cerebral atrophy. No evidence of space occupying lesion, hemorrhage, edema, mass effect, midline shift, extra axial collection, or hydrocephalus is noted. Basal cisterns are symmetric and normal in size and configuration. There are scattered periventricular hypodensities as can be seen with chronic microvascular ischemic changes. The nava-white matter differentiation is preserved. Visualized paranasal sinuses and mastoid air cells are well aerated. Orbital contents are within normal limits. Bony structures are intact. Left frontal scalp hematoma noted. IMPRESSION: 1. No evidence of acute intracranial abnormality is demonstrated. 2. Chronic microvascular ischemic changes.-stable. 3. Cerebral atrophy.-stable. 4. Left frontal scalp hematoma noted. No other new interval abnormality since prior study. Electronically signed by Niko Patel 11-02-2024 07:12 AM Discharge Plan Visit Data Chief Complaint: Trauma ED Provider: Jarett Perez Discharge Problem: Fall, Anticoagulant long-term use, Closed fracture of proximal end of left humerus, Closed fracture of left hip, Contusion of knee, left Patient Disposition: Being Evaluated by Hospitalist Condition: Fair Forms Stand Alone Forms: My [facility] [place] [employer] Prescriptions Prescriptions: No Action metoprolol tartrate 100 mg tablet 150 mg PO BID Qty: 270 3RF simvastatin 10 mg tablet 10 mg PO HS Qty: 90 3RF allopurinol 100 mg tablet 100 mg PO HS Qty: 90 3RF Eliquis 5 mg tablet 5 mg PO BID Qty: 180 3RF diltiazem HCl 180 mg capsule,extended release 24hr 180 mg PO BID Qty: 180 3RF glimepiride 4 mg tablet 4 mg PO BID Qty: 180 3RF Rx Instructions: administer with breakfast and supper metformin 500 mg tablet extended release 24 hr 500 mg PO BID Qty: 180 2RF Rx Instructions: 1 Tablet every AM, 1 tablets every PM orally daily; levothyroxine 112 mcg tablet 112 mcg PO QAM Qty: 90 3RF (DME) OneTouch Verio test strips Strip See Rx Instructions .Route Qty: 100 5RF Rx Instructions: test 3- 4 times a week (DME) lancets 30 gauge misc See Rx Instructions .Route Qty: 100 5RF Rx Instructions: testing 3 ~ 4 times a week losartan 25 mg tablet 25 mg PO DAILY Qty: 90 3RF multivitamin Tablet 1 tab PO QAM Rx Instructions: otc magnesium oxide 400 mg Capsule 400 mg PO QAM Rx Instructions: otc calcium carbonate-vitamin D3 [Calcium 600 + D(3)] 600 mg calcium- 200 unit Capsule 1 tab PO BID Rx Instructions: otc Referrals Referrals: Chi Melgar DO [Primary Care Provider] - Discharge Problem: Fall Qualifiers: Encounter type: initial encounter Qualified Code(s): W19.XXXA - Unspecified fall, initial encounter Closed fracture of proximal end of left humerus Qualifiers: Encounter type: initial encounter Closed fracture of left hip Qualifiers: Encounter type: initial encounter Qualified Code(s): S72.002A - Fracture of unspecified part of neck of left femur, initial encounter for closed fracture Contusion of knee, left Qualifiers: Encounter type: initial encounter Qualified Code(s): S80.02XA - Contusion of left knee, initial encounter
[2024-11-02] MEDS: fentaNYL citrate PF 100 MCG/2 ML VIAL IV STA ×2 (05:24→07:33)
[2024-11-02] MEDS: fentaNYL citrate PF 100 MCG/2 ML VIAL ONE (05:24)
[2024-11-02] MEDS: ONDANSETRON INJ 2 MG/ML 2 ML VIAL ONE (05:24)
[2024-11-02] MEDS: ONDANSETRON INJ 2 MG/ML 2 ML VIAL IV STA (05:24)
[2024-11-02 05:41] LABS: Basophils # (auto) 0.06 K/uL (0.00-0.20); Basophils % (auto) 0.4 %; Eosinophils # (auto) 0.21 K/uL (0.00-0.50); Eosinophils % (auto) 1.3 %; Hematocrit (blood only) 35.5 % (37.0-47.0); Immature Granulocytes # (auto) 0.16 K/uL (0.01-0.20); Lymphocytes % (auto) 7.2 %; Mean Corpuscular Hemoglobin 33.4 pg (25.0-34.0); Mean Corpuscular Hgb Conc 33.8 g/dL (32.0-36.0); Mean Corpuscular Volume 98.9 fL (80.0-100.0); Mean Platelet Volume 10.3 fL (9.4-12.4); Monocytes # (auto) 0.81 K/uL (0.11-0.59); Monocytes % (auto) 4.8 %; Neutrophils # (auto) 14.34 K/uL (1.40-6.50); Neutrophils % (auto) 85.3 %; Platelet Count 215 K/uL (130-400); RDW Coefficient of Variation 13.2 % (11.5-14.5); RDW Standard Deviation 48.2 fL (36.4-46.3); Red Blood Count 3.59 M/uL (4.20-5.40); White Blood Count 16.78 K/ul (4.8-10.8)
[2024-11-02 05:48] LABS: iSTAT Creatinine 0.7 mg/dl (0.6-1.3); iSTAT Hemoglobin 12.6 g/dl (12.0-16.0); iSTAT Ionized Calcium 1.25 mmol/l (1.12-1.32); iSTAT Potassium 3.7 mmol/L (3.3-5.0)
[2024-11-02 05:57] LABS: Albumin Globulin Ratio 1.3 (0.9-2); Albumin Level 3.9 gm/dl (3.4-5.0); BUN Creatinine Ratio 26.1 (10-20); Bilirubin,Total 0.7 mg/dl (0.2-1.0); Calcium 9.5 mg/dl (8.6-10.3); Creatinine Clr Calc Pharmacy 53.1 ml/min; Globulin 2.9 gm/dl (2.5-4.0); Potassium 3.8 mmol/L (3.5-5.1); Total Protein 6.8 gm/dl (6.0-8.3)
[2024-11-02 06:00] LABS: Appearance Urine Clear (Clear); Bilirubin Urine Negative (Negative); Blood Urine Negative (Negative); Color Urine Yellow; Glucose Urine UA Trace (Negative); Ketones Urine Trace (Negative); Leukocyte Esterase Urine Negative (Negative); Nitrite Urine Negative (Negative); Protein Urine Negative (Negative); Specific Gravity Urine 1.013 (1.000-1.030); Urobilinogen Urine Negative (Negative); pH Urine 8.5 (4.5-7.5)
[2024-11-02 06:04] LABS: Troponin I High Sensitivity 11.4 pg/ml (0-14)
[2024-11-02] MEDS: OPTIRAY 320 100ml IV ONE (06:07)
[2024-11-02 06:14] LABS: INR 1.1 (0.9-1.1); Partial Thromboplastin Time 28 Seconds (21-31); Prothrombin Time 11.7 Seconds (9.0-12.0)
--- NOTE | 2024-11-02 06:22 | XRay Report ---
EXAM: XR chest 1V portable CLINICAL HISTORY: Trauma TECHNIQUE: Radiograph of chest was acquired. COMPARISON: 08/30/2024 08:38:15 FILLER PICKER FINDINGS: Ill defined haziness in bilateral lung olivera - new finding Cardiomegaly - unchanged Rest of the lungs are clear and well-expanded with no pulmonary infiltrate or pleural effusion. Rest of the cardiomediastinal silhouette is within normal limits. No acute osseous abnormality. 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 IMPRESSION: 1. Interval unchanged Cardiomegaly 2. Ill defined haziness in bilateral lung olivera - alicialey pulmonary congestion- new finding Electronically signed by Niko Patel 11-02-2024 06:21 AM
--- NOTE | 2024-11-02 06:28 | XRay Report ---
EXAM: XR hip LT 2V w pelvis CLINICAL HISTORY: fall, pain TECHNIQUE: Radiograph of hip was acquired. COMPARISON: none FINDINGS: Displaced fracture of neck of femur with superior displacement of distal fracture fragment and increased soft tissue density around the left hip joint. There is no evidence ofosseous lesion. The hip joint space is preserved. The femoral head has a normal contour. Rest of the soft tissues are unremarkable. IMPRESSION: 1. Displaced fracture of neck of left femur as described above Electronically signed by Niko Patel 11-02-2024 06:27 AM
--- NOTE | 2024-11-02 06:37 | XRay Report ---
EXAM: XR shoulder LT min 2V routine CLINICAL HISTORY: fall, pain TECHNIQUE: Radiograph of left shoulder was acquired. COMPARISON: none FINDINGS: Multiple osteophytes noted involving left gleno-humeral joint. There is no evidence of acute fracture, dislocation or osseous lesion. The acromioclavicular joint space is preserved. The glenohumeral joint space is reduced The adjacent soft tissues appear unremarkable, with no evidence of joint effusion. IMPRESSION: Evidence of osteoarthritic changes noted involving left shoulder joint with decreased gleno-humeral joint space and multiple osteophytes involving humerus and scapula Electronically signed by Niko Patel 11-02-2024 06:36 AM
[2024-11-02] MEDS: ACETAMINOPHEN 1,000 MG/100 ML VIAL IV STA (06:51)
--- NOTE | 2024-11-02 07:17 | CT Scan Report ---
EXAM: CT head/brain wo con CLINICAL HISTORY: fall, eliquis, forehead hematoma TECHNIQUE: Multiple axial images are obtained from the skull base to the vertex without contrast. CT scan was performed according to ALARA (as low as reasonable achievable). COMPARISON: 01/05/2024 10:09:37 ENTERTAINER & COMIC . FINDINGS: There is cerebral atrophy. No evidence of space occupying lesion, hemorrhage, edema, mass effect, midline shift, extra axial collection, or hydrocephalus is noted. Basal cisterns are symmetric and normal in size and configuration. There are scattered periventricular hypodensities as can be seen with chronic microvascular ischemic changes. The nava-white matter differentiation is preserved. Visualized paranasal sinuses and mastoid air cells are well aerated. Orbital contents are within normal limits. Bony structures are intact. Left frontal scalp hematoma noted. IMPRESSION: 1. No evidence of acute intracranial abnormality is demonstrated. 2. Chronic microvascular ischemic changes.-stable. 3. Cerebral atrophy.-stable. 4. Left frontal scalp hematoma noted. No other new interval abnormality since prior study. Electronically signed by Niko Patel 11-02-2024 07:12 AM
--- NOTE | 2024-11-02 07:17 | CT Scan Report ---
EXAM: CT chest diagnostic w con CLINICAL HISTORY: fall, L shoulder pain, hypoxia TECHNIQUE: Contiguous axial images were obtained from the neck base through the upper abdomen following intravenous administration of contrast material. If IV contrast material had not been administered, the likelihood of detecting abnormalities relevant to the patient's condition would have been substantially decreased. In addition, sagittal and coronal reconstructions were performed. CT scan was performed according to ALARA (as low as reasonable achievable). COMPARISON: 07/14/2019 14:30:09 FITTER HELPER. FINDINGS: The lungs are clear, with no focal areas of consolidation. No pulmonary nodules are seen. The central airways are patent. There are no pleural effusions. No pneumothorax is seen. No axillary, hilar, or mediastinal adenopathy is identified. The visualized thyroid is unremarkable. The heart, aorta, and pulmonary arteries are of normal size and configuration. No pericardial effusion is identified. Imaged portions of the upper abdomen are unremarkable. No aggressive appearing osseous lesions are identified. IMPRESSION: No significant abnormality detected. Prior Consolidation and pleural effusion is completely resolved. Electronically signed by Niko Patel 11-02-2024 07:12 AM
--- NOTE | 2024-11-02 07:17 | CT Scan Report ---
EXAM: CT facial bones wo con CLINICAL HISTORY: fall L forehead heamtoma on eliquis TECHNIQUE: Computed tomography of the orbits/face was performed without intravenous contrast. Contiguous axial images were obtained. Reformatted coronal and sagittal images were also reviewed. CT scan was performed according to ALARA (as low as reasonable achievable). COMPARISON: 02/11/2022 10:32:42 CONVERTING TECHNICIAN FINDINGS: No acute facial fractures. The paranasal sinuses and mastoid air cells are clear. The globes, optic nerves, extraocular muscles and retro-orbital fat are grossly unremarkable. Reformatted imaging demonstrates intact roof and floor of the orbits. Included portions of the mandible are intact. The included intracranial substances and airway are unremarkable. Scalp hematoma with surrounding edema is seen in left frontal region. IMPRESSION: Scalp hematoma with surrounding edema is seen in left frontal region. No other significant abnormality detected Electronically signed by Niko Patel 11-02-2024 07:11 AM
--- NOTE | 2024-11-02 07:28 | CT Scan Report ---
EXAM: CT cervical spine wo con CLINICAL HISTORY: fall TECHNIQUE: Computed tomography of the cervical spine performed without intravenous contrast. Contiguous axial images were obtained from the skull base to T2, with sagittal and coronal reformatted images reconstructed from the axial data. CT scan was performed according to ALARA (as low as reasonable achievable). COMPARISON: None. FINDINGS: Loss of cervical lordosis - suggest possibility of muscle spasm/positional. Degenerative changes involving cervical spine in the form of multilevel marginal osteophytes, disc space reduction and facetal arthrosis. Cervical vertebral bodies are normal in height and alignment, with no evidence of fracture or subluxation. Lateral masses of C1 are symmetrical, and the dens is intact. Prevertebral soft tissues are not widened. The remaining suprahyoid and infrahyoid soft tissues in the neck are unremarkable. Posterior uncovertebral arthrosis is noted at C4-C5 to C6-C7 levels, which indenting ventral thecal sac and causes bilateral neuroforaminal narrowing. Thyroid gland appears unremarkable. IMPRESSION: 1.No acute fracture or subluxation in the cervical spine. 2.Cervical spondylosis. Electronically signed by Niko Patel 11-02-2024 07:24 AM
[2024-11-02 07:47] LABS: Influenza A virus by PCR Negative (Neg); Influenza B virus by PCR Negative (Neg); RSV by PCR Negative (Neg); SARS CoV2 RNA(COVID-19) Ceph NEGATIVE (Negative)
--- NOTE | 2024-11-02 07:52 | CT Scan Report ---
EXAM: CT abd pelvis IV con only CLINICAL HISTORY: fall, l hip pain, eliquis TECHNIQUE: Contiguous axial images were obtained from the level of the diaphragm to the pubic symphysis with intravenous contrast. Coronal and sagittal reconstructions were likewise performed and indicated to increase the sensitivity for detecting clinically relevant pathology. If IV contrast material had not been administered, the likelihood of detecting abnormalities relevant to the patient's condition would have been substantially decreased. CT scan was performed according to ALARA (as low as reasonable achievable). COMPARISON: 08/27/2024 14:38:51 BOTTLE DEALER FINDINGS: The visualized lung bases are clear. Sliding hiatus hernia noted. -stable. The liver is normal in size and attenuation. No focal liver lesions are seen. There is no intra or extrahepatic biliary ductal dilatation. Hepatic vasculature is patent. The gallbladder is distended and shows dense sludge.. The spleen, and adrenal glands are unremarkable. The pancreas appears normal in size shape and shows few tiny calcifications. The kidneys are normal in size and attenuation. There is no hydronephrosis or perinephric fat stranding. No renal calculi or renal masses are identified. Few simple cortical cyst are noted in both kidneys The ureters are normal in caliber and no ureteral calculi are seen. The bladder is normal in contour. Pelvic viscera are unremarkable. No focal or diffuse bowel wall thickening or evidence of bowel obstruction is identified. No inflammed appendix is visualized in the right lower quadrant. Abdominal and pelvic vasculature is patent. No adenopathy or fluid collections are seen. No aggressive appearing osseous lesions are identified. Bilateral sacroiliitis. Displaced fracture of neck of left femur. Fat containing infraumbilical hernia. Fat containing bilateral inguinal hernia. IMPRESSION: 1. Bilateral sacroiliitis.-stable. 2. Displaced fracture of neck of left femur.-new finding. 3. Fat containing infraumbilical hernia-stable. 4. Fat containing bilateral inguinal hernia.-stable. Electronically signed by Niko Patel 11-02-2024 07:51 AM
--- NOTE | 2024-11-02 08:02 | XRay Report ---
EXAM: XR knee LT 1 or 2V routine CLINICAL HISTORY: pain, fall TECHNIQUE: Radiograph of left knee was acquired. COMPARISON: none FINDINGS: [id number] lipping; osteophytes formation with subchondral sclerosis /OBX.[id number].5.1.2 asymmetrical joint space reduction involving tibiofemoral joint compartments ; suggestive of osteoarthritic changes./OBX.5.1.2/OBX.5.1 Patellofemoral joint space is maintained The soft tissues appear unremarkable. No evidence of joint effusion. 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 No acute fractures Disclaimer: A subtle bone abnormality or fracture may not be readily apparent on X-rays, thus clinical correlation and further imaging including follow-up CT, MRI, or follow-up X-rays are advised as needed. Electronically signed by Niko Patel 11-02-2024 08:01 AM
--- NOTE | 2024-11-02 08:07 | History & Physical Report ---
"Date of Service November 02, 2024 Assessment & Plan (1) Fracture of femoral neck, left: (2) Syncope and collapse: Plan This is an 84-year-old female who presented on 11/02 as a trauma alert after being found down beside her commode. Eliquis taken the evening of 11/01. #Fall | left femoral neck fracture | left frontal scalp hematoma Imaging on arrival revealed the following: Head CT without acute intracranial findings; left frontal scalp hematoma Face CT revealed scalp hematoma with surrounding edema in the left frontal region Cervical spine CT without acute fracture or subluxation Chest CTA without significant abnormalities Left shoulder x-ray revealed decreased glenohumeral joint space; ? Left humeral fracture Shoulder sling application CT L humerus w/o ordered to assess for impacted fracture Left hip x-ray revealed displaced fracture of neck of left femur Leukocytosis at 16.78 on arrival; suspect stress demargination in setting of acute femur fracture Clinically, patient denies infectious etiology such as fever, cough, or burning with urination Negative COVID, flu, RSV; UA negative; no PNA on CXR Will defer antibiotics on admission Activity: Bedrest Holm catheter maintenance Orthopedics consult appreciated N.p.o. at midnight; will plan for OR with Dr. Bray on 11/03 Cardiac risk index: 0 (No PMHx of FL, CVA, CHF, insulin use, or elevated creatinine; does have h/o cardiac pacemaker) IV acetaminophen and morphine as needed for pain control Lidocaine patch application to left shoulder daily #Syncope/collapse Patient denies prodrome prior to syncope; no dizziness/lightheadedness prior to syncope, rather she simply passed out on the commode More worrisome for cardiac arrhythmia Pacemaker interrogation ordered No reported episodes of VT on interrogation Touched base with telemetry monitoring at 1800 on 11/02; patient reportedly in sinus rhythm at 60 bpm throughout the day on 11/02, no events Last echocardiogram on 12/02/2022 revealed LVEF at 60 to 65% Repeat echocardiogram on 11/02/2024 revealed LVEF at >70%; left atrial dilation is now more severe (previously moderate); type II diastolic dysfunction Continuous telemetry monitoring #T2DM Last A1c at 7.3% on 06/10/2024 Hold metformin, glimepiride Lantus 5u QAM while inpatient SSI; with target BSG range 110-140mg/dL, CF 50, carb ratio 15 T2DM diet BSG ACHS Adjust regimen as needed AM A1c #Atrial fibrillation NSR + rate controlled on arrival Hold Eliquis #HTN Continue metoprolol, diltiazem Hold losartan perioperatively #Hypothyroidism Last TSH 5.17 on 06/10/2024 Continue levothyroxine #HLD Continue simvastatin Disposition: Admit to PCU telemetry VTE PPx: Hold Eliquis in the setting of acute head trauma; SCDs History of Present Illness Chief Complaint: Trauma Primary Care Provider: Chi Melgar DO Mrs. Madsen is an 84-year-old female with PMH of atrial fibrillation (on apixaban), pacemaker, colon cancer, bowel resection, T2DM, gout, and hypothyroidism. She presented on 11/02 via EMS after reportedly passing out on her commode last night. Patient was found down with a deformity of her left hip, left shoulder, and hematoma over her right eye. Admitted for left hip fracture. Patient reports she fell around 3 AM; she was not bearing down to have a bowel movement at that time but was rather sitting on the urinate. She denies feeling dizzy or lightheaded just prior to syncope. No prior history of syncope to her knowledge. She is not on supplemental oxygen at baseline. Patient reports that the pain is a 6/10 at time of admission in her left shoulder and left hip/thigh. The pain is constant, but does increase in waves. No numbness or tingling in the arms or legs. Patient did not take her regular morning medicines today. Last took her Eliquis at 530 last night. Last ate food at 530 last night. In regard to cardiac history, she does have a pacemaker, and follows with Dr. Neves. No prior history of FL, CHF, or CVA. No medication allergies to her knowledge. No prior surgeries on the left shoulder or left leg; no history of hip or knee replacements on the left side; she does have history of a right ankle surgery involving 9 screws and plates. Patient denies smoking, tobacco use, recent alcohol use. Patient is hypertensive at 144/60 at time of admission; SpO2 94% on 3L NC. ED course: Fentanyl 50 mcg IV x 1 Fentanyl 25 mcg IV x 1 Acetaminophen 1000 mg IV Ondansetron 4 mg IV ROS: Patient endorses syncopal episode, left shoulder pain, left thigh/hip pain, and abdominal discomfort. Patient denies fever, chills, dizziness/lightheadedness prior to syncope, headache, changes in vision, chest pain, chest palpitations, SOB, cough, abdominal pain, N/V/D, burning with urination, blood in the urine or stool, or numbness or tingling in the arms or legs. Allergies Allergy/AdvReac Type Severity Reaction Status Date / Time hydromorphone [From Dilaudid] Allergy Severe hallucinati Verified 11/02/24 08:43 on Home Medications Medication Instructions Recorded Confirmed Type calcium 600 mg (as 1 tab PO BID 06/10/18 11/02/24 History carbonate)-vitamin D3 5 mcg (200 unit) capsule (Calcium 600 + D(3)) magnesium oxide 400 mg PO QAM 06/10/18 11/02/24 History multivitamin 1 tab PO QAM 06/10/18 11/02/24 History blood sugar diagnostic (OneTouch #100 ea 06/12/23 09/08/24 Rx Verio test strips) lancets 30 gauge #100 ea 06/12/23 09/08/24 Rx metoprolol tartrate 100 mg tablet 150 mg (1.5 x 100 mg) PO BID #270 11/27/23 11/02/24 Rx tabs simvastatin 10 mg tablet 10 mg PO HS #90 tabs 12/01/23 11/02/24 Rx allopurinol 100 mg tablet 100 mg PO HS #90 tabs 12/09/23 11/02/24 Rx apixaban 5 mg tablet (Eliquis) 5 mg PO BID #180 tabs 12/09/23 11/02/24 Rx diltiazem HCl 180 mg 180 mg PO BID #180 caps 12/09/23 11/02/24 Rx capsule,extended release 24 hr glimepiride 4 mg tablet 4 mg PO BID #180 tabs 02/13/24 11/02/24 Rx losartan 25 mg tablet 25 mg PO DAILY #90 tabs 06/15/24 11/02/24 Rx levothyroxine 112 mcg tablet 112 mcg PO QAM #90 tabs 07/22/24 11/02/24 Rx metformin 500 mg tablet,extended 500 mg PO BID #180 tabs 07/22/24 11/02/24 Rx release 24 hr Past Med/Surg History Problem List (Updated 11/02/24 @ 18:27 by MO Pickens) Syncope and collapse Fracture of femoral neck, left Closed fracture of left hip (Acute ~11/02/24) Contusion of knee, left (Acute) Closed fracture of left hip (Acute) Closed fracture of proximal end of left humerus (Acute) Anticoagulant long-term use (Acute) Fall (Acute) Acute hypoxic respiratory failure RLL pneumonia (Acute) Cough Urinary frequency (Acute) History of malignant neoplasm of colon 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 Osteoporosis screening declined Right ankle pain (Acute) Right foot pain (Acute) Overactive bladder Lichen sclerosus et atrophicus Right low back pain Left ventricular outflow tract obstruction Hyperlipidemia (Chronic) Pacemaker Meditronic--LAST CHECK 04/2018-REMOTELY History of bowel resection WITH COLOSTOMY Gout Hypothyroidism (Chronic) Medical History Controlled type 2 diabetes mellitus Atrial fibrillation Hypertension Diabetes mellitus type 2, uncontrolled Pneumonia (06/2019) On anticoagulant therapy eliquis daily Incisional hernia Tachy-herve syndrome History of colon cancer Diabetes mellitus, type 2 DIET MANAGED-NO MEDS Cancer COLON CANCER SOB (shortness of breath) on exertion Cardiac murmur Ankle fracture Surgical History History of colonoscopy History of right inguinal hernia repair History of incisional hernia repair History of cataract surgery R/L History of colostomy reversal Family History Brother Family history of diabetes mellitus Prostate cancer Daughter Breast cancer Sister HTN (hypertension), benign Family history of diabetes mellitus Other No family history of adverse response to anesthesia Denies family history of Ovarian cancer Myocardial infarction Colorectal cancer Social History Smoking Status: Never smoker Second Hand Exposure: No; Do You Dip or Chew Tobacco: No; Hx Alcohol Use: No Hx Substance Use: No Preferred Language: Senegalese Communication Ability: Effective Visual Impairment: No Limitations Hearing Ability: Hard of Hearing Fur Dressing Supervisor Required: No Beliefs That Will Affect Care: None marital status: Current Living Situation: Spouse current occupational status: retired 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 Other Information That Helps Us Care for You: No Feels Safe at Home: Yes and No Is there a partner from a previous relationship who is making you feel unsafe now?: No Any Concerns about Your Family Situation: No Would You Like to Speak to Someone About Your Situation: No Safety Concerns: Feels Safe At This Time Childhood Exposure to Second-Hand Smoke: No Diet: regular Dental Care, Regularly: Yes Physical Activity Frequency: Does not Exercise Seatbelt Use: always Sunscreen Use: No Assistive Devices: Glasses Review of Systems Review of Systems: See HPI above Physical Exam Physical Exam: General: Moderate distress secondary to left hip and shoulder pain; family at bedside; non-toxic appearing; frail appearing; cooperative; SpO2 96% on 3L NC HEENT: Bruising/left forehead hematoma appreciated; no scleral icterus; PERRLA; vision and hearing intact Neck: supple; trachea midline Skin: warm, dry without signs of tenting; no cyanosis; no rashes, bruising, lesions, or erythema noted CV: chest wall NTP; RRR; S1/S2 normal; no murmurs/rubs/gallops; pulses intact and symmetric at radial, DP, and PT Lungs: no acute respiratory distress; symmetrical chest wall expansion; clear breath sounds across all lung olivera w/o adventitious sounds; no wheezing ABD: Soft, NTP; BS present; no rebound/guarding; no distention LLE: External rotation, shortened; left hip is NTP; left knee is mildly TTP MSK: no tics or fasciculations; no edema noted in the LEs b/l, nonerythematous; patient demonstrates ability wiggle toes bilaterally; patient reports pain with plantarflexion of the left foot; 5/5 instructional interventionist strength bilaterally; left shoulder is TTP, edematous (no bruising appreciated) Neuro: A&Ox3; normal mood and affect; fluent speech; no focal deficits; patient reports sensation is intact and symmetric in the upper extremities and lower extremity bilaterally assessed via light touch Results & Data Results & Data Vital Signs (Past 12 Hours) Vital Signs Temp Pulse Pulse Resp BP BP Pulse Ox 11/02/24 07:43 60 21 144/60 H 94 11/02/24 06:43 62 13 127/78 95 11/02/24 06:12 36.5 C 67 18 156/78 H 96 11/02/24 06:12 60 20 96 11/02/24 05:54 60 15 156/78 H 96 11/02/24 05:12 82 11/02/24 05:11 36.5 C 61 15 143/101 H 88 L O2 Del Method O2 Flow Rate 11/02/24 07:43 Nasal Cannula 3 11/02/24 06:43 Nasal Cannula 3 11/02/24 06:12 Nasal Cannula 3 11/02/24 06:12 Nasal Cannula 4 11/02/24 05:54 Nasal Cannula 11/02/24 05:12 11/02/24 05:11 Room Air Laboratory Results Abnormal lab results 11/02/24 11/02/24 11/02/24 Range/Units 05:26 05:36 Unknown WBC 16.78 H (4.8-10.8) K/ul RBC 3.59 L (4.20-5.40) M/uL Hct 35.5 L (37.0-47.0) % RDW Std Deviation 48.2 H (36.4-46.3) fL Neut # (Auto) 14.34 H (1.40-6.50) K/uL [place] # (Auto) 0.81 H (0.11-0.59) K/uL BUN/Creatinine Ratio 26.1 H (10-20) Glucose 233 H (70-99(Fasting)) mg/dl POC Glucose (other) 234 H (70-99) mg/dl Total Creatine Kinase 19 L (26-192) U/L Urine pH 8.5 H (4.5-7.5) Urine Glucose (UA) Trace H (Negative) Urine Ketones Trace H (Negative) Diagnostic Findings Chest X-Ray 11/02/24 05:11 EXAM: XR chest 1V portable CLINICAL HISTORY: Trauma TECHNIQUE: Radiograph of chest was acquired. COMPARISON: 08/30/2024 08:38:15 BRANDING MACHINE TENDER FINDINGS: Ill defined haziness in bilateral lung olivera - new finding Cardiomegaly - unchanged Rest of the lungs are clear and well-expanded with no pulmonary infiltrate or pleural effusion. Rest of the cardiomediastinal silhouette is within normal limits. No acute osseous abnormality. 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 IMPRESSION: 1. Interval unchanged Cardiomegaly 2. Ill defined haziness in bilateral lung olivera - likley pulmonary congestion- new finding Electronically signed by Niko Patel 11-02-2024 06:21 AM Hip/Pelvis X-Ray 11/02/24 05:11 EXAM: XR hip LT 2V w pelvis CLINICAL HISTORY: fall, pain TECHNIQUE: Radiograph of hip was acquired. COMPARISON: none FINDINGS: Displaced fracture of neck of femur with superior displacement of distal fracture fragment and increased soft tissue density around the left hip joint. There is no evidence ofosseous lesion. The hip joint space is preserved. The femoral head has a normal contour. Rest of the soft tissues are unremarkable. IMPRESSION: 1. Displaced fracture of neck of left femur as described above Electronically signed by Niko Patel 11-02-2024 06:27 AM Shoulder X-Ray 11/02/24 05:11 EXAM: XR shoulder LT min 2V routine CLINICAL HISTORY: fall, pain TECHNIQUE: Radiograph of left shoulder was acquired. COMPARISON: none FINDINGS: Multiple osteophytes noted involving left gleno-humeral joint. There is no evidence of acute fracture, dislocation or osseous lesion. The acromioclavicular joint space is preserved. The glenohumeral joint space is reduced The adjacent soft tissues appear unremarkable, with no evidence of joint effusion. IMPRESSION: Evidence of osteoarthritic changes noted involving left shoulder joint with decreased gleno-humeral joint space and multiple osteophytes involving humerus and scapula Electronically signed by Niko Patel 11-02-2024 06:[address] 11/02/24 05:12 EXAM: CT facial bones wo con CLINICAL HISTORY: fall L forehead heamtoma on eliquis TECHNIQUE: Computed tomography of the orbits/face was performed without intravenous contrast. Contiguous axial images were obtained. Reformatted coronal and sagittal images were also reviewed. CT scan was performed according to ALARA (as low as reasonable achievable). COMPARISON: 02/11/2022 10:32:42 BRANDING MACHINE TENDER FINDINGS: No acute facial fractures. The paranasal sinuses and mastoid air cells are clear. The globes, optic nerves, extraocular muscles and retro-orbital fat are grossly unremarkable. Reformatted imaging demonstrates intact roof and floor of the orbits. Included portions of the mandible are intact. The included intracranial substances and airway are unremarkable. Scalp hematoma with surrounding edema is seen in left frontal region. IMPRESSION: Scalp hematoma with surrounding edema is seen in left frontal region. No other significant abnormality detected Electronically signed by Niko Patel 11-02-2024 07:11 AM Abdomen/Pelvis CT 11/02/24 05:34 EXAM: CT abd pelvis IV con only CLINICAL HISTORY: fall, l hip pain, eliquis TECHNIQUE: Contiguous axial images were obtained from the level of the diaphragm to the pubic symphysis with intravenous contrast. Coronal and sagittal reconstructions were likewise performed and indicated to increase the sensitivity for detecting clinically relevant pathology. If IV contrast material had not been administered, the likelihood of detecting abnormalities relevant to the patient's condition would have been substantially decreased. CT scan was performed according to ALARA (as low as reasonable achievable). COMPARISON: 08/27/2024 14:38:51 BRANDING MACHINE TENDER FINDINGS: The visualized lung bases are clear. Sliding hiatus hernia noted. -stable. The liver is normal in size and attenuation. No focal liver lesions are seen. There is no intra or extrahepatic biliary ductal dilatation. Hepatic vasculature is patent. The gallbladder is distended and shows dense sludge.. The spleen, and adrenal glands are unremarkable. The pancreas appears normal in size shape and shows few tiny calcifications. The kidneys are normal in size and attenuation. There is no hydronephrosis or perinephric fat stranding. No renal calculi or renal masses are identified. Few simple cortical cyst are noted in both kidneys The ureters are normal in caliber and no ureteral calculi are seen. The bladder is normal in contour. Pelvic viscera are unremarkable. No focal or diffuse bowel wall thickening or evidence of bowel obstruction is identified. No inflammed appendix is visualized in the right lower quadrant. Abdominal and pelvic vasculature is patent. No adenopathy or fluid collections are seen. No aggressive appearing osseous lesions are identified. Bilateral sacroiliitis. Displaced fracture of neck of left femur. Fat containing infraumbilical hernia. Fat containing bilateral inguinal hernia. IMPRESSION: 1. Bilateral sacroiliitis.-stable. 2. Displaced fracture of neck of left femur.-new finding. 3. Fat containing infraumbilical hernia-stable. 4. Fat containing bilateral inguinal hernia.-stable. Electronically signed by Niko Patel 11-02-2024 07:[address] 11/02/24 05:34 EXAM: CT cervical spine wo con CLINICAL HISTORY: fall TECHNIQUE: Computed tomography of the cervical spine performed without intravenous contrast. Contiguous axial images were obtained from the skull base to T2, with sagittal and coronal reformatted images reconstructed from the axial data. CT scan was performed according to ALARA (as low as reasonable achievable). COMPARISON: None. FINDINGS: Loss of cervical lordosis - suggest possibility of muscle spasm/positional. Degenerative changes involving cervical spine in the form of multilevel marginal osteophytes, disc space reduction and facetal arthrosis. Cervical vertebral bodies are normal in height and alignment, with no evidence of fracture or subluxation. Lateral masses of C1 are symmetrical, and the dens is intact. Prevertebral soft tissues are not widened. The remaining suprahyoid and infrahyoid soft tissues in the neck are unremarkable. Posterior uncovertebral arthrosis is noted at C4-C5 to C6-C7 levels, which indenting ventral thecal sac and causes bilateral neuroforaminal narrowing. Thyroid gland appears unremarkable. IMPRESSION: 1.No acute fracture or subluxation in the cervical spine. 2.Cervical spondylosis. Electronically signed by Niko Patel 11-02-2024 07:[address] 11/02/24 05:34 EXAM: CT chest diagnostic w con CLINICAL HISTORY: fall, L shoulder pain, hypoxia TECHNIQUE: Contiguous axial images were obtained from the neck base through the upper abdomen following intravenous administration of contrast material. If IV contrast material had not been administered, the likelihood of detecting abnormalities relevant to the patient's condition would have been substantially decreased. In addition, sagittal and coronal reconstructions were performed. CT scan was performed according to ALARA (as low as reasonable achievable). COMPARISON: 07/14/2019 14:30:09 BRANDING MACHINE TENDER. FINDINGS: The lungs are clear, with no focal areas of consolidation. No pulmonary nodules are seen. The central airways are patent. There are no pleural effusions. No pneumothorax is seen. No axillary, hilar, or mediastinal adenopathy is identified. The visualized thyroid is unremarkable. The heart, aorta, and pulmonary arteries are of normal size and configuration. No pericardial effusion is identified. Imaged portions of the upper abdomen are unremarkable. No aggressive appearing osseous lesions are identified. IMPRESSION: No significant abnormality detected. Prior Consolidation and pleural effusion is completely resolved. Electronically signed by Niko Patel 11-02-2024 07:[address] 11/02/24 05:34 EXAM: CT head/brain wo con CLINICAL HISTORY: fall, eliquis, forehead hematoma TECHNIQUE: Multiple axial images are obtained from the skull base to the vertex without contrast. CT scan was performed according to ALARA (as low as reasonable achievable). COMPARISON: 01/05/2024 10:09:37 BRANDING MACHINE TENDER . FINDINGS: There is cerebral atrophy. No evidence of space occupying lesion, hemorrhage, edema, mass effect, midline shift, extra axial collection, or hydrocephalus is noted. Basal cisterns are symmetric and normal in size and configuration. There are scattered periventricular hypodensities as can be seen with chronic microvascular ischemic changes. The nava-white matter differentiation is preserved. Visualized paranasal sinuses and mastoid air cells are well aerated. Orbital contents are within normal limits. Bony structures are intact. Left frontal scalp hematoma noted. IMPRESSION: 1. No evidence of acute intracranial abnormality is demonstrated. 2. Chronic microvascular ischemic changes.-stable. 3. Cerebral atrophy.-stable. 4. Left frontal scalp hematoma noted. No other new interval abnormality since prior study. Electronically signed by Niko Patel 11-02-2024 07:12 AM Knee X-Ray 11/02/24 06:32 EXAM: XR knee LT 1 or 2V routine CLINICAL HISTORY: pain, fall TECHNIQUE: Radiograph of left knee was acquired. COMPARISON: none FINDINGS: [id number] lipping; osteophytes formation with subchondral sclerosis /OBX.[id number].5.1.2 asymmetrical joint space reduction involving tibiofemoral joint compartments ; suggestive of osteoarthritic changes./OBX.5.1.2/OBX.5.1 Patellofemoral joint space is maintained The soft tissues appear unremarkable. No evidence of joint effusion. 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 No acute fractures Disclaimer: A subtle bone abnormality or fracture may not be readily apparent on X-rays, thus clinical correlation and further imaging including follow-up CT, MRI, or follow-up X-rays are advised as needed. Electronically signed by Niko Patel 11-02-2024 08:01 AM ECG Additional Comments: ECG revealed atrial paced rhythm with prolonged AV conduction at 60 bpm; QTc 480 Code Status & VTE Plan Code Status DNR/DNI VTE Prophylaxis Plan VTE Prophylaxis will be ordered: Yes Supervising Physician Co-Signing Physician Notes I personally examined the patient and verified all carrera points of history and exam, discussed case, and agree with decision making with Nahum Baez PAC fell - shoulder and hip pain vitals noted bruised L face, L arm in sling. breathing unlabored no accessory muscles noted. labs and diagnostics noted fall - pacer interrogation without rhythm issues, echo without valvular disease to a severity as to cause syncope. ?vagal since it happened with void hip fx, shoulder fx - orthopedic management. medically acceptable risk for OR (anticipate this for hip, obviously will defer to ortho discretion but anticipate conservative for arm); outpt bone health w/u and management but presumed osteoporosis/osteoporotic fractures given severity of fractures from what sounds to have been no more than standing height. otherwise as above PG Care Time/CCT Total # of Minutes Spent Total Time Spent with Patient: Total time spent is greater than 50% in coordination of care (as documented) at patient's floor/unit and/or counseling patient: C[place] [address] INT INP/OBS CARE 3/75MIN Patient Type Established Medical Decision Making High Complexity Diagnoses Fracture of femoral neck, left S72.002A Syncope and collapse R55"
[2024-11-02] MEDS ORDERED: DEXTROSE 50% 50 ML SYRINGE IV PRN (10:36)
[2024-11-02] MEDS ORDERED: GLUCAGON FOR INJ 1 MG VIAL SQ PRN (10:36)
[2024-11-02] MEDS: LIDOCAINE 5% 1 PATCH TD STA (10:55)
[2024-11-02] MEDS: MoRPHine SULFATE 2 MG/ML CARP IV PRN (10:55)
[2024-11-02] MEDS: ACETAMINOPHEN 1,000 MG/100 ML VIAL IV PRN (11:58)
[2024-11-02] MEDS: INSULIN ASPART PER UNIT CHARGE SC SCH (11:58)
--- NOTE | 2024-11-02 17:49 | XCELERA ---
[id number] \\[email or web address]\[email or web address]_[id number]
--- NOTE | 2024-11-02 17:57 | CT Scan Report ---
EXAM: CT humerus LT wo con CLINICAL HISTORY: Impacted left humeral fracture. TECHNIQUE: Thin axial images of the left humerus without contrast were obtained with sagittal and coronal reconstruction. One of the following dose reduction techniques were utilized for this exam: Automated exposure control, adjustment of the mA and/or kV according to patient size, and use of iterative reconstruction. COMPARISON: None. FINDINGS: Bones: An impacted fracture of the left humeral neck, with a small laterally displaced bone fragment. No humeral head dislocation. No lytic or sclerotic lesions. Bone fragments related to the glenoid, likely degenerative osteophytosis. Few calcific densities related to the subscapularis tendon. Diffuse osteopenia. 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 Periarticular soft tissue thickening and oedematous changes. Subcutaneous oedematous changes and stranding, along the lateral aspect of the arm and shoulder,are likely post-traumatic. IMPRESSION: 1. Suspected impacted fracture of the left humeral surgical neck, with a small laterally displaced bone fragment. 2. Mild joint effusion. 3. Periarticular soft tissue thickening and oedematous changes. 4. Subcutaneous oedematous changes and stranding, along the lateral aspect of the arm and shoulder,are likely post-traumatic. 5. Diffuse osteopenia. Electronically signed by Leroy Melgar 11-02-2024 5:57 PM
--- NOTE | 2024-11-02 18:05 | Orthopedic Consultation ---
Date of Consultation November 02, 2024 Assessment & Plan (1) Fracture of femoral neck, left: Patient evaluated by Dr. Bray. Hip fracture was reviewed at bedside. Options of care and risks and benefits of surgery were reviewed. Patient would like to proceed with surgery. Surgery will be a left hip hemiarthroplasty. Consent form was completed by myself, and the risks and benefits and the form were outlined in detail and patient was given opportunity to ask questions. Consent form is signed and available in chart. Patient was evaluated medically today and at time of chart completion she is cleared for surgery tomorrow. She will be placed on the surgery schedule. N.p.o. after midnight. Continue to hold Eliquis. Pain management per primary service. Cool compresses to the left hip for pain and swelling. (2) Contusion of knee, left: Anterior pain and tenderness. No large effusion. Some soft tissue swelling is present. X-rays do not show any fracture. Challenging to obtain a thorough knee exam given hip fracture. Will continue to follow. Once she is able to ambulate if she is still having significant pain could consider a CT scan to evaluate for occult fracture however this is felt to be less likely given lack of effusion. Pain management as above. Cool compresses as above. Will continue to monitor. (3) Closed fracture of proximal end of left humerus: Fracture will be nonoperative management. Patient placed in a sling. Nonweightbearing and avoid significant range of motion. Can remove sling for hygiene. Cool compresses for pain. Pain control as above. Will follow in our office along with other injuries. Supervising Physician Co-Signing Physician Notes I, Dr. Bray, saw and examined the patient. I discussed the management with my PA. I reviewed my PAs note and agree with the documented findings and attest to completing the substantive portion of medical decision making and plan of care I developed. The patient is a 84 year old female who sustained a Traumatic Osteoporotic fracture of left femoral neck in setting of ground level fall. After orthopedic consult discussing the patients treatment options of conservative versus surgi juan r intervention, the patient agreed for a planned hemiarthroplasty. Since the patient was ambulatory prior to the injury and to avoid the risks of bed sores, pulmonary complications, and to give the patient the best chance for ambulation, I recommended surgery. The patient understands the risks of surgery, which include but are not limited to: bleeding, infection, re-operation, damage to nerves and arteries, continued pain, failure of the hardware, fracture, dislocation, DVT, [place], stroke, and . In addition, the patient is aware of the 20-30% morbidity associated with hip fracture for up to 1 year following a hip fracture. The patient understands all these instructions and explanations, all of their questions have been satisfactorily addressed. The patient has elected to proceed with surgery and the informed consent was signed. Continue pain control. NPO with fluids after midnight. The patient will be admitted to the Hospitalist service. The patient has been placed on the add-on list for tomorrow as she needs medical clearance and on Eliquis. Hold Eliquis. Will plan to proceed with surgery tomorrow if medically cleared. Ancef and TXA on-call to OR. Conservative management of the left proximal humerus fracture and knee pain. History of Present Illness Reason for Consultation: Left hip fracture Left proximal humerus fracture Requesting Physician: Mirtha Bray MD Attending Physician: Dread Hough DO History of Present Illness Arielle Madsen is an 84-year-old female with history of atrial fibrillation on apixaban, pacemaker, colon cancer, bowel resection, T2DM, gout, and hypothyroidism , accompanied by her son and her who presented to the emergency department via EMS after reportedly passing out on the toilet last night and was found down. She was unable to bear weight and had pain in the face, left shoulder, left hip, and left knee. Patient last took Eliquis at 5:30 PM on 11/01/2024. In the emergency department, patient underwent CT imaging and x-ray imaging. Was found to have a femoral neck fracture and suspected humeral neck fracture, and a hematoma over the right eye. Blood work and cardiac workup was also initiated. There was some concern about possible arrhythmia given possible syncopal episode. Patient has been admitted under the hospitalist service for further workup and management. Orthopedics is consulted. Patient states that the majority of her pain is located in the left hip region as well as her left shoulder. She also has some pain in the left knee. Denies any numbness or tingling in her fingers or toes. She has been unable to bear any weight. Allergies Allergy/AdvReac Type Severity Reaction Status Date / Time hydromorphone [From Dilaudid] Allergy Severe hallucinati Verified 11/02/24 08:43 on Home Medications Medication Instructions Recorded Confirmed Type calcium 600 mg (as 1 tab PO BID 06/10/18 11/02/24 History carbonate)-vitamin D3 5 mcg (200 unit) capsule (Calcium 600 + D(3)) magnesium oxide 400 mg PO QAM 06/10/18 11/02/24 History multivitamin 1 tab PO QAM 06/10/18 11/02/24 History blood sugar diagnostic (OneTouch #100 ea 06/12/23 09/08/24 Rx Verio test strips) lancets 30 gauge #100 ea 06/12/23 09/08/24 Rx metoprolol tartrate 100 mg tablet 150 mg (1.5 x 100 mg) PO BID #270 11/27/23 11/02/24 Rx tabs simvastatin 10 mg tablet 10 mg PO HS #90 tabs 12/01/23 11/02/24 Rx allopurinol 100 mg tablet 100 mg PO HS #90 tabs 12/09/23 11/02/24 Rx apixaban 5 mg tablet (Eliquis) 5 mg PO BID #180 tabs 12/09/23 11/02/24 Rx diltiazem HCl 180 mg 180 mg PO BID #180 caps 12/09/23 11/02/24 Rx capsule,extended release 24 hr glimepiride 4 mg tablet 4 mg PO BID #180 tabs 02/13/24 11/02/24 Rx losartan 25 mg tablet 25 mg PO DAILY #90 tabs 06/15/24 11/02/24 Rx levothyroxine 112 mcg tablet 112 mcg PO QAM #90 tabs 07/22/24 11/02/24 Rx metformin 500 mg tablet,extended 500 mg PO BID #180 tabs 07/22/24 11/02/24 Rx release 24 hr Patient History Medical History Controlled type 2 diabetes mellitus Atrial fibrillation Hypertension Diabetes mellitus type 2, uncontrolled Pneumonia (06/2019) On anticoagulant therapy eliquis daily Incisional hernia Tachy-herve syndrome History of colon cancer Diabetes mellitus, type 2 DIET MANAGED-NO MEDS Cancer COLON CANCER SOB (shortness of breath) on exertion Cardiac murmur Ankle fracture Surgical History History of colonoscopy History of right inguinal hernia repair History of incisional hernia repair History of cataract surgery R/L History of colostomy reversal Family History Brother Family history of diabetes mellitus Prostate cancer Daughter Breast cancer Sister HTN (hypertension), benign Family history of diabetes mellitus Other No family history of adverse response to anesthesia Denies family history of Ovarian cancer Myocardial infarction Colorectal cancer Social History Smoking Status: Never smoker Second Hand Exposure: No; Do You Dip or Chew Tobacco: No; Hx Alcohol Use: No Hx Substance Use: No Preferred Language: Cambodian Communication Ability: Effective Visual Impairment: No Limitations Hearing Ability: Hard of Hearing 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 Control Required: No Beliefs That Will Affect Care: None marital status: Current Living Situation: Spouse current occupational status: retired 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 Mildly uncomfortable, otherwise pleasant and answers questions appropriately. Conversational. Cardiovascular: Left radial and left DP pulse 2+ Musculoskeletal: Left upper extremity: Mild swelling about the shoulder. There is reproducible tenderness over the lateral shoulder and proximal humerus. Range of motion is significantly limited in all directions. Sling in place. Motor function with thumb extension, thumb opposition to little finger, resisted finger abduction, and wrist extension intact. Left lower extremity: Mild swelling about the left hip with tenderness in the greater trochanter region. No ecchymosis. Left leg is shortened and externally rotated. Significant pain with any active range of motion. Left knee with minimal soft tissue swelling, no ecchymosis. No effusion. Diffuse anterior tenderness is appreciated. Strength 5/5 with ankle plantarflexion and dorsiflexion, 4/5 with ankle eversion. Moves all toes. Skin: [place], warm, dry Neurologic: No sensory deficits in left fingers or axillary nerve distribution to light touch No sensory deficits in the left lower extremities L3-S1 distribution to light touch Results & Data Vital Signs (Past 12 Hours) Vital Signs Temp Pulse Pulse Resp BP BP Pulse Ox 11/02/24 17:40 98.2 F 64 18 150/78 H 92 11/02/24 10:22 97.5 F L 62 20 143/75 H 94 11/02/24 09:40 60 11/02/24 09:32 95 11/02/24 09:00 61 17 93 11/02/24 09:00 146/68 H 11/02/24 08:43 60 20 160/73 H 96 11/02/24 07:43 60 21 144/60 H 94 11/02/24 06:43 62 13 127/78 95 11/02/24 06:12 97.7 F 67 18 156/78 H 96 11/02/24 06:12 60 20 96 O2 Del Method O2 Flow Rate 11/02/24 17:40 Nasal Cannula 3 11/02/24 10:22 Nasal Cannula 3 11/02/24 09:40 11/02/24 09:32 Nasal Cannula 3 11/02/24 09:00 11/02/24 09:00 11/02/24 08:43 Nasal Cannula 3 11/02/24 07:43 Nasal Cannula 3 11/02/24 06:43 Nasal Cannula 3 11/02/24 06:12 Nasal Cannula 3 11/02/24 06:12 Nasal Cannula 4 Laboratory Results 11/02/24 11/02/24 11/02/24 Unknown 16:25 11:41 WBC RBC Hgb POC Hgb Hct POC Hct MCV MCH MCHC RDW Std Deviation RDW Coeff of Lenore Plt Count MPV Immature Gran % (Auto) Neut % (Auto) Lymph % (Auto) Delta % (Auto) Eos % (Auto) Baso % (Auto) Neut # (Auto) Lymph # (Auto) Delta # (Auto) Eos # (Auto) Baso # (Auto) Immature Gran # (Auto) PT INR APTT PTT Ratio POC Sodium Sodium POC Potassium Potassium POC Chloride Chloride Carbon Dioxide POC Total CO2 Anion Gap POC Anion Gap POC BUN BUN Creatinine POC Creatinine Est Cr Clr Drug Dosing eGFR BUN/Creatinine Ratio Glucose POC Glucose 174 H 229 H POC Glucose (other) Calcium POC Ioniz Calcium Tye Total Bilirubin AST ALT Alkaline Phosphatase Total Creatine Kinase Troponin I High Sens Total Protein Albumin Globulin Albumin/Globulin Ratio Lipase Urine Color Yellow Urine Appearance Clear Urine pH 8.5 H Ur Specific [place] 1.013 Urine Protein Negative Urine Glucose (UA) Trace H Urine Ketones Trace H Urine Blood Negative Urine Nitrite Negative Urine Bilirubin Negative Urine Urobilinogen Negative Ur Leukocyte Esterase Negative Urine Comment SARS-CoV-2 (PCR) Influenza Type A (PCR) Influenza Type B (PCR) RSV (RT-PCR) Blood Type 11/02/24 11/02/24 11/02/24 06:06 05:36 05:26 WBC 16.78 H RBC 3.59 L Hgb 12.0 POC Hgb 12.6 Hct 35.5 L POC Hct 37 MCV 98.9 MCH 33.4 MCHC 33.8 RDW Std Deviation 48.2 H RDW Coeff of Lenore 13.2 Plt Count 215 MPV 10.3 Immature Gran % (Auto) 1.0 Neut % (Auto) 85.3 Lymph % (Auto) 7.2 Delta % (Auto) 4.8 Eos % (Auto) 1.3 Baso % (Auto) 0.4 Neut # (Auto) 14.34 H Lymph # (Auto) 1.20 Delta # (Auto) 0.81 H Eos # (Auto) 0.21 Baso # (Auto) 0.06 Immature Gran # (Auto) 0.16 PT 11.7 INR 1.1 APTT 28 PTT Ratio 1.0 POC Sodium 138 Sodium 137 POC Potassium 3.7 Potassium 3.8 POC Chloride 103 Chloride 104 Carbon Dioxide 26 POC Total CO2 24 Anion Gap 7 POC Anion Gap 16.0 POC BUN 17 BUN 18 Creatinine 0.69 POC Creatinine 0.7 Est Cr Clr Drug Dosing 53.1 eGFR 84.99 BUN/Creatinine Ratio 26.1 H Glucose 233 H POC Glucose POC Glucose (other) 234 H Calcium 9.5 POC Ioniz Calcium Tye 1.25 Total Bilirubin 0.7 AST 20 ALT 13 Alkaline Phosphatase 52 Total Creatine Kinase 19 L Troponin I High Sens 11.4 Total Protein 6.8 Albumin 3.9 Globulin 2.9 Albumin/Globulin Ratio 1.3 Lipase 12 Urine Color Urine Appearance Urine pH Ur Specific [place] Urine Protein Urine Glucose (UA) Urine Ketones Urine Blood Urine Nitrite Urine Bilirubin Urine Urobilinogen Ur Leukocyte Esterase Urine Comment SARS-CoV-2 (PCR) NEGATIVE Influenza Type A (PCR) Negative Influenza Type B (PCR) Negative RSV (RT-PCR) Negative Blood Type A Positive Diagnostic Findings Chest X-Ray 11/02/24 05:11 EXAM: XR chest 1V portable CLINICAL HISTORY: Trauma TECHNIQUE: Radiograph of chest was acquired. COMPARISON: 08/30/2024 08:38:15 MEDICAL CERTIFICATION SPECIALIST FINDINGS: Ill defined haziness in bilateral lung olivera - new finding Cardiomegaly - unchanged Rest of the lungs are clear and well-expanded with no pulmonary infiltrate or pleural effusion. Rest of the cardiomediastinal silhouette is within normal limits. No acute osseous abnormality. 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 IMPRESSION: 1. Interval unchanged Cardiomegaly 2. Ill defined haziness in bilateral lung olivera - likley pulmonary congestion- new finding Electronically signed by Niko Patel 11-02-2024 06:21 AM Hip/Pelvis X-Ray 11/02/24 05:11 EXAM: XR hip LT 2V w pelvis CLINICAL HISTORY: fall, pain TECHNIQUE: Radiograph of hip was acquired. COMPARISON: none FINDINGS: Displaced fracture of neck of femur with superior displacement of distal fracture fragment and increased soft tissue density around the left hip joint. There is no evidence ofosseous lesion. The hip joint space is preserved. The femoral head has a normal contour. Rest of the soft tissues are unremarkable. IMPRESSION: 1. Displaced fracture of neck of left femur as described above Electronically signed by Niko Patel 11-02-2024 06:27 AM Shoulder X-Ray 11/02/24 05:11 EXAM: XR shoulder LT min 2V routine CLINICAL HISTORY: fall, pain TECHNIQUE: Radiograph of left shoulder was acquired. COMPARISON: none FINDINGS: Multiple osteophytes noted involving left gleno-humeral joint. There is no evidence of acute fracture, dislocation or osseous lesion. The acromioclavicular joint space is preserved. The glenohumeral joint space is reduced The adjacent soft tissues appear unremarkable, with no evidence of joint effusion. IMPRESSION: Evidence of osteoarthritic changes noted involving left shoulder joint with decreased gleno-humeral joint space and multiple osteophytes involving humerus and scapula Electronically signed by Niko Patel 11-02-2024 06:[address] 11/02/24 05:12 EXAM: CT facial bones wo con CLINICAL HISTORY: fall L forehead heamtoma on eliquis TECHNIQUE: Computed tomography of the orbits/face was performed without intravenous contrast. Contiguous axial images were obtained. Reformatted coronal and sagittal images were also reviewed. CT scan was performed according to ALARA (as low as reasonable achievable). COMPARISON: 02/11/2022 10:32:42 MEDICAL CERTIFICATION SPECIALIST FINDINGS: No acute facial fractures. The paranasal sinuses and mastoid air cells are clear. The globes, optic nerves, extraocular muscles and retro-orbital fat are grossly unremarkable. Reformatted imaging demonstrates intact roof and floor of the orbits. Included portions of the mandible are intact. The included intracranial substances and airway are unremarkable. Scalp hematoma with surrounding edema is seen in left frontal region. IMPRESSION: Scalp hematoma with surrounding edema is seen in left frontal region. No other significant abnormality detected Electronically signed by Niko Patel 11-02-2024 07:11 AM Abdomen/Pelvis CT 11/02/24 05:34 EXAM: CT abd pelvis IV con only CLINICAL HISTORY: fall, l hip pain, eliquis TECHNIQUE: Contiguous axial images were obtained from the level of the diaphragm to the pubic symphysis with intravenous contrast. Coronal and sagittal reconstructions were likewise performed and indicated to increase the sensitivity for detecting clinically relevant pathology. If IV contrast material had not been administered, the likelihood of detecting abnormalities relevant to the patient's condition would have been substantially decreased. CT scan was performed according to ALARA (as low as reasonable achievable). COMPARISON: 08/27/2024 14:38:51 MEDICAL CERTIFICATION SPECIALIST FINDINGS: The visualized lung bases are clear. Sliding hiatus hernia noted. -stable. The liver is normal in size and attenuation. No focal liver lesions are seen. There is no intra or extrahepatic biliary ductal dilatation. Hepatic vasculature is patent. The gallbladder is distended and shows dense sludge.. The spleen, and adrenal glands are unremarkable. The pancreas appears normal in size shape and shows few tiny calcifications. The kidneys are normal in size and attenuation. There is no hydronephrosis or perinephric fat stranding. No renal calculi or renal masses are identified. Few simple cortical cyst are noted in both kidneys The ureters are normal in caliber and no ureteral calculi are seen. The bladder is normal in contour. Pelvic viscera are unremarkable. No focal or diffuse bowel wall thickening or evidence of bowel obstruction is identified. No inflammed appendix is visualized in the right lower quadrant. Abdominal and pelvic vasculature is patent. No adenopathy or fluid collections are seen. No aggressive appearing osseous lesions are identified. Bilateral sacroiliitis. Displaced fracture of neck of left femur. Fat containing infraumbilical hernia. Fat containing bilateral inguinal hernia. IMPRESSION: 1. Bilateral sacroiliitis.-stable. 2. Displaced fracture of neck of left femur.-new finding. 3. Fat containing infraumbilical hernia-stable. 4. Fat containing bilateral inguinal hernia.-stable. Electronically signed by Niko Patel 11-02-2024 07:[address] 11/02/24 05:34 EXAM: CT cervical spine wo con CLINICAL HISTORY: fall TECHNIQUE: Computed tomography of the cervical spine performed without intravenous contrast. Contiguous axial images were obtained from the skull base to T2, with sagittal and coronal reformatted images reconstructed from the axial data. CT scan was performed according to ALARA (as low as reasonable achievable). COMPARISON: None. FINDINGS: Loss of cervical lordosis - suggest possibility of muscle spasm/positional. Degenerative changes involving cervical spine in the form of multilevel marginal osteophytes, disc space reduction and facetal arthrosis. Cervical vertebral bodies are normal in height and alignment, with no evidence of fracture or subluxation. Lateral masses of C1 are symmetrical, and the dens is intact. Prevertebral soft tissues are not widened. The remaining suprahyoid and infrahyoid soft tissues in the neck are unremarkable. Posterior uncovertebral arthrosis is noted at C4-C5 to C6-C7 levels, which indenting ventral thecal sac and causes bilateral neuroforaminal narrowing. Thyroid gland appears unremarkable. IMPRESSION: 1.No acute fracture or subluxation in the cervical spine. 2.Cervical spondylosis. Electronically signed by Niko Patel 11-02-2024 07:[address] 11/02/24 05:34 EXAM: CT chest diagnostic w con CLINICAL HISTORY: fall, L shoulder pain, hypoxia TECHNIQUE: Contiguous axial images were obtained from the neck base through the upper abdomen following intravenous administration of contrast material. If IV contrast material had not been administered, the likelihood of detecting abnormalities relevant to the patient's condition would have been substantially decreased. In addition, sagittal and coronal reconstructions were performed. CT scan was performed according to ALARA (as low as reasonable achievable). COMPARISON: 07/14/2019 14:30:09 MEDICAL CERTIFICATION SPECIALIST. FINDINGS: The lungs are clear, with no focal areas of consolidation. No pulmonary nodules are seen. The central airways are patent. There are no pleural effusions. No pneumothorax is seen. No axillary, hilar, or mediastinal adenopathy is identified. The visualized thyroid is unremarkable. The heart, aorta, and pulmonary arteries are of normal size and configuration. No pericardial effusion is identified. Imaged portions of the upper abdomen are unremarkable. No aggressive appearing osseous lesions are identified. IMPRESSION: No significant abnormality detected. Prior Consolidation and pleural effusion is completely resolved. Electronically signed by Niko Patel 11-02-2024 07:[address] 11/02/24 05:34 EXAM: CT head/brain wo con CLINICAL HISTORY: fall, eliquis, forehead hematoma TECHNIQUE: Multiple axial images are obtained from the skull base to the vertex without contrast. CT scan was performed according to ALARA (as low as reasonable achievable). COMPARISON: 01/05/2024 10:09:37 MEDICAL CERTIFICATION SPECIALIST . FINDINGS: There is cerebral atrophy. No evidence of space occupying lesion, hemorrhage, edema, mass effect, midline shift, extra axial collection, or hydrocephalus is noted. Basal cisterns are symmetric and normal in size and configuration. There are scattered periventricular hypodensities as can be seen with chronic microvascular ischemic changes. The nava-white matter differentiation is preserved. Visualized paranasal sinuses and mastoid air cells are well aerated. Orbital contents are within normal limits. Bony structures are intact. Left frontal scalp hematoma noted. IMPRESSION: 1. No evidence of acute intracranial abnormality is demonstrated. 2. Chronic microvascular ischemic changes.-stable. 3. Cerebral atrophy.-stable. 4. Left frontal scalp hematoma noted. No other new interval abnormality since prior study. Electronically signed by Niko Patel 11-02-2024 07:12 AM Knee X-Ray 11/02/24 06:32 EXAM: XR knee LT 1 or 2V routine CLINICAL HISTORY: pain, fall TECHNIQUE: Radiograph of left knee was acquired. COMPARISON: none FINDINGS: [id number] lipping; osteophytes formation with subchondral sclerosis /[id number] asymmetrical joint space reduction involving tibiofemoral joint compartments ; suggestive of osteoarthritic changes./OBX.5.1.2/OBX.5.1 Patellofemoral joint space is maintained The soft tissues appear unremarkable. No evidence of joint effusion. 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 No acute fractures Disclaimer: A subtle bone abnormality or fracture may not be readily apparent on X-rays, thus clinical correlation and further imaging including follow-up CT, MRI, or follow-up X-rays are advised as needed. Electronically signed by Niko Patel 11-02-2024 08:[address] 11/02/24 13:05 EXAM: CT humerus LT wo con CLINICAL HISTORY: Impacted left humeral fracture. TECHNIQUE: Thin axial images of the left humerus without contrast were obtained with sagittal and coronal reconstruction. One of the following dose reduction techniques were utilized for this exam: Automated exposure control, adjustment of the mA and/or kV according to patient size, and use of iterative reconstruction. COMPARISON: None. FINDINGS: Bones: An impacted fracture of the left humeral neck, with a small laterally displaced bone fragment. No humeral head dislocation. No lytic or sclerotic lesions. Bone fragments related to the glenoid, likely degenerative osteophytosis. Few calcific densities related to the subscapularis tendon. Diffuse osteopenia. 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 Periarticular soft tissue thickening and oedematous changes. Subcutaneous oedematous changes and stranding, along the lateral aspect of the arm and shoulder,are likely post-traumatic. IMPRESSION: 1. Suspected impacted fracture of the left humeral surgical neck, with a small laterally displaced bone fragment. 2. Mild joint effusion. 3. Periarticular soft tissue thickening and oedematous changes. 4. Subcutaneous oedematous changes and stranding, along the lateral aspect of the arm and shoulder,are likely post-traumatic. 5. Diffuse osteopenia. Electronically signed by Leroy Melgar 11-02-2024 5:57 PM (1) Fracture of femoral neck, left Encounter type: initial encounter Fracture type: closed Qualified Code(s): S72.002A - Fracture of unspecified part of neck of left femur, initial encounter for closed fracture (2) Contusion of knee, left Encounter type: initial encounter Qualified Code(s): S80.02XA - Contusion of left knee, initial encounter (3) Closed fracture of proximal end of left humerus Encounter type: initial encounter Fracture alignment: nondisplaced Fracture morphology: other fracture Qualified Code(s): S42.295A - Other nondisplaced fracture of upper end of left humerus, initial encounter for closed fracture
[2024-11-02] MEDS: MoRPHine SULFATE 2 MG/ML CARP IV STA (18:40)
[2024-11-02] MEDS: ACETAMINOPHEN 1,000 MG/100 ML VIAL IV SCH (18:40)
[2024-11-02] MEDS: allopurinoL 100 MG TAB PO SCH (21:21)
[2024-11-02] MEDS: METOPROLOL TARTRATE 50 MG TAB PO SCH (21:21)
[2024-11-02] MEDS: dilTIAZem HCL 180 MG CAPCR PO SCH (21:21)
[2024-11-02] MEDS: SIMVASTATIN 10 MG TAB PO SCH (21:21)
[2024-11-02] MEDS: KETOROLAC TROMETHAMINE 15 MG/ML VIAL IV PRN (22:03)
[2024-11-03] MEDS: ONDANSETRON INJ 2 MG/ML 2 ML VIAL IV PRN (01:49)
[2024-11-03] MEDS: MoRPHine SULFATE 2 MG/ML CARP IV PRN (01:50)
[2024-11-03] MEDS: LEVOTHYROXINE SODIUM 112 MCG TABLET PO SCH (06:37)
[2024-11-03 06:50] LABS: Basophils # (auto) 0.08 K/uL (0.00-0.20); Basophils % (auto) 0.7 %; Eosinophils # (auto) 0.69 K/uL (0.00-0.50); Eosinophils % (auto) 6.3 %; Hemoglobin 11.4 g/dl (12.0-16.0); Immature Granulocytes # (auto) 0.05 K/uL (0.01-0.20); Immature Granulocytes % (auto) 0.5 %; Lymphocytes # (auto) 1.19 K/uL (1.20-3.40); Lymphocytes % (auto) 10.8 %; Mean Corpuscular Hgb Conc 34.5 g/dL (32.0-36.0); Mean Corpuscular Volume 98.5 fL (80.0-100.0); Mean Platelet Volume 10.9 fL (9.4-12.4); Monocytes # (auto) 0.73 K/uL (0.11-0.59); Monocytes % (auto) 6.6 %; Neutrophils % (auto) 75.1 %; Platelet Count 160 K/uL (130-400); RDW Coefficient of Variation 13.3 % (11.5-14.5); RDW Standard Deviation 48.2 fL (36.4-46.3); Red Blood Count 3.35 M/uL (4.20-5.40); White Blood Count 11.04 K/ul (4.8-10.8)
[2024-11-03 07:24] LABS: BUN Creatinine Ratio 27.4 (10-20); Calcium 8.8 mg/dl (8.6-10.3); Creatinine Clr Calc Pharmacy 42.5 ml/min
[2024-11-03] MEDS: MAGNESIUM OXIDE 400 MG TAB PO SCH (07:25)
[2024-11-03] MEDS: LIDOCAINE 5% 1 PATCH TD SCH (07:26)
[2024-11-03 07:35] LABS: Estimated Average Glucose 163 mg/dl; Hemoglobin A1C 7.3 % (4.5-5.6)
--- NOTE | 2024-11-03 08:14 | Orthopedic Progress Note ---
Date of Service November 03, 2024 Assessment & Plan (1) Fracture of femoral neck, left: Plan: The patient is a 84 year old female who sustained a Traumatic Osteoporotic fracture of left femoral neck in setting of ground level fall. After orthopedic consult discussing the patients treatment options of conservative versus surgical intervention, the patient agreed for a planned hemiarthroplasty. Since the patient was ambulatory prior to the injury and to avoid the risks of bed sores, pulmonary complications, and to give the patient the best chance for ambulation, I recommended surgery. The patient understands the risks of surgery, which include but are not limited to: bleeding, infection, re- operation, damage to nerves and arteries, continued pain, failure of the hardware, fracture, dislocation, DVT, MA, stroke, and . In addition, the patient is aware of the 20-30% morbidity associated with hip fracture for up to 1 year following a hip fracture. The patient understands all these instructions and explanations, all of their questions have been satisfactorily addressed. The patient has elected to proceed with surgery and the informed consent was signed. Continue pain control. NPO with fluids since midnight. The patient was admitted to the Hospitalist service. The patient has been placed on the add-on list for later today medically cleared and Eliquis on hold. Ancef and TXA on- call to OR. Pain management per primary service. NWLinus DOSHI. (2) Contusion of knee, left: Plan: Pain management as above. RICE. Will continue to monitor. (3) Closed fracture of proximal end of left humerus: Plan: Nonoperative management. Sling for comfort. Nonweightbearing and avoid significant range of motion for time being. Can remove sling for hygiene. RICE. Pain control as above. Will follow in our office along with other injuries. Admission and Anticipated Discharge Date Admission Date: November 02, 2024 Subjective Painful when moving Physical Exam Physical Exam: LUE: 2+ radial pulse. Motor median, radial, ulnar, AIN, PIN intact. + Swelling shoulder. + TTP shoulder. LLE: Shortened and externally rotated. BCR < 2 sec. Wiggling toes. Calf soft and non-tender. + Bruising anterior knee. Results & Data Vital Signs (Past 12 Hours) Vital Signs Temp Pulse Pulse Resp BP Pulse Ox O2 Del Method 11/03/24 07:41 36.7 C 64 18 129/72 93 Nasal Cannula 11/03/24 04:00 36.6 C 60 18 137/74 93 Nasal Cannula 11/02/24 23:14 36.7 C 60 18 155/77 H 96 Nasal Cannula 11/02/24 22:01 67 O2 Flow Rate 11/03/24 07:41 3 11/03/24 04:00 3 11/02/24 23:14 3 11/02/24 22:01 Laboratory Results Laboratory Results WBC 11.04 K/ul (4.8-10.8) H 11/03/24 05:59 RBC 3.35 M/uL (4.20-5.40) L 11/03/24 05:59 Hgb 11.4 g/dl (12.0-16.0) L 11/03/24 05:59 POC Hgb 12.6 g/dl (12.0-16.0) 11/02/24 05:36 Hct 33.0 % (37.0-47.0) L 11/03/24 05:59 POC Hct 37 % (37-47) 11/02/24 05:36 MCV 98.5 fL (80.0-100.0) 11/03/24 05:59 MCH 34.0 pg (25.0-34.0) 11/03/24 05:59 MCHC 34.5 g/dL (32.0-36.0) 11/03/24 05:59 RDW Std Deviation 48.2 fL (36.4-46.3) H 11/03/24 05:59 RDW Coeff of Lenore 13.3 % (11.5-14.5) 11/03/24 05:59 Plt Count 160 K/uL (130-400) 11/03/24 05:59 MPV 10.9 fL (9.4-12.4) 11/03/24 05:59 Immature Gran % (Auto) 0.5 % 11/03/24 05:59 Neut % (Auto) 75.1 % 11/03/24 05:59 Lymph % (Auto) 10.8 % 11/03/24 05:59 O'Brien % (Auto) 6.6 % 11/03/24 05:59 Eos % (Auto) 6.3 % 11/03/24 05:59 Baso % (Auto) 0.7 % 11/03/24 05:59 Neut # (Auto) 8.30 K/uL (1.40-6.50) H 11/03/24 05:59 Lymph # (Auto) 1.19 K/uL (1.20-3.40) L 11/03/24 05:59 O'Brien # (Auto) 0.73 K/uL (0.11-0.59) H 11/03/24 05:59 Eos # (Auto) 0.69 K/uL (0.00-0.50) H 11/03/24 05:59 Baso # (Auto) 0.08 K/uL (0.00-0.20) 11/03/24 05:59 Immature Gran # (Auto) 0.05 K/uL (0.01-0.20) 11/03/24 05:59 PT 11.7 Seconds (9.0-12.0) 11/02/24 05:26 INR 1.1 (0.9-1.1) 11/02/24 05:26 APTT 28 Seconds (21-31) 11/02/24 05:26 PTT Ratio 1.0 11/02/24 05:26 POC Sodium 138 mmol/L (135-144) 11/02/24 05:36 Sodium 138 mmol/L (136-145) 11/03/24 05:59 POC Potassium 3.7 mmol/L (3.3-5.0) 11/02/24 05:36 Potassium 4.0 mmol/L (3.5-5.1) 11/03/24 05:59 POC Chloride 103 mmol/L (101-112) 11/02/24 05:36 Chloride 104 mmol/L (98-107) 11/03/24 05:59 Carbon Dioxide 27 mmol/L (21-32) 11/03/24 05:59 POC Total CO2 24 mmol/L (24-31) 11/02/24 05:36 Anion Gap 7 (3-11) 11/03/24 05:59 POC Anion Gap 16.0 mmol/L (16-25) 11/02/24 05:36 POC BUN 17 mg/dl (7-18) 11/02/24 05:36 BUN 23 mg/dl (6-23) 11/03/24 05:59 Creatinine 0.84 mg/dl (0.6-1.2) 11/03/24 05:59 POC Creatinine 0.7 mg/dl (0.6-1.3) 11/02/24 05:36 Est Cr Clr Drug Dosing 42.5 ml/min 11/03/24 05:59 eGFR 68.06 11/03/24 05:59 BUN/Creatinine Ratio 27.4 (10-20) H 11/03/24 05:59 Glucose 163 mg/dl (70-99(Fasting)) H 11/03/24 05:59 POC Glucose 147 mg/dl (70-99) H 11/03/24 07:01 POC Glucose (other) 234 mg/dl (70-99) H 11/02/24 05:36 Estimat Average Glucose 163 mg/dl 11/03/24 05:59 Hemoglobin A1c 7.3 % (4.5-5.6) H 11/03/24 05:59 Calcium 8.8 mg/dl (8.6-10.3) 11/03/24 05:59 POC Ioniz Calcium Tye 1.25 mmol/l (1.12-1.32) 11/02/24 05:36 Total Bilirubin 0.7 mg/dl (0.2-1.0) 11/02/24 05:26 AST 20 U/L (13-39) 11/02/24 05:26 ALT 13 U/L (7-52) 11/02/24 05:26 Alkaline Phosphatase 52 U/L (34-104) 11/02/24 05:26 Total Creatine Kinase 19 U/L (26-192) L 11/02/24 05:26 Troponin I High Sens 11.4 pg/ml (0-14) 11/02/24 05:26 Total Protein 6.8 gm/dl (6.0-8.3) 11/02/24 05:26 Albumin 3.9 gm/dl (3.4-5.0) 11/02/24 05:26 Globulin 2.9 gm/dl (2.5-4.0) 11/02/24 05:26 Albumin/Globulin Ratio 1.3 (0.9-2) 11/02/24 05:26 Lipase 12 U/L (11-82) 11/02/24 05:26 Urine Color Yellow 11/02/24 Unknown Urine Appearance Clear (Clear) 11/02/24 Unknown Urine pH 8.5 (4.5-7.5) H 11/02/24 Unknown Ur Specific Grant 1.013 (1.000-1.030) 11/02/24 Unknown Urine Protein Negative (Negative) 11/02/24 Unknown Urine Glucose (UA) Trace (Negative) H 11/02/24 Unknown Urine Ketones Trace (Negative) H 11/02/24 Unknown Urine Blood Negative (Negative) 11/02/24 Unknown Urine Nitrite Negative (Negative) 11/02/24 Unknown Urine Bilirubin Negative (Negative) 11/02/24 Unknown Urine Urobilinogen Negative (Negative) 11/02/24 Unknown Ur Leukocyte Esterase Negative (Negative) 11/02/24 Unknown Urine Comment 11/02/24 Unknown SARS-CoV-2 (PCR) NEGATIVE (Negative) 11/02/24 06:06 Influenza Type A (PCR) Negative (Neg) 11/02/24 06:06 Influenza Type B (PCR) Negative (Neg) 11/02/24 06:06 RSV (RT-PCR) Negative (Neg) 11/02/24 06:06 Blood Type A Positive 11/02/24 05:26 Impressions Chest X-Ray 11/02/24 05:11 EXAM: XR chest 1V portable CLINICAL HISTORY: Trauma TECHNIQUE: Radiograph of chest was acquired. COMPARISON: 08/30/2024 08:38:15 UPSETTING MACHINE OPERATOR FINDINGS: Ill defined haziness in bilateral lung olivera - new finding Cardiomegaly - unchanged Rest of the lungs are clear and well-expanded with no pulmonary infiltrate or pleural effusion. Rest of the cardiomediastinal silhouette is within normal limits. No acute osseous abnormality. 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 IMPRESSION: 1. Interval unchanged Cardiomegaly 2. Ill defined haziness in bilateral lung olivera - alicialey pulmonary congestion- new finding Electronically signed by Niko Patel 11-02-2024 06:21 AM Hip/Pelvis X-Ray 11/02/24 05:11 EXAM: XR hip LT 2V w pelvis CLINICAL HISTORY: fall, pain TECHNIQUE: Radiograph of hip was acquired. COMPARISON: none FINDINGS: Displaced fracture of neck of femur with superior displacement of distal fracture fragment and increased soft tissue density around the left hip joint. There is no evidence ofosseous lesion. The hip joint space is preserved. The femoral head has a normal contour. Rest of the soft tissues are unremarkable. IMPRESSION: 1. Displaced fracture of neck of left femur as described above Electronically signed by Niko Patel 11-02-2024 06:27 AM Shoulder X-Ray 11/02/24 05:11 EXAM: XR shoulder LT min 2V routine CLINICAL HISTORY: fall, pain TECHNIQUE: Radiograph of left shoulder was acquired. COMPARISON: none FINDINGS: Multiple osteophytes noted involving left gleno-humeral joint. There is no evidence of acute fracture, dislocation or osseous lesion. The acromioclavicular joint space is preserved. The glenohumeral joint space is reduced The adjacent soft tissues appear unremarkable, with no evidence of joint effusion. IMPRESSION: Evidence of osteoarthritic changes noted involving left shoulder joint with decreased gleno-humeral joint space and multiple osteophytes involving humerus and scapula Electronically signed by Niko Patel 11-02-2024 06:[address] 11/02/24 05:12 EXAM: CT facial bones wo con CLINICAL HISTORY: fall L forehead heamtoma on eliquis TECHNIQUE: Computed tomography of the orbits/face was performed without intravenous contrast. Contiguous axial images were obtained. Reformatted coronal and sagittal images were also reviewed. CT scan was performed according to ALARA (as low as reasonable achievable). COMPARISON: 02/11/2022 10:32:42 UPSETTING MACHINE OPERATOR FINDINGS: No acute facial fractures. The paranasal sinuses and mastoid air cells are clear. The globes, optic nerves, extraocular muscles and retro-orbital fat are grossly unremarkable. Reformatted imaging demonstrates intact roof and floor of the orbits. Included portions of the mandible are intact. The included intracranial substances and airway are unremarkable. Scalp hematoma with surrounding edema is seen in left frontal region. IMPRESSION: Scalp hematoma with surrounding edema is seen in left frontal region. No other significant abnormality detected Electronically signed by Niko Patel 11-02-2024 07:11 AM Abdomen/Pelvis CT 11/02/24 05:34 EXAM: CT abd pelvis IV con only CLINICAL HISTORY: fall, l hip pain, eliquis TECHNIQUE: Contiguous axial images were obtained from the level of the diaphragm to the pubic symphysis with intravenous contrast. Coronal and sagittal reconstructions were likewise performed and indicated to increase the sensitivity for detecting clinically relevant pathology. If IV contrast material had not been administered, the likelihood of detecting abnormalities relevant to the patient's condition would have been substantially decreased. CT scan was performed according to ALARA (as low as reasonable achievable). COMPARISON: 08/27/2024 14:38:51 UPSETTING MACHINE OPERATOR FINDINGS: The visualized lung bases are clear. Sliding hiatus hernia noted. -stable. The liver is normal in size and attenuation. No focal liver lesions are seen. There is no intra or extrahepatic biliary ductal dilatation. Hepatic vasculature is patent. The gallbladder is distended and shows dense sludge.. The spleen, and adrenal glands are unremarkable. The pancreas appears normal in size shape and shows few tiny calcifications. The kidneys are normal in size and attenuation. There is no hydronephrosis or perinephric fat stranding. No renal calculi or renal masses are identified. Few simple cortical cyst are noted in both kidneys The ureters are normal in caliber and no ureteral calculi are seen. The bladder is normal in contour. Pelvic viscera are unremarkable. No focal or diffuse bowel wall thickening or evidence of bowel obstruction is identified. No inflammed appendix is visualized in the right lower quadrant. Abdominal and pelvic vasculature is patent. No adenopathy or fluid collections are seen. No aggressive appearing osseous lesions are identified. Bilateral sacroiliitis. Displaced fracture of neck of left femur. Fat containing infraumbilical hernia. Fat containing bilateral inguinal hernia. IMPRESSION: 1. Bilateral sacroiliitis.-stable. 2. Displaced fracture of neck of left femur.-new finding. 3. Fat containing infraumbilical hernia-stable. 4. Fat containing bilateral inguinal hernia.-stable. Electronically signed by Niko Patel 11-02-2024 07:[address] 11/02/24 05:34 EXAM: CT cervical spine wo con CLINICAL HISTORY: fall TECHNIQUE: Computed tomography of the cervical spine performed without intravenous contrast. Contiguous axial images were obtained from the skull base to T2, with sagittal and coronal reformatted images reconstructed from the axial data. CT scan was performed according to ALARA (as low as reasonable achievable). COMPARISON: None. FINDINGS: Loss of cervical lordosis - suggest possibility of muscle spasm/positional. Degenerative changes involving cervical spine in the form of multilevel marginal osteophytes, disc space reduction and facetal arthrosis. Cervical vertebral bodies are normal in height and alignment, with no evidence of fracture or subluxation. Lateral masses of C1 are symmetrical, and the dens is intact. Prevertebral soft tissues are not widened. The remaining suprahyoid and infrahyoid soft tissues in the neck are unremarkable. Posterior uncovertebral arthrosis is noted at C4-C5 to C6-C7 levels, which indenting ventral thecal sac and causes bilateral neuroforaminal narrowing. Thyroid gland appears unremarkable. IMPRESSION: 1.No acute fracture or subluxation in the cervical spine. 2.Cervical spondylosis. Electronically signed by Niko Patel 11-02-2024 07:[address] 11/02/24 05:34 EXAM: CT chest diagnostic w con CLINICAL HISTORY: fall, L shoulder pain, hypoxia TECHNIQUE: Contiguous axial images were obtained from the neck base through the upper abdomen following intravenous administration of contrast material. If IV contrast material had not been administered, the likelihood of detecting abnormalities relevant to the patient's condition would have been substantially decreased. In addition, sagittal and coronal reconstructions were performed. CT scan was performed according to ALARA (as low as reasonable achievable). COMPARISON: 07/14/2019 14:30:09 UPSETTING MACHINE OPERATOR. FINDINGS: The lungs are clear, with no focal areas of consolidation. No pulmonary nodules are seen. The central airways are patent. There are no pleural effusions. No pneumothorax is seen. No axillary, hilar, or mediastinal adenopathy is identified. The visualized thyroid is unremarkable. The heart, aorta, and pulmonary arteries are of normal size and configuration. No pericardial effusion is identified. Imaged portions of the upper abdomen are unremarkable. No aggressive appearing osseous lesions are identified. IMPRESSION: No significant abnormality detected. Prior Consolidation and pleural effusion is completely resolved. Electronically signed by Niko Patel 11-02-2024 07:[address] 11/02/24 05:34 EXAM: CT head/brain wo con CLINICAL HISTORY: fall, eliquis, forehead hematoma TECHNIQUE: Multiple axial images are obtained from the skull base to the vertex without contrast. CT scan was performed according to ALARA (as low as reasonable achievable). COMPARISON: 01/05/2024 10:09:37 UPSETTING MACHINE OPERATOR . FINDINGS: There is cerebral atrophy. No evidence of space occupying lesion, hemorrhage, edema, mass effect, midline shift, extra axial collection, or hydrocephalus is noted. Basal cisterns are symmetric and normal in size and configuration. There are scattered periventricular hypodensities as can be seen with chronic microvascular ischemic changes. The nava-white matter differentiation is preserved. Visualized paranasal sinuses and mastoid air cells are well aerated. Orbital contents are within normal limits. Bony structures are intact. Left frontal scalp hematoma noted. IMPRESSION: 1. No evidence of acute intracranial abnormality is demonstrated. 2. Chronic microvascular ischemic changes.-stable. 3. Cerebral atrophy.-stable. 4. Left frontal scalp hematoma noted. No other new interval abnormality since prior study. Electronically signed by Niko Patel 11-02-2024 07:12 AM Knee X-Ray 11/02/24 06:32 EXAM: XR knee LT 1 or 2V routine CLINICAL HISTORY: pain, fall TECHNIQUE: Radiograph of left knee was acquired. COMPARISON: none FINDINGS: [id number] lipping; osteophytes formation with subchondral sclerosis /OBX.[id number].5.1.2 asymmetrical joint space reduction involving tibiofemoral joint compartments ; suggestive of osteoarthritic changes./OBX.5.1.2/OBX.5.1 Patellofemoral joint space is maintained The soft tissues appear unremarkable. No evidence of joint effusion. 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 No acute fractures Disclaimer: A subtle bone abnormality or fracture may not be readily apparent on X-rays, thus clinical correlation and further imaging including follow-up CT, MRI, or follow-up X-rays are advised as needed. Electronically signed by Niko Patel 11-02-2024 08:[address] 11/02/24 13:05 EXAM: CT humerus LT wo con CLINICAL HISTORY: Impacted left humeral fracture. TECHNIQUE: Thin axial images of the left humerus without contrast were obtained with sagittal and coronal reconstruction. One of the following dose reduction techniques were utilized for this exam: Automated exposure control, adjustment of the mA and/or kV according to patient size, and use of iterative reconstruction. COMPARISON: None. FINDINGS: Bones: An impacted fracture of the left humeral neck, with a small laterally displaced bone fragment. No humeral head dislocation. No lytic or sclerotic lesions. Bone fragments related to the glenoid, likely degenerative osteophytosis. Few calcific densities related to the subscapularis tendon. Diffuse osteopenia. 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 Periarticular soft tissue thickening and oedematous changes. Subcutaneous oedematous changes and stranding, along the lateral aspect of the arm and shoulder,are likely post-traumatic. IMPRESSION: 1. Suspected impacted fracture of the left humeral surgical neck, with a small laterally displaced bone fragment. 2. Mild joint effusion. 3. Periarticular soft tissue thickening and oedematous changes. 4. Subcutaneous oedematous changes and stranding, along the lateral aspect of the arm and shoulder,are likely post-traumatic. 5. Diffuse osteopenia. Electronically signed by Leroy Melgar 11-02-2024 5:57 PM (1) Fracture of femoral neck, left Encounter type: initial encounter Fracture type: closed Qualified Code(s): S72.002A - Fracture of unspecified part of neck of left femur, initial encounter for closed fracture (2) Contusion of knee, left Encounter type: initial encounter Qualified Code(s): S80.02XA - Contusion of left knee, initial encounter (3) Closed fracture of proximal end of left humerus Encounter type: initial encounter Fracture alignment: nondisplaced Fracture morphology: other fracture Qualified Code(s): S42.295A - Other nondisplaced fracture of upper end of left humerus, initial encounter for closed fracture
[2024-11-03] MEDS: LANTUS PER UNIT CHARGE SQ SCH (09:07)
[2024-11-03] MEDS ORDERED: Nursing to Pharmacy Communication SCH (09:15)
--- NOTE | 2024-11-03 11:28 | Hospitalist Progress Note ---
"Date of Service November 03, 2024 Assessment & Plan (1) Fracture of femoral neck, left: (2) Syncope and collapse: Plan Mrs. Madsen is an 84-year-old female with PMH of atrial fibrillation (on apixaban), pacemaker, colon cancer, bowel resection, T2DM, gout, and hypothyroidism. She presented on 11/02 via EMS after reportedly passing out on her commode last night. no prodromal Imaging on arrival revealed the following: Head CT without acute intracranial findings; left frontal scalp hemat justino. Face CT revealed scalp hematoma with surrounding edema in the left frontal region. Cervical spine CT without acute fracture or subluxation. Chest CTA without significant abnormalities. Left shoulder x-ray revealed decreased glenohumeral joint space; CT left humerus with suspected impacted fracture of left humeral neck.Left hip x-ray revealed displaced fracture of neck of left fem ur. admitted for Ortho evaluation and likely surgery. #Fall | left femoral neck fracture | left frontal scalp hematoma | Left humeral fracture Age-related osteoporosis with current pathologic fracture, left femur and left humerus Leukocytosis at 16.78 on arrival; suspect stress demargination in setting of acute femur fracture. Negative COVID, flu, RSV; UA negative; no PNA on CXR - antibiotics deferred on admission and leukocytosis improved Orthopedics consultedfor femoral neck fracture plan for ORIF 11/[address] Bray. For contusion of kneeRICE. for fracture of left humerusnone operative management, sling for comfort, not weightbearing and avoid significant range of motion Pain control:IV acetaminophen and morphine While n.p.o., Lidocaine patch application to left shoulder daily PT/OT postoperatively Currently requiring 3L NC, baseline is room air, wean as able, encourage IS Last BM reported 10/31 - agressive bowel regimen post op #Syncope/collapse Patient denies prodrome prior to syncope; No reported episodes of VT on pace maker interrogation Last echocardiogram on 12/02/2022 revealed LVEF at 60 to 65% Repeat echocardiogram on 11/02/2024 revealed LVEF at >70%; left atrial dilation is now more severe (previously moderate); type II diastolic dysfunction Continuous telemetry monitoring - so far no events #T2DM A1c: 7.7% 11/03/24. Home regimen: metformin, glimepiride - HELD Lantus 5u QAM with SSI; with target BSG range 110-140mg/dL, CF 50, carb ratio 15 #Atrial fibrillation NSR + rate controlled on arrival Resume Eliquis when okay per ortho #HTN Continue metoprolol, diltiazem Hold losartan perioperatively #Hypothyroidism Last TSH 5.17 on 06/10/2024. Continue levothyroxine #HLD - Continue simvastatin Disposition: continued inpatient stay VTE PPx: Hold Eliquis in the setting of acute head trauma/surgery; SCDs Admission and Anticipated Discharge Date Admission Date: November 02, 2024 Subjective Patient seen lying in bed, no family present at bedside patient denies pain when she is moving is unsure of how she feel - felt usual state of health when she went to bed that night. No medication changes not normally on oxygen Telemetry sinus rhythm/paced, 60s Review of Systems Review of Systems: All systems reviewed & are unremarkable except as noted in Subjective Physical Exam Physical Exam: General: lying in bed, appears relaxed; frail appearing; cooperative; SpO2 96% on 3L NC HEENT: Bruising/left forehead hematoma appreciated; no scleral icterus; PERRLA; vision and hearing intact Neck: supple; trachea midline CV: chest wall NTP; RRR; S1/S2 normal; no murmurs/rubs/gallops; Lungs: no acute respiratory distress; symmetrical chest wall expansion; clear breath sounds across all lung olivera w/o adventitious sounds; no wheezing ABD: Soft, NTP; BS present; no rebound/guarding; no distention LLE: External rotation, shortened;able to wiggle toes bilaterally Neuro: A&Ox3; normal mood and affect; fluent speech; no focal deficits; Results & Data Results & Data Vital Signs (Past 12 Hours) Vital Signs Temp Pulse Resp BP Pulse Ox O2 Del Method O2 Flow Rate 11/03/24 07:41 98.1 F 64 18 129/72 93 Nasal Cannula 3 11/03/24 04:00 97.9 F 60 18 137/74 93 Nasal Cannula 3 Laboratory Results cbc, chemistry, hgb a1c reviwed PG Care Time/CCT Total # of Minutes Spent Total Time Spent with Patient: Total time spent is greater than 50% in coordination of care (as documented) at patient's floor/unit and/or counseling patient: Coding Level of Care Code 49244 SUB INP/OBS CARE 3/50MIN Diagnoses Closed fracture of neck of left femur, initial encounter S72.002A Encounter type: initial encounter Fracture type: closed Syncope and collapse R55 (1) Fracture of femoral neck, left Encounter type: initial encounter Fracture type: closed Qualified Code(s): S72.002A - Fracture of unspecified part of neck of left femur, initial encounter for closed fracture"
[2024-11-03] MEDS: KETOROLAC TROMETHAMINE 15 MG/ML VIAL ONE (12:21)
[2024-11-03] MEDS ORDERED: ATROPINE SULFATE 0.1 MG/ML 10ML SYR IV PRN (13:36)
[2024-11-03] MEDS ORDERED: PROMETHAZINE HCL 6.25 MG in SODIUM CHLORIDE 0.9% 50 ML IV PRN (13:36)
[2024-11-03] MEDS ORDERED: ONDANSETRON INJ 2 MG/ML 2 ML VIAL IV PRN (13:36)
[2024-11-03] MEDS ORDERED: NALOXONE HCL 0.4 MG/1 ML VIAL/CARP IV PRN (13:36)
[2024-11-03] MEDS ORDERED: fentaNYL citrate PF 100 MCG/2 ML VIAL IV PRN (13:36)
[2024-11-03] MEDS ORDERED: ePHEDrine sulfate 50 MG/ML AMP IV PRN (13:36)
--- NOTE | 2024-11-03 13:36 | Anesthesiology Consultation ---
Date of Service November 03, 2024 Assessment & Plan Chart Review Chart Review: Acceptable Risk for Surgery and Patient NOT seen in Pre Admission Testing Consults Requested none ASA ASA4 Proposed Anesthesia Anesthesia Type: General Anesthesia Line Insertion: Arterial line Risk / Benefits Reviewed With: PT / POA / Parent / Guardian, Accepts Plan and Informed Consent Obtained History Surgery Operation Date: 11/03/24 07:05 Proposed Procedures p Hemiarthroplasty Hip Left Posterior Approach - Lui Angie Bray MD Height/Weight Height: 5 ft 2 in Weight: 62.4 kg Allergies Allergy/AdvReac Type Severity Reaction Status Date / Time hydromorphone [From Dilaudid] Allergy Severe hallucinati Verified 11/02/24 08:43 on Medications Home Medications Medication Instructions Recorded Confirmed Last Taken calcium 600 mg (as 1 tab PO BID 06/10/18 11/02/24 08/27/24 08:00 carbonate)-vitamin D3 5 mcg (200 unit) capsule (Calcium 600 + D(3)) magnesium oxide 400 mg PO QAM 06/10/18 11/02/24 08/27/24 multivitamin 1 tab PO QAM 06/10/18 11/02/24 08/27/24 blood sugar diagnostic (OneTouch #100 ea 06/12/23 09/08/24 Unknown Verio test strips) lancets 30 gauge #100 ea 06/12/23 09/08/24 Unknown metoprolol tartrate 100 mg tablet 150 mg (1.5 x 100 mg) PO BID #270 11/27/23 11/02/24 08/27/24 08:00 tabs simvastatin 10 mg tablet 10 mg PO HS #90 tabs 12/01/23 11/02/24 08/26/24 allopurinol 100 mg tablet 100 mg PO HS #90 tabs 12/09/23 11/02/24 08/26/24 apixaban 5 mg tablet (Eliquis) 5 mg PO BID #180 tabs 12/09/23 11/02/24 08/27/24 08:00 diltiazem HCl 180 mg 180 mg PO BID #180 caps 12/09/23 11/02/24 08/27/24 08:00 capsule,extended release 24 hr glimepiride 4 mg tablet 4 mg PO BID #180 tabs 02/13/24 11/02/24 08/27/24 08:00 losartan 25 mg tablet 25 mg PO DAILY #90 tabs 06/15/24 11/02/24 08/27/24 levothyroxine 112 mcg tablet 112 mcg PO QAM #90 tabs 07/22/24 11/02/24 08/27/24 metformin 500 mg tablet,extended 500 mg PO BID #180 tabs 07/22/24 11/02/24 08/27/24 08:00 release 24 hr Active Medications Generic Name Dose Route Start Last Admin Trade Name Rene PRN Reason Stop Dose Admin Allopurinol 100 mg 11/02/24 21:00 11/02/24 21:21 Allopurinol 100 Mg Tab PO 12/02/24 20:59 100 mg HS RUTH Administration Diltiazem HCl 180 mg 11/02/24 21:00 11/03/24 07:25 Diltiazem Hcl 180 Mg Capcr PO 12/02/24 20:59 180 mg BID RUTH Administration Acetaminophen 1,000 mg in 100 mls @ 400 mls/hr 11/02/24 18:45 11/03/24 10:54 Ofirmev IV 11/05/24 18:44 Infused Q8H RUTH Infusion Insulin Aspart 0 units 11/02/24 11:30 11/03/24 12:11 Insulin Aspart Per Unit Charge SC 12/02/24 11:29 1 units ACHS RUTH Administration Insulin Glargine 5 units 11/03/24 09:00 11/03/24 09:30 Lantus Per Unit Charge SQ 12/03/24 08:59 5 units BID RUTH Administration Ketorolac Tromethamine 10 mg 11/02/24 18:36 11/02/24 22:03 Ketorolac Tromethamine 15 Mg/Ml Vial IV 11/07/24 18:44 10 mg Q6H PRN Administration moderate pain Levothyroxine Sodium 112 mcg 11/03/24 06:30 11/03/24 06:37 Levothyroxine Sodium 112 Mcg Tablet PO 12/03/24 06:29 Not Given DAILYBB RUTH Lidocaine 1 patch 11/03/24 09:00 11/03/24 07:26 Lidocaine 5% 1 Patch TD 12/03/24 08:59 1 patch QAM RUTH Administration Magnesium Oxide 400 mg 11/03/24 09:00 11/03/24 07:25 Magnesium Oxide 400 Mg Tab PO 12/03/24 08:59 400 mg QAM RUTH Administration Metoprolol Tartrate 150 mg 11/02/24 21:00 11/03/24 07:25 Metoprolol Tartrate 50 Mg Tab PO 12/02/24 20:59 150 mg BID RUTH Administration Miscellaneous 1 each 11/02/24 21:00 11/02/24 21:22 Remove Lidoderm Patch N/A 12/02/24 20:59 1 each DAILY@2100 RUTH Administration Morphine Sulfate 1 mg 11/02/24 10:36 11/02/24 10:55 Morphine Sulfate 2 Mg/Ml Carp IV 11/16/24 10:35 1 mg Q2H PRN Administration Moderate Pain (4,5,6) on NRS Morphine Sulfate 2 mg 11/02/24 10:36 11/03/24 01:50 Morphine Sulfate 2 Mg/Ml Carp IV 11/16/24 10:35 2 mg Q2H PRN Administration Severe Pain (7,8,9,10) on NRS Ondansetron HCl 4 mg 11/02/24 10:36 11/03/24 01:49 Ondansetron Inj 2 Mg/Ml 2 Ml Vial IV 12/02/24 10:35 4 mg Q6H PRN Administration Nausea Simvastatin 10 mg 11/02/24 21:00 11/02/24 21:21 Simvastatin 10 Mg Tab PO 12/02/24 20:59 10 mg HS RUTH Administration NPO Date Last Intake of Fluids: 11/02/24 Time Last Intake of Fluids: 18:00 Date Last Intake of Solids: 11/02/24 Time Last Intake of Solids: 18:00 Past Medical History Medical History Controlled type 2 diabetes mellitus Atrial fibrillation Hypertension Diabetes mellitus type 2, uncontrolled Pneumonia (06/2019) On anticoagulant therapy eliquis daily Incisional hernia Tachy-herve syndrome History of colon cancer Diabetes mellitus, type 2 DIET MANAGED-NO MEDS Cancer COLON CANCER SOB (shortness of breath) on exertion Cardiac murmur Ankle fracture Exercise / Class Metabolic Activity III < 4 Walking/Shop/Light housework Past Family History Family History Brother Family history of diabetes mellitus Prostate cancer Daughter Breast cancer Sister HTN (hypertension), benign Family history of diabetes mellitus Other No family history of adverse response to anesthesia Denies family history of Ovarian cancer Myocardial infarction Colorectal cancer Past Surgical History Surgical History History of colonoscopy History of right inguinal hernia repair History of incisional hernia repair History of cataract surgery R/L History of colostomy reversal Past Anesthesia History No Hx of Anesthesia Complications and No Family Hx of Anesthesia Complications History of PONV No Hx of PONV and No Hx of Motion Sickness Social History Smoking Status: Never smoker Do You Dip or Chew Tobacco: No Hx Alcohol Use: No Hx Substance Use: No substance use type: does not use Physical Exam Vital Signs Last Vital Signs Temp 36.6 C 11/03/24 13:06 Pulse 60 11/03/24 13:06 Resp 16 11/03/24 13:06 BP 133/69 11/03/24 13:06 Pulse Ox 92 11/03/24 13:06 O2 Del Method Nasal Cannula 11/03/24 13:06 O2 Flow Rate 3 11/03/24 13:06 Constitutional no acute distress and not cachectic ENMT Mouth: no dentition abnormality Thyromental Distance: < 3.5 Finger Breadths Mallampati Class: II Neck normal visual inspection and trachea midline; neck extension not limited Respiratory normal respiratory effort Auscultation: + diminished lung sounds Cardiovascular Rate/Rhythm: regular rate and regular rhythm Heart Sounds: no murmur Vessels: no carotid bruit Hx/o A Fib w/pacemaker Chest (Breasts) Chest: + pacemaker (left chest) Musculoskeletal Spine: normal cervical ROM Extremities: extremities normal to inspection (Fx of left prox humerus) and + limited ROM of extremities Neurologic moves all extremities Motor/Sensory: no sensory deficit Psychiatric Orientation: alert and oriented x 3 Testing Laboratory Results 11/03/24 05:59 11/03/24 05:59 PT 11.7 Seconds (9.0-12.0) 11/02/24 05:26 INR 1.1 (0.9-1.1) 11/02/24 05:26 APTT 28 Seconds (21-31) 11/02/24 05:26 Hemoglobin A1c 7.3 % (4.5-5.6) H 11/03/24 05:59 Urine Color Yellow 11/02/24 Unknown Urine Appearance Clear (Clear) 11/02/24 Unknown Urine pH 8.5 (4.5-7.5) H 11/02/24 Unknown Ur Specific [place] 1.013 (1.000-1.030) 11/02/24 Unknown Urine Protein Negative (Negative) 11/02/24 Unknown Urine Glucose (UA) Trace (Negative) H 11/02/24 Unknown Urine Ketones Trace (Negative) H 11/02/24 Unknown Urine Nitrite Negative (Negative) 11/02/24 Unknown Ur Leukocyte Esterase Negative (Negative) 11/02/24 Unknown Blood Type A Positive 11/02/24 05:26 11/03/24 11/03/24 11/03/24 13:10 11:29 07:01 POC Glucose 121 H 147 H 147 H Electrocardiogram Date: 11/02/24 A-paced rhythm @ 60 w/prolonged AV conduction;septal infarct,age ?;ST & T wave abnl Chest X-Ray Date: 11/02/24 Findings: + cardiomegaly and + pulmonary vascular congestion Left chest PPM Echocardiogram Date: 11/02/24 EF: > 70% hyperdynamic LV Function: normal RWMA: + none Other Findings: + atrial enlargement (severe LA dilation), + LVH (severe) and + diastolic dysfunction (Grade 2) Valvular Disease: + MR (moderate) Non coronary cusp of AV severely restricted
[2024-11-03] MEDS ORDERED: PROPOFOL IV EMULSION 10 MG/ML 20 ML VIAL IV ONE (13:39)
[2024-11-03] MEDS ORDERED: LIDOCAINE 2% 2 ML VIAL/AMP(20MG/ML) INFIL ONE (13:39)
[2024-11-03] MEDS ORDERED: ROCURONIUM BROMIDE 10 MG/ML 5 ML VIAL IV ONE (13:40)
[2024-11-03] MEDS ORDERED: fentaNYL citrate PF 100 MCG/2 ML VIAL ONE ×2 (13:50→14:54)
[2024-11-03] MEDS ORDERED: DEXAMETHASONE SOD INJ 4 MG/ML VIAL ONE (13:53)
[2024-11-03] MEDS ORDERED: ONDANSETRON INJ 2 MG/ML 2 ML VIAL ONE (13:53)
[2024-11-03] MEDS: TRANEXAMIC ACID / 0.7% NACL 1,000 MG/100 ML BAG IV ONE (14:20)
[2024-11-03] MEDS: ceFAZolin 2000MG 2,000 MG/15 ML SYR IV ONE (14:36)
[2024-11-03] MEDS ORDERED: PHENYLEPHRINE HCL 10 MG/ML VIAL ONE (14:36)
[2024-11-03] MEDS ORDERED: SODIUM CHLORIDE 0.9% 100 ML IV PRN (14:41)
[2024-11-03] MEDS ORDERED: ALBUMIN HUMAN 5% 12.5 GM/250 ML VIAL IV ONE (15:07)
[2024-11-03] MEDS ORDERED: PHENYLEPHRINE 100MCG/ML 5ML SYR ONE (15:14)
--- NOTE | 2024-11-03 15:36 | XRay Report ---
XR hip LT 1V CLINICAL HISTORY: HIP IN OR COMPARISON: 11/02/2024 FINDINGS: Single intraoperative view demonstrates good position of the femoral spacer. There is expe cted soft tissue gas. IMPRESSION: Unremarkable intraoperative view. ACT 112: Negative or not required by law. Electronically signed by: Blaise Harvey M.D. 11/03/2024 3:34 PM
[2024-11-03] MEDS: ROPIVACAINE 0.5% HCL/PF 246 MG, Ketorolac (*for OR use only*) 30 MG, EPINEPHrine 30MG/3... INFIL SCH (16:06)
[2024-11-03] MEDS: BUPIVACAINE 0.5 % 5 MG/1 ML MPF 30ML VIAL ONE (16:07)
[2024-11-03] MEDS: LIDOCAINE 1%/EPINEPHRINE 1:100,000 50 ML VIAL ONE (16:07)
[2024-11-03] MEDS: ORTHO JOINT ANESTHETIC ONE (16:07)
[2024-11-03] MEDS ORDERED: SUGAMMADEX SODIUM 200 MG/2 ML VIAL IV ONE (16:16)
--- NOTE | 2024-11-03 16:28 | Post Operative Brief Note ---
Immediate Post Op Note Date of Surgery November 03, 2024 Pre & Post Diagnosis Operation Date: 11/03/24 07:05 Pre-Op Diagnosis: Fracture of left femoral neck. Post-Op Diagnosis: Fracture of left femoral neck. I identified the patient and participated in the time-out.: Yes Procedure Operation Date: 11/03/24 07:05 Actual Procedures p Hemiarthroplasty Hip Left Posterior Approach(Left) - Lui Bray MD Surgeon Lui Bray MD Inspector Handbag Frames Bennett Leo PA-C (No fellow avail) Estimated Blood Loss 75 Findings Consistent with Post-Op Diagnosis Fluids 650 cc Drains Holm Catheter Anesthesia Type General Complications none
--- NOTE | 2024-11-03 16:40 | Operative Report ---
Post Operative Report Pre & Post Diagnosis Operation Date: 11/03/24 07:05 Pre-Op Diagnosis: Fracture of left femoral neck. Post-Op Diagnosis: Fracture of left femoral neck. I identified the patient and participated in the time-out.: Yes Procedure Operation Date: 11/03/24 07:05 Actual Procedures p Hemiarthroplasty Hip Left Posterior Approach(Left) - Lui Bray MD Surgeon Lui Bray MD Fruit Checker Bennett Leo PA-C (No fellow avail) Estimated Blood Loss 75 Findings See Below Displaced femoral neck fracture. Fluids 650 cc Specimens Left femoral head Drains n/a Anesthesia Type General Complications none Indications The patient is a 84 year old female who sustained a Traumatic Osteoporotic fracture of left femoral neck in setting of ground level fall. After orthopedic consult discussing the patients treatment options of conservative versus surgical intervention, she agreed for a planned hemiarthroplasty. Since the patient was ambulatory prior to the injury and to avoid the risks of bed sores, pulmonary complications, and to give the patient the best chance for ambulation, I recommended surgery. The patient understands the risks of surgery, which in clude but are not limited to: bleeding, infection, re-operation, damage to nerves and arteries, continued pain, failure of the hardware, dislocation, DVT, and . In addition, the patient is aware of the 20-30% morbidity associated with hip fracture for up to 1 year following a hip fracture. The patient understands all of these instructions and explanations, all of their questions have been satisfactorily addressed. The patient has elected to proceed with surgery and the informed consent was signed. Description of Procedure Bennett Leo PA-C is assisting with positioning, retraction, reducing the hip, and closure due to fellow not available. IMPLANTS: 1) 7 Standard Cemented Stem (Pallavi/Biomet). 2) Femoral Head 28mm Diameter, + 0 mm Neck Length. 3) 48 mm Bipolar Shell. 4) 9mm Distal Centralizer. 5) Palacos G cement x 2 PROCEDURE: The patient was taken to the Operating Room and placed in the lateral position with Stulberg following general anesthesia administration. A multidisciplinary time-out was performed identifying my initials on the left lower limb as the correct and operative limb. Prior to the incision being made, 2 grams of intravenous Ancef were given and 1g TXA. The left lower extremity was prepped in the standard fashion. The trochanter was marked as was the planned incision 1/3 proximal and 2/3 distal to the tip of the greater trochanter. The incision was injected with a 50:50 mixture of 1% Lidocaine epi and 0.5% Bupivacaine plain for a total of 10cc. A standard posterior approach was made. The planned incision was carried down through the Tensor Fascia Joann, which was then split in-line with its fibers. The Gluteus Pramod was bluntly dissected. The Piriformis and short external rotators were dissected off the capsule and femur and tagged for later repair. The fracture was easily identified as it had impaled the posterior capsule. The capsule was incised and freed off the fracture fragments. The Neck cut was made to allow removal of the femoral head and comminuted fragments. The femoral canal was prepared with Box osteotome, followed by a canal finder. The femur was sequentially broached in the standard fashion, and trial heads were placed. Portable x-ray was brought in to ensure adequate proper alignment, fill of the canal, head size, and leg length. Portable x-ray showed proper canal fill and good position. The trial components were removed and the wound and femoral canal were copiously irrigated and dried. The femur was cemented using 3rd generation technique followed by placement of the components in the standard fashion and the hip reduced. There was excellent stability with no sense of dislocation with 30 degrees adduction, flexion 90 de grees, and internal rotation to 45 degrees. The wounds were copiously irrigated. The External rotators and capsule were closed over bone bridges with #2 FiberWire. The Tensor Fascia Joann was closed with #1 and 0 Stratafix. The subcutaneous fat had a few stay sutures placed using 2-0 Vicryl. The subcutaneous tissue was closed with 3-0 Vicryl. The skin was closed with Zipline and shield. The incisions were covered with 4 x 4's, and Tegaderm. The patient was transferred to her hospital bed and taken to the PACU in stable condition. The sponge and needle counts were correct. Post-op Instructions: The patient was admitted back to the Hospitalist service on the Med/Surg floor. Final x-rays will be obtained in the PACU. The patient will be WBAT with a cane RUE. The patient will be seen by PT/OT. Total hip precautions will be followed. The patient's labs will be checked in the am. DVT prophylaxis will be with TEDs, mechanical devices and restart apixaban in the AM. I attest to the content of the Intraoperative Record and any orders documented therein. Any exceptions are noted below.
--- NOTE | 2024-11-03 16:53 | Operative Report ---
Post Operative Report Pre & Post Diagnosis Operation Date: 11/03/24 07:05 Pre-Op Diagnosis: Fracture of left femoral neck. Post-Op Diagnosis: Fracture of left femoral neck. I identified the patient and participated in the time-out.: Yes Procedure Operation Date: 11/03/24 07:05 Actual Procedures p Hemiarthroplasty Hip Left Posterior Approach(Left) - Lui Bray MD Surgeon Lui Bray M.D. Perfect Binder Operator Bennett Leo PA-C (No fellow avail) Estimated Blood Loss 75 Findings Consistent with Post-Op Diagnosis left femoral neck fracture Specimens Left femoral head Anesthesia Type General Description of Procedure Patient was taken to the operating room, placed under general anesthesia. Time out performed, prepped and draped in routine sterile fashion. She was given 2 gm IV ancef for surgical prophylaxis and 1gm TXA for bleeding prophylaxis. I was present during the entire case, please see Dr. Bray's operative report for further details. Patient was awakened and taken to the recovery room in stable condition. I attest to the content of the Intraoperative Record and any orders documented therein. Any exceptions are noted below.
[2024-11-03] MEDS: TRANEXAMIC ACID / 0.7% NACL 1000MG/100ML BAG IV ONE (17:41)
[2024-11-03] MEDS: ceFAZolin 2,000 MG/15 ML IV PUSH IV ONE (17:41)
--- NOTE | 2024-11-03 17:54 | Anesthesiology Progress Note ---
Date of Service November 03, 2024 Anesthesia Post Procedure Vital Signs Vital Signs: Temp Pulse Pulse Resp BP Pulse Ox O2 Del Method 11/03/24 17:35 97.5 F L 61 20 136/68 92 Nasal Cannula 11/03/24 17:15 98.1 F 60 16 126/59 L 92 Nasal Cannula 11/03/24 17:05 60 17 124/56 L 88 L Nasal Cannula 11/03/24 16:55 60 18 122/55 L 94 Oxymask 11/03/24 16:45 96.8 F L 62 18 124/58 L 94 Oxymask 11/03/24 13:06 97.9 F 60 16 133/69 92 Nasal Cannula 11/03/24 11:54 98.1 F 59 L 18 133/69 91 Nasal Cannula 11/03/24 07:41 98.1 F 64 18 129/72 93 Nasal Cannula 11/03/24 04:00 97.9 F 60 18 137/74 93 Nasal Cannula 11/02/24 23:14 98.1 F 60 18 155/77 H 96 Nasal Cannula 11/02/24 22:01 67 11/02/24 19:38 98.2 F 68 18 162/74 H 95 Nasal Cannula 11/02/24 19:30 Nasal Cannula O2 Flow Rate 11/03/24 17:35 5 11/03/24 17:15 5 11/03/24 17:05 4 11/03/24 16:55 6 11/03/24 16:45 6 11/03/24 13:06 3 11/03/24 11:54 3 11/03/24 07:41 3 11/03/24 04:00 3 11/02/24 23:14 3 11/02/24 22:01 11/02/24 19:38 3 11/02/24 19:30 3 Pain Intensity Left Hip: Pain Intensity: 5 Transfer of Care Handoff Completed per policy Notes Mental Status: alert / awake / arousable and participated in evaluation Patient Amnestic to Procedure: Yes Nausea / Vomiting: adequately controlled Pain: adequately controlled Airway Patency, RR, SpO2: stable & adequate (remains on NC, 5L) BP & HR: stable & adequate Hydration State: stable & adequate Anesthetic Complications: no major complications apparent and Pt Satisfied with anesthetic care
--- NOTE | 2024-11-03 18:34 | XRay Report ---
EXAM: XR hip LT min 2V CLINICAL HISTORY: Post-Operative implant position. TECHNIQUE: X-ray images of the left hip joints and pelvis were obtained in anteroposterior (AP) and lateral projection. COMPARISON: X-ray 11/02/2024 04:23:00 PUTTY WORKER. FINDINGS: Status post recent left total hip replacement by metallic prosthesis. Intact applied prosthesis. It shows good position and alignment. No fracture, dislocation. or mechanical loosening. Recent post-operative soft tissue changes are seen. IMPRESSION: Status post recent left total hip replacement by metallic prosthesis showing good position and alignment. Disclaimer: A subtle bone abnormality or fracture may not be readily apparent on X-rays, thus clinical correlation and further imaging including follow-up CT, MRI, or follow-up X-rays are advised as needed. Electronically signed by Leroy Melgar 11-03-2024 6:34 PM
[2024-11-03] MEDS: ceFAZolin 2000MG 2,000 MG/15 ML SYR IV SCH (22:28)
--- NOTE | 2024-11-04 04:14 | Electrocardiogram Report ---
Test Reason : Blood Pressure : */* mmHG Vent. Rate : 60 BPM Atrial Rate : 60 BPM P-R Int : 228 ms QRS Dur : 74 ms QT Int : 480 ms P-R-T Axes : 83 54 138 degrees QTcB Int : 480 ms Atrial-paced rhythm with prolonged AV conduction Possible Septal infarct , age undetermined Prolonged QT Abnormal ECG When compared with ECG of 27-Aug-2024 14:18, No significant change was found Confirmed by Barber Moore ([id number]) on 11/04/2024 4:14:11 AM Referred By: REFERRED SELF Confirmed By: Barber Moore
[2024-11-04] MEDS: APIXABAN 5 MG TABLET PO SCH (05:53)
[2024-11-04 06:28] LABS: Basophils # (auto) 0.01 K/uL (0.00-0.20); Basophils % (auto) 0.1 %; Hematocrit (blood only) 27.6 % (37.0-47.0); Hemoglobin 9.4 g/dl (12.0-16.0); Immature Granulocytes # (auto) 0.06 K/uL (0.01-0.20); Immature Granulocytes % (auto) 0.5 %; Lymphocytes # (auto) 0.52 K/uL (1.20-3.40); Lymphocytes % (auto) 3.9 %; Mean Corpuscular Hemoglobin 34.3 pg (25.0-34.0); Mean Corpuscular Hgb Conc 34.1 g/dL (32.0-36.0); Mean Corpuscular Volume 100.7 fL (80.0-100.0); Mean Platelet Volume 11.1 fL (9.4-12.4); Monocytes # (auto) 0.95 K/uL (0.11-0.59); Monocytes % (auto) 7.2 %; Neutrophils % (auto) 88.3 %; Platelet Count 162 K/uL (130-400); RDW Coefficient of Variation 13.4 % (11.5-14.5); RDW Standard Deviation 49.5 fL (36.4-46.3); Red Blood Count 2.74 M/uL (4.20-5.40); White Blood Count 13.24 K/ul (4.8-10.8)
[2024-11-04 06:48] LABS: BUN Creatinine Ratio 32.9 (10-20); Calcium 8.7 mg/dl (8.6-10.3); Creatinine Clr Calc Pharmacy 44.3 ml/min; Potassium 4.4 mmol/L (3.5-5.1)
[2024-11-04] MEDS: ACETAMINOPHEN 500 MG TAB PO SCH (08:59)
--- NOTE | 2024-11-04 10:47 | Orthopedic Progress Note ---
Date of Service November 04, 2024 Assessment & Plan (1) S/P hip hemiarthroplasty: Plan: Total hip precautions reviewed PT/OT Pain control with p.o. medication Weightbearing as tolerated with walker and most likely maximum assistance DVT prophylaxis with NIKITA stockings and Eliquis Ice to easy wrap Abduction pillow use Will transition postoperative hip dressing to a Silverlon tomorrow Will continue to follow while admitted Will need 2-week postoperative follow-up visit in our clinic with x-rays (2) Closed fracture of proximal end of left humerus: Plan: Nonoperative management. Sling for comfort. Nonweightbearing and avoid significant range of motion for time being. Can remove sling for hygiene. RICE. Pain control as above. Will follow in our office along with other injuries. (3) Contusion of knee, left: Plan: Pain management as above. RICE. Will continue to monitor. Admission and Anticipated Discharge Date Admission Date: November 02, 2024 Subjective Patient is an 84-year-old female seen today for day 1 of follow-up after undergoing a left hip hemiarthroplasty for displaced femoral neck fracture that she sustained after falling. Patient also has a nondisplaced fracture of her proximal humerus that is being treated nonsurgically. Patient states that her pain is controlled with the oral pain medication she is receiving. She states that she really has no hip pain presently. She states that most of her pain is in the shoulder and they have been applying Lidoderm patches with good results for pain control. Currently she denies chest pain, shortness of breath, fever, chills, sweats, nausea, vomiting, diarrhea or numbness or tingling in her left upper or lower extremities. Review of Systems Review of Systems: All systems reviewed & are unremarkable except as noted in Subjective Physical Exam Physical Exam: Left lower extremity: Postoperative dressing is clean dry and intact and left in place. Advised the patient that I will most likely transition her to a Silverlon dressing tomorrow. She is able to perform right straight leg raise test. She is able to actively dorsi and plantarflex her foot. She tolerates passive hip flexion to 80 degrees and only feels a slight tugging sensation with light passive internal rotation and no discomfort with light passive external rotation. Logroll test causes no discomfort. She is neurovascularly intact in the left lower extremity. Left shoulder; patient has exquisite tenderness to palpation over the proximal humerus near the neck with visible edema. There is no erythema or ecchymosis. There is no skin breakdown or palpable defect. Patient currently has a Lidoderm patch placed over this area. She is also using a sling to offload pressure on her left upper extremity. She is able to reach terminal flexion and extension in her elbow. Has full range of motion of her hand wrist and fingers. 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 Her peripheral pulses are 2+. She is neurovascularly intact in the left upper extremity. Results & Data Vital Signs (Past 12 Hours) Vital Signs Temp Pulse Pulse Resp BP Pulse Ox O2 Del Method 11/04/24 09:00 60 11/04/24 07:57 37.2 C 60 20 132/66 91 Nasal Cannula 11/04/24 03:17 36.8 C 65 19 134/72 92 Nasal Cannula 11/03/24 23:41 37.0 C 63 21 131/68 94 Nasal Cannula O2 Flow Rate 11/04/24 09:00 11/04/24 07:57 2 11/04/24 03:17 3 11/03/24 23:41 3 Diagnostic Findings Laboratory Results WBC 13.24 K/ul (4.8-10.8) H 11/04/24 05:26 RBC 2.74 M/uL (4.20-5.40) L 11/04/24 05:26 Hgb 9.4 g/dl (12.0-16.0) L 11/04/24 05:26 POC Hgb 12.6 g/dl (12.0-16.0) 11/02/24 05:36 Hct 27.6 % (37.0-47.0) L 11/04/24 05:26 POC Hct 37 % (37-47) 11/02/24 05:36 MCV 100.7 fL (80.0-100.0) H 11/04/24 05:26 MCH 34.3 pg (25.0-34.0) H 11/04/24 05:26 MCHC 34.1 g/dL (32.0-36.0) 11/04/24 05:26 RDW Std Deviation 49.5 fL (36.4-46.3) H 11/04/24 05:26 RDW Coeff of Lenore 13.4 % (11.5-14.5) 11/04/24 05:26 Plt Count 162 K/uL (130-400) 11/04/24 05:26 MPV 11.1 fL (9.4-12.4) 11/04/24 05:26 Immature Gran % (Auto) 0.5 % 11/04/24 05:26 Neut % (Auto) 88.3 % 11/04/24 05:26 Lymph % (Auto) 3.9 % 11/04/24 05:26 [place] % (Auto) 7.2 % 11/04/24 05:26 Eos % (Auto) 0.0 % 11/04/24 05:26 Baso % (Auto) 0.1 % 11/04/24 05:26 Neut # (Auto) 11.70 K/uL (1.40-6.50) H 11/04/24 05:26 Lymph # (Auto) 0.52 K/uL (1.20-3.40) L 11/04/24 05:26 [place] # (Auto) 0.95 K/uL (0.11-0.59) H 11/04/24 05:26 Eos # (Auto) 0.00 K/uL (0.00-0.50) 11/04/24 05:26 Baso # (Auto) 0.01 K/uL (0.00-0.20) 11/04/24 05:26 Immature Gran # (Auto) 0.06 K/uL (0.01-0.20) 11/04/24 05:26 PT 11.7 Seconds (9.0-12.0) 11/02/24 05:26 INR 1.1 (0.9-1.1) 11/02/24 05:26 APTT 28 Seconds (21-31) 11/02/24 05:26 PTT Ratio 1.0 11/02/24 05:26 POC Sodium 138 mmol/L (135-144) 11/02/24 05:36 Sodium 136 mmol/L (136-145) 11/04/24 05:26 POC Potassium 3.7 mmol/L (3.3-5.0) 11/02/24 05:36 Potassium 4.4 mmol/L (3.5-5.1) 11/04/24 05:26 POC Chloride 103 mmol/L (101-112) 11/02/24 05:36 Chloride 102 mmol/L (98-107) 11/04/24 05:26 Carbon Dioxide 27 mmol/L (21-32) 11/04/24 05:26 POC Total CO2 24 mmol/L (24-31) 11/02/24 05:36 Anion Gap 7 (3-11) 11/04/24 05:26 POC Anion Gap 16.0 mmol/L (16-25) 11/02/24 05:36 POC BUN 17 mg/dl (7-18) 11/02/24 05:36 BUN 27 mg/dl (6-23) H 11/04/24 05:26 Creatinine 0.82 mg/dl (0.6-1.2) 11/04/24 05:26 POC Creatinine 0.7 mg/dl (0.6-1.3) 11/02/24 05:36 Est Cr Clr Drug Dosing 44.3 ml/min 11/04/24 05:26 eGFR 70.05 11/04/24 05:26 BUN/Creatinine Ratio 32.9 (10-20) H 11/04/24 05:26 Glucose 238 mg/dl (70-99(Fasting)) H 11/04/24 05:26 POC Glucose 205 mg/dl (70-99) H 11/04/24 07:34 POC Glucose (other) 234 mg/dl (70-99) H 11/02/24 05:36 Estimat Average Glucose 163 mg/dl 11/03/24 05:59 Hemoglobin A1c 7.3 % (4.5-5.6) H 11/03/24 05:59 Calcium 8.7 mg/dl (8.6-10.3) 11/04/24 05:26 POC Ioniz Calcium Tye 1.25 mmol/l (1.12-1.32) 11/02/24 05:36 Total Bilirubin 0.7 mg/dl (0.2-1.0) 11/02/24 05:26 AST 20 U/L (13-39) 11/02/24 05:26 ALT 13 U/L (7-52) 11/02/24 05:26 Alkaline Phosphatase 52 U/L (34-104) 11/02/24 05:26 Total Creatine Kinase 19 U/L (26-192) L 11/02/24 05:26 Troponin I High Sens 11.4 pg/ml (0-14) 11/02/24 05:26 Total Protein 6.8 gm/dl (6.0-8.3) 11/02/24 05:26 Albumin 3.9 gm/dl (3.4-5.0) 11/02/24 05:26 Globulin 2.9 gm/dl (2.5-4.0) 11/02/24 05:26 Albumin/Globulin Ratio 1.3 (0.9-2) 11/02/24 05:26 Lipase 12 U/L (11-82) 11/02/24 05:26 25-OH Vitamin D Total 37.4 ng/ml (30-100) 11/04/24 05:26 Urine Color Yellow 11/02/24 Unknown Urine Appearance Clear (Clear) 11/02/24 Unknown Urine pH 8.5 (4.5-7.5) H 11/02/24 Unknown Ur Specific [place] 1.013 (1.000-1.030) 11/02/24 Unknown Urine Protein Negative (Negative) 11/02/24 Unknown Urine Glucose (UA) Trace (Negative) H 11/02/24 Unknown Urine Ketones Trace (Negative) H 11/02/24 Unknown Urine Blood Negative (Negative) 11/02/24 Unknown Urine Nitrite Negative (Negative) 11/02/24 Unknown Urine Bilirubin Negative (Negative) 11/02/24 Unknown Urine Urobilinogen Negative (Negative) 11/02/24 Unknown Ur Leukocyte Esterase Negative (Negative) 11/02/24 Unknown Urine Comment 11/02/24 Unknown SARS-CoV-2 (PCR) NEGATIVE (Negative) 11/02/24 06:06 Influenza Type A (PCR) Negative (Neg) 11/02/24 06:06 Influenza Type B (PCR) Negative (Neg) 11/02/24 06:06 RSV (RT-PCR) Negative (Neg) 11/02/24 06:06 Blood Type A Positive 11/02/24 05:26 Blood Type Recheck A Positive 11/03/24 05:59 Antibody Screen NEGATIVE 11/02/24 05:26 Crossmatch See Detail 11/02/24 05:26 Impressions Chest X-Ray 11/02/24 05:11 EXAM: XR chest 1V portable CLINICAL HISTORY: Trauma TECHNIQUE: Radiograph of chest was acquired. COMPARISON: 08/30/2024 08:38:15 MAINTENANCE CLERK FINDINGS: Ill defined haziness in bilateral lung olivera - new finding Cardiomegaly - unchanged Rest of the lungs are clear and well-expanded with no pulmonary infiltrate or pleural effusion. Rest of the cardiomediastinal silhouette is within normal limits. No acute osseous abnormality. 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 IMPRESSION: 1. Interval unchanged Cardiomegaly 2. Ill defined haziness in bilateral lung olivera - likley pulmonary congestion- new finding Electronically signed by Niko Patel 11-02-2024 06:21 AM Hip/Pelvis X-Ray 11/02/24 05:11 EXAM: XR hip LT 2V w pelvis CLINICAL HISTORY: fall, pain TECHNIQUE: Radiograph of hip was acquired. COMPARISON: none FINDINGS: Displaced fracture of neck of femur with superior displacement of distal fracture fragment and increased soft tissue density around the left hip joint. There is no evidence ofosseous lesion. The hip joint space is preserved. The femoral head has a normal contour. Rest of the soft tissues are unremarkable. IMPRESSION: 1. Displaced fracture of neck of left femur as described above Electronically signed by Niko Paetl 11-02-2024 06:27 AM Shoulder X-Ray 11/02/24 05:11 EXAM: XR shoulder LT min 2V routine CLINICAL HISTORY: fall, pain TECHNIQUE: Radiograph of left shoulder was acquired. COMPARISON: none FINDINGS: Multiple osteophytes noted involving left gleno-humeral joint. There is no evidence of acute fracture, dislocation or osseous lesion. The acromioclavicular joint space is preserved. The glenohumeral joint space is reduced The adjacent soft tissues appear unremarkable, with no evidence of joint effusion. IMPRESSION: Evidence of osteoarthritic changes noted involving left shoulder joint with decreased gleno-humeral joint space and multiple osteophytes involving humerus and scapula Electronically signed by Niko Patel 11-02-2024 06:[address] 11/02/24 05:12 EXAM: CT facial bones wo con CLINICAL HISTORY: fall L forehead heamtoma on eliquis TECHNIQUE: Computed tomography of the orbits/face was performed without intravenous contrast. Contiguous axial images were obtained. Reformatted coronal and sagittal images were also reviewed. CT scan was performed according to ALARA (as low as reasonable achievable). COMPARISON: 02/11/2022 10:32:42 MAINTENANCE CLERK FINDINGS: No acute facial fractures. The paranasal sinuses and mastoid air cells are clear. The globes, optic nerves, extraocular muscles and retro-orbital fat are grossly unremarkable. Reformatted imaging demonstrates intact roof and floor of the orbits. Included portions of the mandible are intact. The included intracranial substances and airway are unremarkable. Scalp hematoma with surrounding edema is seen in left frontal region. IMPRESSION: Scalp hematoma with surrounding edema is seen in left frontal region. No other significant abnormality detected Electronically signed by Niko Patle 11-02-2024 07:11 AM Abdomen/Pelvis CT 11/02/24 05:34 EXAM: CT abd pelvis IV con only CLINICAL HISTORY: fall, l hip pain, eliquis TECHNIQUE: Contiguous axial images were obtained from the level of the diaphragm to the pubic symphysis with intravenous contrast. Coronal and sagittal reconstructions were likewise performed and indicated to increase the sensitivity for detecting clinically relevant pathology. If IV contrast material had not been administered, the likelihood of detecting abnormalities relevant to the patient's condition would have been substantially decreased. CT scan was performed according to ALARA (as low as reasonable achievable). COMPARISON: 08/27/2024 14:38:51 MAINTENANCE CLERK FINDINGS: The visualized lung bases are clear. Sliding hiatus hernia noted. -stable. The liver is normal in size and attenuation. No focal liver lesions are seen. There is no intra or extrahepatic biliary ductal dilatation. Hepatic vasculature is patent. The gallbladder is distended and shows dense sludge.. The spleen, and adrenal glands are unremarkable. The pancreas appears normal in size shape and shows few tiny calcifications. The kidneys are normal in size and attenuation. There is no hydronephrosis or perinephric fat stranding. No renal calculi or renal masses are identified. Few simple cortical cyst are noted in both kidneys The ureters are normal in caliber and no ureteral calculi are seen. The bladder is normal in contour. Pelvic viscera are unremarkable. No focal or diffuse bowel wall thickening or evidence of bowel obstruction is identified. No inflammed appendix is visualized in the right lower quadrant. Abdominal and pelvic vasculature is patent. No adenopathy or fluid collections are seen. No aggressive appearing osseous lesions are identified. Bilateral sacroiliitis. Displaced fracture of neck of left femur. Fat containing infraumbilical hernia. Fat containing bilateral inguinal hernia. IMPRESSION: 1. Bilateral sacroiliitis.-stable. 2. Displaced fracture of neck of left femur.-new finding. 3. Fat containing infraumbilical hernia-stable. 4. Fat containing bilateral inguinal hernia.-stable. Electronically signed by Niko Patel 11-02-2024 07:[address] 11/02/24 05:34 EXAM: CT cervical spine wo con CLINICAL HISTORY: fall TECHNIQUE: Computed tomography of the cervical spine performed without intravenous contrast. Contiguous axial images were obtained from the skull base to T2, with sagittal and coronal reformatted images reconstructed from the axial data. CT scan was performed according to ALARA (as low as reasonable achievable). COMPARISON: None. FINDINGS: Loss of cervical lordosis - suggest possibility of muscle spasm/positional. Degenerative changes involving cervical spine in the form of multilevel marginal osteophytes, disc space reduction and facetal arthrosis. Cervical vertebral bodies are normal in height and alignment, with no evidence of fracture or subluxation. Lateral masses of C1 are symmetrical, and the dens is intact. Prevertebral soft tissues are not widened. The remaining suprahyoid and infrahyoid soft tissues in the neck are unremarkable. Posterior uncovertebral arthrosis is noted at C4-C5 to C6-C7 levels, which indenting ventral thecal sac and causes bilateral neuroforaminal narrowing. Thyroid gland appears unremarkable. IMPRESSION: 1.No acute fracture or subluxation in the cervical spine. 2.Cervical spondylosis. Electronically signed by Niko Patel 11-02-2024 07:[address] 11/02/24 05:34 EXAM: CT chest diagnostic w con CLINICAL HISTORY: fall, L shoulder pain, hypoxia TECHNIQUE: Contiguous axial images were obtained from the neck base through the upper abdomen following intravenous administration of contrast material. If IV contrast material had not been administered, the likelihood of detecting abnormalities relevant to the patient's condition would have been substantially decreased. In addition, sagittal and coronal reconstructions were performed. CT scan was performed according to ALARA (as low as reasonable achievable). COMPARISON: 07/14/2019 14:30:09 MAINTENANCE CLERK. FINDINGS: The lungs are clear, with no focal areas of consolidation. No pulmonary nodules are seen. The central airways are patent. There are no pleural effusions. No pneumothorax is seen. No axillary, hilar, or mediastinal adenopathy is identified. The visualized thyroid is unremarkable. The heart, aorta, and pulmonary arteries are of normal size and configuration. No pericardial effusion is identified. Imaged portions of the upper abdomen are unremarkable. No aggressive appearing osseous lesions are identified. IMPRESSION: No significant abnormality detected. Prior Consolidation and pleural effusion is completely resolved. Electronically signed by Niko Patel 11-02-2024 07:[address] 11/02/24 05:34 EXAM: CT head/brain wo con CLINICAL HISTORY: fall, eliquis, forehead hematoma TECHNIQUE: Multiple axial images are obtained from the skull base to the vertex without contrast. CT scan was performed according to ALARA (as low as reasonable achievable). COMPARISON: 01/05/2024 10:09:37 MAINTENANCE CLERK . FINDINGS: There is cerebral atrophy. No evidence of space occupying lesion, hemorrhage, edema, mass effect, midline shift, extra axial collection, or hydrocephalus is noted. Basal cisterns are symmetric and normal in size and configuration. There are scattered periventricular hypodensities as can be seen with chronic microvascular ischemic changes. The nava-white matter differentiation is preserved. Visualized paranasal sinuses and mastoid air cells are well aerated. Orbital contents are within normal limits. Bony structures are intact. Left frontal scalp hematoma noted. IMPRESSION: 1. No evidence of acute intracranial abnormality is demonstrated. 2. Chronic microvascular ischemic changes.-stable. 3. Cerebral atrophy.-stable. 4. Left frontal scalp hematoma noted. No other new interval abnormality since prior study. Electronically signed by Niko Patel 11-02-2024 07:12 AM Knee X-Ray 11/02/24 06:32 EXAM: XR knee LT 1 or 2V routine CLINICAL HISTORY: pain, fall TECHNIQUE: Radiograph of left knee was acquired. COMPARISON: none FINDINGS: [id number] lipping; osteophytes formation with subchondral sclerosis /[id number] asymmetrical joint space reduction involving tibiofemoral joint compartments ; suggestive of osteoarthritic changes./OBX.5.1.2/OBX.5.1 Patellofemoral joint space is maintained The soft tissues appear unremarkable. No evidence of joint effusion. 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 No acute fractures Disclaimer: A subtle bone abnormality or fracture may not be readily apparent on X-rays, thus clinical correlation and further imaging including follow-up CT, MRI, or follow-up X-rays are advised as needed. Electronically signed by Niko Patel 11-02-2024 08:[address] 11/02/24 13:05 EXAM: CT humerus LT wo con CLINICAL HISTORY: Impacted left humeral fracture. TECHNIQUE: Thin axial images of the left humerus without contrast were obtained with sagittal and coronal reconstruction. One of the following dose reduction techniques were utilized for this exam: Automated exposure control, adjustment of the mA and/or kV according to patient size, and use of iterative reconstruction. COMPARISON: None. FINDINGS: Bones: An impacted fracture of the left humeral neck, with a small laterally displaced bone fragment. No humeral head dislocation. No lytic or sclerotic lesions. Bone fragments related to the glenoid, likely degenerative osteophytosis. Few calcific densities related to the subscapularis tendon. Diffuse osteopenia. 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 Periarticular soft tissue thickening and oedematous changes. Subcutaneous oedematous changes and stranding, along the lateral aspect of the arm and shoulder,are likely post-traumatic. IMPRESSION: 1. Suspected impacted fracture of the left humeral surgical neck, with a small laterally displaced bone fragment. 2. Mild joint effusion. 3. Periarticular soft tissue thickening and oedematous changes. 4. Subcutaneous oedematous changes and stranding, along the lateral aspect of the arm and shoulder,are likely post-traumatic. 5. Diffuse osteopenia. Electronically signed by Leroy Melgar 11-02-2024 5:57 PM Hip X-Ray 11/03/24 16:56 EXAM: XR hip LT min 2V CLINICAL HISTORY: Post-Operative implant position. TECHNIQUE: X-ray images of the left hip joints and pelvis were obtained in anteroposterior (AP) and lateral projection. COMPARISON: X-ray 11/02/2024 04:23:00 MAINTENANCE CLERK. FINDINGS: Status post recent left total hip replacement by metallic prosthesis. Intact applied prosthesis. It shows good position and alignment. No fracture, dislocation. or mechanical loosening. Recent post-operative soft tissue changes are seen. IMPRESSION: Status post recent left total hip replacement by metallic prosthesis showing good position and alignment. Disclaimer: A subtle bone abnormality or fracture may not be readily apparent on X-rays, thus clinical correlation and further imaging including follow-up CT, MRI, or follow-up X-rays are advised as needed. Electronically signed by Leroy Melgar 11-03-2024 6:34 PM (2) Closed fracture of proximal end of left humerus Encounter type: initial encounter Fracture alignment: nondisplaced Fracture morphology: other fracture Qualified Code(s): S42.295A - Other nondisplaced f racture of upper end of left humerus, initial encounter for closed fracture (3) Contusion of knee, left Encounter type: initial encounter Qualified Code(s): S80.02XA - Contusion of left knee, initial encounter
[2024-11-04] MEDS ORDERED: POLYETHYLENE (MIRALAX) 17 GM PACK PO PRN (11:24)
--- NOTE | 2024-11-04 11:27 | Hospitalist Progress Note ---
"Date of Service November 04, 2024 Assessment & Plan (1) Fracture of femoral neck, left: (2) Syncope and collapse: Plan Mrs. Madsen is an 84-year-old female with PMH of atrial fibrillation (on apixaban), pacemaker, colon cancer, bowel resection, T2DM, gout, and hypothyroidism. She presented on 11/02 via EMS after reportedly passing out on her commode last night. no prodromal Imaging on arrival revealed the following: Head CT without acute intracranial findings; left frontal scalp hemat justino. Face CT revealed scalp hematoma with surrounding edema in the left frontal region. Cervical spine CT without acute fracture or subluxation. Chest CTA without significant abnormalities. Left shoulder x-ray revealed decreased glenohumeral joint space; CT left humerus with suspected impacted fracture of left humeral neck.Left hip x-ray revealed displaced fracture of neck of left fem ur. admitted for Ortho evaluation and likely surgery. #Fall | left femoral neck fracture | left frontal scalp hematoma | Left humeral fracture Age-related osteoporosis with current pathologic fracture, left femur and left humerus Leukocytosis at 16.78 on arrival; suspect stress demargination in setting of acute femur fracture. Negative COVID, flu, RSV; UA negative; no PNA on CXR - antibiotics deferred on admission and leukocytosis improved Orthopedics consultedfor femoral neck fracture plan for ORIF 11/[address] Bray. For contusion of kneeRICE. for fracture of left humerusnone operative management, sling for comfort, not weightbearing and avoid significant range of motion Pain control:Tylenol PO scheduled, prn tramadol. Lidocaine patch application to left shoulder daily. Morphine for breakthrough EBL 75, Hgb 11.4--> 9.4 acute blood loss anemia vs dilutional. Trend CBC PT/OT ordered Currently requiring 2L NC, baseline is room air, wean as able, encourage IS Last BM reported 10/31 - miralax BID and senna Yi to be removed today #Syncope/collapse Patient denies prodrome prior to syncope; No reported episodes of VT on pace maker interrogation Last echocardiogram on 12/02/2022 revealed LVEF at 60 to 65% Repeat echocardiogram on 11/02/2024 revealed LVEF at >70%; left atrial dilation i s now more severe (previously moderate); type II diastolic dysfunction Continuous telemetry monitoring - so far no events #T2DM A1c: 7.7% 11/03/24. Home regimen: metformin, glimepiride - HELD Lantus 5u BID with SSI; with target BSG range 110-140mg/dL, CF decreased to 40, carb ratio 15 #Atrial fibrillation NSR + rate controlled on arrival Resume Eliquis 11/04 #HTN Continue metoprolol, diltiazem Resume losartan #Hypothyroidism Last TSH 5.17 on 06/10/2024. Continue levothyroxine #HLD - Continue simvastatin Disposition: continued inpatient stay VTE PPx: Zahra, SCDs Admission and Anticipated Discharge Date Admission Date: November 02, 2024 Supervising Physician Co-Signing Physician Notes The patient was not seen by me. The chart was reviewed. Case discussed with MO Russo. Agree with assessment and plan Subjective Patient seen sitting up in the chair - hip pain is controlled and reports pain in the shoulder that is controlled will plan to remove yi today pt worked with PT prior to my visit. encouraged IS Tele - SR 60s Review of Systems Review of Systems: All systems reviewed & are unremarkable except as noted in Subjective Physical Exam Physical Exam: General: sitting up in the chair, appears relaxed; frail appearing; HEENT: Bruising/left forehead hematoma appreciated; no scleral icterus; PERRLA; vision and hearing intact Neck: supple; trachea midline CV: chest wall NTP; RRR; S1/S2 normal; no murmurs/rubs/gallops; Lungs: no acute respiratory distress; symmetrical chest wall expansion; clear breath sounds across all lung olivera w/o adventitious sounds; no wheezing ABD: Soft, NTP; BS present; no rebound/guarding; no distention extremities: moves all extremities, no LE edema Neuro: A&Ox3; normal mood and affect; fluent speech; no focal deficits; Results & Data Results & Data Vital Signs (Past 12 Hours) Vital Signs Temp Pulse Pulse Resp BP Pulse Ox O2 Del Method 11/04/24 09:00 60 11/04/24 07:57 99.0 F 60 20 132/66 91 Nasal Cannula 11/04/24 03:17 98.2 F 65 19 134/72 92 Nasal Cannula 11/03/24 23:41 98.6 F 63 21 131/68 94 Nasal Cannula O2 Flow Rate 11/04/24 09:00 11/04/24 07:57 2 11/04/24 03:17 3 11/03/24 23:41 3 Laboratory Results cbc, chemistry and Vit D reviewed PG Care Time/CCT Total # of Minutes Spent Total Time Spent with Patient: Total time spent is greater than 50% in coordination of care (as documented) at patient's floor/unit and/or counseling patient: Coding Level of Care Code 53177 SUB INP/OBS CARE 3/50MIN Diagnoses Closed fracture of neck of left femur, initial encounter S72.002A Encounter type: initial encounter Fracture type: closed Syncope and collapse R55 (1) Fracture of femoral neck, left Encounter type: initial encounter Fracture type: closed Qualified Code(s): S72.002A - Fracture of unspecified part of neck of left femur, initial encounter for closed fracture"
[2024-11-04] MEDS: POLYETHYLENE (MIRALAX) 17 GM PACK PO SCH (12:08)
[2024-11-04] MEDS: DOCUSATE SODIUM/SENNA 50/8.6MG TAB PO SCH (12:08)
[2024-11-04] MEDS: traMADol HCL 50 MG TABLET PO PRN (18:36)
[2024-11-05 05:59] LABS: Hematocrit (blood only) 24.8 % (37.0-47.0); Hemoglobin 8.3 g/dl (12.0-16.0); Mean Corpuscular Hemoglobin 33.6 pg (25.0-34.0); Mean Corpuscular Hgb Conc 33.5 g/dL (32.0-36.0); Mean Corpuscular Volume 100.4 fL (80.0-100.0); Mean Platelet Volume 10.5 fL (9.4-12.4); Platelet Count 156 K/uL (130-400); RDW Coefficient of Variation 13.7 % (11.5-14.5); Red Blood Count 2.47 M/uL (4.20-5.40); White Blood Count 14.89 K/ul (4.8-10.8)
[2024-11-05 06:22] LABS: BUN Creatinine Ratio 40.2 (10-20); Calcium 8.6 mg/dl (8.6-10.3); Creatinine Clr Calc Pharmacy 40.2 ml/min; Potassium 4.2 mmol/L (3.5-5.1)
[2024-11-05] MEDS: LOSARTAN POTASSIUM 25 MG TAB PO SCH (07:41)
--- NOTE | 2024-11-05 10:37 | Orthopedic Progress Note ---
Date of Service November 05, 2024 Assessment & Plan (1) S/P hip hemiarthroplasty: Plan: Total hip precautions reviewed PT/OT Pain control with p.o. medication Weightbearing as tolerated with walker and most likely maximum assistance DVT prophylaxis with NIKITA stockings and Eliquis Ice to easy wrap Abduction pillow use Will transition postoperative hip dressing to a Silverlon, done 11/05 Will continue to follow Will need 2-week postoperative follow-up visit in our clinic (2) Closed fracture of proximal end of left humerus: Plan: Nonoperative management. Sling for comfort. Nonweightbearing and avoid significant range of motion for time being. Can remove sling for hygiene. RICE. Pain control as above. Will follow in our office along with other injuries, with x-rays. (3) Contusion of knee, left: Plan: Pain management as above. RICE. Will continue to monitor. Admission and Anticipated Discharge Date Admission Date: November 02, 2024 Supervising Physician Co-Signing Physician Notes I, Dr. Bray, saw and examined the patient and agree with the above findings and plan of care I established. I changed the dressing this am to Silverlon, The incision was clean, dry, intact. Subjective Patient is an 84-year-old female seen today for day 2 of follow-up after undergoing a left hip hemiarthroplasty for displaced femoral neck fracture that she sustained after falling. Patient also has a nondisplaced fracture of her proximal humerus that is being treated nonsurgically. Patient states that her pain is controlled with the oral pain medication she is receiving. She states that she really has no hip pain presently. She states that most of her pain is in the shoulder and they have been applying Lidoderm patches with only sling improvement in her pain level. She states that she has not yet been ambulatory since the surgery. She is able to sit in her bedside chair and on the edge of her bed with assistance. Currently she denies chest pain, shortness of breath, fever, chills, sweats, nausea, vomiting, diarrhea or numbness or tingling in her left upper or lower extremities. Review of Systems Review of Systems: All systems reviewed & are unremarkable except as noted in Subjective Physical Exam Physical Exam: Left lower extremity: Postoperative dressing is clean dry and intact and left in place. She is able to perform right straight leg raise test. She is able to actively dorsi and plantarflex her foot. She tolerates passive hip flexion to 80 degrees and only feels a slight tugging sensation with light passive internal rotation and no discomfort with light passive external rotation. Logroll test causes no discomfort. She is neurovascularly intact in the left lower extremity. Left shoulder; patient has exquisite tenderness to palpation over the proximal humerus near the neck with visible edema. There is no erythema or ecchymosis. There is no skin breakdown or palpable defect. Patient currently has a Lidoderm patch placed over this area. She is also using a sling to offload pressure on her left upper extremity. She is able to reach terminal flexion and extension in her elbow. Has full range of motion of her hand wrist and fingers. Her treasury director strength is equal bilaterally. Her peripheral pulses are 2+. She is neurovascularly intact in the left upper extremity. Results & Data Vital Signs (Past 12 Hours) Vital Signs Temp Pulse Pulse Resp BP Pulse Ox O2 Del Method 11/05/24 09:00 62 11/05/24 07:07 36.4 C L 59 L 16 134/72 93 Room Air 11/05/24 04:18 36.7 C 58 L 18 118/69 92 Nasal Cannula 11/05/24 00:06 36.6 C 60 18 110/57 L 95 Nasal Cannula O2 Flow Rate 11/05/24 09:00 11/05/24 07:07 11/05/24 04:18 2 11/05/24 00:06 2 Diagnostic Findings Laboratory Results WBC 14.89 K/ul (4.8-10.8) H 11/05/24 05:21 RBC 2.47 M/uL (4.20-5.40) L 11/05/24 05:21 Hgb 8.3 g/dl (12.0-16.0) L 11/05/24 05:21 POC Hgb 12.6 g/dl (12.0-16.0) 11/02/24 05:36 Hct 24.8 % (37.0-47.0) L 11/05/24 05:21 POC Hct 37 % (37-47) 11/02/24 05:36 MCV 100.4 fL (80.0-100.0) H 11/05/24 05:21 MCH 33.6 pg (25.0-34.0) 11/05/24 05:21 MCHC 33.5 g/dL (32.0-36.0) 11/05/24 05:21 RDW Std Deviation 50.0 fL (36.4-46.3) H 11/05/24 05:21 RDW Coeff of Lenore 13.7 % (11.5-14.5) 11/05/24 05:21 Plt Count 156 K/uL (130-400) 11/05/24 05:21 MPV 10.5 fL (9.4-12.4) 11/05/24 05:21 Immature Gran % (Auto) 0.5 % 11/04/24 05:26 Neut % (Auto) 88.3 % 11/04/24 05:26 Lymph % (Auto) 3.9 % 11/04/24 05:26 [place] % (Auto) 7.2 % 11/04/24 05:26 Eos % (Auto) 0.0 % 11/04/24 05:26 Baso % (Auto) 0.1 % 11/04/24 05:26 Neut # (Auto) 11.70 K/uL (1.40-6.50) H 11/04/24 05:26 Lymph # (Auto) 0.52 K/uL (1.20-3.40) L 11/04/24 05:26 [place] # (Auto) 0.95 K/uL (0.11-0.59) H 11/04/24 05:26 Eos # (Auto) 0.00 K/uL (0.00-0.50) 11/04/24 05:26 Baso # (Auto) 0.01 K/uL (0.00-0.20) 11/04/24 05:26 Immature Gran # (Auto) 0.06 K/uL (0.01-0.20) 11/04/24 05:26 PT 11.7 Seconds (9.0-12.0) 11/02/24 05:26 INR 1.1 (0.9-1.1) 11/02/24 05:26 APTT 28 Seconds (21-31) 11/02/24 05:26 PTT Ratio 1.0 11/02/24 05:26 POC Sodium 138 mmol/L (135-144) 11/02/24 05:36 Sodium 138 mmol/L (136-145) 11/05/24 05:21 POC Potassium 3.7 mmol/L (3.3-5.0) 11/02/24 05:36 Potassium 4.2 mmol/L (3.5-5.1) 11/05/24 05:21 POC Chloride 103 mmol/L (101-112) 11/02/24 05:36 Chloride 106 mmol/L (98-107) 11/05/24 05:21 Carbon Dioxide 26 mmol/L (21-32) 11/05/24 05:21 POC Total CO2 24 mmol/L (24-31) 11/02/24 05:36 Anion Gap 6 (3-11) 11/05/24 05:21 POC Anion Gap 16.0 mmol/L (16-25) 11/02/24 05:36 POC BUN 17 mg/dl (7-18) 11/02/24 05:36 BUN 37 mg/dl (6-23) H 11/05/24 05:21 Creatinine 0.92 mg/dl (0.6-1.2) 11/05/24 05:21 POC Creatinine 0.7 mg/dl (0.6-1.3) 11/02/24 05:36 Est Cr Clr Drug Dosing 40.2 ml/min 11/05/24 05:21 eGFR 61.02 11/05/24 05:21 BUN/Creatinine Ratio 40.2 (10-20) H 11/05/24 05:21 Glucose 166 mg/dl (70-99(Fasting)) H 11/05/24 05:21 POC Glucose 181 mg/dl (70-99) H 11/05/24 07:13 POC Glucose (other) 234 mg/dl (70-99) H 11/02/24 05:36 Estimat Average Glucose 163 mg/dl 11/03/24 05:59 Hemoglobin A1c 7.3 % (4.5-5.6) H 11/03/24 05:59 Calcium 8.6 mg/dl (8.6-10.3) 11/05/24 05:21 POC Ioniz Calcium Tye 1.25 mmol/l (1.12-1.32) 11/02/24 05:36 Total Bilirubin 0.7 mg/dl (0.2-1.0) 11/02/24 05:26 AST 20 U/L (13-39) 11/02/24 05:26 ALT 13 U/L (7-52) 11/02/24 05:26 Alkaline Phosphatase 52 U/L (34-104) 11/02/24 05:26 Total Creatine Kinase 19 U/L (26-192) L 11/02/24 05:26 Troponin I High Sens 11.4 pg/ml (0-14) 11/02/24 05:26 Total Protein 6.8 gm/dl (6.0-8.3) 11/02/24 05:26 Albumin 3.9 gm/dl (3.4-5.0) 11/02/24 05:26 Globulin 2.9 gm/dl (2.5-4.0) 11/02/24 05:26 Albumin/Globulin Ratio 1.3 (0.9-2) 11/02/24 05:26 Lipase 12 U/L (11-82) 11/02/24 05:26 25-OH Vitamin D Total 37.4 ng/ml (30-100) 11/04/24 05:26 Urine Color Yellow 11/02/24 Unknown Urine Appearance Clear (Clear) 11/02/24 Unknown Urine pH 8.5 (4.5-7.5) H 11/02/24 Unknown Ur Specific [place] 1.013 (1.000-1.030) 11/02/24 Unknown Urine Protein Negative (Negative) 11/02/24 Unknown Urine Glucose (UA) Trace (Negative) H 11/02/24 Unknown Urine Ketones Trace (Negative) H 11/02/24 Unknown Urine Blood Negative (Negative) 11/02/24 Unknown Urine Nitrite Negative (Negative) 11/02/24 Unknown Urine Bilirubin Negative (Negative) 11/02/24 Unknown Urine Urobilinogen Negative (Negative) 11/02/24 Unknown Ur Leukocyte Esterase Negative (Negative) 11/02/24 Unknown Urine Comment 11/02/24 Unknown SARS-CoV-2 (PCR) NEGATIVE (Negative) 11/02/24 06:06 Influenza Type A (PCR) Negative (Neg) 11/02/24 06:06 Influenza Type B (PCR) Negative (Neg) 11/02/24 06:06 RSV (RT-PCR) Negative (Neg) 11/02/24 06:06 Blood Type A Positive 11/02/24 05:26 Blood Type Recheck A Positive 11/03/24 05:59 Antibody Screen NEGATIVE 11/02/24 05:26 Crossmatch See Detail 11/02/24 05:26 Impressions Chest X-Ray 11/02/24 05:11 EXAM: XR chest 1V portable CLINICAL HISTORY: Trauma TECHNIQUE: Radiograph of chest was acquired. COMPARISON: 08/30/2024 08:38:15 MARKETING ANALYST FINDINGS: Ill defined haziness in bilateral lung olivera - new finding Cardiomegaly - unchanged Rest of the lungs are clear and well-expanded with no pulmonary infiltrate or pleural effusion. Rest of the cardiomediastinal silhouette is within normal limits. No acute osseous abnormality. 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 IMPRESSION: 1. Interval unchanged Cardiomegaly 2. Ill defined haziness in bilateral lung olivera - likley pulmonary congestion- new finding Electronically signed by Niko Patel 11-02-2024 06:21 AM Hip/Pelvis X-Ray 11/02/24 05:11 EXAM: XR hip LT 2V w pelvis CLINICAL HISTORY: fall, pain TECHNIQUE: Radiograph of hip was acquired. COMPARISON: none FINDINGS: Displaced fracture of neck of femur with superior displacement of distal fracture fragment and increased soft tissue density around the left hip joint. There is no evidence ofosseous lesion. The hip joint space is preserved. The femoral head has a normal contour. Rest of the soft tissues are unremarkable. IMPRESSION: 1. Displaced fracture of neck of left femur as described above Electronically signed by Niko Patel 11-02-2024 06:27 AM Shoulder X-Ray 11/02/24 05:11 EXAM: XR shoulder LT min 2V routine CLINICAL HISTORY: fall, pain TECHNIQUE: Radiograph of left shoulder was acquired. COMPARISON: none FINDINGS: Multiple osteophytes noted involving left gleno-humeral joint. There is no evidence of acute fracture, dislocation or osseous lesion. The acromioclavicular joint space is preserved. The glenohumeral joint space is reduced The adjacent soft tissues appear unremarkable, with no evidence of joint effusion. IMPRESSION: Evidence of osteoarthritic changes noted involving left shoulder joint with decreased gleno-humeral joint space and multiple osteophytes involving humerus and scapula Electronically signed by Niko Patel 11-02-2024 06:[address] 11/02/24 05:12 EXAM: CT facial bones wo con CLINICAL HISTORY: fall L forehead heamtoma on eliquis TECHNIQUE: Computed tomography of the orbits/face was performed without intravenous contrast. Contiguous axial images were obtained. Reformatted coronal and sagittal images were also reviewed. CT scan was performed according to ALARA (as low as reasonable achievable). COMPARISON: 02/11/2022 10:32:42 MARKETING ANALYST FINDINGS: No acute facial fractures. The paranasal sinuses and mastoid air cells are clear. The globes, optic nerves, extraocular muscles and retro-orbital fat are grossly unremarkable. Reformatted imaging demonstrates intact roof and floor of the orbits. Included portions of the mandible are intact. The included intracranial substances and airway are unremarkable. Scalp hematoma with surrounding edema is seen in left frontal region. IMPRESSION: Scalp hematoma with surrounding edema is seen in left frontal region. No other significant abnormality detected Electronically signed by Niko Patel 11-02-2024 07:11 AM Abdomen/Pelvis CT 11/02/24 05:34 EXAM: CT abd pelvis IV con only CLINICAL HISTORY: fall, l hip pain, eliquis TECHNIQUE: Contiguous axial images were obtained from the level of the diaphragm to the pubic symphysis with intravenous contrast. Coronal and sagittal reconstructions were likewise performed and indicated to increase the sensitivity for detecting clinically relevant pathology. If IV contrast material had not been administered, the likelihood of detecting abnormalities relevant to the patient's condition would have been substantially decreased. CT scan was performed according to ALARA (as low as reasonable achievable). COMPARISON: 08/27/2024 14:38:51 MARKETING ANALYST FINDINGS: The visualized lung bases are clear. Sliding hiatus hernia noted. -stable. The liver is normal in size and attenuation. No focal liver lesions are seen. There is no intra or extrahepatic biliary ductal dilatation. Hepatic vasculature is patent. The gallbladder is distended and shows dense sludge.. The spleen, and adrenal glands are unremarkable. The pancreas appears normal in size shape and shows few tiny calcifications. The kidneys are normal in size and attenuation. There is no hydronephrosis or perinephric fat stranding. No renal calculi or renal masses are identified. Few simple cortical cyst are noted in both kidneys The ureters are normal in caliber and no ureteral calculi are seen. The bladder is normal in contour. Pelvic viscera are unremarkable. No focal or diffuse bowel wall thickening or evidence of bowel obstruction is identified. No inflammed appendix is visualized in the right lower quadrant. Abdominal and pelvic vasculature is patent. No adenopathy or fluid collections are seen. No aggressive appearing osseous lesions are identified. Bilateral sacroiliitis. Displaced fracture of neck of left femur. Fat containing infraumbilical hernia. Fat containing bilateral inguinal hernia. IMPRESSION: 1. Bilateral sacroiliitis.-stable. 2. Displaced fracture of neck of left femur.-new finding. 3. Fat containing infraumbilical hernia-stable. 4. Fat containing bilateral inguinal hernia.-stable. Electronically signed by Niko Patel 11-02-2024 07:[address] 11/02/24 05:34 EXAM: CT cervical spine wo con CLINICAL HISTORY: fall TECHNIQUE: Computed tomography of the cervical spine performed without intravenous contrast. Contiguous axial images were obtained from the skull base to T2, with sagittal and coronal reformatted images reconstructed from the axial data. CT scan was performed according to ALARA (as low as reasonable achievable). COMPARISON: None. FINDINGS: Loss of cervical lordosis - suggest possibility of muscle spasm/positional. Degenerative changes involving cervical spine in the form of multilevel marginal osteophytes, disc space reduction and facetal arthrosis. Cervical vertebral bodies are normal in height and alignment, with no evidence of fracture or subluxation. Lateral masses of C1 are symmetrical, and the dens is intact. Prevertebral soft tissues are not widened. The remaining suprahyoid and infrahyoid soft tissues in the neck are unremarkable. Posterior uncovertebral arthrosis is noted at C4-C5 to C6-C7 levels, which indenting ventral thecal sac and causes bilateral neuroforaminal narrowing. Thyroid gland appears unremarkable. IMPRESSION: 1.No acute fracture or subluxation in the cervical spine. 2.Cervical spondylosis. Electronically signed by Niko Patel 11-02-2024 07:[address] 11/02/24 05:34 EXAM: CT chest diagnostic w con CLINICAL HISTORY: fall, L shoulder pain, hypoxia TECHNIQUE: Contiguous axial images were obtained from the neck base through the upper abdomen following intravenous administration of contrast material. If IV contrast material had not been administered, the likelihood of detecting abnormalities relevant to the patient's condition would have been substantially decreased. In addition, sagittal and coronal reconstructions were performed. CT scan was performed according to ALARA (as low as reasonable achievable). COMPARISON: 07/14/2019 14:30:09 MARKETING ANALYST. FINDINGS: The lungs are clear, with no focal areas of consolidation. No pulmonary nodules are seen. The central airways are patent. There are no pleural effusions. No pneumothorax is seen. No axillary, hilar, or mediastinal adenopathy is identified. The visualized thyroid is unremarkable. The heart, aorta, and pulmonary arteries are of normal size and configuration. No pericardial effusion is identified. Imaged portions of the upper abdomen are unremarkable. No aggressive appearing osseous lesions are identified. IMPRESSION: No significant abnormality detected. Prior Consolidation and pleural effusion is completely resolved. Electronically signed by Niko Patel 11-02-2024 07:[address] 11/02/24 05:34 EXAM: CT head/brain wo con CLINICAL HISTORY: fall, eliquis, forehead hematoma TECHNIQUE: Multiple axial images are obtained from the skull base to the vertex without contrast. CT scan was performed according to ALARA (as low as reasonable achievable). COMPARISON: 01/05/2024 10:09:37 MARKETING ANALYST . FINDINGS: There is cerebral atrophy. No evidence of space occupying lesion, hemorrhage, edema, mass effect, midline shift, extra axial collection, or hydrocephalus is noted. Basal cisterns are symmetric and normal in size and configuration. There are scattered periventricular hypodensities as can be seen with chronic microvascular ischemic changes. The nava-white matter differentiation is preserved. Visualized paranasal sinuses and mastoid air cells are well aerated. Orbital contents are within normal limits. Bony structures are intact. Left frontal scalp hematoma noted. IMPRESSION: 1. No evidence of acute intracranial abnormality is demonstrated. 2. Chronic microvascular ischemic changes.-stable. 3. Cerebral atrophy.-stable. 4. Left frontal scalp hematoma noted. No other new interval abnormality since prior study. Electronically signed by Niko Patel 11-02-2024 07:12 AM Knee X-Ray 11/02/24 06:32 EXAM: XR knee LT 1 or 2V routine CLINICAL HISTORY: pain, fall TECHNIQUE: Radiograph of left knee was acquired. COMPARISON: none FINDINGS: [id number] lipping; osteophytes formation with subchondral sclerosis /[id number] asymmetrical joint space reduction involving tibiofemoral joint compartments ; suggestive of osteoarthritic changes./OBX.5.1.2/OBX.5.1 Patellofemoral joint space is maintained The soft tissues appear unremarkable. No evidence of joint effusion. 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 No acute fractures Disclaimer: A subtle bone abnormality or fracture may not be readily apparent on X-rays, thus clinical correlation and further imaging including follow-up CT, MRI, or follow-up X-rays are advised as needed. Electronically signed by Niko Patel 11-02-2024 08:[address] 11/02/24 13:05 EXAM: CT humerus LT wo con CLINICAL HISTORY: Impacted left humeral fracture. TECHNIQUE: Thin axial images of the left humerus without contrast were obtained with sagittal and coronal reconstruction. One of the following dose reduction techniques were utilized for this exam: Automated exposure control, adjustment of the mA and/or kV according to patient size, and use of iterative reconstruction. COMPARISON: None. FINDINGS: Bones: An impacted fracture of the left humeral neck, with a small laterally displaced bone fragment. No humeral head dislocation. No lytic or sclerotic lesions. Bone fragments related to the glenoid, likely degenerative osteophytosis. Few calcific densities related to the subscapularis tendon. Diffuse osteopenia. 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 Periarticular soft tissue thickening and oedematous changes. Subcutaneous oedematous changes and stranding, along the lateral aspect of the arm and shoulder,are likely post-traumatic. IMPRESSION: 1. Suspected impacted fracture of the left humeral surgical neck, with a small laterally displaced bone fragment. 2. Mild joint effusion. 3. Periarticular soft tissue thickening and oedematous changes. 4. Subcutaneous oedematous changes and stranding, along the lateral aspect of the arm and shoulder,are likely post-traumatic. 5. Diffuse osteopenia. Electronically signed by Leroy Melgar 11-02-2024 5:57 PM Hip X-Ray 11/03/24 16:56 EXAM: XR hip LT min 2V CLINICAL HISTORY: Post-Operative implant position. TECHNIQUE: X-ray images of the left hip joints and pelvis were obtained in anteroposterior (AP) and lateral projection. COMPARISON: X-ray 11/02/2024 04:23:00 MARKETING ANALYST. FINDINGS: Status post recent left total hip replacement by metallic prosthesis. Intact applied prosthesis. It shows good position and alignment. No fracture, dislocation. or mechanical loosening. Recent post-operative soft tissue changes are seen. IMPRESSION: Status post recent left total hip replacement by metallic prosthesis showing good position and alignment. Disclaimer: A subtle bone abnormality or fracture may not be readily apparent on X-rays, thus clinical correlation and further imaging including follow-up CT, MRI, or follow-up X-rays are advised as needed. Electronically signed by Leroy Melgar 11-03-2024 6:34 PM (2) Closed fracture of proximal end of left humerus Encounter type: initial encounter Fracture alignment: nondisplaced Fracture morphology: other fracture Qualified Code(s): S42.295A - Other nondisplaced fracture of upper end of left humerus, initial encounter for closed fracture (3) Contusion of knee, left Encounter type: initial encounter Qualified Code(s): S80.02XA - Contusion of left knee, initial encounter
--- NOTE | 2024-11-05 10:55 | Hospitalist Progress Note ---
Date of Service November 05, 2024 Assessment & Plan (1) Fracture of femoral neck, left: Plan: -s/p hip hemiarhroplasty -pain control -PT/OT -f/u as per ortho (2) Syncope and collapse: Plan: Repeat echocardiogram on 11/02/2024 revealed LVEF at >70%; left atrial dilation is now more severe (previously moderate); type II diastolic dysfunction Continuous telemetry monitoring - so far no events (3) Atrial fibrillation: Plan: -con't eliquis (4) Hypertension: Plan: Continue metoprolol, diltiazem losartan (5) Diabetes mellitus type 2, uncontrolled: Plan: Lantus 5u BID with SSI; with target BSG range 110-140mg/dL Plan Mrs. Madsen is an 84-year-old female with PMH of atrial fibrillation (on apixaban), pacemaker, colon cancer, bowel resection, T2DM, gout, and hypothyroidism. She presented on 11/02 via EMS after reportedly passing out on her commode last night. no prodromal Imaging on arrival revealed the following: Head CT without acute intracranial findings; left frontal scalp hematoma. Face CT revealed scalp hematoma with surrounding edema in the left frontal region. Cervical spine CT without acute fracture or subluxation. Chest CTA without significant abnormalities. Left shoulder x-ray revealed decreased glenohumeral joint space; CT left humerus with suspected impacted fracture of left humeral neck.Left hip x-ray revealed displaced fracture of neck of left femur. admitted for Ortho evaluation and likely surgery. Admission and Anticipated Discharge Date Admission Date: November 02, 2024 Subjective No events overnight, pt resting comfortably in bed. Review of Systems Review of Systems: CONST: Negative for fever, body aches and chills. HENT: Negative for neck pain/stiffness, headache, congestion, sore throat, swelling. EYES: Negative for discharge/pain or vision changes. RESP: Negative for cough/hemoptysis and shortness of breath. CV: Negative chest pain, difficulty breathing, palpitations. ABD: Negative pain, nausea, vomiting. : Negative increase frequency, dysuria, blood in urine or stool. MUSC: Negative for muscle aches, edema. SKIN: Negative rash, lesions/sores. NEURO: Negative headache, dizziness, weakness. Physical Exam Physical Exam: GENERAL APPEARANCE NAD, activity normal for age, well developed/ well nourished, no cyanosis, pallor, or diaphoresis. EYES lids/conjunctiva normal. EARS/NOSE/THROAT Mucous membranes moist, nares normal, lips/teeth normal uvula midline without oral pharyngeal erythema, exudate or swelling TMs normal bilaterally. No lymphangitis/lymphedema. HEAD/NECK normocephalic atraumatic, no facial trauma, neck is supple. RESPIRATORY respiratory effort normal, speaks in full sentences, no tripod position, no accessory muscle use. Lungs clear to auscultation without rhonchi, wheezes, rales CARDIAC Regular rate and rhythm, no edema. ABDOMINAL Soft, ND/NT. No evidence of fluid wave. No pulsatile masses on exam, rebound tenderness, Méndez sign or pain over Mcburney's point. MUSCLES/EXTREMITIES No abnormal range of motion, no swelling. SKIN Warm, pink and dry. No rashes, dermatoses, petechiae or lesions. NEUROLOGICAL Speech is clear and appropriate. Normal level of consciousness. Gait and coordination are normal. 5/5 strength in all extremities. PSYCH Normal mood and affect. Judgement/competence is appropriate Results & Data Results & Data Vital Signs (Past 12 Hours) Vital Signs Temp Pulse Pulse Resp BP Pulse Ox O2 Del Method 11/05/24 09:00 62 11/05/24 07:07 36.4 C L 59 L 16 134/72 93 Room Air 11/05/24 04:18 36.7 C 58 L 18 118/69 92 Nasal Cannula 11/05/24 00:06 36.6 C 60 18 110/57 L 95 Nasal Cannula O2 Flow Rate 11/05/24 09:00 11/05/24 07:07 11/05/24 04:18 2 11/05/24 00:06 2 PG Care Time/CCT Total # of Minutes Spent Total Time Spent with Patient: Total time spent is greater than 50% in coordination of care (as documented) at patient's floor/unit and/or counseling patient: Coding Level of Care Code 92583 SUB INP/OBS CARE 2/35MIN Diagnoses Closed fracture of neck of left femur, initial encounter S72.002A Encounter type: initial encounter Fracture type: closed Syncope and collapse R55 Paroxysmal atrial fibrillation I48.0 Atrial fibrillation type: paroxysmal Essential hypertension I10 Hypertension type: essential hypertension Diabetes mellitus type 2, uncontrolled E11.65 (1) Fracture of femoral neck, left Encounter type: initial encounter Fracture type: closed Qualified Code(s): S72.002A - Fracture of unspecified part of neck of left femur, initial encounter for closed fracture (3) Atrial fibrillation Atrial fibrillation type: paroxysmal Qualified Code(s): I48.0 - Paroxysmal atrial fibrillation (4) Hypertension Hypertension type: essential hypertension Qualified Code(s): I10 - Essential (primary) hypertension
--- NOTE | 2024-11-06 08:14 | Orthopedic Progress Note ---
Date of Service November 06, 2024 Assessment & Plan (1) S/P hip hemiarthroplasty: Plan: POD # 3 s/p L hip ryley, doiing fairly well Total hip precautions, Abduction pillow 8 weeks PT/OT Pain control with p.o. medication Weightbearing as tolerated with walker and most likely maximum assistance. Can use LUE to balance on walker if pain-free DVT prophylaxis with NIKITA stockings and Eliquis Ice to easy wrap Silverlon dressing, done 11/05, keep on until f/u appointment Will need 2-week postoperative follow-up visit in our clinic Ok to d/c from ortho stand point (2) Closed fracture of proximal end of left humerus: Plan: Nonoperative management. Sling for comfort. Nonweightbearing and avoid significant range of motion for time being. May use fingers to balance on walker if pain-free Can remove sling for hygiene. RICE. Pain control as above. Will follow in our office along with other injuries, with x-rays. (3) Contusion of knee, left: Plan: Pain management as above. RICE. Will continue to monitor. Admission and Anticipated Discharge Date Admission Date: November 02, 2024 Subjective Left shoulder pain Physical Exam Physical Exam: LUE: 2+ radial pulse. Motor median, radial, ulnar, AIN, PIN intact. + Swelling shoulder. + TTP shoulder. LLE: BCR < 2 sec. Wiggling toes. Calf soft and non-tender. + Bruising anterior knee. Dressing clean, dry, intact. Results & Data Vital Signs (Past 12 Hours) Vital Signs Temp Pulse Pulse Resp BP Pulse Ox O2 Del Method 11/06/24 07:45 36.6 C 66 20 144/67 H 92 Nasal Cannula 11/06/24 07:08 61 11/06/24 04:00 36.7 C 60 18 123/54 L 92 Nasal Cannula 11/05/24 23:00 36.7 C 61 18 108/61 92 Nasal Cannula 11/05/24 22:37 60 O2 Flow Rate 11/06/24 07:45 2 11/06/24 07:08 11/06/24 04:00 2 11/05/24 23:00 2 11/05/24 22:37 Laboratory Results 11/06/24 11/05/24 11/05/24 Range/Units 07:39 20:22 16:20 POC Glucose 152 H 182 H 203 H (70-99) mg/dl Crossmatch 11/05/24 11/02/24 Range/Units 11:35 05:26 POC Glucose 138 H (70-99) mg/dl Crossmatch See Detail (2) Closed fracture of proximal end of left humerus Encounter type: initial encounter Fracture alignment: nondisplaced Fracture morphology: other fracture Qualified Code(s): S42.295A - Other nondisplaced fracture of upper end of left humerus, initial encounter for closed fracture (3) Contusion of knee, left Encounter type: initial encounter Qualified Code(s): S80.02XA - Contusion of left knee, initial encounter
--- NOTE | 2024-11-06 09:49 | Hospitalist Progress Note ---
Date of Service November 06, 2024 Assessment & Plan (1) Fracture of femoral neck, left: Plan: -s/p hip hemiarhroplasty -pain control -PT/OT -f/u as per ortho (2) Syncope and collapse: Plan: Repeat echocardiogram on 11/02/2024 revealed LVEF at >70%; left atrial dilation is now more severe (previously moderate); type II diastolic dysfunction Continuous telemetry monitoring - so far no events (3) Atrial fibrillation: Plan: -con't eliquis (4) Hypertension: Plan: Continue metoprolol, diltiazem losartan (5) Diabetes mellitus type 2, uncontrolled: Plan: Lantus 5u BID with SSI; with target BSG range 110-140mg/dL Plan Mrs. Madsen is an 84-year-old female with PMH of atrial fibrillation (on apixaban), pacemaker, colon cancer, bowel resection, T2DM, gout, and hypothyroidism. She presented on 11/02 via EMS after reportedly passing out on her commode last night. no prodromal Imaging on arrival revealed the following: Head CT without acute intracranial findings; left frontal scalp hematoma. Face CT revealed scalp hematoma with surrounding edema in the left frontal region. Cervical spine CT without acute fracture or subluxation. Chest CTA without significant abnormalities. Left shoulder x-ray revealed decreased glenohumeral joint space; CT left humerus with suspected impacted fracture of left humeral neck.Left hip x-ray revealed displaced fracture of neck of left femur. admitted for Ortho evaluation and likely surgery. D/C to rehab t[facility] 11/07 Admission and Anticipated Discharge Date Admission Date: November 02, 2024 Subjective No events overnight. Pt resting comfortably in bed. Review of Systems Review of Systems: CONST: Negative for fever, body aches and chills. HENT: Negative for neck pain/stiffness, headache, congestion, sore throat, swelling. EYES: Negative for discharge/pain or vision changes. RESP: Negative for cough/hemoptysis and shortness of breath. CV: Negative chest pain, difficulty breathing, palpitations. ABD: Negative pain, nausea, vomiting. : Negative increase frequency, dysuria, blood in urine or stool. MUSC: Negative for muscle aches, edema. SKIN: Negative rash, lesions/sores. NEURO: Negative headache, dizziness, weakness. Physical Exam Physical Exam: GENERAL APPEARANCE NAD, activity normal for age, well developed/ well nourished, no cyanosis, pallor, or diaphoresis. EYES lids/conjunctiva normal. EARS/NOSE/THROAT Mucous membranes moist, nares normal, lips/teeth normal uvula midline without oral pharyngeal erythema, exudate or swelling TMs normal bilaterally. No lymphangitis/lymphedema. HEAD/NECK normocephalic atraumatic, no facial trauma, neck is supple. RESPIRATORY respiratory effort normal, speaks in full sentences, no tripod position, no accessory muscle use. Lungs clear to auscultation without rhonchi, wheezes, rales CARDIAC Regular rate and rhythm, no edema. ABDOMINAL Soft, ND/NT. No evidence of fluid wave. No pulsatile masses on exam, rebound tenderness, Méndez sign or pain over Mcburney's point. MUSCLES/EXTREMITIES No abnormal range of motion, no swelling. SKIN Warm, pink and dry. No rashes, dermatoses, petechiae or lesions. NEUROLOGICAL Speech is clear and appropriate. Normal level of consciousness. Gait and coordination are normal. 5/5 strength in all extremities. PSYCH Normal mood and affect. Judgement/competence is appropriate Results & Data Results & Data Vital Signs (Past 12 Hours) Vital Signs Temp Pulse Pulse Resp BP Pulse Ox O2 Del Method 11/06/24 07:45 36.6 C 66 20 144/67 H 92 Nasal Cannula 11/06/24 07:08 61 11/06/24 04:00 36.7 C 60 18 123/54 L 92 Nasal Cannula 11/05/24 23:00 36.7 C 61 18 108/61 92 Nasal Cannula 11/05/24 22:37 60 O2 Flow Rate 11/06/24 07:45 2 11/06/24 07:08 11/06/24 04:00 2 11/05/24 23:00 2 11/05/24 22:37 PG Care Time/CCT Total # of Minutes Spent Total Time Spent with Patient: Total time spent is greater than 50% in coordination of care (as documented) at patient's floor/unit and/or counseling patient: Coding Level of Care Code 89370 SUB INP/OBS CARE 2/35MIN Diagnoses Closed fracture of neck of left femur, initial encounter S72.002A Encounter type: initial encounter Fracture type: closed Syncope and collapse R55 Paroxysmal atrial fibrillation I48.0 Atrial fibrillation type: paroxysmal Essential hypertension I10 Hypertension type: essential hypertension Diabetes mellitus type 2, uncontrolled E11.65 (1) Fracture of femoral neck, left Encounter type: initial encounter Fracture type: closed Qualified Code(s): S72.002A - Fracture of unspecified part of neck of left femur, initial encounter for closed fracture (3) Atrial fibrillation Atrial fibrillation type: paroxysmal Qualified Code(s): I48.0 - Paroxysmal atrial fibrillation (4) Hypertension Hypertension type: essential hypertension Qualified Code(s): I10 - Essential (primary) hypertension
[2024-11-07 07:46] VITALS: RESP 18; TEMP 97.7
--- NOTE | 2024-11-07 10:23 | Discharge Summary ---
Discharge Summary Date of Service November 07, 2024 Principal Dx & Hospital Course #1 = Principal Diagnosis (1) Fracture of femoral neck, left: -s/p hip hemiarhroplasty -pain control -PT/OT -f/u as per ortho (2) Syncope and collapse: Repeat echocardiogram on 11/02/2024 revealed LVEF at >70%; left atrial dilation is now more severe (previously moderate); type II diastolic dysfunction Continuous telemetry monitoring - so far no events (3) Atrial fibrillation: -con't eliquis (4) Hypertension: Continue metoprolol, diltiazem losartan (5) Diabetes mellitus type 2, uncontrolled: Lantus 5u BID with SSI; with target BSG range 110-140mg/dL Plan Mrs. Madsen is an 84-year-old female with PMH of atrial fibrillation (on apixaban), pacemaker, colon cancer, bowel resection, T2DM, gout, and hypothyroidism. She presented on 11/02 via EMS after reportedly passing out on her commode last night. no prodromal Imaging on arrival revealed the following: Head CT without acute intracranial findings; left frontal scalp hematoma. Face CT revealed scalp hematoma with surrounding edema in the left frontal region. Cervical spine CT without acute fracture or subluxation. Chest CTA without significant abnormalities. Left shoulder x-ray revealed decreased glenohumeral joint space; CT left humerus with suspected impacted fracture of left humeral neck.Left hip x-ray revealed displaced fracture of neck of left femur. admitted for Ortho evaluation and likely surgery. D/C to rehab t[facility] 11/07 Admission HPI Per Admitting Provider Mrs. Madsen is an 84-year-old female with PMH of atrial fibrillation (on apixa ban), pacemaker, colon cancer, bowel resection, T2DM, gout, and hypothyroidism. She presented on 11/02 via EMS after reportedly passing out on her commode last night. Patient was found down with a deformity of her left hip, left shoulder, and hematoma over her right eye. Admitted for left hip fracture. Patient reports she fell around 3 AM; she was not bearing down to have a bowel movement at that time but was rather sitting on the urinate. She denies feeling dizzy or lightheaded just prior to syncope. No prior history of syncope to her knowledge. She is not on supplemental oxygen at baseline. Patient reports that the pain is a 6/10 at time of admission in her left shoulder and left hip/thigh. The pain is constant, but does increase in waves. No numbness or tingling in the arms or legs. Patient did not take her regular morning medicines today. Last took her Eliquis at 530 last night. Last ate food at 530 last night. In regard to cardiac history, she does have a pacemaker, and follows with Dr. Neves. No prior history of AR, CHF, or CVA. No medication allergies to her knowledge. No prior surgeries on the left shoulder or left leg; no history of hip or knee replacements on the left side; she does have history of a right ankle surgery involving 9 screws and plates. Patient denies smoking, tobacco use, recent alcohol use. Patient is hypertensive at 144/60 at time of admission; SpO2 94% on 3L NC. ED course: Fentanyl 50 mcg IV x 1 Fentanyl 25 mcg IV x 1 Acetaminophen 1000 mg IV Ondansetron 4 mg IV ROS: Patient endorses syncopal episode, left shoulder pain, left thigh/hip pain, and abdominal discomfort. Patient denies fever, chills, dizziness/lightheadedness prior to syncope, headache, changes in vision, chest pain, chest palpitations, SOB, cough, abdominal pain, N/V/D, burning with urination, blood in the urine or stool, or numbness or tingling in the arms or legs. Discharge Exam GENERAL APPEARANCE NAD, activity normal for age, well developed/ well nourished, no cyanosis, pallor, or diaphoresis. EYES lids/conjunctiva normal. EARS/NOSE/THROAT Mucous membranes moist, nares normal, lips/teeth normal uvula midline without oral pharyngeal erythema, exudate or swelling TMs normal bilaterally. No lymphangitis/lymphedema. HEAD/NECK normocephalic atraumatic, no facial trauma, neck is supple. RESPIRATORY respiratory effort normal, speaks in full sentences, no tripod position, no accessory muscle use. Lungs clear to auscultation without rhonchi, wheezes, rales CARDIAC Regular rate and rhythm, no edema. ABDOMINAL Soft, ND/NT. No evidence of fluid wave. No pulsatile masses on exam, rebound tenderness, Méndez sign or pain over Mcburney's point. MUSCLES/EXTREMITIES No abnormal range of motion, no swelling. SKIN Warm, pink and dry. No rashes, dermatoses, petechiae or lesions. NEUROLOGICAL Speech is clear and appropriate. Normal level of consciousness. Gait and coordination are normal. 5/5 strength in all extremities. PSYCH Normal mood and affect. Judgement/competence is appropriate Discharge Plan Discharge Items Patient Disposition: Home - Self-Care Reason For Visit: SYNCOPE, LEFT FEMUR FX Discharge Diagnosis: Left femur fracture Condition on Discharge: Fair Activity: Resume your previous activity Non-emergency contact: Primary Care Provider Call non-emergency contact if: you have any medication questions Follow-up/Referrals: Chi Melgar DO [Primary Care Provider] - Maryjane Tapia PA-C [Physician Sliver Chopper] - 11/24/24 8:30 am Diet: Regular Addtl Attending Provider Instructions: Follow up with PMD in 2 weeks Addtl Gluten Settling Tender Provider Instructions: ORTHOPEDIC DISCHARGE INSTRUCTIONS -Weight bearing as tolerated with walker to assist in ambulation -Posterior hip precautions for 8 weeks: DO NOT flex your hip past 90, DO NOT internally rotate your foot/leg, DO NOT cross your legs -Please do rehab exercises as instructed -Frequently ice, at least 20 minutes 5 times a day. -You may shower on Post op Day 3. Leave Silverlon dressing in tact until follow up appt in 2 weeks. Your dressing is water-resistant, meaning you can shower with it on as long as it is in-tact. Letting some running water run over top of it from the shower is okay. You cannot submerge your incision in water. No baths, hot tubs or swimming pools. Keep dressing clean and dry. If your dressing starts to peel off or gets moisture under it, nursing may reinforce as needed. -DVT prophylaxis: You can resume your Eliquis 5mg BID 24 hours after your surgery. NIKITA compression stockings for 3 weeks -Pain control with oral medications as prescribed by your primary team -To promote healing, please take 500mg Vitamin C twice a day with meals x 2 we eks and Iron 325 mg twice a day with meals x 2 weeks -While on narcotic pain medication and iron supplement, we recommend you take a stool softener to prevent constipation - Shoulder instructions - Nonweightbearing with left upper extremity, may use fingers to balance on walker if pain-free. - Sling for comfort - Limit range of motion of the shoulder - Work on range of motion of the elbow, wrist, hand -Follow up in 2 weeks with [facility] for post op evaluation and Zip-line removal. Please call our office sooner @ [phone] if you have any questions or concerns Pending Studies at Discharge: No Stand-Alone Forms: My [facility], Smoking Cessation Medications and DC Order Prescriptions: Continued metoprolol tartrate 100 mg tablet 150 mg PO BID Qty: 270 3RF simvastatin 10 mg tablet 10 mg PO HS Qty: 90 3RF allopurinol 100 mg tablet 100 mg PO HS Qty: 90 3RF Eliquis 5 mg tablet 5 mg PO BID Qty: 180 3RF diltiazem HCl 180 mg capsule,extended release 24hr 180 mg PO BID Qty: 180 3RF glimepiride 4 mg tablet 4 mg PO BID Qty: 180 3RF Rx Instructions: administer with breakfast and supper metformin 500 mg tablet extended release 24 hr 500 mg PO BID Qty: 180 2RF Rx Instructions: 1 Tablet every AM, 1 tablets every PM orally daily; levothyroxine 112 mcg tablet 112 mcg PO QAM Qty: 90 3RF (DME) OneTouch Verio test strips Strip See Rx Instructions .Route Qty: 100 5RF Rx Instructions: test 3- 4 times a week (DME) lancets 30 gauge misc See Rx Instructions .Route Qty: 100 5RF Rx Instructions: testing 3 ~ 4 times a week losartan 25 mg tablet 25 mg PO DAILY Qty: 90 3RF multivitamin Tablet 1 tab PO QAM Rx Instructions: otc magnesium oxide 400 mg Capsule 400 mg PO QAM Rx Instructions: otc calcium carbonate-vitamin D3 [Calcium 600 + D(3)] 600 mg calcium- 200 unit Capsule 1 tab PO BID Rx Instructions: otc Discharge Orders: Discharge Order (Routine); Ordered 11/07/24 Ordered By: Ananda Soto Admission Data Admit Date/Time: 11/02/24 09:29 Attending Provider: Ananda Soto Admit Provider: Dread Hough Primary Care Provider: Chi Melgar Other Providers: Lui Bray; Dread Hough; [facility] Stay Data Consultations 11/02/24 07:51 Consult Orthopedic Surgery Routine 11/02/24 08:27 ED Decision to Admit Stat Procedures Performed Operation Date: 11/03/24 07:05 Actual Procedures p Hemiarthroplasty Hip Left Posterior Approach(Left) - Lui Angie Bray MD Diagnostic Imagining Performed 11/02/24 05:12 CT facial bones wo con Stat 11/02/24 05:34 CT abd pelvis IV con only Stat CT cervical spine wo con Stat CT chest diagnostic w con Stat CT head/brain wo con Stat 11/02/24 13:05 CT humerus LT wo con Stat Pending Results Patient Have Any Pending Studies at Discharge: No Discharge Instructions Given to Patient (Per Discharging Provider) Follow up with PMD in 2 weeks Total Time Total Time Spent Total Time Spent (In Minutes): 50 Coding Level of Care Code 25391 INP/OBS DISCH >30 MIN Diagnoses Closed fracture of neck of left femur, initial encounter S72.002A Encounter type: initial encounter Fracture type: closed Syncope and collapse R55 Paroxysmal atrial fibrillation I48.0 Atrial fibrillation type: paroxysmal Essential hypertension I10 Hypertension type: essential hypertension Diabetes mellitus type 2, uncontrolled E11.65
[2024-11-07 12:09] VITALS: BP 111/61; PULSE 62; O2SAT 100
--- NOTE | 2024-11-08 13:51 | Coding Query ---
To promote full compliance with coding requirements relating to patient care, physician participation is requested in all cases of plaster caster uncertainty. Please assist us with the question(s) below: Coding Question(s): It was noted throughout the record that the patient has/is suspected to have osteoporosis. According to coding guidelines "a code for osteoporotic fracture, and not a traumatic fracture, should be used for any patient with known osteoporosis who suffers a fracture, even if the patient had a minor fall or trauma, if that fall or trauma would not usually break a normal, healthy bone." Please indicate below the type of fracture: Physician's Response(s): ( ) Osteoporotic fracture of Left Proximal Humerus ( ) Traumatic fracture of Left Proximal Humerus ( ) Other, please specify MTDD
== END 2024-11-07 12:37 | DRG 522 ==
LOC: ED 05:07 → 2S 09:29 → SUATTDRO 09:29 → 2S 10:03